=== PATIENT | male | born 1945 | race Caucasian/White ===

== ENCOUNTER 2016-10-19 13:55 | Inpatient (IN) | payer MEDICARE ==
[2016-10-19] MEDS ORDERED: NS 0.9% 1000 ML* 4,000 ML IV ONE (14:30)
[2016-10-19 14:40] LABS: Hematocrit 36 % (42-52); Hemoglobin 12.7 g/dl (14.0-18.0); Mean Corpuscular HGB Conc 36 g/dl (31-36); Mean Corpuscular Hemoglobin 32 pg (27-31); Mean Corpuscular Volume 89 fL (80-94); Mean Platelet Volume 7 um3 (7.4-10.4); Red Blood Count 4.02 10^6/ul (4.0-5.4); Red Cell Distribution Width 13 % (10.5-15); White Blood Count 16.2 10^3/ul (3.5-10.8)
[2016-10-19 14:52] LABS: Albumin 3.5 g/dL (3.2-5.2); BUN/Creatinine Ratio 23.8 (8-20); C Reactive Protein 41.31 mg/L (< 5.00); Calcium 8.5 mg/dL (8.6-10.3); Globulin 3.9 g/dL (2-4); Magnesium 2.8 mg/dL (1.9-2.7); Total Bilirubin 1.1 mg/dL (0.2-1.0); Total Protein 7.4 g/dL (6.4-8.9)
[2016-10-19 14:57] LABS: Potassium 2.5 mmol/L (3.5-5.0)
[2016-10-19 15:00] LABS: Troponin I 0.04 ng/mL (<0.04)
--- NOTE | 2016-10-19 15:17 | RAD ---
Indication: Shortness of breath, cough. 2 views of the chest demonstrate no mediastinal shift. Heart is of normal size and configuration. Bibasilar atelectasis is noted. No definite pneumonia is identified. IMPRESSION: Bibasilar atelectasis without evidence of pneumonia.
[2016-10-19] MEDS ORDERED: KCL 10 MEQ/50 ML IVPREMIX* 10 MEQ/50 ML BAG IV ONE ×2 (15:22)
[2016-10-19 15:35] LABS: TSH (Thyroid Stimulating Horm) 2.22 mcIU/mL (0.34-5.60)
--- NOTE | 2016-10-19 15:50 | ED ---
Bhanu Ko Michael, scribed for Jamil Longoria MD on 10/19/16 at 1437 . Complex/Multi-Sys Presentation - HPI Summary HPI Summary: 71 y/o male comes to the ED presenting with SOB that started one week ago. The SOB is aggravated with movement and exertion. The pt's daughter was bedside and reports that he also c/o generalized myalgia, decreased appetite, weight loss, and lethargic. The pt denies vomiting, diarrhea, fever, chills, sore throat, syncope, COATES, and CP. The pt was dx with PNA and given abx for 7 days. He notes that his cough has gotten better. The PMHx is significant for CVA with no residual weakness. - History Of Current Complaint Chief Complaint: EDWeakness Time Seen by Provider: 10/19/16 14:15 Hx Obtained From: Patient, Medical Records Onset/Duration: Gradual Onset, Lasting Weeks - 1 one, Still Present Timing: Constant Severity Currently: Moderate Severity Initially: Moderate Aggravating Factor(s): movement and exertion aggravate SOB Associated Signs And Symptoms: Positive: SOB, Other - Positive: generalized myalgia, decreased appetite, weight loss, and lethargic. Negative: vomiting, diarrhea, fever, chills, sore throat, syncope, COATES, and CP. - Allergies/Home Medications Allergies/Adverse Reactions: Allergies Allergy/AdvReac Type Severity Reaction Status Date / Time Tetanus Antitoxin Allergy Shortness Verified 10/19/16 14:01 of Breath PMH/Surg Hx/FS Hx/Imm Hx Endocrine/Hematology History: Reports: Hx Diabetes Denies: Hx Anemia, Hx Unexplained Bleeding Cardiovascular History: Reports: Hx Coronary Artery Disease, Hx Hypertension Denies: Hx Aneurysm, Hx Angina, Hx Angioplasty, Hx Auto Implanted Cardiovert Defib, Hx Cardiac Arrest, Hx Cardiomegaly, Hx Congenital Heart Disease, Hx Congestive Heart Failure, Hx Deep Vein Thrombosis, Hx Embolism, Hx Hypercholesterolemia, Hx Hypotension, Hx Pacemaker/ICD, Hx Peripheral Vascular Disease, Hx Rheumatic Fever, Hx Syncope, Hx Valvular Heart Disease, Other Cardiovascular Problems/Disorders Respiratory History: Reports: Hx Asthma, Hx Pneumonia History: Reports: Other Problems/Disorders - URINARY RETENTION, BPH Denies: Hx Renal Disease Musculoskeletal History: Reports: Hx Arthritis Sensory History: Reports: Hx Contacts or Glasses Denies: Hx Cataracts, Hx Eye Injury, Hx Eye Prosthesis, Hx Glaucoma, Hx Legally Blind, Hx Macular Degeneration, Hx Vision Problem, Hx Deafness, Hx Hearing Aid, Hx Hearing Problem, Other Sensory Impairments Opthamlomology History: Reports: Hx Contacts or Glasses Denies: Hx Cataracts, Hx Eye Injury, Hx Eye Prosthesis, Hx Glaucoma, Hx Legally Blind, Hx Macular Degeneration, Hx Vision Problem, Other Sensory Impairments Neurological History: Reports: Hx CVA - Cancer History Cancer Type, Location and Year: Skin cancer - Surgical History Surgery Procedure, Year, and Place: UMBILICAL REPAIR for hernia. Right lower arm skin cancer removed. Right lower leg fracture fixed surgically Hx Anesthesia Reactions: No Infectious Disease History: No Infectious Disease History: Denies: Hx Clostridium Difficile, Hx Hepatitis, Hx Human Immunodeficiency Virus (HIV), Hx of Known/Suspected MRSA, Hx Shingles, Hx Tuberculosis, Hx Known/ Suspected VRE, Hx Known/Suspected VRSA, History Other Infectious Disease, Traveled Outside the [place] in Last 30 Days - Family History Known Family History: Positive: None Family History: no family malignant hyperthermia and anesthesia reaction - Social History Occupation: Retired Lives: Alone Alcohol Use: None Substance Use Type: Reports: None, Other Substance Use Comment - Amount & Last Used: Chew tabacco Smoking Status (MU): Former Smoker Type: Smokeless Tobacco Amount Used/How Often: chews tobacco past 30 yrs Have You Smoked in the Last Year: No Review of Systems Positive: Other - lethargic. weight loss.. Negative: Fever, Chills Negative: Sore Throat Negative: Chest Pain Positive: Shortness Of Breath Positive: Other - decreased appetite. Negative: Vomiting, Diarrhea Positive: Myalgia Negative: Headache, Syncope Positive: Other All Other Systems Reviewed And Are Negative: Yes Physical Exam - Summary Physical Exam Summary: The patient is well-nourished in no acute distress and in no acute pain. The skin is turgor. HEENT: The head is normocephalic and atraumatic. The pupils are equal and reactive. The conjunctivae are clear and without drainage. Nares are patent and without drainage. Mouth reveals dry mucous membranes and the throat is without erythema and exudate. The external ears are intact. The ear canals are patent and without drainage. The tympanic membranes are intact. Neck is supple with full range of motion and non-tender. There are no carotid bruits. There is no neck vein distension. Respiratory: Chest is non-tender. Lungs are clear to auscultation and breath sounds are symmetrical and equal. Cardiovascular: Heart is regular rate and rhythm. There is no murmur or rub auscultated. There is no peripheral edema and pulses are symmetrical and equal. Abdomen: The abdomen is soft and non-tender. There are normal bowel sounds heard in all four quadrants and there is no organomegaly palpated. Musculoskeletal: There is no back pain noted. Extremities are non-tender with full range of motion. Capillary refill is 3 seconds. There is no peripheral edema or calf tenderness elicited. Neurological: Patient is alert and oriented to person, place and time. The patient has symmetrical motor strength in all four extremities. Psychiatric: The patient has an appropriate affect and does not exhibit any anxiety or depression. Triage Information Reviewed: Yes Vital Signs On Initial Exam: Initial Vitals Temp Pulse Resp BP Pulse Ox 97.1 F 83 20 118/59 92 10/19/16 13:57 10/19/16 13:57 10/19/16 13:57 10/19/16 13:57 10/19/16 13:57 Vital Signs Reviewed: Yes Diagnostics - Vital Signs Vital Signs Temp Pulse Resp BP Pulse Ox 10/19/16 13:57 97.1 F 83 20 118/59 92 - Laboratory Lab Results: Lab Results 10/19/16 10/19/16 10/19/16 Range/Units 14:28 14:28 14:28 WBC 16.2 H (3.5-10.8) 10^3/ul RBC 4.02 (4.0-5.4) 10^6/ul Hgb 12.7 L (14.0-18.0) g/dl Hct 36 L (42-52) % MCV 89 (80-94) fL MCH 32 H (27-31) pg MCHC 36 (31-36) g/dl RDW 13 (10.5-15) % Plt Count 240 (150-450) 10^3/ul MPV 7 L (7.4-10.4) um3 Neut % (Auto) 79.4 (38-83) % Lymph % (Auto) 10.6 L (25-47) % Kimble % (Auto) 8.2 (1-9) % Eos % (Auto) 0.9 (0-6) % Baso % (Auto) 0.9 (0-2) % Absolute Neuts (auto) 12.9 H (1.5-7.7) 10^3/ul Absolute Lymphs (auto) 1.7 (1.0-4.8) 10^3/ul Absolute Monos (auto) 1.3 H (0-0.8) 10^3/ul Absolute Eos (auto) 0.2 (0-0.6) 10^3/ul Absolute Basos (auto) 0.1 (0-0.2) 10^3/ul Absolute Nucleated RBC 0.01 10^3/ul Nucleated RBC % 0.1 INR (Anticoag Therapy) (0.89-1.11) Sodium 120 L (133-145) mmol/L Potassium 2.5 L* (3.5-5.0) mmol/L Chloride 87 L (101-111) mmol/L Carbon Dioxide 17 L (22-32) mmol/L Anion Gap 16 H (2-11) mmol/L BUN 100 H (6-24) mg/dL Creatinine 4.20 H (0.67-1.17) mg/dL Est GFR ( Amer) 18.0 (>60) Est GFR (Non-Af Amer) 14.0 (>60) BUN/Creatinine Ratio 23.8 H (8-20) Glucose 114 H (70-100) mg/dL Lactic Acid 1.1 (0.5-2.0) mmol/L Calcium 8.5 L (8.6-10.3) mg/dL Magnesium 2.8 H (1.9-2.7) mg/dL Total Bilirubin 1.10 H (0.2-1.0) mg/dL AST 18 (13-39) U/L ALT 15 (7-52) U/L Alkaline Phosphatase 43 (34-104) U/L Total Creatine Kinase 224 H (10-223) U/L Troponin I 0.04 H* (<0.04) ng/mL C-Reactive Protein 41.31 H (< 5.00) mg/L B-Natriuretic Peptide ( - 100) pg/mL Total Protein 7.4 (6.4-8.9) g/dL Albumin 3.5 (3.2-5.2) g/dL Globulin 3.9 (2-4) g/dL Albumin/Globulin Ratio 0.9 L (1-3) TSH 2.22 (0.34-5.60) mcIU/mL 10/19/16 10/19/16 Range/Units 14:28 14:28 WBC (3.5-10.8) 10^3/ul RBC (4.0-5.4) 10^6/ul Hgb (14.0-18.0) g/dl Hct (42-52) % MCV (80-94) fL MCH (27-31) pg MCHC (31-36) g/dl RDW (10.5-15) % Plt Count (150-450) 10^3/ul MPV (7.4-10.4) um3 Neut % (Auto) (38-83) % Lymph % (Auto) (25-47) % Kimble % (Auto) (1-9) % Eos % (Auto) (0-6) % Baso % (Auto) (0-2) % Absolute Neuts (auto) (1.5-7.7) 10^3/ul Absolute Lymphs (auto) (1.0-4.8) 10^3/ul Absolute Monos (auto) (0-0.8) 10^3/ul Absolute Eos (auto) (0-0.6) 10^3/ul Absolute Basos (auto) (0-0.2) 10^3/ul Absolute Nucleated RBC 10^3/ul Nucleated RBC % INR (Anticoag Therapy) 0.94 (0.89-1.11) Sodium (133-145) mmol/L Potassium (3.5-5.0) mmol/L Chloride (101-111) mmol/L Carbon Dioxide (22-32) mmol/L Anion Gap (2-11) mmol/L BUN (6-24) mg/dL Creatinine (0.67-1.17) mg/dL Est GFR ( Amer) (>60) Est GFR (Non-Af Amer) (>60) BUN/Creatinine Ratio (8-20) Glucose (70-100) mg/dL Lactic Acid (0.5-2.0) mmol/L Calcium (8.6-10.3) mg/dL Magnesium (1.9-2.7) mg/dL Total Bilirubin (0.2-1.0) mg/dL AST (13-39) U/L ALT (7-52) U/L Alkaline Phosphatase (34-104) U/L Total Creatine Kinase (10-223) U/L Troponin I (<0.04) ng/mL C-Reactive Protein (< 5.00) mg/L B-Natriuretic Peptide 22 ( - 100) pg/mL Total Protein (6.4-8.9) g/dL Albumin (3.2-5.2) g/dL Globulin (2-4) g/dL Albumin/Globulin Ratio (1-3) TSH (0.34-5.60) mcIU/mL Result Diagrams: 10/19/16 14:28 10/19/16 14:28 Lab Statement: Any lab studies that have been ordered have been reviewed, and results considered in the medical decision making process. - Radiology CXR Xray Interpretation: Positive (See Comments) - Bibasilar atelectasis without evidence of pneumonia. Radiology Interpretation Completed By: Radiologist - EKG EKG 1403 EKG Interpretation: LBBB. poor R wave progression. Left axis Complex Multi-Symp Course/Dx - Diagnoses Differential Diagnoses/HQI/PQRI: Metabolic Abnormality, Sepsis, Other - dehydration, acute renal failure, hyponatremia, pneumonia, urinary obatruction Provider Diagnoses: Dehydration, Renal failure, Hyponatremia - Physician Notifications Discussed Care Of Patient With: Dr. Childers (Hospitalist) Time Discussed With Above Provider: 15:37 - pt was accepted as admission Instructed by Provider To: Admit As Inpatient Discharge - Discharge Plan Condition: Stable Disposition: ADMITTED TO [facility] Discharge Disposition Comment: pt was accepted as admission by Dr. Childers Referrals: Bob Juarez MD [Primary Care Provider] - The documentation as recorded by the Bhanu turcios Michael accurately reflects the service I personally performed and the decisions made by , Jamil Longoria MD.
[2016-10-19] MEDS ORDERED: NS 0.9% 1000 ML* 1,000 ML IV SCH (17:00)
[2016-10-19] MEDS ORDERED: Dextrose 50% Syringe 50 ML* 25 GM/50 ML SYRINGE IV PUSH PRN (17:02)
[2016-10-19] MEDS: KCL 10 MEQ/50 ML IVPREMIX* 10 MEQ/50 ML BAG IV SCH ×3 (19:14→22:28)
[2016-10-19] MEDS: Atorvastatin* 20 MG TAB PO SCH (19:17)
[2016-10-19] MEDS: Potassium Chlor TAB* 20 MEQ TAB.ER PO SCH (19:17)
[2016-10-19] MEDS ORDERED: Tamsulosin CAP* 0.4 MG PO SCH (21:00)
[2016-10-19] MEDS: cefTRIAXone VIAL(*) 1,000 MG in NS 0.9% 50 ML* 50 ML IVPB SCH (21:12)
--- NOTE | 2016-10-19 21:28 | RAD ---
Indication: Urinary retention. Real-time sonography of the kidneys was performed. The right kidney measures 12.9 x 6.1 x 5.6 cm. Left kidney measures 13.0 x 5.6 x 5.5 cm. No hydronephrosis is noted in either kidney. There is a cystic structure in the midline. The Sexton catheter is not identified within it. No ureteral jets could BE obtained. It is unclear whether this is a suprapubic cystic structure or the urinary bladder. CT may be helpful for further evaluation. IMPRESSION: No hydronephrosis is noted. Cystic structure midline without definite ureteral jets or Sexton catheter identified. CT is suggested to further evaluate this cystic lesion.
--- NOTE | 2016-10-19 21:32 | HP ---
HISTORY AND PHYSICAL: DATE OF ADMISSION: 10/19/16 TIME OF EVALUATION: 4:30 p.m. PRIMARY CARE PROVIDER: Bob Juarez MD UROLOGIST: Stephen Machado MD CHIEF COMPLAINT: "I can't pee." HISTORY OF PRESENT ILLNESS: Mr. Law is a 71-year-old male who states that for the past week, he is having difficulty urinating. He states that he would go to the bathroom, strain, some urine would come out, but he would feel that there was still urine in there, but he was unable to void. He denies dysuria, hematuria, or abdominal pain. He states that his symptoms have gotten progressively worse over the week and today, he decided to come to the emergency room. He also complains of feeling weak and fatigued. He denies nausea and vomiting. He denies chills, body aches, but thinks he did have some fever last night. He was admitted in 2014 with urinary retention and acute renal failure and actually had a TURP performed by Dr. Machado in September 2015. On prior admissions, he was taking finasteride and tamsulosin, but he is not taking them anymore and he is not sure when he stopped them. PAST MEDICAL HISTORY: 1. Type 2 diabetes. 2. Hypertension. 3. BPH, status post TURP. 4. History of CVA. 5. Hyperlipidemia. 6. Presumed CAD based on evidence of old NE on his EKG. 7. Gangrenous cholecystitis, status post cholecystectomy. 8. Status post hernia repair. MEDICATION LIST: 1. Aspirin 81 mg p.o. daily. 2. Vitamin D 2000 units p.o. weekly. 3. Hydrochlorothiazide 25 mg p.o. daily. 4. Losartan 100 mg p.o. daily. 5. Metformin 1000 mg p.o. b.i.d. 6. Pravastatin 80 mg p.o. q.p.m. ALLERGIES: With TETANUS ANTITOXIN, the patient experienced shortness of breath. FAMILY HISTORY: Reviewed and is noncontributory. SOCIAL HISTORY: He denies tobacco, alcohol or drug use. Surrogate decision maker is his daughter, Olga Abdi. Phone number is [phone]. REVIEW OF SYSTEMS: A 14-point review of systems was performed and all the pertinent negative and positive findings are in the HPI. PHYSICAL EXAMINATION GENERAL: The patient is a pleasant, obese, elderly male, lying in ER stretcher , in no acute distress. VITAL SIGNS: Temperature 97.1, heart rate is 83, respiratory rate is 20, oxygen saturation is 92% on room air, blood pressure is 118/59. HEENT: Pupils are equal. Moist mucous membranes. CHEST: Breath sounds present bilaterally with no added sounds. CVS: Normal S1, S2. Regular rate and rhythm. ABDOMEN: Obese, soft, nontender, nondistended. Bowel sounds are present. EXTREMITIES: There are chronic skin changes and mild lower extremity edema. NEURO: He is alert, awake, and oriented x3. Able to move all 4 extremities. LABORATORY AND IMAGING DATA: The patient had a CBC that showed a WBC of 16.2, hemoglobin of 12.7, hematocrit of 36, platelets of 240 with 79% neutrophils. INR was 0.94. Chemistry showed a sodium of 120, potassium of 2.5, chloride of 87, bicarb of 17, anion gap of 16, BUN of 100, creatinine of 4.2, glucose of 114 , lactic acid of 1.1, calcium of 8.5, magnesium of 2.8, total bilirubin of 1.1. The rest of the LFTs were normal. CPK was 224, troponin 0.04, CRP is 41. BNP is 22. TSH is 2.22. Urinalysis is not available at the time of this dictation. Chest x-ray showed bibasilar atelectasis, but no evidence of pneumonia. EKG done on 10/19/16 at 1403 showed sinus arrhythmia at 76 beats per minute with a left bundle branch block. When compared to his prior EKG from October 2014, the patient already had a wide QRS at that time, but not a complete LBB like he has now. ASSESSMENT AND PLAN: Mr. Law is a 71-year-old male with a past medical history of type 2 diabetes, hypertension, benign prostatic hypertrophy, status post TURP, cerebrovascular accident, hyperlipidemia, presumed coronary artery disease, who presents to the emergency room with complaints of difficulty urinating and weakness, found to have acute kidney injury. 1. Acute kidney injury. Suspect a mixed mechanism of prerenal, renal and postrenal failure. The patient appears to be dehydrated. He is on hydrochlorothiazide as outpatient and also on losartan. Further more, he has had episodes of urinary retention in the past and his complaint at this time is of difficulty urinating. A bladder scan showed 300 mL of urine, but a Sexton catheter was placed and so far it has drained more than 500 mL, so I suspect a component of obstructive renal failure associated with his benign prostatic hypertrophy. The patient is going to receive IV hydration and we are going to monitor his renal function. 2. Urinary retention. Likely associated with benign prostatic hypertrophy. It is unclear when his tamsulosin and finasteride were discontinued. A Sexton catheter was placed in the emergency room and I am going to resume tamsulosin. We will discuss his case with his urologist to see if he recommends any other intervention. We are going to check a renal/bladder ultrasound to look for hydronephrosis or other abnormalities. 3. Possible urinary tract infection. The patient states that he had fever at home and although his vital signs are stable in the emergency room, he does have a white cell count of 16.2. Urinalysis is pending at the time of this dictation and I am going to start him empirically on ceftriaxone. 4. Anion gap metabolic acidosis likely associated with his renal failure. Lactic acid was only 1.1. We are going to continue IV hydration and monitor his CO2. 5. Hypokalemia. We will replete. Usually with renal failure, we see hyperkalemia but on this patient we are seeing hypokalemia. As his potassium is below 3, he will be monitored on telemetry and we are going to monitor his potassium values. 6. Hyponatremia suspect secondary to dehydration. We will continue IV fluids and monitor his sodium. 7. Mild troponin elevation. This is likely secondary to his renal failure, but the patient will be monitored on telemetry and we are going to check serial cardiac enzymes. 8. Code status was discussed with the patient. He wishes to be a do not resuscitate and there is already a MOLST form in his chart. 9. DVT prophylaxis. The patient has a score of 3 on DVT Prophylaxis Risk Assessment Guide and he will be started on subcutaneous heparin. TIME SPENT: Approximately 65 minutes were spent with the patient's interview, medical records review, physical examination to complete this admission, more than half this time was spent [id number] with the patient in coordination of care. CC: Bob Juarez MD; Stephen Machado MD* [id number]/[facility] #: [id number] MTDD
[2016-10-19] MEDS: Insulin LISPRO* 1 UNITS UNIT SUBCUT SCH (22:00)
[2016-10-19] MEDS: Heparin VIAL(*) 5000 UNITS/ML VIAL (FIVE THOUSAND) SUBCUT SCH (22:28)
[2016-10-19 23:40] LABS: BUN/Creatinine Ratio 25.7 (8-20); Calcium 8.4 mg/dL (8.6-10.3); EGFR African American 22.8 (>60); EGFR Non-African American 17.7 (>60); Potassium 2.9 mmol/L (3.5-5.0)
[2016-10-19 23:41] LABS: Troponin I 0.03 ng/mL (<0.04)
[2016-10-20] MEDS: KCL 20 MEQ/100 ML IVPREMIX* 20 MEQ/100 ML BAG IV SCH ×2 (00:29→03:56)
[2016-10-20] MEDS: Heparin VIAL(*) 5000 UNITS/ML VIAL (FIVE THOUSAND) SUBCUT SCH ×3 (06:04→22:10)
[2016-10-20 06:30] LABS: Hematocrit 36 % (42-52); Hemoglobin 12.8 g/dl (14.0-18.0); Mean Corpuscular HGB Conc 35 g/dl (31-36); Mean Corpuscular Hemoglobin 32 pg (27-31); Mean Corpuscular Volume 89 fL (80-94); Mean Platelet Volume 7 um3 (7.4-10.4); Red Blood Count 4.07 10^6/ul (4.0-5.4); Red Cell Distribution Width 13 % (10.5-15); White Blood Count 12.3 10^3/ul (3.5-10.8)
[2016-10-20 06:56] LABS: BUN/Creatinine Ratio 28.4 (8-20); Calcium 8.4 mg/dL (8.6-10.3); EGFR African American 27.4 (>60); EGFR Non-African American 21.3 (>60); Potassium 3.2 mmol/L (3.5-5.0)
[2016-10-20] MEDS: Insulin LISPRO* 1 UNITS UNIT SUBCUT SCH ×7 (09:34→21:52)
[2016-10-20] MEDS: Potassium Chlor TAB* 20 MEQ TAB.ER PO SCH (09:40)
[2016-10-20] MEDS: Aspirin EC Low Dose* 81 MG TAB.EC PO SCH (09:40)
[2016-10-20] MEDS ORDERED: Magnesium Sulfate 2 GM IV* 2 GM/50 ML BAG IVPB ONE (09:55)
[2016-10-20 10:14] LABS: Magnesium 2.7 mg/dL (1.9-2.7)
--- NOTE | 2016-10-20 12:35 | RAD ---
INDICATION: Assess cystic structure noted in suprapubic midline on ultrasound of one day prior. COMPARISON: Ultrasound of one day prior. October 24, 2014 CT. TECHNIQUE: Multidetector CT images were obtained from the lung bases to the ischial tuberosities. Evaluation of the viscera is limited without IV contrast. Multiplanar reformation. REPORT: Mild LEFT basilar atelectasis and pleural parenchymal scarring without suspicious change compared with the prior CT. Post cholecystectomy. 1.6 cm diameter subcapsular cyst at the RIGHT anterior hepatic segment adjacent to the gallbladder fossa. Negative for biliary dilatation. Moderately atrophic pancreas without suspicious finding. Unremarkable spleen. Negative for CT abnormality of the upper GI, small bowel, infra cecal appendix, or colon. Negative for ascites or free air. RIGHT larger than LEFT indirect fat-containing inguinal hernias without inflammatory change. Postsurgical change of supraumbilical ventral hernia repair with suggestion of chronic seroma extending deep to the mesh measuring up to 2 cm AP by 7 cm transverse without significant change. Normal adrenal glands. Vascular calcification at the LEFT renal hilum. Negative for nephrolithiasis or hydronephrosis. No conspicuous focal renal lesions. Unremarkable ureters and moderately distended urinary bladder. No catheter present. Few calcifications at the prostate gland. Symmetric seminal vesicles. Negative for lymphadenopathy. Fusiform aneurysm of the infrarenal abdominal aorta measuring up to 3.5 x 3.3 cm orthogonal diameter and extending over a cephalocaudal length of 5 cm. Partial physiologic distention of the IVC. Polyarticular degenerative arthropathy. Associated subchondral sclerosis and cystic change at the hip joints. No suspicious focal osseous lesions evident. IMPRESSION: 1. No grossly spherical cystic collection identified separate from the urinary bladder to correspond with the ultrasound finding. On this basis the ultrasound structure corresponds with the urinary bladder. 2. Fusiform aneurysm of the infrarenal abdominal aorta without significant interval change.
[2016-10-20] MEDS: KCL 10 MEQ/50 ML IVPREMIX* 10 MEQ/50 ML BAG IV SCH ×3 (12:41→16:14)
[2016-10-20 14:58] LABS: Urine Bacteria 1+ (Absent); Urine Bilirubin Negative (Negative); Urine Glucose Negative (Negative); Urine Nitrite Negative (Negative)
[2016-10-20] MEDS ORDERED: KCL 10 MEQ/50 ML IVPREMIX* 10 MEQ/50 ML BAG ONE (16:12)
--- NOTE | 2016-10-20 18:10 | PN ---
Subjective Date of Service: 10/20/16 Interval History: HOSPITALIST PROGRESS NOTE Patient seen and examined at bedside. He removed his Sexton last night and c/o not being able to void this AM. Family History: Unchanged from Admission Social History: Unchanged from Admission Past Medical History: Unchanged from Admission Objective Active Medications: Aspirin (Aspirin Ec Low Dose*) 81 mg PO DAILY [facility] Last Admin: 10/20/16 09:40 Dose: 81 mg Atorvastatin Calcium (Lipitor*) 20 mg PO 1700 [facility] Last Admin: 10/19/16 19:17 Dose: 20 mg Dextrose (D50w Syringe 50 Ml*) 12.5 gm IV PUSH .FOR FS < 60 - SS PRN PRN Reason: FS < 60 Heparin Sodium (Porcine) (Heparin Vial(*)) 5,000 units SUBCUT Q8HR [facility] Last Admin: 10/20/16 13:46 Dose: 5,000 units Sodium Chloride (Ns 0.9% 1000 Ml*) 1,000 mls @ 125 mls/hr IV PER RATE [facility] Last Admin: 10/20/16 05:36 Dose: 125 mls/hr Ceftriaxone Sodium 1,000 mg/ (Sodium Chloride) 50 mls @ 200 mls/hr IVPB Q24H [facility] Last Admin: 10/19/16 21:12 Dose: 200 mls/hr Insulin Human Lispro (Humalog*) 0 units SUBCUT AC [facility] PRN Reason: Protocol Last Admin: 10/20/16 13:47 Dose: 1 units Insulin Human Lispro (Humalog*) 0 units SUBCUT ACHS [facility] PRN Reason: Protocol Last Admin: 10/20/16 13:47 Dose: 3 units Potassium Chloride (Klor Con Er Tab*) 40 meq PO BID [facility] Vital Signs 10/19/16 10/19/16 10/19/16 18:30 19:05 21:51 Temperature Pulse Rate Respiratory 22 Rate Blood Pressure (mmHg) O2 Sat by Pulse 94 93 Oximetry 10/19/16 10/19/16 10/20/16 23:20 23:27 02:56 Temperature 97.8 F 97.4 F Pulse Rate 92 78 Respiratory 16 22 16 Rate Blood Pressure 119/43 121/52 (mmHg) O2 Sat by Pulse 97 97 Oximetry Oxygen Devices in Use Now: Nasal Cannula Appearance: Elderly male lying in bed in NAD. Eyes: No Scleral Icterus Ears/Nose/Mouth/Throat: Mucous Membranes Moist Neck: Trachea Midline Respiratory: Symmetrical Chest Expansion and Respiratory Effort, Clear to Auscultation Cardiovascular: RRR - Normal S1 and S2 Abdominal: NL Sounds; No Tenderness; No Distention - obese Extremities: - - Trace edema Neurological: Alert and Oriented x 3, NL Muscle Strength and Tone Lines/Tubes/Other Access: Clean, Dry and Intact Sexton - Coude catheter, Clean, Dry and Intact Peripheral IV Nutrition: Taking PO's Result Diagrams: 10/20/16 06:17 10/20/16 06:18 Assess/Plan/Problems-Billing Assessment: Mr. Law is a 71yo M with PMH of type 2 DM, HTN, BPH s/p TURP, CVA, HLD, presumed CAD, who presented to ED with c/o inability to void found to have urinary retention and RUSTY. - Patient Problems (1) Urinary retention Comment: - Coude placed by Dr. Machado with immediate drainage of 450ml of urine. - US and CT abdome reviewed. - As patient already had TURP, Flomax/Proscar are no longer indicated. Dr. Machado feels he may have neck of the bladder stenosis. (2) RUSTY (acute kidney injury) Comment: - Multifactorial. - Likely a combination of HCTZ, Losartan and obstruction. - Improving - continue to monitor. - Continue IVF. (3) UTI (urinary tract infection) Comment: - Suspect possible UTI in the setting of urinary retention. - Continue Ceftriaxone empirically and follow UA/culture. (4) Non-sustained ventricular tachycardia Comment: - Patient had multiple episodes of Vtach, asymptomatic. - Likely associated with his severe hypokalemia - continue to replete. - Check echocardiogram. (5) Elevated troponin Comment: - Likely associated with increased demand in the setting of infection and renal failure. (6) DVT prophylaxis Comment: - SQ heparin. (7) DNR (do not resuscitate) Status and Disposition: Inpatient.
[2016-10-20] MEDS: Atorvastatin* 20 MG TAB PO SCH (18:16)
[2016-10-20] MEDS: cefTRIAXone VIAL(*) 1,000 MG in NS 0.9% 50 ML* 50 ML IVPB SCH (18:16)
[2016-10-20] MEDS: NS 0.9% 1000 ML* 1,000 ML IV SCH (20:41)
[2016-10-20 21:15] LABS: BUN/Creatinine Ratio 28.6 (8-20); Calcium 8.5 mg/dL (8.6-10.3); EGFR African American 39.4 (>60); EGFR Non-African American 30.6 (>60); Potassium 3.1 mmol/L (3.5-5.0)
[2016-10-20] MEDS: Potassium Chloride LIQUID* 20 MEQ PACKET PO SCH (22:10)
[2016-10-21 06:14] LABS: Hematocrit 35 % (42-52); Hemoglobin 12.5 g/dl (14.0-18.0); Mean Corpuscular HGB Conc 36 g/dl (31-36); Mean Corpuscular Hemoglobin 32 pg (27-31); Mean Corpuscular Volume 90 fL (80-94); Mean Platelet Volume 7 um3 (7.4-10.4); Red Blood Count 3.93 10^6/ul (4.0-5.4); Red Cell Distribution Width 14 % (10.5-15); White Blood Count 7.3 10^3/ul (3.5-10.8)
[2016-10-21 06:27] LABS: Calcium 8.3 mg/dL (8.6-10.3); EGFR African American 49.7 (>60); EGFR Non-African American 38.7 (>60); Potassium 3.1 mmol/L (3.5-5.0)
[2016-10-21] MEDS: Heparin VIAL(*) 5000 UNITS/ML VIAL (FIVE THOUSAND) SUBCUT SCH ×3 (06:27→20:55)
[2016-10-21] MEDS: KCL 10 MEQ/50 ML IVPREMIX* 10 MEQ/50 ML BAG IV SCH ×4 (08:38→13:30)
[2016-10-21] MEDS: Aspirin EC Low Dose* 81 MG TAB.EC PO SCH (09:29)
[2016-10-21] MEDS: Potassium Chloride LIQUID* 20 MEQ PACKET PO SCH ×2 (09:29→20:53)
[2016-10-21] MEDS: Insulin LISPRO* 1 UNITS UNIT SUBCUT SCH ×7 (09:30→20:56)
[2016-10-21] MEDS: NS 0.9% 1000 ML* 1,000 ML IV SCH (10:27)
--- NOTE | 2016-10-21 10:43 | PN ---
Subjective Date of Service: 10/21/16 Interval History: HOSPITALIST PROGRESS NOTE Patient seen and examined at bedside. He feels better today, had some diarrhea yesterday, but none so far today. Tolerating diet well. Family History: Unchanged from Admission Social History: Unchanged from Admission Past Medical History: Unchanged from Admission Objective Active Medications: Aspirin (Aspirin Ec Low Dose*) 81 mg PO DAILY [facility] Last Admin: 10/21/16 09:29 Dose: 81 mg Atorvastatin Calcium (Lipitor*) 20 mg PO 1700 [facility] Last Admin: 10/20/16 18:16 Dose: 20 mg Dextrose (D50w Syringe 50 Ml*) 12.5 gm IV PUSH .FOR FS < 60 - SS PRN PRN Reason: FS < 60 Heparin Sodium (Porcine) (Heparin Vial(*)) 5,000 units SUBCUT Q8HR [facility] Last Admin: 10/21/16 06:27 Dose: 5,000 units Ceftriaxone Sodium 1,000 mg/ (Sodium Chloride) 50 mls @ 200 mls/hr IVPB Q24H [facility] Last Admin: 10/20/16 18:16 Dose: 200 mls/hr Sodium Chloride (Ns 0.9% 1000 Ml*) 1,000 mls @ 75 mls/hr IV PER RATE [facility] Last Admin: 10/21/16 10:27 Dose: 75 mls/hr Potassium Chloride (Potassium Chloride 10 Meq/50 Ml Ivpremix*) 10 meq in 50 mls @ 50 mls/hr IV Q1H [facility] Stop: 10/21/16 11:59 Last Admin: 10/21/16 10:26 Dose: 50 mls/hr Insulin Human Lispro (Humalog*) 0 units SUBCUT AC [facility] PRN Reason: Protocol Last Admin: 10/21/16 09:30 Dose: 3 units Insulin Human Lispro (Humalog*) 0 units SUBCUT ACHS [facility] PRN Reason: Protocol Last Admin: 10/21/16 09:30 Dose: 2 units Potassium Chloride (Klor-Con Liquid*) 40 meq PO BID [facility] Last Admin: 10/21/16 09:29 Dose: 40 meq Vital Signs 10/21/16 10/21/16 10/21/16 00:41 03:34 07:46 Temperature 97.6 F 98.1 F 98.3 F Pulse Rate 73 74 69 Respiratory 20 20 18 Rate Blood Pressure 128/70 115/56 131/58 (mmHg) O2 Sat by Pulse 97 96 97 Oximetry Oxygen Devices in Use Now: Nasal Cannula Appearance: Elderly male lying in bed in NAD. Eyes: No Scleral Icterus Ears/Nose/Mouth/Throat: Mucous Membranes Moist Neck: Trachea Midline Respiratory: Symmetrical Chest Expansion and Respiratory Effort, Clear to Auscultation Cardiovascular: RRR - Normal S1 and S2 Abdominal: NL Sounds; No Tenderness; No Distention - obese Extremities: - - Mild bilateral LE edema Neurological: - - AAOx2 (self and place), MARSHALL, HE Lines/Tubes/Other Access: Clean, Dry and Intact Peripheral IV Nutrition: Taking PO's Result Diagrams: 10/21/16 06:07 10/21/16 06:07 Assess/Plan/Problems-Billing Assessment: Mr. Law is a 71yo M with PMH of type 2 DM, HTN, BPH s/p TURP, CVA, HLD, presumed CAD, who presented to ED with c/o inability to void found to have urinary retention and RUSTY. - Patient Problems (1) Urinary retention Comment: - Coude placed by Dr. Machado with immediate drainage of 450ml of urine. - US and CT abdome reviewed. - As patient already had TURP, Flomax/Proscar are no longer indicated. Dr. Machado feels he may have neck of the bladder stenosis. (2) RUSTY (acute kidney injury) Comment: - Multifactorial. - Likely a combination of HCTZ, Losartan and obstruction. - Improving - continue to monitor. - Continue IVF. (3) UTI (urinary tract infection) Comment: - Suspect possible UTI in the setting of urinary retention. - Continue Ceftriaxone empirically and follow UA/culture. (4) Non-sustained ventricular tachycardia Comment: - Patient had multiple episodes of Vtach, asymptomatic. - Likely associated with his severe hypokalemia - continue to replete. - Echocardiogram was a limited study with EF 35-40%. - Had minimally elevated troponin this admission. May benefit of stress test as outpatient after acute issues resolved. (5) Elevated troponin Comment: - Likely associated with increased demand in the setting of infection and renal failure. (6) Hypokalemia Comment: - Continue to replete. (7) Diarrhea Comment: - Suspect viral gastroenteritis. This would explain his hypokalemia in the setting of RUSTY. - Continue supportive care (8) DVT prophylaxis Comment: - SQ heparin. (9) DNR (do not resuscitate) Status and Disposition: Inpatient.
--- NOTE | 2016-10-21 12:36 | ECHO ---
Patient: ALFONSO PARKER [facility] Rec#: [id number] : 1945 Date: 10/21/2016 Age: 71y Height: 167.6 cm / 66.0 in Weight: 116.1 kg / 255.9 lbs Sex: M BSA: 2.2 Room#: 439 Admit Date#: 10/19/2016 Type: Inpatient Referring: Nataliia Torre MD Reading: Ben Lara MD Director Of Market Intelligence: Keli Lacey RN RDCS CC: Bob Juarez MD Transthoracic Echocardiogram Indication: Ventricular tachycardia, borderline troponin levels BP: 115/56 HR: 68 Rhythm: NSR Findings History: CAD, old NE by EKG, HTN, HLD, DM, CVA, former smoker, obesity Technical Comments: The study is technically limited due to patient body habitus. The study is technically limited due to the patient's smoking history. Completed at 1125. Left Ventricle: The left ventricle is not well visualized.In general suboptimal images for interrogation. The left ventricular chamber size is normal. There is mild to moderately decreased left ventricular systolic function. The estimated ejection fraction is 35-40%. Most views suggest closer to 40 %. There is no consistent Doppler evidence of clinically significant diastolic dysfunction. Left Atrium: The left atrial chamber size is normal. Right Ventricle: The right ventricle is not well visualized.Off axis imaging makes accurate assessment impossible. Right Atrium: The right atrial cavity size is normal. Aortic Valve: The aortic valve is trileaflet. The aortic valve leaflets are mildly thickened. There is no evidence of aortic regurgitation. There is no evidence of aortic stenosis. Mitral Valve: The mitral valve leaflets are mildly thickened. There is a trace of mitral regurgitation. There is no evidence of mitral stenosis. Tricuspid Valve: The tricuspid valve leaflets are normal. There is trace tricuspid regurgitation. Unable to estimate the right ventricular systolic pressure. Pulmonic Valve: The pulmonic valve structure is not well visualized. Pericardium: There is no significant pericardial effusion. A pericardial fat pad is visualized. Aorta: The ascending aorta is not well visualized. The aortic arch is not well visualized. The aortic root is normal in size. Pulmonary Artery: The main pulmonary artery is not well visualized. Venous: The venous system is not well visualized. The inferior vena cava is not visualized. Conclusions The study is technically limited due to patient body habitus. The study is technically limited due to the patient's smoking history. Completed at 1125. The left ventricle is not well visualized.In general suboptimal images for interrogation. There is mild to moderately decreased left ventricular systolic function. The estimated ejection fraction is 35-40%. Most views suggest closer to 40 %. There is a trace of mitral regurgitation. There is trace tricuspid regurgitation. In general subopitmal images preclude reliable assessment. Sugeest alternative imaging study or contrast usage if LV systolic assessment is critical. Measurements Name Value Normal Range RVDdMajor (2D) 5.1 cm (2.2 - 4.4) RVAW (2D) 0.9 cm (0.2 - 0.5) RAd ISD 4CH 4 cm (3.4 - 4.9) RA (A4C)W 4.2 cm (2.9 - 4.6) IVSd (2D) 1 cm (0.6 - 1) LVPWd (2D) 1 cm (0.6 - 1) LVIDd (2D) 4.5 cm (3.6 - 5.4) LVIDs (2D) 4 cm - LV FS (2D) 11 % (25 - 45) Aortic Annulus 2.5 cm (1.4 - 2.6) Ao root diameter (2D) 3.3 cm (2.1 - 3.5) LA dimension (AP) 2D 3.4 cm (2.3 - 3.8) LAd ISD 4CH 4.5 cm (2.9 - 5.3) LA ISD 4CH W 4 cm (2.5 - 4.5) Name Value Normal Range LA ESV SP 4CH (A/L) 53 ml - LA ESV SP 2CH (A/L) 44 ml - LA ESV BP (A/L) 51 ml - LA ESV BP (A/L) index 23 ml/m2 - LA ESV SP 4CH (MOD) 49 ml - LA ESV SP 2CH (MOD) 40 ml - Name Value Normal Range MV E-wave Vmax 0.8 m/sec - MV deceleration time 286 msec - MV A-wave Vmax 0.96 m/sec - MV E:A ratio 0.8 ratio - LV septal e' Vmax 0.06 m/sec - LV lateral e' Vmax 0.11 m/sec - LV E:e' septal ratio 13.3 ratio - LV E:e' lateral ratio 7.3 ratio - Name Value Normal Range AV Vmax 1.5 m/sec - AV peak gradient 9 mmHg - LVOT Vmax 1 m/sec - Name Value Normal Range PV Vmax 0.96 m/sec -
--- NOTE | 2016-10-21 15:25 | CONS ---
CONSULTATION NOTE: DATE OF CONSULT: 10/20/16 PROCEDURE: Complex placement of Sexton catheter (16-[place] coude). REASON FOR CONSULT: I was asked by Dr. Rodarte from the hospitalist service to see this 71-year-old white male with urinary retention and difficulty placement of a Sexton catheter. HISTORY OF PRESENT ILLNESS: Mr. Law was admitted to [facility] 2 years ago with weakness, abdominal pain, and was found to be in urinary retention of 1, 500 cc. At that time, his upper tracts were normal and his serum creatinine was about 2. He had a Sexton catheter placement and the creatinine went down to 1.6. He was then followed in my office and was worked up and noted to have poor detrusor contractions. He was kept on Sexton catheter drainage for another year. Urodynamic studies finally showed recovery of the detrusor function. In September 2015, he underwent an uncomplicated transurethral resection of the prostate. He did very well postoperatively and following the catheter removal, he was able to void with an adequate stream. His postvoid residual has been running about 100 cc. I last saw him in my office 7 months ago and at that time, his residual was about 200 cc. He was not complaining of any obstructive voiding symptoms. The elevated postvoid residual was felt to be secondary to a residual flaccid neurogenic bladder. The patient was admitted to [facility] with increasing weakness and difficulty voiding. His serum creatinine was elevated at 4.2 and the bladder ultrasound showed increased postvoid residual. He had a Sexton catheter placed and 500 cc of urine was drained. His renal function improved. The patient however accidentally pulled his catheter out. Attempts by the nursing staff to replace the Sexton were not successful and a consultation is obtained. PHYSICAL EXAM: He is an elderly white male who looks older than his age. Exam of the abdomen showed moderate suprapubic distention. External genitalia are normal. After several attempts, I managed to place 16 coude catheter and a total of about 400 cc of urine was drained. There was resistance to the introduction of the Sexton in the bulbar urethra and at the level of the bladder neck suggesting elements of urethral strictures. IMPRESSION: Overall, he is improving and his renal function is getting better. PLAN: The plan is to discharge him home when ready on Sexton catheter drainage. I will see him in my office for reevaluation. He will need to have a cystoscopy to rule out any urethral stricture or bladder neck contracture. Urodynamic studies will also be needed to reevaluate his bladder function. [id number]/[facility] #: [id number] [place]
[2016-10-21] MEDS: Atorvastatin* 20 MG TAB PO SCH (17:59)
[2016-10-21] MEDS: cefTRIAXone VIAL(*) 1,000 MG in NS 0.9% 50 ML* 50 ML IVPB SCH (17:59)
[2016-10-21] MEDS ORDERED: Carvedilol TAB* 6.25 MG PO ONE (18:00)
[2016-10-21 18:54] LABS: BUN/Creatinine Ratio 23.8 (8-20); Calcium 8.2 mg/dL (8.6-10.3); EGFR African American 60.4 (>60)
[2016-10-21 18:56] LABS: Potassium 3.7 mmol/L (3.5-5.0)
[2016-10-22] MEDS: NS 0.9% 1000 ML* 1,000 ML IV SCH (00:44)
[2016-10-22] MEDS: Heparin VIAL(*) 5000 UNITS/ML VIAL (FIVE THOUSAND) SUBCUT SCH ×3 (05:08→21:12)
[2016-10-22 06:20] LABS: BUN/Creatinine Ratio 19.1 (8-20); Calcium 8.1 mg/dL (8.6-10.3); EGFR Non-African American 53.6 (>60); Potassium 3.4 mmol/L (3.5-5.0)
[2016-10-22] MEDS: Carvedilol TAB* 6.25 MG PO SCH ×2 (08:25→21:10)
[2016-10-22] MEDS: Potassium Chloride LIQUID* 20 MEQ PACKET PO SCH ×3 (08:25→21:09)
[2016-10-22] MEDS: Aspirin EC Low Dose* 81 MG TAB.EC PO SCH (08:25)
[2016-10-22] MEDS: KCL 10 MEQ/50 ML IVPREMIX* 10 MEQ/50 ML BAG IV SCH ×3 (08:26→11:11)
[2016-10-22] MEDS: Insulin LISPRO* 1 UNITS UNIT SUBCUT SCH ×7 (08:49→21:10)
[2016-10-22] MEDS ORDERED: Acetaminophen TAB* 325 MG PO PRN (10:06)
--- NOTE | 2016-10-22 16:53 | PN ---
Subjective Date of Service: 10/22/16 Interval History: HOSPITALIST PROGRESS NOTE Patient seen and examined at bedside. He feels better today, states diarrhea is resolved. Tolerating diet well, denies N/V. Denies CP and dyspnea. Family History: Unchanged from Admission Social History: Unchanged from Admission Past Medical History: Unchanged from Admission Objective Active Medications: Acetaminophen (Tylenol Tab*) 650 mg PO Q6H PRN PRN Reason: pain/fever Last Admin: 10/22/16 11:11 Dose: 650 mg Aspirin (Aspirin Ec Low Dose*) 81 mg PO DAILY [facility] Last Admin: 10/22/16 08:25 Dose: 81 mg Atorvastatin Calcium (Lipitor*) 20 mg PO 1700 [facility] Last Admin: 10/21/16 17:59 Dose: 20 mg Carvedilol (Coreg Tab*) 6.25 mg PO BID [facility] Last Admin: 10/22/16 08:25 Dose: 6.25 mg Dextrose (D50w Syringe 50 Ml*) 12.5 gm IV PUSH .FOR FS < 60 - SS PRN PRN Reason: FS < 60 Heparin Sodium (Porcine) (Heparin Vial(*)) 5,000 units SUBCUT Q8HR [facility] Last Admin: 10/22/16 13:25 Dose: 5,000 units Ceftriaxone Sodium 1,000 mg/ (Sodium Chloride) 50 mls @ 200 mls/hr IVPB Q24H [facility] Last Admin: 10/21/16 17:59 Dose: 200 mls/hr Sodium Chloride (Ns 0.9% 1000 Ml*) 1,000 mls @ 75 mls/hr IV PER RATE [facility] Last Admin: 10/22/16 00:44 Dose: 75 mls/hr Insulin Human Lispro (Humalog*) 0 units SUBCUT AC [facility] PRN Reason: Protocol Last Admin: 10/22/16 13:24 Dose: 4 units Insulin Human Lispro (Humalog*) 0 units SUBCUT ACHS [facility] PRN Reason: Protocol Last Admin: 10/22/16 13:11 Dose: Not Given Potassium Chloride (Klor-Con Liquid*) 40 meq PO TID [facility] Stop: 10/23/16 09:01 Last Admin: 10/22/16 13:25 Dose: 40 meq Vital Signs 10/22/16 10/22/16 11:22 15:26 Temperature 98.2 F 98.3 F Pulse Rate 76 80 Respiratory 16 18 Rate Blood Pressure 129/65 120/58 (mmHg) O2 Sat by Pulse 95 95 Oximetry Oxygen Devices in Use Now: Nasal Cannula Appearance: Elderly male lying in bed in NAD. Eyes: No Scleral Icterus Ears/Nose/Mouth/Throat: Mucous Membranes Moist Neck: Trachea Midline Respiratory: Symmetrical Chest Expansion and Respiratory Effort, - - BS+ bilaterally with bibasilar rales Cardiovascular: RRR - Normal S1 and S2 Abdominal: NL Sounds; No Tenderness; No Distention Extremities: - - Trace bilateral LE edema Neurological: Alert and Oriented x 3, NL Muscle Strength and Tone, - - [place] Lines/Tubes/Other Access: Clean, Dry and Intact Sexton, Clean, Dry and Intact Peripheral IV Nutrition: Taking PO's Result Diagrams: 10/21/16 06:07 10/22/16 05:30 Assess/Plan/Problems-Billing Assessment: Mr. Law is a 71yo M with PMH of type 2 DM, HTN, BPH s/p TURP, CVA, HLD, presumed CAD, who presented to ED with c/o inability to void found to have urinary retention and RUSTY. - Patient Problems (1) Urinary retention Comment: - Coude placed by Dr. Machado with immediate drainage of 450ml of urine. - US and CT abdome reviewed. - As patient already had TURP, Flomax/Proscar are no longer indicated. Dr. Machado feels he may have neck of the bladder stenosis. (2) RUSTY (acute kidney injury) Comment: - Multifactorial. - Likely a combination of HCTZ, Losartan and obstruction. - Improving - continue to monitor. - D/c IVF. (3) UTI (urinary tract infection) Comment: - Suspected possible UTI in the setting of urinary retention but cultures are negative. - D/c Ceftriaxone. (4) Non-sustained ventricular tachycardia Comment: - Patient had multiple episodes of Vtach, asymptomatic. - Likely associated with his severe hypokalemia - continue to replete. - Echocardiogram was a limited study with EF 35-40%. - Had minimally elevated troponin this admission. - Cardiology consult requested. (5) Elevated troponin Comment: - Likely associated with increased demand in the setting of infection and renal failure. (6) Hypokalemia Comment: - Continue to replete. (7) Diarrhea Comment: - Suspect viral gastroenteritis. This would explain his hypokalemia in the setting of RUSTY. - Resolved. (8) DVT prophylaxis Comment: - SQ heparin. (9) DNR (do not resuscitate) Status and Disposition: Inpatient.
[2016-10-22] MEDS: Atorvastatin* 20 MG TAB PO SCH (17:58)
[2016-10-22] MEDS: cefTRIAXone VIAL(*) 1,000 MG in NS 0.9% 50 ML* 50 ML IVPB SCH (18:00)
[2016-10-23] MEDS: Heparin VIAL(*) 5000 UNITS/ML VIAL (FIVE THOUSAND) SUBCUT SCH ×3 (05:51→22:45)
[2016-10-23 06:32] LABS: BUN/Creatinine Ratio 12.6 (8-20); Calcium 8.3 mg/dL (8.6-10.3); EGFR African American 77.1 (>60); EGFR Non-African American 59.9 (>60); Potassium 4.4 mmol/L (3.5-5.0)
[2016-10-23] MEDS: Insulin LISPRO* 1 UNITS UNIT SUBCUT SCH ×7 (07:54→22:41)
[2016-10-23] MEDS ORDERED: Regadenoson* 0.4 MG/5 ML SYRINGE ONE (10:19)
[2016-10-23] MEDS: Carvedilol TAB* 6.25 MG PO SCH ×2 (12:48→22:45)
[2016-10-23] MEDS: Aspirin EC Low Dose* 81 MG TAB.EC PO SCH (12:48)
[2016-10-23] MEDS: Potassium Chloride LIQUID* 20 MEQ PACKET PO SCH ×3 (13:22→14:02)
--- NOTE | 2016-10-23 15:20 | CONS ---
CC: Dr. Bob Juarez; Hospitalist CONSULTATION REPORT: DATE OF CONSULT: 10/22/16 PRIMARY CARE PHYSICIAN: Dr. Bob Juarez. REASON FOR CONSULT: Wide complex tachycardia. CHIEF COMPLAINT: Five days of diarrhea. HISTORY OF PRESENT ILLNESS: Mr. Law is a 71-year-old gentleman who presented to the emergency room secondary to inability to urinate for several days and 5 days of persistent diarrhea. On admis jeff, the patient was found to have significant urinary retention and a Sexton catheter was placed by Dr. Machado. During initial evaluation, the patient additionally had a long run of monomorphic ventricular tachyc ardia, he was asymptomatic with this. He was admitted to telemetry and subsequently had intermitten t tachyarrhythmias with different morphology from the initial tachyarrhythmias and appeared to be a supraventricular tachycardia. The patient denies ever having had chest pain, pressure, heaviness, dyspnea, palpitations, racing of the heart, syncope, or near syncope. He says his diarrhea has persisted and he is still not feeling at his baseline. PAST MEDICAL HISTORY: 1. Presumed CAD based on ECG and echo. 2. History of stroke. 3. Type 2 diabetes. 4. Hypertension. 5. Dyslipidemia. 6. Benign prostatic hypertrophy, status post TURP. 7. Urinary retention. 8. Morbid obesity. PAST SURGICAL HISTORY: Includes cholecystectomy for gangrenous cholecystitis with hernia repair. MEDICATIONS: Medication list on admission included: 1. Pravastatin 80 mg a day. 2. Metformin 1000 mg b.i.d. 3. Losartan 100 mg a day. 4. Hydrochlorothiazide 25 mg a day. 5. Aspirin 81 mg. 6. Vitamin D. Current inpatient medications include: 1. Tylenol. 2. Aspirin 81 mg a day. 3. Coreg 6.25 mg b.i.d. 4. Humalog. 5. Lispro insulin. 6. Subcutaneous heparin. 7. Ceftriaxone. 8. He has had multiple infusions for electrolyte replacement. ALLERGIES: Include TETANUS ANTITOXIN. FAMILY HISTORY: Significant in his father lived into his 90s, his mother "young" in her 70s; b oth of unknown etiology according to the patient. SOCIAL HISTORY: The patient lives independently in [place]. He denies smoking or alcohol intak e. REVIEW OF SYSTEMS: Negative for fevers, chills, sweats, orthopnea, PND. He denies any relatives javier ving symptoms of diarrhea or infectious illness. He denies any recent changes in activity such as t ravel or medication adjustments prior to his presentation. For all other review of systems, see his tory of present illness and other than that review of systems is negative. PHYSICAL EXAM: The patient is a morbidly obese gentleman, lying in bed at 20 degrees, appears uncom fortable, but not acutely medically ill. He is 5 feet 6 inches, weighs 256 pounds with a BMI of 41. 3. Vital Signs: Blood pressure 120/58, pulse ranges from 60 to 80, oxygen saturation is 95%, he is 98.3 degrees Fahrenheit, his T-max during the admission was 99.9. HEENT: Pupils are equal and rou nd. Mucous membranes moist. Neck: Thick from obesity without appreciable increased JVP. Palpable carotid pulses that are free of bruits. Breath sounds diminished throughout, but no wheezing, rale s, or rhonchi, and symmetrical effort. Coronary: Also distant, S1 and S2, regular without murmurs a ppreciated. Abdomen: Very obese. Active bowel sounds. Soft, no epigastric discomfort. No appreci able hepatosplenomegaly. Suprapubic area was soft. Extremities: The lower extremities appeared sy mmetrical and free of edema and more warm. Neurologically, awake and alert to person and place. Sp eech was articulate. Comprehension seems good. He was mentally able to follow commands, but physic ally was unable to sit up in bed or even roll over easily so I could listen to his lungs. He appear s extremely physically debilitated and weakened. Skin: Pale from sun exposure. Warm, dry. No appr eciable cyanosis or rashes. History of decubitus on the buttocks, not examined by me. DIAGNOSTIC STUDIES/LAB DATA: ECG on admission, 10/19/16, showed sinus rhythm, 76 beats a minute, QR S axis of -30 with poor R-wave progression in V1 through V4, suspicious for possible old anterosepta l AR and inferior Qs in leads II, III, and aVF, suspicious for old inferior wall AR, and he has 2 PV Cs on a 10-second strip. ECG, 10/22/16, shows normal sinus rhythm, 69 beats a minute, QRS axis -30 with normal AV and IV cond uction times. Inferior and anterior wall Qs as above. No ectopy. Echocardiogram from 10/20/16 was technically limited due to body habitus, which showed an ejection f raction between 35% to 40%, with trace mitral, trace tricuspid insufficiency, and was considered a s uboptimal study. A chest x-ray showed no evidence of acute pulmonary infiltrates or disease. Rhythm strips from the shows a 30-second run of monomorphic ventricular tachycardia. Laboratory, on admission, the patient's white count was 16.2, hemoglobin 12.7, platelet 240 with inc reased neutrophils and monos. INR 0.94. Sodium 120, potassium 2.5, chloride 87, bicarb 17, BUN 100 , creatinine 4.2, glucose 114, magnesium 2.8. Total bili 1.1. Troponin 0.04. CPK of 224. TSH 2.2 2. Electrolytes on October 22 show sodium 134, potassium 3.4, chloride 103, bicarb 24, BUN 25, cre atinine 1.31, glucose 104. Troponin #2 is 0.05, #3 is 0.03. Urinalysis: Specific gravity 1.008, 2+ blood, 1+ bacteria, negative esterase, and negative nitrite. Urine culture and blood cultures were negative. Stool cultures were negative for shigella toxin. IMPRESSION: In summary, Gerald Law is a 71-year-old gentleman admitted to the hospital with uri nary retention, several days of profuse diarrhea with marked electrolyte disturbances of hyponatremi a, hypokalemia, and mild hypermagnesemia, and acidemic with probable moderate cardiomyopathy based o n suboptimal echo with asymptomatic monomorphic ventricular tachycardia. Despite aggressive electro lyte replacement, he has continued with supraventricular tachyarrhythmias. Mr. Law has multipl e atherosclerotic risks as all stated above. I suspect that the marked electrolyte and metabolic disturbances were the largest contributors to th e patient's dysrhythmias, but it does appear to be in the setting of cardiomyopathy. I have recommended a 2-day chemical stress test to look for the possibility of fixed or reversible d efects and additionally to attempt to get a more accurate estimate of the patient's ejection fractio n. This data will help us to decide and have more comprehensive discussion with the patient regarding i nvasive versus noninvasive strategy and whether or not his ejection fraction is low enough to be con sidering an ICD. In the interim, I recommend continuation of optimizing his underlying metabolic abnormalities includ ing electrolyte disturbances, acidemia, and supportive measures for his diarrhea. For the patient's cardiomyopathy, possibly ischemic, I agree with Coreg and I would consider doublin g this dose, I agree with holding ASHELY inhibitors for now, but consideration for resuming these in th e future should be made with his history of diabetes and depressed ejection fraction. Further recommendations will be made pending the results of his stress test and continued response t o the above medical management. In the long-term, the patient would benefit from lifestyle modifications with weight loss, improved diet, and exercise. [id number]/[facility] #: [id number]
--- NOTE | 2016-10-23 17:33 | PN ---
Subjective Date of Service: 10/23/16 Interval History: Pt feels better today. Diarrhea that was present prior to admission still continues. Denies abd pain. Developed bead sores. Had been refusing PT Family History: Unchanged from Admission Social History: Unchanged from Admission Past Medical History: Unchanged from Admission Objective Active Medications: Acetaminophen (Tylenol Tab*) 650 mg PO Q6H PRN PRN Reason: pain/fever Last Admin: 10/22/16 11:11 Dose: 650 mg Aspirin (Aspirin Ec Low Dose*) 81 mg PO DAILY [facility] Last Admin: 10/23/16 12:48 Dose: 81 mg Atorvastatin Calcium (Lipitor*) 20 mg PO 1700 [facility] Last Admin: 10/22/16 17:58 Dose: 20 mg Carvedilol (Coreg Tab*) 12.5 mg PO BID [facility] Dextrose (D50w Syringe 50 Ml*) 12.5 gm IV PUSH .FOR FS < 60 - SS PRN PRN Reason: FS < 60 Heparin Sodium (Porcine) (Heparin Vial(*)) 5,000 units SUBCUT Q8HR [facility] Last Admin: 10/23/16 13:58 Dose: 5,000 units Insulin Human Lispro (Humalog*) 0 units SUBCUT AC [facility] PRN Reason: Protocol Last Admin: 10/23/16 14:00 Dose: 1 units Insulin Human Lispro (Humalog*) 0 units SUBCUT ACHS [facility] PRN Reason: Protocol Last Admin: 10/23/16 13:59 Dose: 2 units Vital Signs 10/22/16 10/22/16 10/23/16 19:47 20:00 00:02 Temperature 97.9 F 97.9 F Pulse Rate 86 75 Respiratory 18 18 20 Rate Blood Pressure 122/74 113/62 (mmHg) O2 Sat by Pulse 95 94 Oximetry 10/23/16 10/23/16 10/23/16 04:24 07:35 07:47 Temperature 98.0 F 98.3 F Pulse Rate 82 73 Respiratory 20 16 18 Rate Blood Pressure 137/79 130/66 (mmHg) O2 Sat by Pulse 97 94 Oximetry 10/23/16 10/23/16 13:05 14:45 Temperature 97.9 F 97.4 F Pulse Rate 101 92 Respiratory 20 Rate Blood Pressure 107/81 118/70 (mmHg) O2 Sat by Pulse 97 94 Oximetry Oxygen Devices in Use Now: Nasal Cannula Appearance: 71 yo M in nAd, aAOx3 Eyes: No Scleral Icterus, PERRLA Ears/Nose/Mouth/Throat: NL Teeth, Lips, Gums, Mucous Membranes Moist Neck: NL Appearance and Movements; NL JVP, Trachea Midline Respiratory: Symmetrical Chest Expansion and Respiratory Effort, Clear to Auscultation Cardiovascular: NL Sounds; No Murmurs; No JVD, RRR Abdominal: NL Sounds; No Tenderness; No Distention, No Hepatosplenomegaly Lymphatic: No Cervical Adenopathy Extremities: No Edema, No Clubbing, Cyanosis Skin: - - small 2 cm in diam x 3 sacral decubs-stage 2 Neurological: Alert and Oriented x 3, NL Muscle Strength and Tone Result Diagrams: 10/21/16 06:07 10/23/16 05:15 Additional Lab and Data: Lab Results 10/19/16 10/19/16 10/19/16 Range/Units 14:28 14:28 14:28 WBC 16.2 H (3.5-10.8) 10^3/ul RBC 4.02 (4.0-5.4) 10^6/ul Hgb 12.7 L (14.0-18.0) g/dl Hct 36 L (42-52) % MCV 89 (80-94) fL MCH 32 H (27-31) pg MCHC 36 (31-36) g/dl RDW 13 (10.5-15) % Plt Count 240 (150-450) 10^3/ul MPV 7 L (7.4-10.4) um3 Neut % (Auto) 79.4 (38-83) % Lymph % (Auto) 10.6 L (25-47) % Pitt % (Auto) 8.2 (1-9) % Eos % (Auto) 0.9 (0-6) % Baso % (Auto) 0.9 (0-2) % Absolute Neuts (auto) 12.9 H (1.5-7.7) 10^3/ul Absolute Lymphs (auto) 1.7 (1.0-4.8) 10^3/ul Absolute Monos (auto) 1.3 H (0-0.8) 10^3/ul Absolute Eos (auto) 0.2 (0-0.6) 10^3/ul Absolute Basos (auto) 0.1 (0-0.2) 10^3/ul Absolute Nucleated RBC 0.01 10^3/ul Nucleated RBC % 0.1 INR (Anticoag Therapy) (0.89-1.11) Sodium 120 L (133-145) mmol/L Potassium 2.5 L* (3.5-5.0) mmol/L Chloride 87 L (101-111) mmol/L Carbon Dioxide 17 L (22-32) mmol/L Anion Gap 16 H (2-11) mmol/L BUN 100 H (6-24) mg/dL Creatinine 4.20 H (0.67-1.17) mg/dL Est GFR ( Amer) 18.0 (>60) Est GFR (Non-Af Amer) 14.0 (>60) BUN/Creatinine Ratio 23.8 H (8-20) Glucose 114 H (70-100) mg/dL Lactic Acid 1.1 (0.5-2.0) mmol/L Calcium 8.5 L (8.6-10.3) mg/dL Magnesium 2.8 H (1.9-2.7) mg/dL Total Bilirubin 1.10 H (0.2-1.0) mg/dL AST 18 (13-39) U/L ALT 15 (7-52) U/L Alkaline Phosphatase 43 (34-104) U/L Total Creatine Kinase 224 H (10-223) U/L Troponin I 0.04 H* (<0.04) ng/mL C-Reactive Protein 41.31 H (< 5.00) mg/L B-Natriuretic Peptide ( - 100) pg/mL Total Protein 7.4 (6.4-8.9) g/dL Albumin 3.5 (3.2-5.2) g/dL Globulin 3.9 (2-4) g/dL Albumin/Globulin Ratio 0.9 L (1-3) TSH 2.22 (0.34-5.60) mcIU/mL 10/19/16 10/19/16 Range/Units 14:28 14:28 WBC (3.5-10.8) 10^3/ul RBC (4.0-5.4) 10^6/ul Hgb (14.0-18.0) g/dl Hct (42-52) % MCV (80-94) fL MCH (27-31) pg MCHC (31-36) g/dl RDW (10.5-15) % Plt Count (150-450) 10^3/ul MPV (7.4-10.4) um3 Neut % (Auto) (38-83) % Lymph % (Auto) (25-47) % Pitt % (Auto) (1-9) % Eos % (Auto) (0-6) % Baso % (Auto) (0-2) % Absolute Neuts (auto) (1.5-7.7) 10^3/ul Absolute Lymphs (auto) (1.0-4.8) 10^3/ul Absolute Monos (auto) (0-0.8) 10^3/ul Absolute Eos (auto) (0-0.6) 10^3/ul Absolute Basos (auto) (0-0.2) 10^3/ul Absolute Nucleated RBC 10^3/ul Nucleated RBC % INR (Anticoag Therapy) 0.94 (0.89-1.11) Sodium (133-145) mmol/L Potassium (3.5-5.0) mmol/L Chloride (101-111) mmol/L Carbon Dioxide (22-32) mmol/L Anion Gap (2-11) mmol/L BUN (6-24) mg/dL Creatinine (0.67-1.17) mg/dL Est GFR ( Amer) (>60) Est GFR (Non-Af Amer) (>60) BUN/Creatinine Ratio (8-20) Glucose (70-100) mg/dL Lactic Acid (0.5-2.0) mmol/L Calcium (8.6-10.3) mg/dL Magnesium (1.9-2.7) mg/dL Total Bilirubin (0.2-1.0) mg/dL AST (13-39) U/L ALT (7-52) U/L Alkaline Phosphatase (34-104) U/L Total Creatine Kinase (10-223) U/L Troponin I (<0.04) ng/mL C-Reactive Protein (< 5.00) mg/L B-Natriuretic Peptide 22 ( - 100) pg/mL Total Protein (6.4-8.9) g/dL Albumin (3.2-5.2) g/dL Globulin (2-4) g/dL Albumin/Globulin Ratio (1-3) TSH (0.34-5.60) mcIU/mL Microbiology and Other Data: Microbiology 10/20/16 06:17 Aerobic Blood Culture - Preliminary Blood Venous No Growth Day 1 Anaerobic Blood Culture - Preliminary No Growth Day 1 10/19/16 23:06 Aerobic Blood Culture - Preliminary Blood Venous No Growth Day 1 Anaerobic Blood Culture - Preliminary No Growth Day 1 10/19/16 20:00 Stool Gross Appearance - Final Stool Shiga Toxin I & II - Final 10/20/16 00:49 Influenza Types A,B Antigen (WILFREDO) - Final Nasopharyngeal Specimen received for Influenza A/B Molecular testing Assess/Plan/Problems-Billing Assessment: Mr. Law is a 71yo M with PMH of type 2 DM, HTN, BPH s/p TURP, CVA, HLD, presumed CAD, who presented to ED with c/o inability to void found to have urinary retention and RUSTY. - Patient Problems (1) Urinary retention Comment: Coude placed by Dr. Machado with immediate drainage of 450ml of urine on 10/20/[address] abdomen reviewed. As patient already had TURP, Flomax/Proscar are no longer indicated. Dr. Machado feels he may have neck of the bladder stenosis. plan to d/c with leonardo in place (2) UTI (urinary tract infection) Comment: - Suspected possible UTI in the setting of urinary retention but cultures are negative. - D/c Ceftriaxone. (3) RUSTY (acute kidney injury) Comment: Multifactorial. Likely a combination of HCTZ, Losartan and obstruction. Improving - continue to monitor. (4) Non-sustained ventricular tachycardia Comment: Patient had multiple episodes of Vtach, asymptomatic. Echocardiogram was a limited study with EF 35-40%. Had minimally elevated troponin this admission. Cardiology consult appreciated. stress test in process (5) Hypokalemia Comment: resolved (6) Diarrhea Comment: Suspect viral gastroenteritis. This would explain his hypokalemia in the setting of RUSTY. still ongoing. Check stool for c. diff (7) Elevated troponin Comment: Likely associated with increased demand in the setting of infection and renal failure. (8) DVT prophylaxis Comment: - SQ heparin. Status and Disposition: Inpatient.
[2016-10-23] MEDS: Atorvastatin* 20 MG TAB PO SCH (17:40)
[2016-10-23] MEDS ORDERED: Amoxicillin/Clavulanate TAB* 875 MG PO SCH (21:00)
[2016-10-24] MEDS: Heparin VIAL(*) 5000 UNITS/ML VIAL (FIVE THOUSAND) SUBCUT SCH ×4 (07:46→21:31)
[2016-10-24] MEDS: Insulin LISPRO* 1 UNITS UNIT SUBCUT SCH ×7 (07:56→21:30)
--- NOTE | 2016-10-24 09:05 | RAD ---
Edited for charges. INDICATION: Diabetes, hypertension, obesity. COMPARISON: None. TECHNIQUE: On October 24, 2016, 25.650 mCi of Tc-99m Myoview were administered IV. SPECT images of the heart were obtained. On October 23, 2016, under the direction of Dr. Temple, the patient was given an IV injection of a pharmacologic stress agent. Subsequently, the patient was given an IV injection of 26.230 mCi Tc-99m Myoview. SPECT images of the heart were obtained and a gated wall motion study was performed. No gated study could be performed for the stress exam due to arrhythmia. No CT for attenuation could be obtained due to body habitus and limited range of motion of the arms. FINDINGS: Gated wall motion images were obtained at rest and demonstrate global hypokinesia. Calculated left ventricular ejection fraction is 37 % at rest. Estimated LEFT ventricular end diastolic volume is 134 mL at rest. TID 0.92. Large fixed perfusion defect at the apex and apical to basilar inferior wall segments. Given absence of CT for attenuation correction diaphragmatic attenuation cannot be differentiated from presence of an infarct. No reversible stress-induced myocardial perfusion defects evident. IMPRESSION: 1. Limited exam due to arrhythmia precluding stress gated study and absence of CT for attenuation correction. 2. Elevated LEFT ventricular end-diastolic volume and global hypokinesia with moderately severe abnormal estimated LEFT ventricular ejection fraction of 37%. 3. Large fixed perfusion defect at the apex and apical to basilar inferior wall segments. Given absence of CT for attenuation correction diaphragmatic attenuation cannot be differentiated from presence of an infarct. 4. No stress-induced ischemia evident. ASSESSMENT: High risk. Based on imaging criteria from ACC/AHA 2002 Guideline Update for the Management of Patients With Chronic Stable Angina Table 23. Noninvasive Risk Stratification. MTDD
[2016-10-24] MEDS: Carvedilol TAB* 6.25 MG PO SCH ×2 (10:05→17:07)
[2016-10-24] MEDS: Aspirin EC Low Dose* 81 MG TAB.EC PO SCH (10:05)
--- NOTE | 2016-10-24 14:55 | PN ---
Subjective Date of Service: 10/24/16 Interval History: Pt did not have a BM since yesterday mid day and C. diff test was discontinued. No complaints. ambulated with PT and was cleared for discharge. Telem shows episodes of atrial tachycardia, but no V. tach x 48H. Family History: Unchanged from Admission Social History: Unchanged from Admission Past Medical History: Unchanged from Admission Objective Active Medications: Acetaminophen (Tylenol Tab*) 650 mg PO Q6H PRN PRN Reason: pain/fever Last Admin: 10/22/16 11:11 Dose: 650 mg Aspirin (Aspirin Ec Low Dose*) 81 mg PO DAILY [facility] Last Admin: 10/24/16 10:05 Dose: 81 mg Atorvastatin Calcium (Lipitor*) 20 mg PO 1700 [facility] Last Admin: 10/23/16 17:40 Dose: 20 mg Carvedilol (Coreg Tab*) 12.5 mg PO BID WITH MEALS [facility] Last Admin: 10/24/16 10:05 Dose: 12.5 mg Dextrose (D50w Syringe 50 Ml*) 12.5 gm IV PUSH .FOR FS < 60 - SS PRN PRN Reason: FS < 60 Heparin Sodium (Porcine) (Heparin Vial(*)) 5,000 units SUBCUT Q8HR [facility] Last Admin: 10/24/16 10:06 Dose: 5,000 units Insulin Human Lispro (Humalog*) 0 units SUBCUT AC [facility] PRN Reason: Protocol Last Admin: 10/24/16 12:57 Dose: 5 units Insulin Human Lispro (Humalog*) 0 units SUBCUT ACHS [facility] PRN Reason: Protocol Last Admin: 10/24/16 12:58 Dose: 3 units Lactobacillus Rhamnosus (Culturelle*) 1 cap PO BID [facility] Vital Signs 10/23/16 10/23/16 10/24/16 19:59 20:00 00:14 Temperature 98.3 F 97.9 F Pulse Rate 74 71 Respiratory 16 16 Rate Blood Pressure 131/70 134/77 (mmHg) O2 Sat by Pulse 96 96 Oximetry 10/24/16 10/24/16 10/24/16 03:45 08:00 10:05 Temperature 98.1 F 97.9 F Pulse Rate 71 74 Respiratory 20 20 Rate Blood Pressure 128/67 125/65 (mmHg) O2 Sat by Pulse 93 96 Oximetry Oxygen Devices in Use Now: None Appearance: 71 yo M in NAD, aAOx3 Eyes: No Scleral Icterus, PERRLA Ears/Nose/Mouth/Throat: NL Teeth, Lips, Gums, Mucous Membranes Moist Neck: NL Appearance and Movements; NL JVP, Trachea Midline Respiratory: Symmetrical Chest Expansion and Respiratory Effort, Clear to Auscultation Cardiovascular: NL Sounds; No Murmurs; No JVD, RRR Abdominal: NL Sounds; No Tenderness; No Distention, No Hepatosplenomegaly Lymphatic: No Cervical Adenopathy Extremities: No Edema, No Clubbing, Cyanosis Skin: No Nodules or Sclerosis, - - sacral decubs not examined today Neurological: Alert and Oriented x 3, NL Muscle Strength and Tone Result Diagrams: 10/21/16 06:07 10/23/16 05:15 Additional Lab and Data: Lab Results 10/19/16 10/19/16 10/19/16 Range/Units 14:28 14:28 14:28 WBC 16.2 H (3.5-10.8) 10^3/ul RBC 4.02 (4.0-5.4) 10^6/ul Hgb 12.7 L (14.0-18.0) g/dl Hct 36 L (42-52) % MCV 89 (80-94) fL MCH 32 H (27-31) pg MCHC 36 (31-36) g/dl RDW 13 (10.5-15) % Plt Count 240 (150-450) 10^3/ul MPV 7 L (7.4-10.4) um3 Neut % (Auto) 79.4 (38-83) % Lymph % (Auto) 10.6 L (25-47) % Blaine % (Auto) 8.2 (1-9) % Eos % (Auto) 0.9 (0-6) % Baso % (Auto) 0.9 (0-2) % Absolute Neuts (auto) 12.9 H (1.5-7.7) 10^3/ul Absolute Lymphs (auto) 1.7 (1.0-4.8) 10^3/ul Absolute Monos (auto) 1.3 H (0-0.8) 10^3/ul Absolute Eos (auto) 0.2 (0-0.6) 10^3/ul Absolute Basos (auto) 0.1 (0-0.2) 10^3/ul Absolute Nucleated RBC 0.01 10^3/ul Nucleated RBC % 0.1 INR (Anticoag Therapy) (0.89-1.11) Sodium 120 L (133-145) mmol/L Potassium 2.5 L* (3.5-5.0) mmol/L Chloride 87 L (101-111) mmol/L Carbon Dioxide 17 L (22-32) mmol/L Anion Gap 16 H (2-11) mmol/L BUN 100 H (6-24) mg/dL Creatinine 4.20 H (0.67-1.17) mg/dL Est GFR ( Amer) 18.0 (>60) Est GFR (Non-Af Amer) 14.0 (>60) BUN/Creatinine Ratio 23.8 H (8-20) Glucose 114 H (70-100) mg/dL Lactic Acid 1.1 (0.5-2.0) mmol/L Calcium 8.5 L (8.6-10.3) mg/dL Magnesium 2.8 H (1.9-2.7) mg/dL Total Bilirubin 1.10 H (0.2-1.0) mg/dL AST 18 (13-39) U/L ALT 15 (7-52) U/L Alkaline Phosphatase 43 (34-104) U/L Total Creatine Kinase 224 H (10-223) U/L Troponin I 0.04 H* (<0.04) ng/mL C-Reactive Protein 41.31 H (< 5.00) mg/L B-Natriuretic Peptide ( - 100) pg/mL Total Protein 7.4 (6.4-8.9) g/dL Albumin 3.5 (3.2-5.2) g/dL Globulin 3.9 (2-4) g/dL Albumin/Globulin Ratio 0.9 L (1-3) TSH 2.22 (0.34-5.60) mcIU/mL 10/19/16 10/19/16 Range/Units 14:28 14:28 WBC (3.5-10.8) 10^3/ul RBC (4.0-5.4) 10^6/ul Hgb (14.0-18.0) g/dl Hct (42-52) % MCV (80-94) fL MCH (27-31) pg MCHC (31-36) g/dl RDW (10.5-15) % Plt Count (150-450) 10^3/ul MPV (7.4-10.4) um3 Neut % (Auto) (38-83) % Lymph % (Auto) (25-47) % Blaine % (Auto) (1-9) % Eos % (Auto) (0-6) % Baso % (Auto) (0-2) % Absolute Neuts (auto) (1.5-7.7) 10^3/ul Absolute Lymphs (auto) (1.0-4.8) 10^3/ul Absolute Monos (auto) (0-0.8) 10^3/ul Absolute Eos (auto) (0-0.6) 10^3/ul Absolute Basos (auto) (0-0.2) 10^3/ul Absolute Nucleated RBC 10^3/ul Nucleated RBC % INR (Anticoag Therapy) 0.94 (0.89-1.11) Sodium (133-145) mmol/L Potassium (3.5-5.0) mmol/L Chloride (101-111) mmol/L Carbon Dioxide (22-32) mmol/L Anion Gap (2-11) mmol/L BUN (6-24) mg/dL Creatinine (0.67-1.17) mg/dL Est GFR ( Amer) (>60) Est GFR (Non-Af Amer) (>60) BUN/Creatinine Ratio (8-20) Glucose (70-100) mg/dL Lactic Acid (0.5-2.0) mmol/L Calcium (8.6-10.3) mg/dL Magnesium (1.9-2.7) mg/dL Total Bilirubin (0.2-1.0) mg/dL AST (13-39) U/L ALT (7-52) U/L Alkaline Phosphatase (34-104) U/L Total Creatine Kinase (10-223) U/L Troponin I (<0.04) ng/mL C-Reactive Protein (< 5.00) mg/L B-Natriuretic Peptide 22 ( - 100) pg/mL Total Protein (6.4-8.9) g/dL Albumin (3.2-5.2) g/dL Globulin (2-4) g/dL Albumin/Globulin Ratio (1-3) TSH (0.34-5.60) mcIU/mL Microbiology and Other Data: Microbiology 10/20/16 06:17 Aerobic Blood Culture - Preliminary Blood Venous No Growth Day 1 Anaerobic Blood Culture - Preliminary No Growth Day 1 10/19/16 23:06 Aerobic Blood Culture - Preliminary Blood Venous No Growth Day 1 Anaerobic Blood Culture - Preliminary No Growth Day 1 10/19/16 20:00 Stool Gross Appearance - Final Stool Shiga Toxin I & II - Final 10/20/16 00:49 Influenza Types A,B Antigen ([facility]ED[facility]) - Final Nasopharyngeal Specimen received for Influenza A/B Molecular testing Assess/Plan/Problems-Billing Assessment: Mr. Law is a 71yo M with PMH of type 2 DM, HTN, BPH s/p TURP, CVA, HLD, presumed CAD, who presented to ED with c/o inability to void found to have urinary retention and RUSTY. - Patient Problems (1) Urinary retention Comment: Coude placed by Dr. Machado with immediate drainage of 450ml of urine on 10/20/[address] abdomen reviewed. As patient already had TURP, Flomax/Proscar are no longer indicated. Dr. Machado feels he may have neck of the bladder stenosis. plan to d/c with leonardo in place (2) UTI (urinary tract infection) Comment: - Suspected possible UTI in the setting of urinary retention but cultures are negative. - D/c Ceftriaxone. (3) RUSTY (acute kidney injury) Comment: Multifactorial. Likely a combination of HCTZ, Losartan and obstruction. Improving - continue to monitor. (4) Non-sustained ventricular tachycardia Comment: Patient had multiple episodes of Vtach, asymptomatic. Echocardiogram was a limited study with EF 35-40%. Had minimally elevated troponin this admission. Cardiology consult appreciated. stress test shows large area of fixed defect, EF 37%, no inducible ischemia. D/w DR. Tomlinson who recommended Life Vest. Pt refused. He was explained the indication for a Life Vest and risks of sudden cardiac without it and wished to cont DNR and be discharged home tomorrow. (5) Hypokalemia Comment: resolved (6) Diarrhea Comment: Suspect viral gastroenteritis. This would explain his hypokalemia in the setting of RUSTY. resolving (7) Elevated troponin Comment: Likely associated with increased demand in the setting of infection and renal failure. cont ASA/statin/BB. (8) DVT prophylaxis Comment: - SQ heparin. Status and Disposition: Inpatient.Plan to d/c home with VNS in AM.
[2016-10-24] MEDS: Lactobacillus Acidophilu (GG)* 1 CAP CAP PO SCH ×2 (16:00→20:54)
[2016-10-24] MEDS: Atorvastatin* 20 MG TAB PO SCH (17:07)
[2016-10-25] MEDS: Heparin VIAL(*) 5000 UNITS/ML VIAL (FIVE THOUSAND) SUBCUT SCH (05:03)
[2016-10-25 05:10] LABS: Calcium 8.4 mg/dL (8.6-10.3); EGFR African American 78.6 (>60); EGFR Non-African American 61.1 (>60); Potassium 4.4 mmol/L (3.5-5.0)
[2016-10-25] MEDS: Insulin LISPRO* 1 UNITS UNIT SUBCUT SCH ×4 (09:37→14:08)
--- NOTE | 2016-10-25 09:43 | PN ---
Subjective Date of Service: 10/25/16 - cc: VT, diarrhea Interval History: The patient feels much better, diarrhea resolving, able to walk to bathroom, in his room. No CP, palpitations or SOB. Not dizzy. Medications Active Medications: Acetaminophen (Tylenol Tab*) 650 mg PO Q6H PRN PRN Reason: pain/fever Last Admin: 10/22/16 11:11 Dose: 650 mg Aspirin (Aspirin Ec Low Dose*) 81 mg PO DAILY [facility] Last Admin: 10/24/16 10:05 Dose: 81 mg Atorvastatin Calcium (Lipitor*) 20 mg PO 1700 [facility] Last Admin: 10/24/16 17:07 Dose: 20 mg Carvedilol (Coreg Tab*) 12.5 mg PO BID WITH MEALS [facility] Last Admin: 10/24/16 17:07 Dose: 12.5 mg Dextrose (D50w Syringe 50 Ml*) 12.5 gm IV PUSH .FOR FS < 60 - SS PRN PRN Reason: FS < 60 Heparin Sodium (Porcine) (Heparin Vial(*)) 5,000 units SUBCUT Q8HR [facility] Last Admin: 10/25/16 05:03 Dose: 5,000 units Insulin Human Lispro (Humalog*) 0 units SUBCUT AC [facility] PRN Reason: Protocol Last Admin: 10/24/16 17:20 Dose: 4 units Insulin Human Lispro (Humalog*) 0 units SUBCUT ACHS [facility] PRN Reason: Protocol Last Admin: 10/24/16 21:30 Dose: 3 units Lactobacillus Rhamnosus (Culturelle*) 1 cap PO BID [facility] Last Admin: 10/24/16 20:54 Dose: 1 cap Objective Vital Signs: Temp Pulse Resp BP Pulse Ox 98.3 F 66 17 133/74 97 10/25/16 03:42 10/25/16 03:42 10/25/16 03:42 10/25/16 03:42 10/25/16 03:42 Oxygen Devices in Use Now: None Appearance: obese elderly gentleman, sitting, appears comfortable, much improved. Eyes: No Scleral Icterus Ears/Nose/Mouth/Throat: Clear Oropharnyx Neck: Trachea Midline, No Thyroid Enlargement, Masses Respiratory: Symmetrical Chest Expansion and Respiratory Effort, Clear to Auscultation Cardiovascular: NL Sounds; No Murmurs; No JVD, RRR Abdominal: NL Sounds; No Tenderness; No Distention - obese, rotund. Extremities: No Edema Skin: No Rash or Ulcers Neurological: Alert and Oriented x 3 Lines/Tubes/Other Access: Clean, Dry and Intact Peripheral IV Laboratory Results: 10/21/16 06:07 10/25/16 04:31 INR (Anticoag Therapy) 0.94 (0.89-1.11) 10/19/16 14:28 Total Bilirubin 1.10 mg/dL (0.2-1.0) H 10/19/16 14:28 AST 18 U/L (13-39) 10/19/16 14:28 ALT 15 U/L (7-52) 10/19/16 14:28 Alkaline Phosphatase 43 U/L (34-104) 10/19/16 14:28 B-Natriuretic Peptide 22 pg/mL (-100) 10/19/16 14:28 Total Protein 7.4 g/dL (6.4-8.9) 10/19/16 14:28 Albumin 3.5 g/dL (3.2-5.2) 10/19/16 14:28 Globulin 3.9 g/dL (2-4) 10/19/16 14:28 Albumin/Globulin Ratio 0.9 (1-3) L 10/19/16 14:28 TSH 2.22 mcIU/mL (0.34-5.60) 10/19/16 14:28 10/19/16 10/19/16 19:48 23:06 Troponin I 0.05 H* 0.03 Diagnostic Imagin day lexiscan myoview: Fixed inferior apical defect, EF 37%. EKG Data: Monitor: NSR, short bursts of what I think is SVT with mild abberancy, no recurrance of VT (wider, different axis than current tachyarrhythmias). Assessment/Plan 71 yo male admitted with urinary retention, acute RI, diarrhea and marked electrolyte disturbances with VT in ER. Cardiac work up revealed a moderate CM, appears ischemic with no evidence of reversable ischemia. Improved s/p leonardo, electrolyte replacement, Coreg. Points of Discussion: CM: no evidence of CHF. Continue Coreg, consider resuming ACEI as creatinine normalized. CAD: No inducation for a cath. Continue medical management with risk factor modification as out patient, diet and more. VT: A comprehensive discussion with the patient regarding potential for syncope /sudden was had. The patient is not interested in a life vest or ICD, he is fine if he dies from VT. We also discussed the potential impact of other medical issues on his cardiac health, I advised him to contact his MD as soon as he has a problem instead of waiting days as he did recently. I recommend the patient follow up with cardiology in 1-2 months (Dr[address] Franklin).
[2016-10-25] MEDS: Carvedilol TAB* 6.25 MG PO SCH (09:51)
[2016-10-25] MEDS: Lactobacillus Acidophilu (GG)* 1 CAP CAP PO SCH (09:52)
[2016-10-25] MEDS: Aspirin EC Low Dose* 81 MG TAB.EC PO SCH (09:52)
[2016-10-25 13:31] VITALS: BP 125/73
--- NOTE | 2016-10-26 01:38 | DS ---
DISCHARGE SUMMARY: DATE OF ADMISSION: 10/19/16 DATE OF DISCHARGE: 10/25/16 PRIMARY CARE PROVIDER: Dr. Juarez. DISCHARGE DIAGNOSES: 1. Diarrhea with subsequent dehydration as well as hyponatremia and hypokalemia. 2. Acute kidney injury. 3. Urinary retention, status post Sexton placement. 4. Nonsustained ventricular tachycardia. 5. Elevated troponin. SECONDARY DIAGNOSES: 1. History of diabetes type 2. 2. Hypertension. 3. History of status post TURP. 4. History of CVA. 5. Hyperlipidemia. 6. History of gangrenous cholecystitis, status post cholecystectomy. 7. History of hernia repair. MEDICATIONS AT DISCHARGE: Include: 1. Aspirin 81 mg daily. 2. Metformin 1000 mg b.i.d. 3. Coreg 12.5 mg b.i.d. 4. Vitamin D 2000 units daily. 5. Zestril 5 mg daily. 6. Pravastatin 80 mg daily. The patient is recommended to follow up with his primary care provider, Dr. Juarez, on 10/28/16 at 11:30 a.m. The patient is to follow up with Dr. Machado in 1 to 2 weeks regarding indwelling Sexton. LABORATORY DATA: On 10/21/16, white blood cell count of 7.3, hemoglobin 12.5, hematocrit 35, and platelets of 203. On 10/25/16, sodium of 131, potassium 4.4 , chloride of 102, carbon dioxide 24, BUN 14, creatinine 1.17. Flu test was negative. Microbiology study showed blood cultures that were negative to date. Stool culture that was negative and urine cultures that showed no growth. Cardiac stress test performed on 10/24/16, impression: "Limited exam due to arrhythmia precluding stress gated study and absence of CT for attenuation correction. Elevated left ventricular end-diastolic volume and global hypokinesis with moderately severe abnormal estimated left ventricular ejection fraction of 37%. Large fixed perfusion defect at the apex and apical to basilar inferior wall segments. Given absence of CT attenuation correction, diaphragmatic attenuation cannot be differentiated for presence of an infarct. No stress-induced ischemia evident. Assessment is high risk." Transthoracic echocardiogram on 10/20/16 showed EF of 35% to 40% with trace mitral regurgitation and trace tricuspid regurgitation. CT of the abdomen and pelvis obtained on 10/20/16, impression: "No gross spherical cystic collection is identified separate from the urinary bladder to correspond with the ultrasound findings, correspond with urinary bladder. 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 Cystic structure without definite ureteral jets or Sexton catheter identified. CT suggested for further evaluation." CONSULTATION DURING THE HOSPITAL STAY: Included: 1. Dr. Franklin from Cardiology. 2. Dr. Machado from Urology. HOSPITALIZATION COURSE: Gerald Law is a 71-year-old male with history of above- mentioned chronic medical conditions, who presented to the hospital complaining of inability to urinate. The patient also complained of diarrhea that developed approximately 3 days prior to his presentation to the ED. The patient was noted to have urinary retention with over 450 mL of urine retained in the bladder. He was severely hyponatremic, hypokalemic with acute renal failure and creatinine above 4. His troponin was mildly elevated at 0.4. The patient was initially empirically treated with ceftriaxone for possibility of urinary tract infection but that was further deemed to have negative workup and ceftriaxone was discontinued. Dr. Machado saw the patient in consultation and placed a Coude for the patient to go home with. Due to mildly elevated troponin, an echocardiogram was performed, which showed markedly diminished ejection fraction. Due to that as well as due to episodes of nonsustained ventricular tachycardia during telemetry monitoring, Dr. Franklin saw the patient in consultation. The patient appeared to have episodes of atrial tachyarrhythmia as well as short burst of VT. At this point, Cardiology recommended further evaluation of cardiac stress test. It was deemed high risk with 2 large areas of infarct, but no inducible ischemia was noted. At this point, the patient was started on beta-ger and titrated. He was offered a LifeVest. The patient was informed that he may have a life- threatening arrhythmia and he is to wear LifeVest for another 3 months until re- evaluated by Cardiology. The patient declined the LifeVest. He was aware of that that if he declines the LifeVest, the risk is tachyarrhythmia and sudden cardiac . In regards to his electrolyte abnormalities, which included hyponatremia and hypokalemia, that resolved with intravenous hydration and potassium replacements. The patient's acute renal failure resolved after urinary retention, was treated with Sexton catheter after intravenous hydration. The patient's diarrhea continued throughout most of his hospital stay and ended a couple of days prior to discharge. His stools were negative for any pathogens. The diarrhea did improve once his cephalexin was discontinued. The patient did develop very small areas of decubitus on his sacrum. Those were 3 areas, superficial stage 2. Wound care nurse was asked to see the patient in consultation and recommended barrier cream, which was provided to the patient. Physical Therapy evaluated the patient and continued to follow his progression. He did very well. By the time of discharge, he was able to ambulate with a rolling walker. At discharge, the patient is recommended to follow up with Dr. Machado in approximately 1 to 2 weeks. The patient is also recommended to follow up with his primary care physician with a scheduled appointment on 10/28/16 at 11:30 a.m. PHYSICAL EXAMINATION AT THE TIME OF DISCHARGE: Blood pressure of 134/68, heart rate of 68 and regular, respiratory rate 16, oxygen saturation 95% on room air, temperature is 98.3. General: The patient is a very pleasant 71-year-old male, who is in no acute distress. Alert, awake, and oriented x3. HEENT: Head: Atraumatic, normocephalic. Eyes: Pupils equal, round, and reactive to light and accommodation. Oropharynx clear. Mucosa moist. Neck: Supple. No JVD, no bruits bilaterally. Cardiovascular: Regular rate and rhythm. No murmur. Respiratory: Clear to auscultation bilaterally. Abdomen: Soft, nontender. Bowel sounds present in all 4 quadrants. Extremities: There is trace bilateral pedal edema. Pulses are +2 bilaterally. No clubbing or cyanosis. On evaluation of the skin, the patient has 3 small areas of 2 cm each in diameter sacrum stage 2 decubitus that appeared not infected and improved from prior. Please note that this is a short summary of the patient's hospital stay. Please refer to further medical records for details. TIME SPENT: Approximately 45 minutes were spent on the patient's discharge. CC: Dr. Juarez; Dr. Machado; Dr. Franklin* [id number]/CPS #: [id number] MTDD
== END 2016-10-25 15:20 | disposition home health service (06) | DRG 683 ==
LOC: ED 13:55 → MEDTELE 15:37
PROVIDERS: ADMIT Internal Medicine; ATTEND Internal Medicine
PROC: 0T9B70Z Drainage of Bladder with Drainage Device, Via Natural or Artificial Opening (ICD-10-PCS; principal; 2016-10-20)
DX: N17.9 Acute kidney failure, unspecified (principal); E87.1 Hypo-osmolality and hyponatremia; I47.2 Ventricular tachycardia; L89.152 Pressure ulcer of sacral region, stage 2; E87.2 Acidosis; I42.9 Cardiomyopathy, unspecified; E11.9 Type 2 diabetes mellitus without complications; I44.7 Left bundle-branch block, unspecified; E83.41 Hypermagnesemia; I47.1 Supraventricular tachycardia; R19.7 Diarrhea, unspecified; E86.0 Dehydration; E87.6 Hypokalemia; I25.10 Atherosclerotic heart disease of native coronary artery without angina pectoris; I10 Essential (primary) hypertension; J45.909 Unspecified asthma, uncomplicated; M19.90 Unspecified osteoarthritis, unspecified site; E78.5 Hyperlipidemia, unspecified; E66.01 Morbid (severe) obesity due to excess calories; I08.1 Rheumatic disorders of both mitral and tricuspid valves; I71.4 Abdominal aortic aneurysm, without rupture; T36.1X5A Adverse effect of cephalosporins and other beta-lactam antibiotics, initial encounter; R33.9 Retention of urine, unspecified; R79.89 Other specified abnormal findings of blood chemistry; E86.1 Hypovolemia; Z66 Do not resuscitate; Z86.73 Personal history of transient ischemic attack (TIA), and cerebral infarction without residual deficits; Z87.01 Personal history of pneumonia (recurrent); Z88.8 Allergy status to other drugs, medicaments and biological substances; Z85.828 Personal history of other malignant neoplasm of skin; Z87.891 Personal history of nicotine dependence; I25.2 Old myocardial infarction; Z79.82 Long term (current) use of aspirin
CPT/HCPCS: 36415; 71020; 74176; 76770; 78452; 80048; 80053; 81003; 81015; 82550; 83605; 83735; 83880; 84443; 84484; 85025; 85610; 86140; 87040; 87045; 87046; 87086; 87502; 93005; 93017; 93306; A9270-GY; A9502; J0696; J1644; J2785; J3475; J3480

== ENCOUNTER 2016-11-26 08:25 | Inpatient (IN) | payer MEDICARE ==
[2016-11-26] MEDS ORDERED: Ondansetron INJ* 2 MG/ML VIAL IV ONE (09:01)
[2016-11-26] MEDS ORDERED: NS 0.9% 1000 ML* 1,000 ML IV ONE ×2 (09:01→09:42)
[2016-11-26] MEDS ORDERED: Ondansetron INJ* 2 MG/ML VIAL ONE (09:01)
[2016-11-26 09:24] LABS: Hematocrit 40 % (42-52); Hemoglobin 13.8 g/dl (14.0-18.0); Mean Corpuscular HGB Conc 35 g/dl (31-36); Mean Corpuscular Hemoglobin 32 pg (27-31); Mean Corpuscular Volume 92 fL (80-94); Mean Platelet Volume 8 um3 (7.4-10.4); Red Blood Count 4.37 10^6/ul (4.0-5.4); Red Cell Distribution Width 15 % (10.5-15); White Blood Count 18.4 10^3/ul (3.5-10.8)
[2016-11-26 09:34] LABS: Albumin 4.1 g/dL (3.2-5.2); BUN/Creatinine Ratio 22.7 (8-20); C Reactive Protein 14.97 mg/L (< 5.00); Calcium 10.2 mg/dL (8.6-10.3); EGFR Non-African American 17.1 (>60); Globulin 3.6 g/dL (2-4); Potassium 3.6 mmol/L (3.5-5.0); Total Bilirubin 1.3 mg/dL (0.2-1.0); Total Protein 7.7 g/dL (6.4-8.9)
--- NOTE | 2016-11-26 09:46 | RAD ---
HISTORY: Nausea and vomiting COMPARISONS: October 19, 2016 VIEWS:1: Single frontal portable view of the chest at 9:15 AM FINDINGS: LINES AND TUBES: None. CARDIOMEDIASTINAL SILHOUETTE: The cardiomediastinal silhouette is normal for portable technique. PLEURA: The costophrenic angles are sharp. No pleural abnormalities are noted. LUNG PARENCHYMA: The lungs are clear. ABDOMEN: The upper abdomen is clear. There is no subphrenic gas. BONES AND SOFT TISSUES: No bone or soft tissue abnormalities are noted. IMPRESSION: NO ACTIVE CARDIOPULMONARY DISEASE.
[2016-11-26] MEDS ORDERED: Diltiazem DRIP* 100 MG/100 ML ADDV.BAG IVPB ONE ×2 (10:19→10:22)
[2016-11-26] MEDS ORDERED: Carvedilol TAB* 6.25 MG PO ONE (11:00)
[2016-11-26] MEDS ORDERED: Heparin DRIP 25,000 UNITS(*) 25,000 UNITS/500 ML BAG IVPB SCH (11:15)
--- NOTE | 2016-11-26 11:31 | ADMNOTE ---
Subjective Date of Service: 11/26/16 Interval History: ADMISSION HISTORY AND PHYSICAL EXAM: Allergies Allergy/AdvReac Type Severity Reaction Status Date / Time Tetanus Antitoxin Allergy Shortness Verified 11/26/16 09:11 of Breath Home Medications Medication Instructions Recorded Confirmed Type Aspirin 81 81 mg PO DAILY 10/22/14 11/26/16 History Metformin HCl 1,000 mg PO BID 10/22/14 11/26/16 History Cholecalciferol [Vitamin D] 2,000 unit PO WEEKLY 09/27/15 11/26/16 History Pravastatin Sodium 80 mg PO QPM 09/27/15 11/26/16 History Carvedilol TAB* [Coreg TAB*] 12.5 mg PO BID WITH MEALS #120 tab 10/25/16 Rx Lisinopril [Zestril 5 MG-] 5 mg PO DAILY #30 tab 10/25/16 11/26/16 Rx HPI: Patient has had vomiting and diarrhea for 2-3 days, also increased cough. He took all his meds yesterday, but none today. He states the urologist removed his Sexton about 3 days ago. Family History: Findings - Unremarkable Social History: Unchanged from Admission - Son Evie is his SDM. Lives alone. No alcohol or tobacco use. Past Medical History: Findings - DM, ischemic cardiomyopathy, TURP, cholecystectomy, IHR, HTN, CVA. Review of Systems - Measurements Intake and Output: Intake and Output Last 24 Hours 11/24/16 11/25/16 11/26/16 11/27/16 06:59 06:59 06:59 06:59 Intake Total 1002 Balance 1002 Weight 200 lb Intake: IV Fluids 1002 - Review of Systems Constitutional Symptoms: Negative: Weight Gain, Weight Loss, Weakness, Fatigue, Fever, Night Sweats, Unexplained Falls, Other Dermatology: Positive: Normal HEENT: Positive: Normal Eyes: Positive: Normal Thyroid: Positive: Normal Pulmonary: Positive: Cough Cardiology: Positive: Other - hx cardiomyopathy Gastroenterology: Positive: Vomiting, Diarrhea Genital - Urinary: Positive: Normal Musculoskeletal: Negative: Joint Pain, Joint Stiffness, Arthritis, Osteoporosis, Low Back Pain , Sciatica, Joint Deformities, Kyphoscoliosis, Other Endocrinology: Positive: Diabetes Mellitus Hematologic/Lymphatic: Negative: Anemia, Easy Brusing, Hx Leukemia, Hx Lymphoma, Use of Anticoagulant, Use of Antiplatelet Drugs, Other Neurology: Positive: Normal Psychiatry: Positive: Normal Allergic/Immunologic: Negative: Hx Anaphylaxis, Hx Angioedema, Hx Environmental, Hx Seasonal, Athsma, Hx HIV, Immunocompromise, Swollen Glands LymphNodes, Other Objective Active Medications: Carvedilol (Coreg Tab*) 12.5 mg PO BID JERED Heparin Sodium (Porcine) (Heparin Vial(*)) 0 units IV .PER PROTOCOL JERED PRN Reason: Protocol Diltiazem HCl (Cardizem Iv Advan*) 100 mg in 100 mls @ 10 mls/hr IVPB ED ONCE ONE PRN Reason: 10 MG/HR Stop: 11/26/16 20:18 Last Admin: 11/26/16 10:30 Dose: 10 mls/hr Heparin Sodium/Dextrose (Heparin Drip 25,000 Units(*)) 25,000 units in 500 mls @ 0 mls/hr IVPB .PER RATE JERED; Per Protocol PRN Reason: Protocol Potassium Chloride/Sodium Chloride (Ns 0.45% Kcl 20 Meq 1000 Ml*) 1,000 mls @ 100 mls/hr IV PER RATE JERED Diltiazem HCl (Cardizem Iv Advan*) 100 mg in 100 mls @ 5 mls/hr IVPB .PER RATE JERED PRN Reason: 5 MG/HR Non-Formulary Medication (Aspirin 81) 81 mg PO DAILY [facility] Non-Formulary Medication (Pravastatin Sodium [Pravastatin Sodium]) 80 mg PO QPM [facility] Vital Signs 11/26/16 11/26/16 11/26/16 08:27 09:01 09:04 Temperature 97.6 F Pulse Rate 93 91 93 Respiratory 20 Rate Blood Pressure 98/75 109/88 (mmHg) O2 Sat by Pulse 94 96 97 Oximetry 11/26/16 11/26/16 11/26/16 09:09 09:30 10:00 Temperature 97.1 F Pulse Rate 134 95 113 Respiratory 18 Rate Blood Pressure 109/88 96/59 98/59 (mmHg) O2 Sat by Pulse 97 95 97 Oximetry Oxygen Devices in Use Now: Nasal Cannula Appearance: Alert, partly up on ED stretcher. In fair spirits. Looks comfortable. Eyes: No Scleral Icterus Ears/Nose/Mouth/Throat: Clear Oropharnyx, Mucous Membranes Moist Neck: NL Appearance and Movements; NL JVP, No Thyroid Enlargement, Masses Respiratory: Symmetrical Chest Expansion and Respiratory Effort, Clear to Auscultation, Clear to Percussion Cardiovascular: NL Sounds; No Murmurs; No JVD, No Edema, - - irreg Extremities: No Edema, No Clubbing, Cyanosis, - Skin: No Rash or Ulcers, No Nodules or Sclerosis, - Neurological: Alert and Oriented x 3, NL Sensation Result Diagrams: 11/26/16 08:55 11/26/16 08:55 Assess/Plan/Problems-Billing Assessment: - Patient Problems (1) RUSTY (acute kidney injury) Current Visit: No Status: Acute Code(s): N17.9 - ACUTE KIDNEY FAILURE, UNSPECIFIED SNOMED Code(s): 97842636 Comment: Likely due to dehdration. IV fluids. BMP 11/27. (2) Diarrhea Current Visit: No Status: Acute Code(s): R19.7 - DIARRHEA, UNSPECIFIED SNOMED Code(s): 49391412 Comment: Suspect viral gastroenteritis. Vomiting and diarrhea explain his dehydration. Monitor I&O's. Ondansetron PRN. (3) Urinary retention Current Visit: No Status: Acute Priority: High Onset Date: 10/24/14 Code (s): R33.9 - RETENTION OF URINE, UNSPECIFIED SNOMED Code(s): 842843108 Comment: Check PVR by bladder scan. (4) Atrial fibrillation Current Visit: Yes Status: Acute Code(s): I48.91 - UNSPECIFIED ATRIAL FIBRILLATION SNOMED Code(s): 48707125 Comment: Hopefully will resolve with re-dydration. He had and echo and a nuclear stress test in 10/2016, no need to repeat now. Diltiazem drip as needed to control rate. (5) Diabetes Current Visit: No Status: Chronic Code(s): E11.9 - TYPE 2 DIABETES MELLITUS WITHOUT COMPLICATIONS SNOMED Code(s): 31107266 Comment: Lispro by SS. Hold metformin. (6) HTN (hypertension) Current Visit: No Status: Chronic Code(s): I10 - ESSENTIAL (PRIMARY) HYPERTENSION SNOMED Code(s): 80722238 Comment: Hold lisinopril.
[2016-11-26] MEDS ORDERED: Dextrose 50% Syringe 50 ML* 25 GM/50 ML SYRINGE IV PUSH PRN (11:33)
[2016-11-26] MEDS: Ondansetron INJ* 2 MG/ML VIAL IV PRN ×2 (11:35→15:41)
[2016-11-26 11:49] LABS: Hematocrit 36 % (42-52); Mean Corpuscular HGB Conc 33 g/dl (31-36); Mean Corpuscular Hemoglobin 31 pg (27-31); Mean Corpuscular Volume 93 fL (80-94); Mean Platelet Volume 8 um3 (7.4-10.4); Red Blood Count 3.91 10^6/ul (4.0-5.4); Red Cell Distribution Width 15 % (10.5-15); White Blood Count 15.2 10^3/ul (3.5-10.8)
[2016-11-26] MEDS ORDERED: Heparin VIAL(*) 5000 UNITS/ML VIAL (FIVE THOUSAND) IV SCH (12:00)
[2016-11-26] MEDS ORDERED: Diltiazem DRIP* 100 MG/100 ML ADDV.BAG IVPB SCH (12:00)
[2016-11-26] MEDS: NS 0.45% KCl 20 Meq 1000 ML* 1,000 ML IV SCH ×2 (13:01→23:14)
[2016-11-26] MEDS: Heparin VIAL(*) 5000 UNITS/ML VIAL (FIVE THOUSAND) SUBCUT SCH ×2 (14:14→21:02)
[2016-11-26] MEDS: Insulin LISPRO* 1 UNITS UNIT SUBCUT SCH ×2 (17:20→20:32)
[2016-11-26] MEDS: Atorvastatin* 20 MG TAB PO SCH (17:23)
[2016-11-26] MEDS: Carvedilol TAB* 6.25 MG PO SCH (20:30)
[2016-11-26 23:47] LABS: Urine Bacteria 1+ (Absent); Urine Bilirubin Negative (Negative); Urine Glucose 1+(50 mg/dL) (Negative); Urine Nitrite Negative (Negative)
[2016-11-27] MEDS: Heparin VIAL(*) 5000 UNITS/ML VIAL (FIVE THOUSAND) SUBCUT SCH ×3 (05:20→21:03)
[2016-11-27 05:42] LABS: BUN/Creatinine Ratio 33.3 (8-20); Blood Urea Nitrogen 66 mg/dL (6-24); CO2 Carbon Dioxide 18 mmol/L (22-32); Calcium 8.5 mg/dL (8.6-10.3); Chloride 102 mmol/L (101-111); EGFR African American 42.8 (>60); EGFR Non-African American 33.3 (>60); Glucose 128 mg/dL (70-100); Sodium 130 mmol/L (133-145)
[2016-11-27] MEDS: Insulin LISPRO* 1 UNITS UNIT SUBCUT SCH ×4 (07:35→20:38)
[2016-11-27] MEDS: Carvedilol TAB* 6.25 MG PO SCH ×2 (08:48→20:12)
[2016-11-27] MEDS: Aspirin Low Dose CHEW TAB* 81 MG PO SCH (08:48)
[2016-11-27] MEDS: NS 0.45% KCl 20 Meq 1000 ML* 1,000 ML IV SCH (09:22)
[2016-11-27] MEDS ORDERED: NS 0.45% KCl 20 Meq 1000 ML* 1,000 ML IV SCH (16:18)
--- NOTE | 2016-11-27 16:18 | PN ---
Subjective Date of Service: 11/27/16 Interval History: Feels much better. No nausea, no BM today. Family History: Findings - Unremarkable Social History: Unchanged from Admission - Son Evie is his SDM. Lives alone. No alcohol or tobacco use. Past Medical History: Findings - DM, ischemic cardiomyopathy, TURP, cholecystectomy, IHR, HTN, CVA. Objective Active Medications: Aspirin (Aspirin Low Dose Tab*) 81 mg PO DAILY [facility] Last Admin: 11/27/16 08:48 Dose: 81 mg Atorvastatin Calcium (Lipitor*) 20 mg PO QPM [facility] Last Admin: 11/26/16 17:23 Dose: 20 mg Carvedilol (Coreg Tab*) 12.5 mg PO BID [facility] Last Admin: 11/27/16 08:48 Dose: 12.5 mg Dextrose (D50w Syringe 50 Ml*) 12.5 gm IV PUSH .FOR FS < 60 - SS PRN PRN Reason: FS < 60 Heparin Sodium (Porcine) (Heparin Vial(*)) 5,000 units SUBCUT Q8HR [facility] Last Admin: 11/27/16 14:34 Dose: 5,000 units Potassium Chloride/Sodium Chloride (Ns 0.45% Kcl 20 Meq 1000 Ml*) 1,000 mls @ 100 mls/hr IV PER RATE [facility] Last Admin: 11/27/16 09:22 Dose: 100 mls/hr Insulin Human Lispro (Humalog*) 0 units SUBCUT ACHS [facility] PRN Reason: Protocol Last Admin: 11/27/16 12:45 Dose: 1 unit Ondansetron HCl (Zofran Inj*) 4 mg IV Q3H PRN PRN Reason: NAUSEA Last Admin: 11/26/16 15:41 Dose: 4 mg Vital Signs 11/26/16 11/26/16 11/26/16 19:08 19:53 23:41 Temperature 97.7 F 98.1 F Pulse Rate 79 74 Respiratory 16 16 20 Rate Blood Pressure 121/59 98/60 (mmHg) O2 Sat by Pulse 98 97 Oximetry 11/27/16 11/27/16 11/27/16 04:13 07:15 07:30 Temperature 97.7 F 97.6 F Pulse Rate 97 70 Respiratory 20 16 16 Rate Blood Pressure 123/59 110/51 (mmHg) O2 Sat by Pulse 95 96 Oximetry 11/27/16 11/27/16 11:11 15:00 Temperature 97.3 F 97.6 F Pulse Rate 73 65 Respiratory 18 Rate Blood Pressure 100/55 111/59 (mmHg) O2 Sat by Pulse 97 95 Oximetry Oxygen Devices in Use Now: None Appearance: Alert, partly up in bed. In good spirits. Looks comfortable. Eyes: No Scleral Icterus Ears/Nose/Mouth/Throat: Clear Oropharnyx, Mucous Membranes Moist Neck: NL Appearance and Movements; NL JVP, No Thyroid Enlargement, Masses Respiratory: Symmetrical Chest Expansion and Respiratory Effort, Clear to Auscultation, Clear to Percussion Cardiovascular: NL Sounds; No Murmurs; No JVD, RRR, No Edema, - Extremities: No Edema, No Clubbing, Cyanosis, - Skin: No Rash or Ulcers, No Nodules or Sclerosis, - Neurological: Alert and Oriented x 3, NL Sensation Result Diagrams: 11/26/16 11:25 11/27/16 05:56 Assess/Plan/Problems-Billing Assessment: - Patient Problems (1) RUSTY (acute kidney injury) Current Visit: No Status: Acute Code(s): N17.9 - ACUTE KIDNEY FAILURE, UNSPECIFIED SNOMED Code(s): 08350600 Comment: At or near baseline renal function. IV at 50 ml/hr tonight. (2) Diarrhea Current Visit: No Status: Acute Code(s): R19.7 - DIARRHEA, UNSPECIFIED SNOMED Code(s): 61815175 Comment: Resolved. Suspect viral gastroenteritis. Vomiting and diarrhea explain his dehydration. (3) Urinary retention Current Visit: No Status: Acute Priority: High Onset Date: 10/24/14 Code (s): R33.9 - RETENTION OF URINE, UNSPECIFIED SNOMED Code(s): 412510394 Comment: PVR by bladder scan over [address] pelaez inserted Sexton. Some bloody urine now. (4) Atrial fibrillation Current Visit: Yes Status: Acute Code(s): I48.91 - UNSPECIFIED ATRIAL FIBRILLATION SNOMED Code(s): 45982856 Comment: Resolved with re-dydration. He had and echo and a nuclear stress test in 10/2016, no need to repeat now. (5) Diabetes Current Visit: No Status: Chronic Code(s): E11.9 - TYPE 2 DIABETES MELLITUS WITHOUT COMPLICATIONS SNOMED Code(s): 29425772 Comment: Lispro by SS. Hold metformin. (6) HTN (hypertension) Current Visit: No Status: Chronic Code(s): I10 - ESSENTIAL (PRIMARY) HYPERTENSION SNOMED Code(s): 12096435 Comment: Hold lisinopril.
[2016-11-27] MEDS: Atorvastatin* 20 MG TAB PO SCH (17:47)
--- NOTE | 2016-11-27 20:11 | CONS ---
CONSULTATION NOTE: DATE OF CONSULT: 11/27/16 DIAGNOSIS: Urinary retention. PROCEDURE: Complex placement of 16-[place] coude catheter. HISTORY OF PRESENT ILLNESS: I was asked by Dr. William Castle from the hospitalist service, to see this 71-year-old white male because of urinary retention, decreased renal function, and inability to place a Sexton catheter. I have been following Mr. Law for the last 2 years. He was admitted 2 years ago with weakness, increasing abdominal pain, and was found to be in urinary retention of about 1,500 cc. His serum creatinine was 2 and his renal ultrasound showed no hydronephrosis. Following the placement of a Sexton catheter, his creatinine went down to 1.6. I followed him in my office and had urodynamic studies, which showed flaccid neurogenic bladder. He was kept on catheter drainage for a full year. The urodynamic studies were then repeated and showed partial recovery of his detrusor function. In September 2015, he underwent an uncomplicated transurethral resection of the prostate. He did well and he was able to void with relatively slow stream, but was able to empty out and on his follow up visits, his postvoid residuals have been in the vicinity of 100 cc. The patient was admitted to [facility] about 5 weeks ago with weakness and difficulty voiding. At that time, his creatinine was elevated at 4.2 and bladder ultrasound showed a large residual urine. He had a Sexton catheter placed with improved renal function. The patient pulled out the catheter accidentally and I had to place a coude catheter. Cystoscopy in my office showed no bladder outlet obstruction, indicating that te retention was due to flaccid bladder, however he was emptying well, and he was kept off catheter drainage. I saw him for followup a week later and he was able to empty adequately. I again saw him in my office 2 days ago for his routine followup visit. He has been having nocturia 2 to 3 times and day frequency every 2 hours. The bladder ultrasound showed complete bladder emptying. At that office visit, he was noted to be pale, dehydrated, and he was having vomiting and diarrhea. The patient was admitted for management. He was found to have decreased renal function. In the hospital, he could not void. A Sexton catheter could not be placed and a consultation was obtained for catheter placement. PHYSICAL EXAM: On examination today, he looks comfortable. Exam of the abdomen is normal. He has slight suprapubic distention but it is not tender. External genitalia are normal. I successfully placed a 16-[place] coude catheter, draining 750 cc of concentrated urine. The most likely explanation for his retention is an element of neurogenic bladder which became more pronounced when he got sick. PLAN: The plan at this time is to keep him on catheter drainage and he should be discharged home with it after his recovery. I will see him in my office and will give him a trial of voiding and I expect him to go back to his preadmission voiding pattern. [id number]/CPS #: [id number] MTDD
[2016-11-28] MEDS: Heparin VIAL(*) 5000 UNITS/ML VIAL (FIVE THOUSAND) SUBCUT SCH (05:07)
[2016-11-28] MEDS: Insulin LISPRO* 1 UNITS UNIT SUBCUT SCH (07:29)
--- NOTE | 2016-11-28 07:56 | DCNOTE ---
Subjective Date of Service: 11/28/16 Interval History: No c/o. Good appetite. No bowel c/o. Anxious to go home. Family History: Findings - Unremarkable Social History: Unchanged from Admission - Son Evie is his SDM. Lives alone. No alcohol or tobacco use. Past Medical History: Findings - DM, ischemic cardiomyopathy, TURP, cholecystectomy, IHR, HTN, CVA. Objective Active Medications: Aspirin (Aspirin Low Dose Tab*) 81 mg PO DAILY [facility] Last Admin: 11/27/16 08:48 Dose: 81 mg Atorvastatin Calcium (Lipitor*) 20 mg PO QPM [facility] Last Admin: 11/27/16 17:47 Dose: 20 mg Carvedilol (Coreg Tab*) 12.5 mg PO BID [facility] Last Admin: 11/27/16 20:12 Dose: 12.5 mg Dextrose (D50w Syringe 50 Ml*) 12.5 gm IV PUSH .FOR FS < 60 - SS PRN PRN Reason: FS < 60 Heparin Sodium (Porcine) (Heparin Vial(*)) 5,000 units SUBCUT Q8HR [facility] Last Admin: 11/28/16 05:07 Dose: 5,000 units Insulin Human Lispro (Humalog*) 0 units SUBCUT ACHS [facility] PRN Reason: Protocol Last Admin: 11/28/16 07:29 Dose: Not Given Lisinopril (Prinivil Tab*) 5 mg PO DAILY [facility] Ondansetron HCl (Zofran Inj*) 4 mg IV Q3H PRN PRN Reason: NAUSEA Last Admin: 11/26/16 15:41 Dose: 4 mg Vital Signs 11/27/16 11/27/16 11/27/16 11:11 15:00 18:37 Temperature 97.3 F 97.6 F Pulse Rate 73 65 Respiratory 18 26 26 Rate Blood Pressure 100/55 111/59 (mmHg) O2 Sat by Pulse 97 95 Oximetry 11/27/16 11/28/16 11/28/16 19:53 01:02 04:20 Temperature 97.3 F 98.4 F 98.1 F Pulse Rate 73 70 69 Respiratory 20 20 Rate Blood Pressure 114/68 107/51 127/96 (mmHg) O2 Sat by Pulse 98 96 96 Oximetry 11/28/16 07:29 Temperature Pulse Rate Respiratory 18 Rate Blood Pressure (mmHg) O2 Sat by Pulse Oximetry Oxygen Devices in Use Now: None Appearance: Alert, in good spirits. Looks well. Partly up in bed. Eyes: No Scleral Icterus Ears/Nose/Mouth/Throat: Clear Oropharnyx, Mucous Membranes Moist Neck: NL Appearance and Movements; NL JVP, No Thyroid Enlargement, Masses Respiratory: Symmetrical Chest Expansion and Respiratory Effort, Clear to Auscultation, Clear to Percussion Cardiovascular: NL Sounds; No Murmurs; No JVD, RRR, No Edema, - Extremities: No Edema, No Clubbing, Cyanosis, - Skin: No Rash or Ulcers, No Nodules or Sclerosis, - Neurological: Alert and Oriented x 3, NL Sensation Result Diagrams: 11/26/16 11:25 11/27/16 05:56 Assess/Plan/Problems-Billing Assessment: - Patient Problems (1) RUSTY (acute kidney injury) Current Visit: No Status: Acute Code(s): N17.9 - ACUTE KIDNEY FAILURE, UNSPECIFIED SNOMED Code(s): 06149721 Comment: At or near baseline renal function. [facility] 12/01. (2) Diarrhea Current Visit: No Status: Acute Code(s): R19.7 - DIARRHEA, UNSPECIFIED SNOMED Code(s): 59630219 Comment: Resolved. Suspect viral gastroenteritis. Vomiting and diarrhea explain his dehydration. (3) Urinary retention Current Visit: No Status: Acute Priority: High Onset Date: 10/24/14 Code (s): R33.9 - RETENTION OF URINE, UNSPECIFIED SNOMED Code(s): 890117817 Comment: PVR by bladder scan over [address] pelaez inserted Sexton. Some bloody urine now. (4) Atrial fibrillation Current Visit: Yes Status: Acute Code(s): I48.91 - UNSPECIFIED ATRIAL FIBRILLATION SNOMED Code(s): 47264403 Comment: Resolved with re-dydration. He had and echo and a nuclear stress test in 10/2016, no need to repeat now. (5) Diabetes Current Visit: No Status: Chronic Code(s): E11.9 - TYPE 2 DIABETES MELLITUS WITHOUT COMPLICATIONS SNOMED Code(s): 20684514 Comment: C/C metformin. FS OK with almost no insulin. (6) HTN (hypertension) Current Visit: No Status: Chronic Code(s): I10 - ESSENTIAL (PRIMARY) HYPERTENSION SNOMED Code(s): 09703514 Comment: Hold lisinopril.
--- NOTE | 2016-11-28 07:57 | PN ---
Progress Note - Progress Note Note: Time spent on discharge 50 minutes.
[2016-11-28 08:22] VITALS: BP 107/77
[2016-11-28] MEDS: Carvedilol TAB* 6.25 MG PO SCH (08:51)
[2016-11-28] MEDS: Aspirin Low Dose CHEW TAB* 81 MG PO SCH (08:52)
[2016-11-28] MEDS ORDERED: Lisinopril TAB* 5 MG PO SCH (09:00)
--- NOTE | 2016-11-28 09:26 | DS ---
DISCHARGE SUMMARY: DATE OF ADMISSION: 11/26/16 DATE OF DISCHARGE: 11/28/16 HISTORY OF PRESENT ILLNESS: This 71-year-old man presented with vomiting and diarrhea and some increasing cough. Dr. Machado had removed his Sexton after his last hospitalization. It was quite a bit longer before admission than the patient had recalled; but, at the time he removed the Sexton, he checked his urine residual and it was zero. The patient clinically had viral gastroenteritis; this was pretty much on the way to resolution. He had significant acute kidney injury; however, after rehydration, his kidney function returned to near his baseline. On November 27, his creatinine was 1.98; it was not repeated after that. His sodium was 130, BUN 66. He did have significant urine retention over [address] Machado came in and placed a urine catheter after several attempts by the nursing staff that had failed. There was initially some bloody urine, but this cleared overnight. His Sexton catheter drainage was 1775 mL 24 hours before discharge. Oral intake was 1400 mL the day before. His appetite was good. Initially, his lisinopril was withheld; but, on the morning of discharge, his blood pressure was 127/96 and lisinopril was restarted before discharge. Glycemic control was good without any oral agents and only a total of 6 units of insulin total in two days here. I think he will do okay with diet alone at home. FINAL DIAGNOSES: 1. Gastroenteritis, resolved. 2. Urinary retention. 3. Acute kidney injury. 4. Paroxysmal atrial fibrillation, resolved with rehydration. 5. Diabetes. 6. Hypertension. DISCHARGE MEDICATIONS: 1. Pravastatin 80 mg h.s. 2. Vitamin D 2000 units weekly. 3. Carvedilol 12.5 mg b.i.d. 4. Lisinopril 5 mg daily. 5. Aspirin 81 mg daily. CC: Dr. Machado; Dr. Juarez.* [id number]/[facility] #: [id number] [facility]
--- NOTE | 2016-11-28 20:24 | ED ---
Valery Ko Salem, scribed for Ozzy Underwood MD on 11/26/16 at 0947 . GI/ HPI - HPI Summary HPI Summary: Patient is a 71 y/o male who presents to the ED with vomiting since yesterday. He reports vomiting 3 to 4 times this morning, productive cough (for sputum), and general malaise, but denies fever and dysuria. Caregiver present at bedside reports pt has been experiencing loss of appetite and nausea for 7 days. He also reports that pt had an UTI a couple of weeks ago and has been having diarrhea since. He has not seen his PCP yet. 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 Loss of appetite.. Negative: Fever, Dysuria Aggravating Factor(s): Nothing Alleviating Factor(s): Nothing - Additional Pertinent History Primary Care Physician: [id number] - Allergy/Home Medications Allergies/Adverse Reactions: Allergies Allergy/AdvReac Type Severity Reaction Status Date / Time Tetanus Antitoxin Allergy Shortness Verified 11/26/16 09:11 of Breath Home Medications: Home Medications Aspirin Low Dose CHEW TAB* [Aspirin Low Dose TAB*] 81 mg PO DAILY 11/26/16 [ History Confirmed 11/26/16] PMH/Surg Hx/FS Hx/Imm Hx Endocrine/Hematology History: Reports: Hx Diabetes Denies: Hx Anemia, Hx Unexplained Bleeding Cardiovascular History: Reports: Hx Hypertension Denies: Hx Aneurysm, Hx Angina, Hx Angioplasty, Hx Auto Implanted Cardiovert Defib, Hx Cardiac Arrest, Hx Cardiomegaly, Hx Congenital Heart Disease, Hx Congestive Heart Failure, Hx Coronary Artery Disease, Hx Deep Vein Thrombosis, Hx Embolism, Hx Hypercholesterolemia, Hx Hypotension, Hx Myocardial Infarction, Hx Pacemaker/ICD, Hx Peripheral Vascular Disease, Hx Rheumatic Fever, Hx Syncope , Hx Valvular Heart Disease, Other Cardiovascular Problems/Disorders Respiratory History: Reports: Hx Pneumonia Denies: Hx Asthma, Hx Chronic Obstructive Pulmonary Disease (COPD) GI History: Denies: Hx Hiatal Hernia History: Reports: Hx Benign Prostatic Hyperplasia, Other Problems/ Disorders - URINARY RETENTION, BPH, AKD Denies: Hx Renal Disease Musculoskeletal History: Reports: Hx Arthritis Sensory History: Reports: Hx Contacts or Glasses Denies: Hx Cataracts, Hx Eye Injury, Hx Eye Prosthesis, Hx Glaucoma, Hx Legally Blind, Hx Macular Degeneration, Hx Vision Problem, Hx Deafness, Hx Hearing Aid, Hx Hearing Problem, Other Sensory Impairments Opthamlomology History: Reports: Hx Contacts or Glasses Denies: Hx Cataracts, Hx Eye Injury, Hx Eye Prosthesis, Hx Glaucoma, Hx Legally Blind, Hx Macular Degeneration, Hx Vision Problem, Other Sensory Impairments Neurological History: Reports: Hx CVA - Cancer History Cancer Type, Location and Year: Skin cancer - Surgical History Surgery Procedure, Year, and Place: UMBILICAL REPAIR for hernia. Right lower arm skin cancer removed. Right lower leg fracture fixed surgically Hx Anesthesia Reactions: No Infectious Disease History: No Infectious Disease History: Denies: Hx Clostridium Difficile, Hx Hepatitis, Hx Human Immunodeficiency Virus (HIV), Hx of Known/Suspected MRSA, Hx Shingles, Hx Tuberculosis, Hx Known/ Suspected VRE, Hx Known/Suspected VRSA, History Other Infectious Disease, Traveled Outside the in Last 30 Days - Family History Known Family History: Positive: Diabetes - Brother Family History: no family malignant hyperthermia and anesthesia reaction - Social History Alcohol Use: None Substance Use Type: Reports: None, Other Substance Use Comment - Amount & Last Used: Chew tabacco Smoking Status (MU): Former Smoker Type: Smokeless Tobacco Amount Used/How Often: chews tobacco past 30 yrs Have You Smoked in the Last Year: No Review of Systems Positive: Other - General malaise.. Negative: Fever Positive: Cough Positive: Vomiting, Nausea, Other - Loss of appetite. Negative: dysuria All Other Systems Reviewed And Are Negative: Yes Physical Exam Triage Information Reviewed: Yes Vital Signs On Initial Exam: Initial Vitals Temp Pulse Resp BP Pulse Ox 97.6 F 93 20 98/75 94 11/26/16 08:27 11/26/16 08:27 11/26/16 08:27 11/26/16 08:27 11/26/16 08:27 Vital Signs Reviewed: Yes Appearance: Positive: Well-Appearing, No Pain Distress Skin: Positive: Warm, Skin Color Reflects Adequate Perfusion, Dry Head/Face: Positive: Normal Head/Face Inspection Eyes: Positive: Normal ENT: Positive: Other - DMM. Neck: Positive: Supple, Nontender Respiratory/Lung Sounds: Positive: Clear to Auscultation, Breath Sounds Present Cardiovascular: Positive: Tachycardia Abdomen Description: Positive: Nontender, Soft Bowel Sounds: Positive: Present Musculoskeletal: Positive: Normal Neurological: Positive: Normal Psychiatric: Positive: Normal, Affect/Mood Appropriate Diagnostics - Vital Signs Vital Signs Temp Pulse Resp BP Pulse Ox 11/26/16 08:27 97.6 F 93 20 98/75 94 - Laboratory Lab Results: Lab Results 11/26/16 11/26/16 11/26/16 Range/Units 08:55 08:55 08:55 WBC 18.4 H (3.5-10.8) 10^3/ul RBC 4.37 (4.0-5.4) 10^6/ul Hgb 13.8 L (14.0-18.0) g/dl Hct 40 L (42-52) % MCV 92 (80-94) fL MCH 32 H (27-31) pg MCHC 35 (31-36) g/dl RDW 15 (10.5-15) % Plt Count 236 (150-450) 10^3/ul MPV 8 (7.4-10.4) um3 Neut % (Auto) 83.7 H (38-83) % Lymph % (Auto) 10.3 L (25-47) % [place] % (Auto) 5.7 (1-9) % Eos % (Auto) 0.1 (0-6) % Baso % (Auto) 0.2 (0-2) % Absolute Neuts (auto) 15.4 H (1.5-7.7) 10^3/ul Absolute Lymphs (auto) 1.9 (1.0-4.8) 10^3/ul Absolute Monos (auto) 1.1 H (0-0.8) 10^3/ul Absolute Eos (auto) 0 (0-0.6) 10^3/ul Absolute Basos (auto) 0 (0-0.2) 10^3/ul Absolute Nucleated RBC 0.01 10^3/ul Nucleated RBC % 0.1 Sodium 135 (133-145) mmol/L Potassium 3.6 (3.5-5.0) mmol/L Chloride 98 L (101-111) mmol/L Carbon Dioxide 19 L (22-32) mmol/L Anion Gap 18 H (2-11) mmol/L BUN 80 H (6-24) mg/dL Creatinine 3.52 H (0.67-1.17) mg/dL Est GFR ( Amer) 22.0 (>60) Est GFR (Non-Af Amer) 17.1 (>60) BUN/Creatinine Ratio 22.7 H (8-20) Glucose 184 H (70-100) mg/dL Lactic Acid 2.3 H* (0.5-2.0) mmol/L Calcium 10.2 (8.6-10.3) mg/dL Total Bilirubin 1.30 H (0.2-1.0) mg/dL AST 14 (13-39) U/L ALT 14 (7-52) U/L Alkaline Phosphatase 46 (34-104) U/L C-Reactive Protein 14.97 H (< 5.00) mg/L Total Protein 7.7 (6.4-8.9) g/dL Albumin 4.1 (3.2-5.2) g/dL Globulin 3.6 (2-4) g/dL Albumin/Globulin Ratio 1.1 (1-3) Lipase 43 (11.0-82.0) U/L Result Diagrams: 11/26/16 11:25 11/27/16 05:56 Lab Statement: Any lab studies that have been ordered have been reviewed, and results considered in the medical decision making process. - Radiology CXR Radiology Interpretation Completed By: Radiologist - FINDINGS: LINES AND TUBES: None. CARDIOMEDIASTINAL SILHOUETTE: The cardiomediastinal silhouette is normal for portable technique. PLEURA: The costophrenic angles are sharp. No pleural abnormalities are noted. LUNG PARENCHYMA: The lungs are clear. ABDOMEN: The upper abdomen is clear. There is no subphrenic gas. BONES AND SOFT TISSUES: No bone or soft tissue abnormalities are noted. IMPRESSION: NO ACTIVE CARDIOPULMONARY DISEASE. - EKG 0904 Cardiac Rate: Tachycardia - 150 bpm. EKG Interpretation: Atrial Fib. Rapid response. PVCs. GIGU Course/Dx - Course Course Of Treatment: Mr. Law presented with N/V/D and was severely dehydrated putting his kidneys at risk. He was rehydrated here and admitted to the hospital. - Diagnoses Provider Diagnoses: atrial fib, dehydration - Physician Notifications Discussed Care Of Patient With: Dr. Castle (Hospitalist) @ [id number]. Discussed plan to admit pt. He will admit him. Discharge - Discharge Plan Condition: Improved Disposition: ADMITTED TO [facility] documentation as recorded by the Valery turcios Salem accurately reflects the service I personally performed and the decisions made by me, Ozzy Underwood MD.
== END 2016-11-28 10:15 | disposition home or self-care (01) | DRG 392 ==
LOC: ED 08:25 → MEDTELE 10:54
PROVIDERS: ADMIT Internal Medicine; ATTEND Internal Medicine
PROC: 0T9B70Z Drainage of Bladder with Drainage Device, Via Natural or Artificial Opening (ICD-10-PCS; principal; 2016-11-27)
DX: A08.4 Viral intestinal infection, unspecified (principal); N17.9 Acute kidney failure, unspecified; I48.0 Paroxysmal atrial fibrillation; N31.2 Flaccid neuropathic bladder, not elsewhere classified; E11.9 Type 2 diabetes mellitus without complications; E86.0 Dehydration; I10 Essential (primary) hypertension; I25.5 Ischemic cardiomyopathy; R33.8 Other retention of urine; Z88.7 Allergy status to serum and vaccine; Z79.84 Long term (current) use of oral hypoglycemic drugs; Z79.82 Long term (current) use of aspirin; Z79.899 Other long term (current) drug therapy; Z86.73 Personal history of transient ischemic attack (TIA), and cerebral infarction without residual deficits
CPT/HCPCS: 36415; 71010; 80048; 80053; 81003; 81015; 83605; 83690; 84520; 85025; 85730; 86140; 87086; 93005; A9270-GY; J1644; J2405

== ENCOUNTER 2017-02-16 06:10 | Inpatient (IN) | payer MEDICARE ==
[2017-02-16] MEDS ORDERED: Adenosine* 3 MG/ML VIAL ONE (06:17)
[2017-02-16] MEDS ORDERED: Diltiazem IV VIAL* 125 MG/25 ML VIAL ONE (06:18)
[2017-02-16 06:40] LABS: Hematocrit 41 % (42-52); Hemoglobin 13.5 g/dl (14.0-18.0); Mean Corpuscular HGB Conc 33 g/dl (31-36); Mean Corpuscular Hemoglobin 32 pg (27-31); Mean Corpuscular Volume 97 fL (80-94); Mean Platelet Volume 8 um3 (7.4-10.4); Red Blood Count 4.24 10^6/ul (4.0-5.4); Red Cell Distribution Width 16 % (10.5-15); White Blood Count 13.3 10^3/ul (3.5-10.8)
[2017-02-16] MEDS ORDERED: Diltiazem IV VIAL* 125 MG in D5W 100 ML BAG* 100 ML IV ONE (06:46)
[2017-02-16] MEDS ORDERED: Diltiazem IV* 5 MG/ML 5 ML VIAL (for loading dose/IV Push) (25 MG) IV SLOW PU ONE ×2 (06:47→06:52)
--- NOTE | 2017-02-16 06:47 | ED ---
Lorenza Ko Erika, scribed for Angel Maza MD on 02/16/17 at 0622 . Shortness of Breath - HPI Summary HPI Summary: Patient is a 71-year-old male presenting to the ED with a CC of SOB starting last night. Patient also reports cold-like symptoms with a cough for the past few days. Patient denies palpitations or knowledge of rapid heart rate. Hx HTN, NV, A Fib, DM, CVA. - History of Current Complaint Time Seen by Provider: 02/16/17 06:15 Hx Obtained From: Patient Onset/Duration: Gradual Onset, Lasting Hours, Still Present Timing: Constant Current Severity: Moderate Dyspnea At: Rest - Allergy/Home Medications Allergies/Adverse Reactions: Allergies Allergy/AdvReac Type Severity Reaction Status Date / Time Tetanus Antitoxin Allergy Shortness Verified 11/26/16 09:11 of Breath Home Medications: Home Medications Omeprazole [Prilosec] 20 mg PO DAILY 02/16/17 [History Confirmed 02/16/17] PMH/Surg Hx/FS Hx/Imm Hx Endocrine/Hematology History: Reports: Hx Diabetes Denies: Hx Anemia, Hx Unexplained Bleeding Cardiovascular History: Reports: Hx Hypertension Respiratory History: Reports: Hx Pneumonia Denies: Hx Asthma, Hx Chronic Obstructive Pulmonary Disease (COPD) GI History: Reports: Hx Gall Bladder Disease - status post cholecystectomy Denies: Hx Hiatal Hernia History: Reports: Hx Benign Prostatic Hyperplasia, Other Problems/ Disorders - URINARY RETENTION, BPH, AKD Denies: Hx Renal Disease Musculoskeletal History: Reports: Hx Arthritis Denies: Hx Osteoporosis Sensory History: Reports: Hx Contacts or Glasses Opthamlomology History: Reports: Hx Contacts or Glasses Neurological History: Reports: Hx CVA - Cancer History Cancer Type, Location and Year: Skin cancer - Surgical History Surgery Procedure, Year, and Place: UMBILICAL REPAIR for hernia. Right lower arm skin cancer removed. Right lower leg fracture fixed surgically Hx Anesthesia Reactions: No Infectious Disease History: Denies: Hx Clostridium Difficile, Hx Hepatitis, Hx Human Immunodeficiency Virus (HIV), Hx of Known/Suspected MRSA, Hx Shingles, Hx Tuberculosis, Hx Known/ Suspected VRE, Hx Known/Suspected VRSA, History Other Infectious Disease, Traveled Outside the [place] in Last 30 Days - Family History Known Family History: Positive: Diabetes - Brother - Social History Alcohol Use: None Hx Substance Use: No Substance Use Type: Reports: None Hx Tobacco Use: Yes Smoking Status (MU): Former Smoker Type: Smokeless Tobacco Amount Used/How Often: chews tobacco past 30 yrs Have You Smoked in the Last Year: No Review of Systems Negative: Fever ENT: Other - cold-like symptoms Positive: Shortness Of Breath, Cough All Other Systems Reviewed And Are Negative: Yes Physical Exam Triage Information Reviewed: Yes Vital Signs On Initial Exam: Initial Vital Signs Temp 97 F 02/16/17 06:14 Pulse 170 02/16/17 06:14 Resp 32 02/16/17 06:14 BP 156/114 02/16/17 06:14 Pulse Ox 88 02/16/17 06:14 Vital Signs Reviewed: Yes Appearance: Positive: No Pain Distress, Ill-Appearing Skin: Positive: Warm Head/Face: Positive: Normal Head/Face Inspection Eyes: Positive: VIRAJ ENT: Positive: Hearing grossly normal Neck: Positive: Supple Respiratory/Lung Sounds: Positive: Breath Sounds Present Cardiovascular: Positive: Tachycardia Abdomen Description: Positive: Nontender, Soft Bowel Sounds: Positive: Present Musculoskeletal: Positive: Strength/ROM Intact Neurological: Positive: Alert, Oriented to Person Place, Time Psychiatric: Positive: Affect/Mood Appropriate Diagnostics - Vital Signs Vital Signs Temp Pulse Resp BP Pulse Ox 02/16/17 06:25 97 F 131 32 151/132 95 02/16/17 06:14 97 F 170 32 156/114 88 - Laboratory Lab Results: Lab Results 02/16/17 Range/Units 06:21 WBC 13.3 H (3.5-10.8) 10^3/ul RBC 4.24 (4.0-5.4) 10^6/ul Hgb 13.5 L (14.0-18.0) g/dl Hct 41 L (42-52) % MCV 97 H (80-94) fL MCH 32 H (27-31) pg MCHC 33 (31-36) g/dl RDW 16 H (10.5-15) % Plt Count 287 (150-450) 10^3/ul MPV 8 (7.4-10.4) um3 Neut % (Auto) 59.9 (38-83) % Lymph % (Auto) 30.6 (25-47) % [place] % (Auto) 7.3 (1-9) % Eos % (Auto) 1.4 (0-6) % Baso % (Auto) 0.8 (0-2) % Absolute Neuts (auto) 8.0 H (1.5-7.7) 10^3/ul Absolute Lymphs (auto) 4.1 (1.0-4.8) 10^3/ul Absolute Monos (auto) 1.0 H (0-0.8) 10^3/ul Absolute Eos (auto) 0.2 (0-0.6) 10^3/ul Absolute Basos (auto) 0.1 (0-0.2) 10^3/ul Absolute Nucleated RBC 0.01 10^3/ul Nucleated RBC % 0.1 Result Diagrams: 02/16/17 06:21 02/16/17 06:21 Lab Statement: Any lab studies that have been ordered have been reviewed, and results considered in the medical decision making process. - Radiology CXR Radiology Interpretation Completed By: ED Physician - No acute pulmonary disease - EKG 06:20 Cardiac Rate: Tachycardia - at 178 bpm EKG Rhythm: Atrial Fibrillation - with RVR Course/Dx - Course Assessment/Plan: A 71 y/o M presents to the ED with a CC of SOB. In the ED, pt is in A Fib with RVR. Pt is given diltiazem in the ED and is being monitored. Lab work obtained. CXR shows no acute pulmonary disease. Case discussed with Dr. Childers who agrees to admit patient for further work up and management. - Diagnoses Provider Diagnoses: Rapid atrial fibrillation - Physician Notifications Discussed Care of Patient With: Dr. Childers (hospitalist) at 06:59 - agrees to admit Discharge - Discharge Plan Condition: Fair Disposition: ADMITTED TO [facility] Referrals: Bob Juarez MD [Primary Care Provider] - The documentation as recorded by the Lorenza turcios Erika accurately reflects the service I personally performed and the decisions made by , Angel Maza MD.
[2017-02-16 06:51] LABS: Albumin 3.7 g/dL (3.2-5.2); BUN/Creatinine Ratio 7.4 (8-20); Calcium 8.7 mg/dL (8.6-10.3); EGFR African American 74.9 (>60); EGFR Non-African American 58.2 (>60); Globulin 3.8 g/dL (2-4); Total Bilirubin 1.7 mg/dL (0.2-1.0); Total Protein 7.5 g/dL (6.4-8.9)
[2017-02-16 06:56] LABS: Potassium 3.3 mmol/L (3.5-5.0); Troponin I 0.04 ng/mL (<0.04)
[2017-02-16] MEDS ORDERED: Furosemide IV* 10 MG/ML VIAL (40 MG) IV ONE (06:56)
--- NOTE | 2017-02-16 07:00 | RAD ---
INDICATION: Short of breath COMPARISON: Chest x-ray November 26, 2016 TECHNIQUE: PA and lateral dual-energy views were obtained. FINDINGS: Bones/Soft Tissues: There are no acute bony findings. Cardiomediastinal: The heart is normal in size. Central pulmonary vessels and interstitium are prominent consistent interval development of vascular congestion.. Lungs: Hyperinflation. Pleura: Small bilateral pleural effusions. Small amount of fluid in the minor fissure.. Other: None IMPRESSION: VASCULAR CONGESTIVE FINDINGS. HYPERINFLATION.
[2017-02-16] MEDS ORDERED: NS 0.9% 500 ML BAG* 500 ML IV ONE (07:28)
[2017-02-16] MEDS ORDERED: Potassium Chlor TAB* 20 MEQ TAB.ER PO ONE (07:35)
[2017-02-16] MEDS ORDERED: Dextrose 50% Syringe 50 ML* 25 GM/50 ML SYRINGE IV PUSH PRN (08:32)
[2017-02-16] MEDS ORDERED: Metoprolol Tartrate IV* 1 MG/ML 5 ML VIAL IV PRN (08:32)
[2017-02-16] MEDS: cefTRIAXone VIAL(*) 1,000 MG in NS 0.9% 50 ML* 50 ML IVPB SCH (08:45)
[2017-02-16] MEDS: Omeprazole CAP* 20 MG PO SCH (08:45)
[2017-02-16] MEDS: Azithromycin IV(*) 500 MG in NS 0.9% 250 ML* 250 ML IVPB SCH (08:45)
[2017-02-16] MEDS: Aspirin Low Dose CHEW TAB* 81 MG PO SCH (08:45)
[2017-02-16] MEDS: Enoxaparin(*) 150 MG/ML 1 ML SYRINGE SUBCUT SCH ×2 (09:47→20:21)
[2017-02-16] MEDS: Insulin LISPRO* 1 UNITS UNIT SUBCUT SCH ×2 (11:57→17:33)
[2017-02-16] MEDS: Diltiazem DRIP* 100 MG/100 ML ADDV.BAG IVPB SCH ×2 (12:48→17:38)
[2017-02-16] MEDS: Diltiazem TAB* 60 MG PO SCH ×3 (17:25→23:43)
--- NOTE | 2017-02-16 21:53 | HP ---
HISTORY AND PHYSICAL: DATE OF ADMISSION: 02/16/17 PRIMARY CARE PROVIDER: Dr. Juarez. CHIEF COMPLAINT: Shortness of breath. HISTORY OF PRESENT ILLNESS: Mr. Law is an 71-year-old male who states over the last 2 days, he has had progressive shortness of breath. He does note that he has been coughing some though he does not describe this as being a tremendous amount of coughing. He is, however, bringing up very thick yellow mucus, which is not normal for him. He denies any recent fevers or chills. He denies any sick contacts. The patient is noted to be in rapid atrial fibrillation in the emergency room and states that he cannot feel palpitations or racing heart nor does he have any chest pain. The patient also notes that his lower extremities began to swell approximately 2 days ago. PAST MEDICAL HISTORY: 1. Type 2 diabetes. 2. Hypertension. 3. BPH, status post TURP. 4. History of CVA. 5. Hyperlipidemia. 6. Coronary artery disease. 7. History of gangrenous cholecystitis, status post cholecystectomy. 8. Umbilical hernia repair. 9. Asthma. 10. History of recurrent UTIs. MEDICATIONS: 1. Aspirin 81 mg p.o. daily. 2. Omeprazole 20 mg p.o. daily. ALLERGIES: TETANUS ANTITOXIN. FAMILY HISTORY: Mom at the age of 65 of heart failure. Dad at the age of 91 he states of old age. SOCIAL HISTORY: The patient was a life smoker, quitting approximately 50 years ago. He does not drink alcohol. 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 He is . He has 5 children. His daughter, Audra, is his healthcare proxy. Her phone number is [phone]. REVIEW OF SYSTEMS: The patient denies any fevers, chills, or anorexia. No chest pain. He does admit to the lower extremity edema that developed over the last couple days. He has mild cough, significant shortness of breath, and significant mucus production. No abdominal pain, nausea, vomiting, constipation , diarrhea, or hematochezia. No hematuria. No dysuria. No focal weakness or sensory loss. He states that the vision to the left has been slightly blurry over the last 1 week. He denies any difficulty swallowing. No joint pains or muscle pains out of the ordinary. No rashes. No anxiety or depression. PHYSICAL EXAMINATION GENERAL: The patient is a well-developed, elderly male sitting in stretcher appearing to be in no acute distress, but does appear slightly tachypneic. VITAL SIGNS: Blood pressure 142/77, pulse 122, respirations 29, O2 sat 95% on 4 L, temperature 97. HEENT: Pupils are equal. They are round. They react to light. Extraocular muscles intact. Oropharynx is clear. Oral mucosa is moist. There is no submandibular, cervical, or supraclavicular adenopathy. NECK: Thyroid is not enlarged. No thyroid nodules are noted. PULMONARY: There are few bibasilar crackles. Otherwise, the breath sounds are slightly diminished. CARDIAC: Heart rate is irregularly irregular and markedly tachycardic. It is difficult to hear heart sounds clearly. There is marked 3+ bilateral lower extremity edema. ABDOMEN: Bowel sounds are present. Abdomen is soft, nontender, nondistended. MUSCULOSKELETAL: There is no cyanosis or clubbing of the digits. There is full active range of motion of all 4 extremities. SKIN: Warm and dry. There are no rashes. NEUROLOGIC: Cranial nerves II through XII are grossly intact. Sensation is intact to light touch throughout. Strength is 5/5 and symmetric in both upper and lower extremities bilaterally. PSYCH: The patient is alert. He is oriented x3. He is hard of hearing. Affect appears appropriate. LABORATORY DATA/DIAGNOSTIC STUDIES: WBC 13.3, hemoglobin 13.5, hematocrit 41, platelets 287. D-dimer 437. Sodium 138, potassium 3.3, chloride 105, CO2 23, BUN 9, creatinine 1.22, glucose 155. Hemoglobin A1c 5.1. Lactic acid 3.6, followed up 1.7. Calcium 8.7. Bilirubin 1.7, AST 13, ALT 6, alk phos 62. Troponin 0.04, followed up 0.03. BNP 646. Albumin 3.7. EKG reveals rapid atrial fibrillation with a heart rate of 178. Chest x-ray reveals vascular congestive findings and hyperinflation. ASSESSMENT AND PLAN: Mr. Law is an 71-year-old male with a history of hypertension, type 2 diabetes, hyperlipidemia, coronary artery disease, and asthma who presents to the emergency room with complaints of shortness of breath progressively worsening over the course of 2 days with associated moderate cough, sputum production, and is found to be in rapid atrial fibrillation in the emergency room. 1. Probable pneumonia: The patient's symptoms of cough, shortness of breath, and sputum production make me concerned that he may have an underlying pneumonia. Chest x-ray does not clearly identify this; however, given his symptoms and elevated white blood cell count, we will go ahead and treat him as if he does have community-acquired pneumonia. The patient will be started on ceftriaxone and azithromycin. Sputum culture will be sent to the lab. 2. Rapid atrial fibrillation: The patient was started on diltiazem drip in the emergency room. He did have slight improvement in his heart rate; however, there does appear that the drip will need to be titrated upwards. I suspect the atrial fibrillation is perhaps partly being driven related to possible pneumonia; however, the patient cannot feel palpitations or racing heart. So, it is unclear how long this has been going on for. I am somewhat suspicious this may have been a more longstanding problem as he developed significant lower extremity edema which I would find difficult to happen over the course of 1 to 2 days. We will go ahead and get a transthoracic echocardiogram. The patient will remain on the diltiazem drip for now and I will start Lovenox as stroke prevention. Tomorrow, we will discuss long-term anticoagulation with the patient and his family. 3. Type 2 diabetes: The patient at this point is managed with diet alone. His hemoglobin A1c is quite good at 5.1%. Fingersticks a.c. will be obtained and lispro sliding scale will be used to cover for elevated blood sugars. 4. Hypertension: The patient has been taken off all of his antihypertensives at home. He is on diltiazem drip at this point. We will monitor his blood pressure and make adjustments if necessary. 5. Hyperlipidemia: The patient again is off any lipid-lowering medications at this point and can follow up with his primary care provider as an outpatient. 6. Coronary artery disease: This was a presumed diagnosis based on evidence of old myocardial infarction on his previous EKG. The patient will continue on baby aspirin. His troponin was slightly elevated at 0.04; however, I suspect this is demand ischemia related to rapid atrial fibrillation and pneumonia. 7. DVT prophylaxis: According to the Adult Thrombosis Prophylaxis Risk Factor Assessment Guide, the patient has a total risk factor score of 5 making him high risk. The patient is already being started on Lovenox therapeutic dosing and this will act as a DVT prophylaxis. 8. Code status is full. TIME SPENT: 65 minutes were spent admitting the patient. CC: Dr. Juarez* [id number]/[facility] #: [id number] MTDD
[2017-02-17] MEDS ORDERED: Diltiazem TAB* 30 MG PO ONE (05:45)
[2017-02-17] MEDS: Diltiazem TAB* 60 MG PO SCH (06:07)
[2017-02-17 07:01] LABS: Hematocrit 35 % (42-52); Hemoglobin 11.6 g/dl (14.0-18.0); Mean Corpuscular HGB Conc 33 g/dl (31-36); Mean Corpuscular Hemoglobin 32 pg (27-31); Mean Corpuscular Volume 95 fL (80-94); Mean Platelet Volume 8 um3 (7.4-10.4); Red Blood Count 3.66 10^6/ul (4.0-5.4); Red Cell Distribution Width 16 % (10.5-15); White Blood Count 8.2 10^3/ul (3.5-10.8)
[2017-02-17 07:17] LABS: BUN/Creatinine Ratio 8.1 (8-20); Calcium 8.2 mg/dL (8.6-10.3); EGFR African American 83.5 (>60); EGFR Non-African American 64.9 (>60); Potassium 3.2 mmol/L (3.5-5.0)
[2017-02-17] MEDS ORDERED: Potassium Chlor TAB* 20 MEQ TAB.ER PO ONE (07:29)
[2017-02-17] MEDS ORDERED: Furosemide IV* 10 MG/ML 2 ML VIAL (20 MG) IV ONE (07:36)
[2017-02-17] MEDS ORDERED: Diltiazem TAB* 60 MG PO SCH (07:37)
[2017-02-17] MEDS: Insulin LISPRO* 1 UNITS UNIT SUBCUT SCH (07:45)
--- NOTE | 2017-02-17 07:53 | PN ---
Subjective Date of Service: 02/17/17 Interval History: CC: SOB Pt is feeling better today. He states he is still coughing some but bringing up only small amounts of yellow sputum. He is still markedly SOB with minimal exertion. He denies any chest pain. He notes that his LE edema is much better today. He denies any diarrhea. Family History: Unchanged from Admission Social History: Unchanged from Admission Past Medical History: Unchanged from Admission Objective Active Medications: Albuterol (Ventolin 2.5 Mg/3 Ml Neb.Queenie*) 2.5 mg INH Q4H PRN PRN Reason: SOB/WHEEZING Apixaban (Eliquis*) 5 mg PO BID JERED Aspirin (Aspirin Low Dose Tab*) 81 mg PO DAILY [facility] Last Admin: 02/16/17 08:45 Dose: 81 mg Diltiazem HCl (Cardizem Tab*) 30 mg PO Q6HR JERED Furosemide (Lasix Iv*) 20 mg IV ONCE ONE Stop: 02/17/17 07:37 Ceftriaxone Sodium 1,000 mg/ (Sodium Chloride) 50 mls @ 200 mls/hr IVPB Q24H JERED Last Admin: 02/16/17 08:45 Dose: 200 mls/hr Azithromycin 500 mg/ Sodium (Chloride) 250 mls @ 250 mls/hr IVPB Q24H [facility] Last Admin: 02/16/17 08:45 Dose: 250 mls/hr Omeprazole (Prilosec Cap*) 20 mg PO DAILY [facility] Last Admin: 02/16/17 08:45 Dose: 20 mg Potassium Chloride (Klor Con Er Tab*) 40 meq PO ONCE ONE Stop: 02/17/17 07:30 Vital Signs 02/16/17 02/16/17 02/16/17 07:50 07:54 07:55 Temperature Pulse Rate 54 38 Respiratory Rate Blood Pressure 141/97 118/92 (mmHg) O2 Sat by Pulse 95 94 Oximetry 02/16/17 02/16/17 02/16/17 08:00 08:04 08:15 Temperature 98.3 F 97.3 F Pulse Rate 65 140 162 Respiratory 29 20 34 Rate Blood Pressure 109/76 124/91 109/76 (mmHg) O2 Sat by Pulse 95 97 Oximetry 02/16/17 02/16/17 02/16/17 08:26 08:30 08:45 Temperature Pulse Rate 59 51 50 Respiratory 28 27 22 Rate Blood Pressure 127/74 102/81 123/59 (mmHg) O2 Sat by Pulse 96 96 97 Oximetry 02/16/17 02/16/17 02/16/17 09:00 09:15 09:30 Temperature Pulse Rate 95 43 64 Respiratory 23 16 22 Rate Blood Pressure 99/71 113/56 (mmHg) O2 Sat by Pulse 96 97 97 Oximetry 02/16/17 02/16/17 02/16/17 09:45 10:00 10:15 Temperature Pulse Rate 67 103 82 Respiratory 21 23 22 Rate Blood Pressure 107/73 100/63 (mmHg) O2 Sat by Pulse 97 97 96 Oximetry 02/16/17 02/16/17 02/16/17 10:30 10:45 11:00 Temperature Pulse Rate 91 77 93 Respiratory 21 24 17 Rate Blood Pressure 116/64 119/62 115/60 (mmHg) O2 Sat by Pulse 96 96 96 Oximetry 02/16/17 02/16/17 02/16/17 11:15 11:30 11:45 Temperature Pulse Rate 85 79 81 Respiratory 19 21 19 Rate Blood Pressure 108/70 105/61 115/67 (mmHg) O2 Sat by Pulse 95 95 96 Oximetry 02/16/17 02/16/17 02/16/17 12:00 12:15 12:30 Temperature 97.4 F Pulse Rate 90 97 84 Respiratory 19 19 18 Rate Blood Pressure 115/74 122/61 120/63 (mmHg) O2 Sat by Pulse 97 90 92 Oximetry 02/16/17 02/16/17 02/16/17 12:45 12:58 13:00 Temperature Pulse Rate 107 62 Respiratory 22 19 18 Rate Blood Pressure 111/81 126/50 (mmHg) O2 Sat by Pulse 93 93 Oximetry 02/16/17 02/16/17 02/16/17 13:15 13:30 13:45 Temperature Pulse Rate 93 71 78 Respiratory 19 20 20 Rate Blood Pressure 112/65 102/68 107/59 (mmHg) O2 Sat by Pulse 93 92 93 Oximetry 02/16/17 02/16/17 02/16/17 14:00 14:15 14:30 Temperature Pulse Rate 135 65 Respiratory 23 18 Rate Blood Pressure 116/83 107/64 96/61 (mmHg) O2 Sat by Pulse 93 94 Oximetry 02/16/17 02/16/17 02/16/17 14:45 15:00 15:08 Temperature Pulse Rate 91 79 85 Respiratory 16 16 20 Rate Blood Pressure 91/53 89/51 95/62 (mmHg) O2 Sat by Pulse 94 94 94 Oximetry 02/16/17 02/16/17 02/16/17 15:15 15:30 15:45 Temperature Pulse Rate 87 81 Respiratory 19 22 Rate Blood Pressure 112/63 101/57 116/59 (mmHg) O2 Sat by Pulse 93 93 Oximetry 02/16/17 02/16/17 02/16/17 16:00 16:15 16:30 Temperature 97.3 F Pulse Rate 86 75 88 Respiratory 19 20 21 Rate Blood Pressure 105/61 110/63 114/64 (mmHg) O2 Sat by Pulse 93 93 93 Oximetry 02/16/17 02/16/17 02/16/17 16:45 17:00 17:15 Temperature Pulse Rate 50 88 74 Respiratory 21 20 22 Rate Blood Pressure 121/74 126/74 134/73 (mmHg) O2 Sat by Pulse 94 93 94 Oximetry 02/16/17 02/16/17 02/16/17 17:30 17:45 18:00 Temperature Pulse Rate 103 96 65 Respiratory 24 22 23 Rate Blood Pressure 118/77 129/66 123/67 (mmHg) O2 Sat by Pulse 93 94 93 Oximetry 02/16/17 02/16/17 02/16/17 18:15 18:30 18:45 Temperature Pulse Rate 103 79 Respiratory 24 25 Rate Blood Pressure 107/69 106/71 113/74 (mmHg) O2 Sat by Pulse 92 93 Oximetry 02/16/17 02/16/17 02/16/17 19:00 19:13 19:15 Temperature 97.5 F Pulse Rate 86 90 Respiratory 24 24 Rate Blood Pressure 118/66 107/60 (mmHg) O2 Sat by Pulse 93 93 Oximetry 02/16/17 02/16/17 02/16/17 19:30 19:45 20:00 Temperature Pulse Rate 53 88 82 Respiratory 23 21 24 Rate Blood Pressure 117/79 116/72 113/73 (mmHg) O2 Sat by Pulse 93 94 92 Oximetry 02/16/17 02/16/17 02/16/17 20:15 20:30 20:45 Temperature Pulse Rate 85 96 77 Respiratory 21 22 24 Rate Blood Pressure 121/65 116/64 104/63 (mmHg) O2 Sat by Pulse 94 94 95 Oximetry 02/16/17 02/16/17 02/16/17 20:53 21:00 21:15 Temperature Pulse Rate 84 68 Respiratory 22 16 21 Rate Blood Pressure 106/57 108/52 (mmHg) O2 Sat by Pulse 94 94 Oximetry 02/16/17 02/16/17 02/16/17 21:30 21:45 22:00 Temperature Pulse Rate 80 102 77 Respiratory 22 20 21 Rate Blood Pressure 115/62 136/82 116/57 (mmHg) O2 Sat by Pulse 94 93 94 Oximetry 02/16/17 02/16/17 02/16/17 22:15 22:30 22:45 Temperature Pulse Rate 75 80 79 Respiratory 23 21 21 Rate Blood Pressure 113/63 106/59 109/56 (mmHg) O2 Sat by Pulse 94 94 94 Oximetry 02/16/17 02/16/17 02/16/17 23:00 23:15 23:27 Temperature 97.8 F Pulse Rate 82 81 Respiratory 22 21 Rate Blood Pressure 110/61 110/51 (mmHg) O2 Sat by Pulse 94 95 Oximetry 02/16/17 02/16/17 02/17/17 23:30 23:45 00:00 Temperature Pulse Rate 88 Respiratory 20 16 Rate Blood Pressure 113/67 117/58 (mmHg) O2 Sat by Pulse 94 Oximetry 02/17/17 02/17/17 02/17/17 00:01 00:15 00:30 Temperature Pulse Rate 83 79 79 Respiratory 20 21 18 Rate Blood Pressure 106/56 104/60 96/75 (mmHg) O2 Sat by Pulse 94 94 94 Oximetry 02/17/17 02/17/17 02/17/17 00:45 01:00 01:15 Temperature Pulse Rate 66 76 85 Respiratory 19 17 16 Rate Blood Pressure 115/70 110/51 128/81 (mmHg) O2 Sat by Pulse 95 95 97 Oximetry 02/17/17 02/17/17 02/17/17 01:30 02:00 02:58 Temperature Pulse Rate 79 81 Respiratory 19 18 27 Rate Blood Pressure 111/55 103/55 (mmHg) O2 Sat by Pulse 93 92 Oximetry 02/17/17 02/17/17 02/17/17 03:00 03:01 03:28 Temperature Pulse Rate Respiratory 18 31 18 Rate Blood Pressure 133/46 (mmHg) O2 Sat by Pulse Oximetry 02/17/17 02/17/17 02/17/17 04:00 04:04 05:00 Temperature 98.0 F Pulse Rate 71 85 67 Respiratory 18 20 17 Rate Blood Pressure 74/39 94/59 99/52 (mmHg) O2 Sat by Pulse 92 93 96 Oximetry 02/17/17 02/17/17 02/17/17 05:41 06:00 07:00 Temperature Pulse Rate 74 78 Respiratory 16 18 19 Rate Blood Pressure 101/60 90/58 (mmHg) O2 Sat by Pulse 95 94 Oximetry Oxygen Devices in Use Now: Nasal Cannula - 2L-95% Appearance: Elderly male sitting up in bed, NAD Eyes: No Scleral Icterus Ears/Nose/Mouth/Throat: Mucous Membranes Moist Respiratory: Symmetrical Chest Expansion and Respiratory Effort, - - few fine bibasilar crackles, diminished breath sounds in all lung fieds Cardiovascular: - - irregularly irregular, controlled rate, heart sounds are difficult to hear, improved LE edema (R LE now with significant wrinkling of the skin, L LE with imrpoved edema but not down as much as the R) Abdominal: NL Sounds; No Tenderness; No Distention Extremities: No Clubbing, Cyanosis Skin: No Rash or Ulcers, No Nodules or Sclerosis Neurological: Alert and Oriented x 3 Result Diagrams: 02/17/17 06:14 02/17/17 06:14 Additional Lab and Data: Lab Results 02/16/17 Range/Units 06:21 WBC 13.3 H (3.5-10.8) 10^3/ul RBC 4.24 (4.0-5.4) 10^6/ul Hgb 13.5 L (14.0-18.0) g/dl Hct 41 L (42-52) % MCV 97 H (80-94) fL MCH 32 H (27-31) pg MCHC 33 (31-36) g/dl RDW 16 H (10.5-15) % Plt Count 287 (150-450) 10^3/ul MPV 8 (7.4-10.4) um3 Neut % (Auto) 59.9 (38-83) % Lymph % (Auto) 30.6 (25-47) % [place] % (Auto) 7.3 (1-9) % Eos % (Auto) 1.4 (0-6) % Baso % (Auto) 0.8 (0-2) % Absolute Neuts (auto) 8.0 H (1.5-7.7) 10^3/ul Absolute Lymphs (auto) 4.1 (1.0-4.8) 10^3/ul Absolute Monos (auto) 1.0 H (0-0.8) 10^3/ul Absolute Eos (auto) 0.2 (0-0.6) 10^3/ul Absolute Basos (auto) 0.1 (0-0.2) 10^3/ul Absolute Nucleated RBC 0.01 10^3/ul Nucleated RBC % 0.1 Microbiology and Other Data: Microbiology 02/16/17 09:00 Nasal Screen MRSA (PCR)([facility]FR[facility]O) - Final Nasal Mrsa Negative Assess/Plan/Problems-Billing Mr Law is a 71 yo M who has a h/o type II DM (diet controlled), HTN ( controlled off meds), CAD and asthma who presented to the ER with c/o SOB and was found to be in rapid atrial fibrillation and probable community acquired pneumonia. - Patient Problems (1) Atrial fibrillation Current Visit: Yes Status: Acute Code(s): I48.91 - UNSPECIFIED ATRIAL FIBRILLATION SNOMED Code(s): 88277104 Comment: The patient had an epidsode of paroxysmal Afib in 11/2016. At that time his afib resolved with hydration. The patient is now in persistent afib. His CHADS2-Vasc score is 7 inidicating he needs fci anticoagulation. The patient can not feel when he is in afib (HR 170's on presentation to the ER without any symptoms of racing heart or palpitations). Will get echo now as I am concerned he may have been in prolonged rapid afib leading to tachycardia induced CM with resultant LE edema and pulmonary edema (will give lasix 20mg IV x1 today given he is still markedly SOB with minimal exertion). He is off the diltiazem drip and on oral diltiazem. Will need to monitor BP/HR closely. If HR does not remain controlled and BP remains low can try digoxin. I discussed with the patient about needing stamping mill tender anticoagulation due to his stroke risk and he agrees to be started on eliquis 5mg BID. He in the past has had issues with urinary retention and the development of ARF. His most recent creatinine levels have been acceptable. He will need his Cr monitored while on eliquis. Transfer pt to tele floor. (2) Community acquired bacterial pneumonia Current Visit: Yes Status: Acute Code(s): J15.9 - UNSPECIFIED BACTERIAL PNEUMONIA SNOMED Code(s): 262472116 Comment: I suspect the patient has a CAP. His sputum gram stain shows gram positive cocci. ? S. Pneumoniae. Will send of S. Pneumoniae urinary antigen. Await sputum culture. Continue ceftriaxone and azithromycin for now. His O2 requirements have decreased some. Will continue to monitor his respiratory status. (3) Anemia Current Visit: Yes Status: Acute Code(s): D64.9 - ANEMIA, UNSPECIFIED SNOMED Code(s): 445726134 Comment: The patient has been anemic chronically. H/H dropped today from admission. Will check iron, B12 levels. Check stool guaiac. Will need to monitor closely given initiation of eliquis. (4) HTN (hypertension) Current Visit: Yes Status: Chronic Code(s): I10 - ESSENTIAL (PRIMARY) HYPERTENSION SNOMED Code(s): 87551851 Comment: BP low normal on oral diltiazem. Will continue to follow. (5) CAD (coronary artery disease) Current Visit: Yes Status: Chronic Code(s): I25.10 - ATHSCL HEART DISEASE OF [place] CORONARY ARTERY W/O ANG PCTRS SNOMED Code(s): 03923731 Comment: Presumed diagnosis based on previous EKG revealing changes c/w prior [place]. Continue ASA 81mg daily. The elevated trop in the ER likely secondary to demand ischemia. Will not work this up any further. (6) HLD (hyperlipidemia) Current Visit: Yes Status: Chronic Code(s): E78.5 - HYPERLIPIDEMIA, UNSPECIFIED SNOMED Code(s): 31832690 Comment: Pt is not on any lipid lower meds at home-follow up with PCP. (7) Type II diabetes mellitus Current Visit: Yes Status: Acute Comment: Diet controlled. A1c 5.1%. Stop lispro sliding scale. (8) DVT prophylaxis Current Visit: Yes Status: Acute Onset Date: 10/24/14 Code(s): RNZ1044 - SNOMED Code(s): 989260955 Comment: Robert (9) Full code status Current Visit: Yes Status: Acute Code(s): Z78.9 - OTHER SPECIFIED HEALTH STATUS SNOMED Code(s): 873568987
[2017-02-17] MEDS: Aspirin Low Dose CHEW TAB* 81 MG PO SCH (08:06)
[2017-02-17] MEDS: Omeprazole CAP* 20 MG PO SCH (08:06)
[2017-02-17] MEDS: Azithromycin IV(*) 500 MG in NS 0.9% 250 ML* 250 ML IVPB SCH (08:06)
[2017-02-17] MEDS: cefTRIAXone VIAL(*) 1,000 MG in NS 0.9% 50 ML* 50 ML IVPB SCH (08:06)
[2017-02-17 08:33] LABS: Magnesium 1.7 mg/dL (1.9-2.7)
[2017-02-17] MEDS ORDERED: Perflutren Lipid Microsphere* 3 ML VIAL ONE (08:38)
[2017-02-17 08:58] LABS: Ferritin 318.9 ng/mL (24-336)
[2017-02-17] MEDS: Apixaban* 5 MG TAB PO SCH ×2 (09:24→20:14)
--- NOTE | 2017-02-17 11:19 | ECHO ---
Patient: ALFONSO PARKER [facility] Rec#: [id number] : 1945 Date: 02/17/2017 Age: 71y Height: 177.8 cm / 70.0 in Weight: 108.86 kg / 239.9 lbs Sex: M BSA: 2.26 Room#: ICU 4 Admit Date#: 02/16/2017 Type: Inpatient Referring: Zo Childers DO Reading: Virgil Pierce MD Email Deployment Specialist: Olga Sears RDCS,RDMS CC: Bob Juarez MD Transthoracic Echocardiogram Indication: Afib BP: 101/60 HR: 88 Rhythm: A-Fib Findings History: CAD,HTN, HLD, DM, CVA, former smoker Technical Comments: The study is technically limited due to poor acoustic windows. Completed 0920 Left Ventricle: The left ventricular chamber size is normal. Mild concentric left ventricular hypertrophy is observed. Severe global hypokinesis of the left ventricle is observed. There is severely decreased left ventricular systolic function. The estimated ejection fraction is less than 20%. The assessment of diastolic function is non-diagnostic. Left Atrium: The left atrium is mildly dilated. Right Ventricle: The right ventricle wall thickness is mildly increased. The right ventricular cavity size is normal. The right ventricular global systolic function is mildly reduced. Right Atrium: The right atrium is slightly dilated. Aortic Valve: The aortic valve is trileaflet. The aortic valve leaflets are mildly thickened. There is no evidence of aortic regurgitation. There is no evidence of aortic stenosis. Mitral Valve: The mitral valve leaflets are mildly thickened. There is mild mitral regurgitation. There is no evidence of mitral stenosis. Tricuspid Valve: The tricuspid valve leaflets are normal. There is trace tricuspid regurgitation. Unable to estimate the right ventricular systolic pressure. Pulmonic Valve: The pulmonic valve structure is not well visualized. There is no evidence of pulmonic regurgitation. Pericardium: A trivial pericardial effusion is visualized. Aorta: The aortic root appears normal. There is no dilatation of the aortic arch. Pulmonary Artery: The main pulmonary artery is not well visualized. Venous: The inferior vena cava appears normal in size. There is less than 50% respiratory change in the inferior vena cava dimension. Contrast: Definity was used to optimize study. A total of 3 ml was used Conclusions Mild concentric left ventricular hypertrophy is observed. Severe global hypokinesis of the left ventricle is observed. There is severely decreased left ventricular systolic function. The estimated ejection fraction is less than 20%. The aortic valve leaflets are mildly thickened. There is no evidence of aortic regurgitation. There is mild mitral regurgitation. There is trace tricuspid regurgitation. Unable to estimate the right ventricular systolic pressure. Compared to study of 10/21/16, the LV function is much worse. Valve function is the same Measurements Name Value Normal Range RVIDd (AP) 2D 2.8 cm (0.9 - 2.6) RVDdMajor (2D) 3.7 cm (2.2 - 4.4) RAd ISD 4CH 4.4 cm (3.4 - 4.9) RA (A4C)W 4.7 cm (2.9 - 4.6) IVSd (2D) 1.1 cm (0.6 - 1) LVPWd (2D) 1.1 cm (0.6 - 1) LVIDd (2D) 5 cm (3.6 - 5.4) LVIDs (2D) 4.4 cm - LV FS (2D) 13 % (25 - 45) Aortic Annulus 2.4 cm (1.4 - 2.6) Ao root diameter (2D) 3.1 cm (2.1 - 3.5) Ascending Ao 3.2 cm (2.1 - 3.4) Aortic arch 3.1 cm (1.8 - 3.4) LA dimension (AP) 2D 4.5 cm (2.3 - 3.8) LAd ISD 4CH 5.8 cm (2.9 - 5.3) LA ISD 4CH W 4.2 cm (2.5 - 4.5) Name Value Normal Range LA ESV SP 4CH (A/L) 64.7 ml - LA ESV SP 2CH (A/L) 85.56 ml - LA ESV BP (A/L) 76.39 ml - LA ESV BP (A/L) index 34 ml/m2 - LA ESV SP 4CH (MOD) 61.05 ml - LA ESV SP 2CH (MOD) 78.82 ml - Name Value Normal Range MV E-wave Vmax 1.3 m/sec - MV deceleration time 182 msec - LV lateral e' Vmax 0.07 m/sec - LV E:e' lateral ratio 19 ratio - Name Value Normal Range AV Vmax 1.2 m/sec - AV peak gradient 6 mmHg - LVOT Vmax 0.9 m/sec - LVOT peak gradient 3.2 mmHg - WINDY Vmax 0.6 m/sec - Name Value Normal Range MV Vmax 1.4 m/sec - MV VTI 25 cm - MV peak gradient 8 mmHg - MV mean gradient 3.1 mmHg - MV PHT 68 msec - MVA (PHT) 3.2 cm2 - Name Value Normal Range RAP 8 mmHg - IVC diameter 2.1 cm - Name Value Normal Range PV Vmax 0.7 m/sec - PV peak gradient 2 mmHg -
[2017-02-17] MEDS: Diltiazem TAB* 30 MG PO SCH ×2 (12:17→17:29)
[2017-02-17] MEDS ORDERED: Magnesium Sulfate 2 GM IV* 2 GM/50 ML BAG IVPB ONE (15:00)
[2017-02-17] MEDS ORDERED: Diltiazem TAB* 30 MG PO PRN (17:57)
[2017-02-17] MEDS: Diltiazem CD CAP* 120 MG PO SCH ×2 (18:17→20:14)
[2017-02-17] MEDS ORDERED: Metoprolol Tartrate IV* 1 MG/ML 5 ML VIAL IV ONE (23:21)
[2017-02-18] MEDS: Albuterol 2.5 MG/3 ML NEB.SOL* (0.083%) INH PRN (04:25)
[2017-02-18] MEDS ORDERED: Metoprolol Tartrate IV* 1 MG/ML 5 ML VIAL IV ONE ×4 (04:45→22:41)
[2017-02-18 05:40] LABS: Hematocrit 35 % (42-52); Hemoglobin 11.7 g/dl (14.0-18.0); Mean Corpuscular HGB Conc 33 g/dl (31-36); Mean Corpuscular Hemoglobin 31 pg (27-31); Mean Corpuscular Volume 94 fL (80-94); Mean Platelet Volume 8 um3 (7.4-10.4); Red Blood Count 3.72 10^6/ul (4.0-5.4); Red Cell Distribution Width 15 % (10.5-15); White Blood Count 8.4 10^3/ul (3.5-10.8)
[2017-02-18 05:54] LABS: Calcium 8.5 mg/dL (8.6-10.3); EGFR African American 94.2 (>60); EGFR Non-African American 73.2 (>60); Potassium 3.3 mmol/L (3.5-5.0)
[2017-02-18] MEDS ORDERED: Morphine INJ* 2 MG/ML 1 ML SYRINGE IV ONE (07:11)
[2017-02-18] MEDS ORDERED: Metoprolol Tartrate IV* 1 MG/ML 5 ML VIAL ONE (07:14)
[2017-02-18] MEDS ORDERED: Morphine INJ* 2 MG/ML 1 ML SYRINGE ONE (07:14)
[2017-02-18] MEDS ORDERED: Potassium Chlor TAB* 20 MEQ TAB.ER PO ONE (07:25)
[2017-02-18] MEDS ORDERED: Furosemide IV* 10 MG/ML 2 ML VIAL (20 MG) IV ONE ×2 (07:26→22:41)
[2017-02-18] MEDS ORDERED: Furosemide IV* 10 MG/ML 2 ML VIAL (20 MG) ONE (07:33)
--- NOTE | 2017-02-18 07:46 | PN ---
Subjective Date of Service: 02/18/17 Interval History: CC: SOB The patient became very SOB this AM. He feels as if he can not catch his breath. He can not feel his heart racing. He became very sweaty when he could not breathe. He denies any chest pain. He has seen continued improvement in the LE edema. Family History: Unchanged from Admission Social History: Unchanged from Admission Past Medical History: Unchanged from Admission Objective Active Medications: Albuterol (Ventolin 2.5 Mg/3 Ml Neb.Queenie*) 2.5 mg INH Q4H PRN PRN Reason: SOB/WHEEZING Last Admin: 02/18/17 04:25 Dose: 2.5 mg Apixaban (Eliquis*) 5 mg PO BID [facility] Last Admin: 02/17/17 20:14 Dose: 5 mg Aspirin (Aspirin Low Dose Tab*) 81 mg PO DAILY [facility] Last Admin: 02/17/17 08:06 Dose: 81 mg Diltiazem HCl (Cardizem Cd Cap*) 120 mg PO BID [facility] Last Admin: 02/17/17 20:14 Dose: 120 mg Ceftriaxone Sodium 1,000 mg/ (Sodium Chloride) 50 mls @ 200 mls/hr IVPB Q24H [facility] Last Admin: 02/17/17 08:06 Dose: 200 mls/hr Azithromycin 500 mg/ Sodium (Chloride) 250 mls @ 250 mls/hr IVPB Q24H [facility] Last Admin: 02/17/17 08:06 Dose: 250 mls/hr Potassium Chloride (Potassium Chloride 20 Meq/100 Ml Ivpremix*) 20 meq in 100 mls @ 50 mls/hr IV Q2H [facility] Stop: 02/18/17 11:59 Omeprazole (Prilosec Cap*) 20 mg PO DAILY [facility] Last Admin: 02/17/17 08:06 Dose: 20 mg Vital Signs 02/17/17 02/17/17 02/17/17 08:00 09:00 10:35 Temperature 98.2 F Pulse Rate 140 91 115 Respiratory 18 17 21 Rate Blood Pressure 98/66 118/95 (mmHg) O2 Sat by Pulse 94 93 96 Oximetry 02/17/17 02/17/17 02/17/17 11:04 11:51 15:16 Temperature 97.9 F 98.9 F Pulse Rate 93 112 Respiratory 20 20 20 Rate Blood Pressure 113/67 109/77 (mmHg) O2 Sat by Pulse 96 92 Oximetry 02/17/17 02/17/17 02/17/17 17:28 19:18 20:00 Temperature 99.1 F Pulse Rate 115 Respiratory 20 20 Rate Blood Pressure 129/82 141/67 (mmHg) O2 Sat by Pulse 94 Oximetry 02/18/17 02/18/17 02/18/17 00:35 04:04 04:08 Temperature 98.4 F Pulse Rate 109 36 110 Respiratory 20 40 Rate Blood Pressure 126/65 136/82 (mmHg) O2 Sat by Pulse 93 91 Oximetry 02/18/17 02/18/17 02/18/17 04:20 04:25 07:16 Temperature 98.1 F Pulse Rate 104 Respiratory 40 Rate Blood Pressure (mmHg) O2 Sat by Pulse 93 Oximetry Oxygen Devices in Use Now: Nasal Cannula - 93%-2L Appearance: Elderly male sitting up in bed, appearing tachypnic and diaphoretic but not in respiratory distress Eyes: No Scleral Icterus Ears/Nose/Mouth/Throat: Mucous Membranes Moist Respiratory: Symmetrical Chest Expansion and Respiratory Effort, - - + LLL crackles, minimal RLL crackles, forced expiratory wheeze, diminished lung sounds in all crane Cardiovascular: - - Irregularly irregular, tachycardic, 1-2+ pitting edema of the B/L LE Abdominal: NL Sounds; No Tenderness; No Distention Extremities: No Clubbing, Cyanosis Skin: No Rash or Ulcers, No Nodules or Sclerosis Neurological: Alert and Oriented x 3 Result Diagrams: 02/18/17 05:14 02/18/17 05:13 Additional Lab and Data: Lab Results 02/16/17 Range/Units 06:21 WBC 13.3 H (3.5-10.8) 10^3/ul RBC 4.24 (4.0-5.4) 10^6/ul Hgb 13.5 L (14.0-18.0) g/dl Hct 41 L (42-52) % MCV 97 H (80-94) fL MCH 32 H (27-31) pg MCHC 33 (31-36) g/dl RDW 16 H (10.5-15) % Plt Count 287 (150-450) 10^3/ul MPV 8 (7.4-10.4) um3 Neut % (Auto) 59.9 (38-83) % Lymph % (Auto) 30.6 (25-47) % [place] % (Auto) 7.3 (1-9) % Eos % (Auto) 1.4 (0-6) % Baso % (Auto) 0.8 (0-2) % Absolute Neuts (auto) 8.0 H (1.5-7.7) 10^3/ul Absolute Lymphs (auto) 4.1 (1.0-4.8) 10^3/ul Absolute Monos (auto) 1.0 H (0-0.8) 10^3/ul Absolute Eos (auto) 0.2 (0-0.6) 10^3/ul Absolute Basos (auto) 0.1 (0-0.2) 10^3/ul Absolute Nucleated RBC 0.01 10^3/ul Nucleated RBC % 0.1 Microbiology and Other Data: Microbiology 02/16/17 09:00 Nasal Screen MRSA (PCR)(WILFREDO) - Final Nasal Mrsa Negative Assess/Plan/Problems-Billing Mr Law is a 71 yo M who has a h/o type II DM (diet controlled), HTN ( controlled off meds), CAD and asthma who presented to the ER with c/o SOB and was found to be in rapid atrial fibrillation and probable community acquired pneumonia. - Patient Problems (1) Atrial fibrillation Current Visit: Yes Status: Acute Code(s): I48.91 - UNSPECIFIED ATRIAL FIBRILLATION SNOMED Code(s): 70891377 Comment: The patient is back in rapid afib. His HR started climbing last evening so the oral diltiazem dose was increased. Continue cardizem CD 120mg BID and prn metoprolol. Continue eliquis 5mg BID. Will get cardiology consultation today. (2) Heart failure, systolic, with acute decompensation Current Visit: Yes Status: Acute Code(s): I50.23 - ACUTE ON CHRONIC SYSTOLIC (CONGESTIVE) HEART FAILURE SNOMED Code(s): 720109632 Comment: The patient's echo shows severe systolic dysfunction with severe global LV hypokinesis. This is markedly changed from echo done 09/2016 where his EF was 35-40%. I suspect this may be related to tachycardia induced cardiomyopathy. Will get cardiology evaluation today. He will need adjustments in his medication regimen to optimize his cardiac care. (3) Community acquired bacterial pneumonia Current Visit: Yes Status: Acute Code(s): J15.9 - UNSPECIFIED BACTERIAL PNEUMONIA SNOMED Code(s): 094205234 Comment: I suspect the patient has a CAP. His sputum culture is still pending. Continue ceftriaxone and azithromycin to treat for a total of 7 days. Continue supplemental O2. (4) Anemia Current Visit: Yes Status: Acute Code(s): D64.9 - ANEMIA, UNSPECIFIED SNOMED Code(s): 102073980 Comment: Guaiac pending. Start B12 supplementation as his B12 level is low normal. He does not appear to be iron deficient. (5) HTN (hypertension) Current Visit: Yes Status: Chronic Code(s): I10 - ESSENTIAL (PRIMARY) HYPERTENSION SNOMED Code(s): 47002587 Comment: BP ok on oral diltiazem. Monitor BP as rate lower medications get adjusted. (6) CAD (coronary artery disease) Current Visit: Yes Status: Chronic Code(s): I25.10 - ATHSCL HEART DISEASE OF [place] CORONARY ARTERY W/O ANG PCTRS SNOMED Code(s): 99152167 Comment: Presumed diagnosis based on previous EKG revealing changes c/w prior [place]. Continue ASA 81mg daily. The elevated trop in the ER likely secondary to demand ischemia. (7) HLD (hyperlipidemia) Current Visit: Yes Status: Chronic Code(s): E78.5 - HYPERLIPIDEMIA, UNSPECIFIED SNOMED Code(s): 81778755 Comment: Pt is not on any lipid lower meds at home-follow up with PCP. (8) Type II diabetes mellitus Current Visit: Yes Status: Acute Comment: Diet controlled. A1c 5.1%. (9) DVT prophylaxis Current Visit: Yes Status: Acute Onset Date: 10/24/14 Code(s): IUW0292 - SNOMED Code(s): 267948485 Comment: Robert (10) Full code status Current Visit: Yes Status: Acute Code(s): Z78.9 - OTHER SPECIFIED HEALTH STATUS SNOMED Code(s): 597022698
[2017-02-18] MEDS: Diltiazem CD CAP* 120 MG PO SCH (07:54)
[2017-02-18] MEDS: Apixaban* 5 MG TAB PO SCH ×2 (07:55→19:59)
[2017-02-18] MEDS: Aspirin Low Dose CHEW TAB* 81 MG PO SCH (07:55)
[2017-02-18] MEDS: Omeprazole CAP* 20 MG PO SCH (07:55)
[2017-02-18] MEDS: KCL 20 MEQ/100 ML IVPREMIX* 20 MEQ/100 ML BAG IV SCH ×2 (07:56→10:25)
--- NOTE | 2017-02-18 07:57 | RAD ---
Indication: Shortness of breath, dyspnea. 2 views of the chest including dual energy PA views demonstrate interstitial edema. Bilateral pleural effusions are noted. No pneumothorax is noted. When compared to previous exam of February 16, 2017 CHF and pleural effusions appear stable. IMPRESSION: Interstitial edema with bilateral pleural effusions unchanged since previous exam of February 16, 2017.
[2017-02-18] MEDS: Cyanocobalamin TAB* 500 MCG PO SCH (07:59)
[2017-02-18] MEDS: cefTRIAXone VIAL(*) 1,000 MG in NS 0.9% 50 ML* 50 ML IVPB SCH (08:04)
[2017-02-18] MEDS: Azithromycin IV(*) 500 MG in NS 0.9% 250 ML* 250 ML IVPB SCH (09:13)
[2017-02-18] MEDS ORDERED: Midazolam* 1 MG/ML 5 ML VIAL (5 MG) ONE (10:42)
[2017-02-18] MEDS ORDERED: fentaNYL* 50 MCG/ML 2 ML VIAL (100 MCG VIAL) ONE (10:42)
[2017-02-18] MEDS ORDERED: Flumazenil* 0.1 MG/ML 5 ML MDV ONE (10:42)
[2017-02-18] MEDS ORDERED: Naloxone* 0.4 MG/ML 1 ML VIAL ONE (10:42)
[2017-02-18] MEDS ORDERED: Lidocaine 2% VISCOUS* 15 ML UDC ONE (10:43)
[2017-02-18] MEDS ORDERED: Potassium Chlor TAB* 20 MEQ TAB.ER ONE (11:13)
[2017-02-18] MEDS ORDERED: Potassium Chlor TAB* 10 MEQ TAB.ER PO ONE ×2 (11:30)
--- NOTE | 2017-02-18 13:36 | CONS ---
CONSULTATION REPORT: DATE OF CONSULTATION: 02/18/17 REASON FOR CONSULTATION: Atrial fibrillation and cardiomyopathy. HISTORY OF PRESENT ILLNESS: Mr. Law is a 71-year-old gentleman who states that about 3 weeks ago, he was feeling generally fatigued with some intermittent palpitations and he had some coughing. He presented to the hospital earlier this week because of coughing productive of yellow sputum and shortness of breath. He had also had swelling in his legs. In the emergency room, he was noted to be in atrial fibrillation with a rapid ventricular rate and a subsequent echocardiogram in the hospital revealed his ejection fraction was markedly depressed at 20%. The patient has been taking over- the-counter nonsteroidals. Denies any recent changes in his prescription medications. He does not drink alcohol at all. He cannot think of any particular event in his life that would have led to this recently. He does states people have told him that he snores, but he has never been in for a sleep study. PAST MEDICAL HISTORY: Distant strokes, the patient does not know the etiology; type 2 diabetes; hypertension; dyslipidemia; asthma; former smoker; urinary tract infection. PAST SURGICAL HISTORY: Includes cholecystectomy for gangrenous cholecystitis and umbilical hernia repair. CURRENT INPATIENT MEDICATIONS: Include: 1. Albuterol nebulizer. 2. Eliquis 5 mg b.i.d. started yesterday. 3. Aspirin 81 mg a day. 4. Zithromax. 5. Ceftriaxone. 6. B12. 7. Diltiazem 120 mg b.i.d. 8. IV Lopressor p.r.n. 9. Prilosec 20 mg a day. 10. Potassium. 11. He has had some p.r.n. Lasix doses. ALLERGIES: He is allergic to TETANUS antitoxin. FAMILY HISTORY: Significant that his mother at age 65 of congestive heart failure and his father at age 91. SOCIAL HISTORY: The patient smoked until about 50 years ago. No history of alcohol intake at all. Works in construction, is . REVIEW OF SYSTEMS: See history of present illness. The patient denies rhinorrhea, fevers. I could not illicit history of clear-cut orthopnea or PND. He denies chest pain, pressure, heaviness. No change in bowel or bladder habits. He does admit that his abdominal girth has probably increased recently and he does mention the profound fatigue for the last 3 weeks that has accompanied the coughing and increased shortness of breath. PHYSICAL EXAMINATION: On exam, the patient is 5 feet 10 inches, weighs 243 pounds with a BMI of 35. Vital signs on admission, blood pressure 156/114 with a pulse of 170. Currently blood pressure is 134/92, pulse 120s, respiratory rate 29, oxygen saturation 86% to 91%, temperature 98.2. General Appearance: Essentially quite obese older gentleman, lying at 60 degrees, tachypneic, but able to talk comfortably. Psychologically pleasant and cooperative. Neurologically awake, alert, and oriented to person and place. I did not evaluate for time. He has trouble word finding sometimes, which he attributes to his prior stroke. The patient's speech is articulate, comprehension seems good and follows commands well. Moves well in the bed. Skin: Diaphoretic predominantly in the back against the bed. No cyanosis appreciated. HEENT: Pupils were equal and round. Mucous membranes moist. Neck without appreciable increasing JVP, although thick. Breath sounds diminished throughout, but no wheezing. He had rales in the very bases. Coronary: Distant S1 and S2, irregularly irregular without murmurs appreciated. Abdomen: Quite rotund and firm, nontender, and active bowel sounds. Lower extremities show mild edema to the midcalf. DIAGNOSTIC STUDIES/LAB DATA: The patient's ECG on arrival to the emergency department, 02/16/17, shows atrial fibrillation with a rapid ventricular rate of 178 beats a minute. An EKG this morning confirms atrial fibrillation with a ventricular rate of 127 beats a minute. QRS axis 0. Two PVCs in a 10-second strip. He has poor R-wave progression V1 through V5 and inferior Q as well concerning for old inferior and anterior myocardial infarctions. He has some ST and T-wave flattening in the inferior leads. No evidence of acute ischemic changes. Echocardiogram from 02/16/17 shows mild left ventricular hypertrophy with global hypokinesis and ejection fraction of 20%. He had mild mitral insufficiency, trace tricuspid insufficiency. Compared with an echo of September 2016, the depressed ejection fraction is new. White count on arrival 13.1, white count now 8.4. Hemoglobin 11.7, hematocrit 35, and platelets 221. D-dimer was elevated at 435. Today's labs, sodium 136, potassium 3.3, chloride 104, bicarb 25, glucose 120. BUN 11, creatinine 1.1, magnesium 1.7. BNP of 446, troponin 1 is 0.04, troponin 3 is 0.03. No TSH obtained. From 02/03/17, total cholesterol 500, triglycerides 149, LDL cholesterol 126 and HDL cholesterol 44. Chest x-ray from the emergency department on arrival showed hyperinflation and congestive heart failure. Chest x-ray from this morning at 4:42 am showed interstitial edema, bilateral pleural effusions unchanged. IMPRESSION: In summary, Mr. Law is a 71-year-old gentleman presenting with a productive cough with elevated white count and additionally atrial fibrillation with a rapid ventricular rate of uncertain duration and newly depressed ejection fraction with a nominal bump in troponins. I suspect the patient may truly have had a lower respiratory tract infection because of the elevated white count, but I am most concerned that the patient has been in atrial fibrillation for several weeks and has a tachycardic-induced cardiomyopathy. As the patient has multiple atherosclerotic risks and an abnormal ECG, we cannot rule out coronary artery disease and I am going ahead to investigate this as well. For today, I recommend POPEYE-guided cardioversion and he will likely need antiarrhythmics to maintain sinus rhythm. I think amiodarone will be the safest medication for him on the short-term. Long-term, we will have to make a decision on whether to proceed with a cardiac catheterization for the severe cardiomyopathy or do a nuclear stress test now and use this to help guide us for catheterization. The other issue is going to be his depressed ejection fraction and risk of ventricular dysrhythmias, this is new and may be a reversible cardiomyopathy. A LifeVest needs to be discussed unless his ejection fraction improves more rapidly than would be expected. In terms of medical management of his cardiomyopathy, I would recommend stopping the oral diltiazem and converting this to Toprol or Coreg. I would recommend adding an ASHELY inhibitor and I think he is going to need regular diuretics, likely a combination of Lasix either with or alternating with Aldactone. Entresto may be a good option for him, but I do not believe is on formulary yet here. Additional recommendations will be made pending his response to cardioversion and adjustment in medications for his depressed ejection fraction. Additionally with his significant atherosclerotic risks, I would initiate a statin, and as an outpatient, we will need to work aggressively on lifestyle modifications. He may benefit from cardiac rehab. Thank you for allowing me to assist in this nice gentleman's care. CC: Bbo Juarez MD; Hospitalist Service* [id number]/[facility] #: [id number] [place]
[2017-02-18 14:32] LABS: TSH (Thyroid Stimulating Horm) 2.5 mcIU/mL (0.34-5.60)
--- NOTE | 2017-02-18 15:08 | TEE ---
Patient: ALFONSO PARKER [facility] Rec#: [id number] : 1945 Date: 02/18/2017 Age: 71y Height: 178 cm / 70.1 in Weight: 111 kg / 244.6 lbs Sex: M BSA: 2.28 Room#: [facility] Admit Date#: 02/16/2017 Type: Inpatient Referring: Mari Franklin MD Performing: Mari Franklin MD Reading: Mari Franklin MD Transportation Clerk: Olga SearsRDCS,RDMS CC: Bob Juarez MD Transesophageal Echocardiogram Indication: AFIB BP: 101/80 Rhythm: A-Fib Findings History: CAD, HTN, HLD, DM, CVA, former smoker. Technical Comments: The study quality is good. Completed 1345. Patient converted to normal sinus rhythm during exam. Left Ventricle: The left ventricular chamber size is normal. Mild concentric left ventricular hypertrophy is observed. There is severely decreased left ventricular systolic function. The estimated ejection fraction is 20-25%. The assessment of diastolic function is non-diagnostic. Left Atrium: The left atrium is mildly dilated. Spontaneous echo contrast is present in the left atrium cavity and appendage. The left atrial appendage velocity is mildly reduced. There is no thrombus visualized in the left atrial appendage. Right Ventricle: The right ventricular cavity size is normal. The right ventricular global systolic function is mildly reduced. Right Atrium: The right atrial cavity size is normal. There were late bubbles seen in the left atrium. Aortic Valve: The aortic valve is trileaflet. Mild aortic cusp sclerosis is present. There is a trace of aortic regurgitation. There is no evidence of aortic stenosis. Mitral Valve: The mitral valve leaflets appear normal. There is mild to moderate mitral regurgitation. There is no evidence of mitral stenosis. Tricuspid Valve: The tricuspid valve leaflets are normal. There is trace tricuspid regurgitation. Pulmonic Valve: The pulmonic valve appears normal. There is a trace pulmonic regurgitation. Pericardium: There is a small pericardial effusion. Aorta: The aortic root appears normal. There is plaque visualized in the ascending aorta. There is plaque visualized in the transverse aorta. There is plaque visualized in the descending aorta. Pulmonary Artery: The main pulmonary artery appears normal. Venous: The inferior vena cava appears normal. The flow pattern of the pulmonary veins appear normal. 3 out of 4 well visualized The superior vena cava appears normal. POPEYE Procedures: All standard views were attempted within the limitations of patient tolerance and safety. History and physical as well as labs were reviewed. The patient was in a fasting state. Risks and benefits of the procedure, including alternatives, were discussed and written informed consent was obtained. The patient and/or their health care food service representative expressed understanding of the procedure, risks and benefits. Baseline and continuous monitoring of blood pressure, heart rate, pulse oximetry and heart rhythm was performed throughout the procedure. The appropriate time-out procedure was performed as per [facility] protocol. The patient was placed in the left lateral decubitus position. The patient's posterior pharynx was anesthetized with 20ml of 2% viscous lidocaine. The patient received IV Midazolam with a total dose of 4 mg. The patient received IV Fentanyl with a total dose of 50 mcg. The multiplane transesophageal echocardiogram probe was inserted through the posterior oropharynx and advanced into the esophagus without difficulty. Multiple 2D images were obtained of the heart and its related structures. Color flow Doppler was used for evaluation. Spectral Doppler was also used. The atrial septum was interrogated with color flow Doppler. At the conclusion of the procedure the probe was removed with continuous suction without complications. The patient tolerated the procedure with no apparent complications. Contrast: Intravenous agitated saline contrast was used to assess intracardiac shunting. Image 59 Conclusions Mild concentric left ventricular hypertrophy is observed. There is severely decreased left ventricular global systolic function. The estimated ejection fraction is 20-25%. The right ventricular global systolic function is mildly reduced. Spontaneous echo contrast is present in the left atrium cavity and appendage. There is no definitive thrombus visualized in the left atrial appendage, prominant calcified pectinate muscles notes. Late bubbles noted in the left atrium suggestive of a small cardiopulmonary shunt. Aortic valve sclerosis with normal function. There is mild to moderate mitral regurgitation. There is trace tricuspid regurgitation. There is a small pericardial effusion, no evidence of filling compromise noted.. There is plaque visualized in the ascending aorta, transverse and descending aorta. The patient was in atrial fibrillation baed on appendage wave forms at the start of the study, but had spontaneously converted to sinus rhythm by the end of the study. Measurements Name Value Normal Range Aortic Annulus 2.1 cm (1.4 - 2.6) Ao root diameter (2D) 3.2 cm (2.1 - 3.5) Ascending Ao 2.5 cm (2.1 - 3.4) Name Value Normal Range MV E-wave Vmax 0.9 m/sec - MV deceleration time 166 msec -
[2017-02-18] MEDS: Amiodarone TAB* 200 MG PO SCH (15:34)
[2017-02-18] MEDS: Carvedilol TAB* 3.125 MG PO SCH (19:59)
[2017-02-18] MEDS: Morphine INJ* 2 MG/ML 1 ML SYRINGE IV PRN (22:36)
[2017-02-19] MEDS ORDERED: Furosemide IV* 10 MG/ML 2 ML VIAL (20 MG) IV ONE ×2 (03:35→09:46)
[2017-02-19] MEDS: Morphine INJ* 2 MG/ML 1 ML SYRINGE IV PRN ×2 (05:54→20:58)
[2017-02-19] MEDS: Carvedilol TAB* 3.125 MG PO SCH (08:20)
[2017-02-19] MEDS: cefTRIAXone VIAL(*) 1,000 MG in NS 0.9% 50 ML* 50 ML IVPB SCH (08:20)
[2017-02-19] MEDS: Omeprazole CAP* 20 MG PO SCH (08:20)
[2017-02-19] MEDS: Apixaban* 5 MG TAB PO SCH ×2 (08:20→19:43)
[2017-02-19] MEDS: Amiodarone TAB* 200 MG PO SCH (08:20)
[2017-02-19] MEDS: Aspirin Low Dose CHEW TAB* 81 MG PO SCH (08:20)
[2017-02-19] MEDS: Cyanocobalamin TAB* 500 MCG PO SCH (08:20)
[2017-02-19] MEDS: Azithromycin IV(*) 500 MG in NS 0.9% 250 ML* 250 ML IVPB SCH (09:18)
--- NOTE | 2017-02-19 16:07 | PN ---
Subjective Date of Service: 02/19/17 Interval History: Pt is feeling well currently. He can not feel that his HR is rapid again today. Overnight he had an episode of SOB, this has now resolved. He denies any chest pain. Family History: Unchanged from Admission Social History: Unchanged from Admission Past Medical History: Unchanged from Admission Objective Active Medications: Albuterol (Ventolin 2.5 Mg/3 Ml Neb.Queenie*) 2.5 mg INH Q4H PRN PRN Reason: SOB/WHEEZING Last Admin: 02/18/17 04:25 Dose: 2.5 mg Amiodarone HCl (Cordarone Tab*) 400 mg PO DAILY [facility] Last Admin: 02/19/17 08:20 Dose: 400 mg Apixaban (Eliquis*) 5 mg PO BID [facility] Last Admin: 02/19/17 08:20 Dose: 5 mg Aspirin (Aspirin Low Dose Tab*) 81 mg PO DAILY [facility] Last Admin: 02/19/17 08:20 Dose: 81 mg Carvedilol (Coreg Tab*) 6.25 mg PO 799,1999 [facility] Cyanocobalamin (Vitamin B12 Tab*) 1,000 mcg PO DAILY [facility] Last Admin: 02/19/17 08:20 Dose: 1,000 mcg Ceftriaxone Sodium 1,000 mg/ (Sodium Chloride) 50 mls @ 200 mls/hr IVPB Q24H [facility] Last Admin: 02/19/17 08:20 Dose: 200 mls/hr Azithromycin 500 mg/ Sodium (Chloride) 250 mls @ 250 mls/hr IVPB Q24H [facility] Last Admin: 02/19/17 09:18 Dose: 250 mls/hr Metoprolol Tartrate (Lopressor Iv*) 5 mg IV Q6H PRN PRN Reason: HR>110 Morphine Sulfate (Morphine Inj (Syringe)*) 1 mg IV Q2H PRN PRN Reason: air hunger Last Admin: 02/19/17 05:54 Dose: 1 mg Omeprazole (Prilosec Cap*) 20 mg PO DAILY [facility] Last Admin: 02/19/17 08:20 Dose: 20 mg Vital Signs 02/18/17 02/18/17 02/18/17 19:31 20:00 22:20 Temperature 98.7 F 98.5 F Pulse Rate 93 107 Respiratory 20 20 35 Rate Blood Pressure 119/64 148/97 (mmHg) O2 Sat by Pulse 91 90 Oximetry 05/31/17 05/31/17 05/31/17 22:36 22:38 23:13 Temperature Pulse Rate 150 138 Respiratory 35 32 Rate Blood Pressure 132/92 105/87 (mmHg) O2 Sat by Pulse 97 Oximetry 02/18/17 02/18/17 02/19/17 23:36 23:59 02:41 Temperature 98.4 F Pulse Rate 37 98 Respiratory 28 32 24 Rate Blood Pressure 99/64 (mmHg) O2 Sat by Pulse 96 92 Oximetry 02/19/17 02/19/17 02/19/17 04:03 05:54 06:17 Temperature 97.9 F Pulse Rate 146 Respiratory 24 32 20 Rate Blood Pressure 125/81 (mmHg) O2 Sat by Pulse 96 Oximetry 02/19/17 02/19/17 02/19/17 06:54 07:23 08:00 Temperature 98.3 F Pulse Rate 146 Respiratory 20 28 28 Rate Blood Pressure 120/80 (mmHg) O2 Sat by Pulse 96 Oximetry 02/19/17 02/19/17 11:08 15:22 Temperature 96.1 F 98.3 F Pulse Rate 147 111 Respiratory 20 17 Rate Blood Pressure 111/74 120/77 (mmHg) O2 Sat by Pulse 97 96 Oximetry Oxygen Devices in Use Now: Nasal Cannula - 96%-6L Appearance: Elderly male sitting up in bed, NAD Eyes: No Scleral Icterus Ears/Nose/Mouth/Throat: Mucous Membranes Moist Respiratory: Symmetrical Chest Expansion and Respiratory Effort, Clear to Auscultation Cardiovascular: NL Sounds; No Murmurs; No JVD, - - irregularly irregular, rapid rate Abdominal: NL Sounds; No Tenderness; No Distention Extremities: No Clubbing, Cyanosis Skin: No Rash or Ulcers, No Nodules or Sclerosis Neurological: Alert and Oriented x 3 Result Diagrams: 02/18/17 05:14 02/18/17 05:13 Additional Lab and Data: Lab Results 02/16/17 Range/Units 06:21 WBC 13.3 H (3.5-10.8) 10^3/ul RBC 4.24 (4.0-5.4) 10^6/ul Hgb 13.5 L (14.0-18.0) g/dl Hct 41 L (42-52) % MCV 97 H (80-94) fL MCH 32 H (27-31) pg MCHC 33 (31-36) g/dl RDW 16 H (10.5-15) % Plt Count 287 (150-450) 10^3/ul MPV 8 (7.4-10.4) um3 Neut % (Auto) 59.9 (38-83) % Lymph % (Auto) 30.6 (25-47) % [place] % (Auto) 7.3 (1-9) % Eos % (Auto) 1.4 (0-6) % Baso % (Auto) 0.8 (0-2) % Absolute Neuts (auto) 8.0 H (1.5-7.7) 10^3/ul Absolute Lymphs (auto) 4.1 (1.0-4.8) 10^3/ul Absolute Monos (auto) 1.0 H (0-0.8) 10^3/ul Absolute Eos (auto) 0.2 (0-0.6) 10^3/ul Absolute Basos (auto) 0.1 (0-0.2) 10^3/ul Absolute Nucleated RBC 0.01 10^3/ul Nucleated RBC % 0.1 Microbiology and Other Data: Microbiology 02/16/17 09:00 Nasal Screen MRSA (PCR)(WILFREDO) - Final Nasal Mrsa Negative Assess/Plan/Problems-Billing Mr Law is a 71 yo M who has a h/o type II DM (diet controlled), HTN ( controlled off meds), CAD and asthma who presented to the ER with c/o SOB and was found to be in rapid atrial fibrillation and probable community acquired pneumonia. - Patient Problems (1) Atrial fibrillation Current Visit: Yes Status: Acute Code(s): I48.91 - UNSPECIFIED ATRIAL FIBRILLATION SNOMED Code(s): 15585296 Comment: The underwent POPEYE yesterday and converted spontaneously with that procedure alone (did not receive electrical cardioversion). Overnight he went back into rapid afib. Will try to avoid CCB given his severly reduced EF and increase the coreg to 6.25mg BID. He has prn IV metoprolol. Continue eliquis. Continue amiodarone 400mg daily. Await further recommendations from cardiology. (2) Heart failure, systolic, with acute decompensation Current Visit: Yes Status: Acute Code(s): I50.23 - ACUTE ON CHRONIC SYSTOLIC (CONGESTIVE) HEART FAILURE SNOMED Code(s): 160795162 Comment: The patient was in acute decompensated systolic CHF on admission. His fluid status is improving (less LE edema, less SOB). Will continue coreg. Will try to add low dose lisinopril tomorrow AM though will need to watch his BP closely. Dose IV lasix again today. Start spironolactone 25mg daily (again watch BP). (3) Community acquired bacterial pneumonia Current Visit: Yes Status: Acute Code(s): J15.9 - UNSPECIFIED BACTERIAL PNEUMONIA SNOMED Code(s): 881282170 Comment: Today is D#4/5 days of Abx therapy for possible CAP. Culture ultimately grew "normal latricia." Continue to monitor his respiratory status. (4) Anemia Current Visit: Yes Status: Acute Code(s): D64.9 - ANEMIA, UNSPECIFIED SNOMED Code(s): 782867509 Comment: Continue B12 supplementation. (5) HTN (hypertension) Current Visit: Yes Status: Chronic Code(s): I10 - ESSENTIAL (PRIMARY) HYPERTENSION SNOMED Code(s): 21821679 Comment: BP is under fair control. Continue coreg and watch BP closely as lisinopril and spironolactone are being added. (6) CAD (coronary artery disease) Current Visit: Yes Status: Chronic Code(s): I25.10 - ATHSCL HEART DISEASE OF [place] CORONARY ARTERY W/O ANG PCTRS SNOMED Code(s): 63688814 Comment: Presumed diagnosis based on previous EKG revealing changes c/w prior [place]. Continue ASA 81mg daily. The elevated trop in the ER likely secondary to demand ischemia. (7) HLD (hyperlipidemia) Current Visit: Yes Status: Chronic Code(s): E78.5 - HYPERLIPIDEMIA, UNSPECIFIED SNOMED Code(s): 58195671 Comment: Pt is not on any lipid lower meds at home-follow up with PCP. (8) Type II diabetes mellitus Current Visit: Yes Status: Acute Comment: Diet controlled. A1c 5.1%. (9) DVT prophylaxis Current Visit: Yes Status: Acute Onset Date: 10/24/14 Code(s): OOK6608 - SNOMED Code(s): 968036757 Comment: Robert (10) Full code status Current Visit: Yes Status: Acute Code(s): Z78.9 - OTHER SPECIFIED HEALTH STATUS SNOMED Code(s): 375255479
[2017-02-19] MEDS: Metoprolol Tartrate IV* 1 MG/ML 5 ML VIAL IV PRN ×2 (16:13→20:45)
[2017-02-19] MEDS ORDERED: Potassium Chlor TAB* 20 MEQ TAB.ER PO ONE (16:15)
[2017-02-19] MEDS: Carvedilol TAB* 6.25 MG PO SCH (19:43)
[2017-02-19] MEDS ORDERED: Furosemide IV* 10 MG/ML VIAL (40 MG) IV ONE (22:23)
[2017-02-19] MEDS ORDERED: Furosemide IV* 10 MG/ML VIAL (40 MG) ONE (22:25)
--- NOTE | 2017-02-19 22:33 | RAD ---
INDICATION: Short of breath COMPARISON: February 18, 2017 TECHNIQUE: An AP portable view obtained at 2206 hours is submitted. FINDINGS: Bones/Soft Tissues: There are no acute bony findings. Cardiomediastinal: The heart is normal in size. Central pulmonary vessels and interstitium are prominent compatible with interstitial congestion with interstitial and alveolar edema. Lungs: Lateral interstitial and alveolar infiltrates may be related to pulmonary venous hypertension although infectious infiltrates cannot be excluded in the presence of these diffuse changes.. Pleura: Small bilateral pleural effusions. Other: None IMPRESSION: MODERATE VASCULAR CONGESTIVE FINDINGS.
[2017-02-20] MEDS: Metoprolol Tartrate IV* 1 MG/ML 5 ML VIAL IV PRN ×2 (05:33→21:56)
[2017-02-20 05:50] LABS: Hematocrit 38 % (42-52); Hemoglobin 12.5 g/dl (14.0-18.0); Mean Corpuscular HGB Conc 33 g/dl (31-36); Mean Corpuscular Hemoglobin 31 pg (27-31); Mean Corpuscular Volume 95 fL (80-94); Mean Platelet Volume 8 um3 (7.4-10.4); Red Blood Count 4.01 10^6/ul (4.0-5.4); Red Cell Distribution Width 15 % (10.5-15); White Blood Count 11.9 10^3/ul (3.5-10.8)
[2017-02-20 06:03] LABS: BUN/Creatinine Ratio 17.2 (8-20); Calcium 9.1 mg/dL (8.6-10.3); EGFR African American 74.9 (>60); EGFR Non-African American 58.2 (>60)
[2017-02-20] MEDS: cefTRIAXone VIAL(*) 1,000 MG in NS 0.9% 50 ML* 50 ML IVPB SCH (08:27)
[2017-02-20] MEDS: Carvedilol TAB* 6.25 MG PO SCH ×2 (08:28→20:06)
[2017-02-20] MEDS: Aspirin Low Dose CHEW TAB* 81 MG PO SCH (08:28)
[2017-02-20] MEDS: Apixaban* 5 MG TAB PO SCH ×2 (08:28→20:06)
[2017-02-20] MEDS: Omeprazole CAP* 20 MG PO SCH (08:28)
[2017-02-20] MEDS: Amiodarone TAB* 200 MG PO SCH (08:28)
[2017-02-20] MEDS: Cyanocobalamin TAB* 500 MCG PO SCH (08:28)
[2017-02-20] MEDS: Lisinopril TAB* 5 MG PO SCH (08:28)
[2017-02-20] MEDS: Albuterol 2.5 MG/3 ML NEB.SOL* (0.083%) INH PRN (08:37)
[2017-02-20] MEDS: Azithromycin IV(*) 500 MG in NS 0.9% 250 ML* 250 ML IVPB SCH (09:51)
[2017-02-20] MEDS ORDERED: Digoxin IV* 0.5 MG/2 ML AMP (0.25 MG/ML) IV SLOW PU ONE (10:20)
--- NOTE | 2017-02-20 10:27 | PN ---
Subjective Date of Service: 02/20/17 Interval History: Pt is feeling better currently but was very SOB this AM. His nurse states that his breathing improved after she had a nebulizer treatment. He denies any chest pain. He is not coughing up much mucous any more. He states he feels very weak. Family History: Unchanged from Admission Social History: Unchanged from Admission Past Medical History: Unchanged from Admission Objective Active Medications: Albuterol (Ventolin 2.5 Mg/3 Ml Neb.Queenie*) 2.5 mg INH Q4H PRN PRN Reason: SOB/WHEEZING Last Admin: 02/20/17 08:37 Dose: 2.5 mg Amiodarone HCl (Cordarone Tab*) 400 mg PO DAILY [facility] Last Admin: 02/20/17 08:28 Dose: 400 mg Apixaban (Eliquis*) 5 mg PO BID [facility] Last Admin: 02/20/17 08:28 Dose: 5 mg Aspirin (Aspirin Low Dose Tab*) 81 mg PO DAILY [facility] Last Admin: 02/20/17 08:28 Dose: 81 mg Carvedilol (Coreg Tab*) 6.25 mg PO 799,1999 [facility] Last Admin: 02/20/17 08:28 Dose: 6.25 mg Cyanocobalamin (Vitamin B12 Tab*) 1,000 mcg PO DAILY [facility] Last Admin: 02/20/17 08:28 Dose: 1,000 mcg Ceftriaxone Sodium 1,000 mg/ (Sodium Chloride) 50 mls @ 200 mls/hr IVPB Q24H [facility] Last Admin: 02/20/17 08:27 Dose: 200 mls/hr Azithromycin 500 mg/ Sodium (Chloride) 250 mls @ 250 mls/hr IVPB Q24H [facility] Last Admin: 02/20/17 09:51 Dose: 250 mls/hr Lisinopril (Prinivil Tab*) 2.5 mg PO DAILY [facility] Last Admin: 02/20/17 08:28 Dose: 2.5 mg Metoprolol Tartrate (Lopressor Iv*) 5 mg IV Q6H PRN PRN Reason: HR>110 Last Admin: 02/20/17 05:33 Dose: 5 mg Morphine Sulfate (Morphine Inj (Syringe)*) 1 mg IV Q2H PRN PRN Reason: air hunger Last Admin: 02/19/17 20:58 Dose: 1 mg Omeprazole (Prilosec Cap*) 20 mg PO DAILY [facility] Last Admin: 02/20/17 08:28 Dose: 20 mg Vital Signs 02/19/17 02/19/17 02/19/17 11:08 15:22 19:43 Temperature 96.1 F 98.3 F 98.2 F Pulse Rate 147 111 63 Respiratory 20 17 16 Rate Blood Pressure 111/74 120/77 139/93 (mmHg) O2 Sat by Pulse 97 96 99 Oximetry 02/19/17 02/19/17 02/19/17 20:00 20:30 20:58 Temperature Pulse Rate 132 Respiratory 25 26 27 Rate Blood Pressure (mmHg) O2 Sat by Pulse 93 Oximetry 02/19/17 02/20/17 02/20/17 21:58 00:15 04:22 Temperature 97.0 F 96.9 F Pulse Rate 102 73 Respiratory 25 20 17 Rate Blood Pressure 121/86 95/74 (mmHg) O2 Sat by Pulse 97 93 Oximetry 02/20/17 02/20/17 02/20/17 07:39 08:41 08:43 Temperature 98.7 F Pulse Rate 52 71 Respiratory 22 25 Rate Blood Pressure 106/72 (mmHg) O2 Sat by Pulse 97 95 95 Oximetry Oxygen Devices in Use Now: Nasal Cannula - 95%-6L Appearance: Elderly male sitting up in bed, NAD Eyes: No Scleral Icterus Ears/Nose/Mouth/Throat: Mucous Membranes Moist Respiratory: Symmetrical Chest Expansion and Respiratory Effort, - - few very fine crackles at the bases otherwise CTA Cardiovascular: No Edema, - - irregularly irregular, tachycardic Abdominal: NL Sounds; No Tenderness; No Distention Extremities: No Clubbing, Cyanosis Skin: No Rash or Ulcers, No Nodules or Sclerosis Neurological: Alert and Oriented x 3 Result Diagrams: 02/20/17 05:29 02/20/17 05:29 Additional Lab and Data: Lab Results 02/16/17 Range/Units 06:21 WBC 13.3 H (3.5-10.8) 10^3/ul RBC 4.24 (4.0-5.4) 10^6/ul Hgb 13.5 L (14.0-18.0) g/dl Hct 41 L (42-52) % MCV 97 H (80-94) fL MCH 32 H (27-31) pg MCHC 33 (31-36) g/dl RDW 16 H (10.5-15) % Plt Count 287 (150-450) 10^3/ul MPV 8 (7.4-10.4) um3 Neut % (Auto) 59.9 (38-83) % Lymph % (Auto) 30.6 (25-47) % [place] % (Auto) 7.3 (1-9) % Eos % (Auto) 1.4 (0-6) % Baso % (Auto) 0.8 (0-2) % Absolute Neuts (auto) 8.0 H (1.5-7.7) 10^3/ul Absolute Lymphs (auto) 4.1 (1.0-4.8) 10^3/ul Absolute Monos (auto) 1.0 H (0-0.8) 10^3/ul Absolute Eos (auto) 0.2 (0-0.6) 10^3/ul Absolute Basos (auto) 0.1 (0-0.2) 10^3/ul Absolute Nucleated RBC 0.01 10^3/ul Nucleated RBC % 0.1 Microbiology and Other Data: Microbiology 02/16/17 09:00 Nasal Screen MRSA (PCR)([facility]) - Final Nasal Mrsa Negative Assess/Plan/Problems-Billing Mr Law is a 71 yo M who has a h/o type II DM (diet controlled), HTN ( controlled off meds), CAD and asthma who presented to the ER with c/o SOB and was found to be in rapid atrial fibrillation and probable community acquired pneumonia. - Patient Problems (1) Atrial fibrillation Current Visit: Yes Status: Acute Code(s): I48.91 - UNSPECIFIED ATRIAL FIBRILLATION SNOMED Code(s): 53158997 Comment: Pt remains in poorly controlled afib which I think is contributing to his SOB. Will continue current dose of coreg and amiodarone. Will give digoxin 0.25mg IV x1 now. Continue Eliquis. I suspect the patient's uncontrolled afib is partly why his EF is so low. Will try to aggressively get his HR under control. (2) Heart failure, systolic, with acute decompensation Current Visit: Yes Status: Acute Code(s): I50.23 - ACUTE ON CHRONIC SYSTOLIC (CONGESTIVE) HEART FAILURE SNOMED Code(s): 199053621 Comment: The patient was in acute decompensated systolic CHF on admission. The patient continues to have episodes of severe SOB. CXRs have been obtained and show pulmonary vascular congestion however clinically when I have evaluated the patient his lungs sound relatively clear and his LE edema is markedly better. Will start spironolactone 25mg daily. (3) Community acquired bacterial pneumonia Current Visit: Yes Status: Acute Code(s): J15.9 - UNSPECIFIED BACTERIAL PNEUMONIA SNOMED Code(s): 781852764 Comment: The patient has completed a full course of therapy. He is not brining up much mucous. His WBC count has increased today but possibly stress related (had episode of severe SOB overnight). (4) Anemia Current Visit: Yes Status: Acute Code(s): D64.9 - ANEMIA, UNSPECIFIED SNOMED Code(s): 665814968 Comment: Continue B12 supplementation. (5) HTN (hypertension) Current Visit: Yes Status: Chronic Code(s): I10 - ESSENTIAL (PRIMARY) HYPERTENSION SNOMED Code(s): 91714840 Comment: BP is low normal. Will need to be cautious with addition of spironolactone. BP is limiting my ability to control the patient's HR. (6) CAD (coronary artery disease) Current Visit: Yes Status: Chronic Code(s): I25.10 - ATHSCL HEART DISEASE OF [place] CORONARY ARTERY W/O ANG PCTRS SNOMED Code(s): 72250557 Comment: Presumed diagnosis based on previous EKG revealing changes c/w prior [place]. Continue ASA 81mg daily. The elevated trop in the ER likely secondary to demand ischemia. (7) HLD (hyperlipidemia) Current Visit: Yes Status: Chronic Code(s): E78.5 - HYPERLIPIDEMIA, UNSPECIFIED SNOMED Code(s): 70004296 Comment: Pt is not on any lipid lower meds at home-follow up with PCP. (8) Type II diabetes mellitus Current Visit: Yes Status: Acute Comment: Diet controlled. A1c 5.1%. (9) DVT prophylaxis Current Visit: Yes Status: Acute Onset Date: 10/24/14 Code(s): RTQ4085 - SNOMED Code(s): 212028398 Comment: Robert (10) Full code status Current Visit: Yes Status: Acute Code(s): Z78.9 - OTHER SPECIFIED HEALTH STATUS SNOMED Code(s): 866982942
[2017-02-20] MEDS: Spironolactone TAB* 25 MG PO SCH (11:01)
[2017-02-21] MEDS: Metoprolol Tartrate IV* 1 MG/ML 5 ML VIAL IV PRN ×2 (05:13→15:16)
[2017-02-21] MEDS: Morphine INJ* 2 MG/ML 1 ML SYRINGE IV PRN (06:57)
[2017-02-21] MEDS: Albuterol 2.5 MG/3 ML NEB.SOL* (0.083%) INH PRN (06:58)
[2017-02-21] MEDS: Lisinopril TAB* 5 MG PO SCH (07:46)
[2017-02-21] MEDS: Omeprazole CAP* 20 MG PO SCH (07:47)
[2017-02-21] MEDS: Spironolactone TAB* 25 MG PO SCH (07:48)
[2017-02-21] MEDS: Apixaban* 5 MG TAB PO SCH ×2 (07:48→20:20)
[2017-02-21] MEDS: Amiodarone TAB* 200 MG PO SCH (07:48)
[2017-02-21] MEDS: Carvedilol TAB* 6.25 MG PO SCH ×2 (07:48→20:20)
[2017-02-21] MEDS: Aspirin Low Dose CHEW TAB* 81 MG PO SCH (07:48)
[2017-02-21] MEDS: cefTRIAXone VIAL(*) 1,000 MG in NS 0.9% 50 ML* 50 ML IVPB SCH (07:49)
[2017-02-21] MEDS: Cyanocobalamin TAB* 500 MCG PO SCH (07:50)
[2017-02-21] MEDS: Azithromycin IV(*) 500 MG in NS 0.9% 250 ML* 250 ML IVPB SCH (08:28)
[2017-02-21] MEDS ORDERED: Digoxin IV* 0.5 MG/2 ML AMP (0.25 MG/ML) IV SLOW PU ONE (11:37)
--- NOTE | 2017-02-21 11:56 | PN ---
Subjective Date of Service: 02/21/17 Interval History: Pt is feeling SOB again this AM. He is coughing some but not brining up any sputum. He feels very weak. He denies any pain including CP. Family History: Unchanged from Admission Social History: Unchanged from Admission Past Medical History: Unchanged from Admission Objective Active Medications: Albuterol (Ventolin 2.5 Mg/3 Ml Neb.Queenie*) 2.5 mg INH Q4H PRN PRN Reason: SOB/WHEEZING Last Admin: 02/21/17 06:58 Dose: 2.5 mg Amiodarone HCl (Cordarone Tab*) 400 mg PO DAILY [facility] Last Admin: 02/21/17 07:48 Dose: 400 mg Apixaban (Eliquis*) 5 mg PO BID [facility] Last Admin: 02/21/17 07:48 Dose: 5 mg Aspirin (Aspirin Low Dose Tab*) 81 mg PO DAILY [facility] Last Admin: 02/21/17 07:48 Dose: 81 mg Carvedilol (Coreg Tab*) 9.375 mg PO 799,1999 [facility] Cyanocobalamin (Vitamin B12 Tab*) 1,000 mcg PO DAILY [facility] Last Admin: 02/21/17 07:50 Dose: 1,000 mcg Digoxin (Digoxin Iv*) 0.25 mg IV SLOW PU ONCE ONE Stop: 02/21/17 11:38 Ceftriaxone Sodium 1,000 mg/ (Sodium Chloride) 50 mls @ 200 mls/hr IVPB Q24H [facility] Last Admin: 02/21/17 07:49 Dose: 200 mls/hr Azithromycin 500 mg/ Sodium (Chloride) 250 mls @ 250 mls/hr IVPB Q24H [facility] Last Admin: 02/21/17 08:28 Dose: 250 mls/hr Lisinopril (Prinivil Tab*) 2.5 mg PO DAILY [facility] Last Admin: 02/21/17 07:46 Dose: 2.5 mg Metoprolol Tartrate (Lopressor Iv*) 5 mg IV Q6H PRN PRN Reason: HR>110 Morphine Sulfate (Morphine Inj (Syringe)*) 1 mg IV Q2H PRN PRN Reason: air hunger Last Admin: 02/21/17 06:57 Dose: 1 mg Omeprazole (Prilosec Cap*) 20 mg PO DAILY [facility] Last Admin: 02/21/17 07:47 Dose: 20 mg Vital Signs 02/20/17 02/20/17 02/20/17 14:56 15:21 19:26 Temperature 98.3 F 98.3 F Pulse Rate 146 83 Respiratory 24 20 20 Rate Blood Pressure 98/63 85/72 (mmHg) O2 Sat by Pulse 92 93 Oximetry 02/20/17 02/20/17 02/20/17 19:34 20:00 21:23 Temperature Pulse Rate 72 146 Respiratory 20 Rate Blood Pressure 117/65 114/72 (mmHg) O2 Sat by Pulse 95 Oximetry 02/20/17 02/20/17 02/21/17 21:24 23:20 03:48 Temperature 97.1 F 97.7 F Pulse Rate 33 114 Respiratory 16 16 Rate Blood Pressure 90/68 115/71 110/74 (mmHg) O2 Sat by Pulse 95 95 Oximetry 02/21/17 02/21/17 02/21/17 05:22 06:55 06:57 Temperature 98.2 F Pulse Rate 156 Respiratory 24 24 Rate Blood Pressure 121/98 (mmHg) O2 Sat by Pulse 95 95 Oximetry 02/21/17 02/21/17 02/21/17 07:00 07:41 07:57 Temperature 98.3 F Pulse Rate 119 Respiratory 26 22 22 Rate Blood Pressure 109/62 (mmHg) O2 Sat by Pulse 94 Oximetry 02/21/17 11:33 Temperature 98.5 F Pulse Rate 68 Respiratory 20 Rate Blood Pressure 102/82 (mmHg) O2 Sat by Pulse 95 Oximetry Oxygen Devices in Use Now: Nasal Cannula - 94%-2L Appearance: Elderly male sitting up in bed, NAD Eyes: No Scleral Icterus Ears/Nose/Mouth/Throat: Mucous Membranes Moist Respiratory: Symmetrical Chest Expansion and Respiratory Effort, Clear to Auscultation Cardiovascular: NL Sounds; No Murmurs; No JVD, No Edema, - - irregularly irregular, tachycardic, distant heart sounds Abdominal: NL Sounds; No Tenderness; No Distention Extremities: No Clubbing, Cyanosis Skin: No Rash or Ulcers, No Nodules or Sclerosis Neurological: Alert and Oriented x 3 Result Diagrams: 02/20/17 05:29 02/20/17 05:29 Additional Lab and Data: Lab Results 02/16/17 Range/Units 06:21 WBC 13.3 H (3.5-10.8) 10^3/ul RBC 4.24 (4.0-5.4) 10^6/ul Hgb 13.5 L (14.0-18.0) g/dl Hct 41 L (42-52) % MCV 97 H (80-94) fL MCH 32 H (27-31) pg MCHC 33 (31-36) g/dl RDW 16 H (10.5-15) % Plt Count 287 (150-450) 10^3/ul MPV 8 (7.4-10.4) um3 Neut % (Auto) 59.9 (38-83) % Lymph % (Auto) 30.6 (25-47) % [place] % (Auto) 7.3 (1-9) % Eos % (Auto) 1.4 (0-6) % Baso % (Auto) 0.8 (0-2) % Absolute Neuts (auto) 8.0 H (1.5-7.7) 10^3/ul Absolute Lymphs (auto) 4.1 (1.0-4.8) 10^3/ul Absolute Monos (auto) 1.0 H (0-0.8) 10^3/ul Absolute Eos (auto) 0.2 (0-0.6) 10^3/ul Absolute Basos (auto) 0.1 (0-0.2) 10^3/ul Absolute Nucleated RBC 0.01 10^3/ul Nucleated RBC % 0.1 Microbiology and Other Data: Microbiology 02/16/17 09:00 Nasal Screen MRSA (PCR)([facility]) - Final Nasal Mrsa Negative Assess/Plan/Problems-Billing Mr Law is a 71 yo M who has a h/o type II DM (diet controlled), HTN ( controlled off meds), CAD and asthma who presented to the ER with c/o SOB and was found to be in rapid atrial fibrillation and probable community acquired pneumonia. - Patient Problems (1) Atrial fibrillation Current Visit: Yes Status: Acute Code(s): I48.91 - UNSPECIFIED ATRIAL FIBRILLATION SNOMED Code(s): 59393724 Comment: HR has been very difficult to control. Will increase coreg to 9.375mg BID and continue amiodarone 400mg daily. Will trial another dose of digoxin 0.25mg IV today. Can not use CCB as it is relatively contraindicated in the setting of a severely reduced EF. Will dose coreg higher at the expense of his BP and low the BP to get lower (into the 90's). Continue eliquis. (2) Heart failure, systolic, with acute decompensation Current Visit: Yes Status: Acute Code(s): I50.23 - ACUTE ON CHRONIC SYSTOLIC (CONGESTIVE) HEART FAILURE SNOMED Code(s): 787646130 Comment: The patient's volume status is slightly difficult to determine though I think he is euvolemic. Will stop spironolactone as I need more room in the BP to increase the coreg. (3) Community acquired bacterial pneumonia Current Visit: Yes Status: Acute Code(s): J15.9 - UNSPECIFIED BACTERIAL PNEUMONIA SNOMED Code(s): 525068730 Comment: No significant sputum. Repeat WBC count tomorrow. (4) Anemia Current Visit: Yes Status: Acute Code(s): D64.9 - ANEMIA, UNSPECIFIED SNOMED Code(s): 657515451 Comment: Continue B12 supplementation. (5) HTN (hypertension) Current Visit: Yes Status: Chronic Code(s): I10 - ESSENTIAL (PRIMARY) HYPERTENSION SNOMED Code(s): 69169325 Comment: BP remains low normal. Stop spironolactone to allow more room for higher dose of coreg. Allow pressure to be in the 90's as long as the patient is asymptomatic. (6) CAD (coronary artery disease) Current Visit: Yes Status: Chronic Code(s): I25.10 - ATHSCL HEART DISEASE OF [place] CORONARY ARTERY W/O ANG PCTRS SNOMED Code(s): 04693254 Comment: Continue ASA 81mg daily. (7) HLD (hyperlipidemia) Current Visit: Yes Status: Chronic Code(s): E78.5 - HYPERLIPIDEMIA, UNSPECIFIED SNOMED Code(s): 42945653 Comment: Pt is not on any lipid lower meds at home-follow up with PCP. (8) Type II diabetes mellitus Current Visit: Yes Status: Acute Comment: Diet controlled. A1c 5.1%. (9) DVT prophylaxis Current Visit: Yes Status: Acute Onset Date: 10/24/14 Code(s): AVP1815 - SNOMED Code(s): 292178449 Comment: Robert (10) Full code status Current Visit: Yes Status: Acute Code(s): Z78.9 - OTHER SPECIFIED HEALTH STATUS SNOMED Code(s): 049824230
[2017-02-21] MEDS: Carvedilol TAB* 3.125 MG PO SCH (20:20)
[2017-02-22 06:47] LABS: Hematocrit 34 % (42-52); Hemoglobin 11.4 g/dl (14.0-18.0); Mean Corpuscular HGB Conc 34 g/dl (31-36); Mean Corpuscular Hemoglobin 32 pg (27-31); Mean Corpuscular Volume 94 fL (80-94); Mean Platelet Volume 8 um3 (7.4-10.4); Red Blood Count 3.61 10^6/ul (4.0-5.4); Red Cell Distribution Width 15 % (10.5-15); White Blood Count 7.3 10^3/ul (3.5-10.8)
[2017-02-22 06:58] LABS: BUN/Creatinine Ratio 17.9 (8-20); Calcium 9.1 mg/dL (8.6-10.3); EGFR African American 82.7 (>60); EGFR Non-African American 64.3 (>60)
[2017-02-22] MEDS: Lisinopril TAB* 5 MG PO SCH (08:02)
[2017-02-22] MEDS: Omeprazole CAP* 20 MG PO SCH (08:03)
[2017-02-22] MEDS: Amiodarone TAB* 200 MG PO SCH (08:03)
[2017-02-22] MEDS: Apixaban* 5 MG TAB PO SCH ×2 (08:03→19:59)
[2017-02-22] MEDS: Carvedilol TAB* 3.125 MG PO SCH ×2 (08:03→19:59)
[2017-02-22] MEDS: Aspirin Low Dose CHEW TAB* 81 MG PO SCH (08:03)
[2017-02-22] MEDS: Carvedilol TAB* 6.25 MG PO SCH ×2 (08:03→19:59)
[2017-02-22] MEDS: Cyanocobalamin TAB* 500 MCG PO SCH (08:03)
--- NOTE | 2017-02-22 14:28 | PN ---
Subjective Date of Service: 02/22/17 Interval History: Pt is feeling better today. He states he has not had any SOB episodes today. He has not been up and moving much yet but states he worked with PT yesterday. He is interested in going home tomorrow. Family History: Unchanged from Admission Social History: Unchanged from Admission Past Medical History: Unchanged from Admission Objective Active Medications: Albuterol (Ventolin 2.5 Mg/3 Ml Neb.Queenie*) 2.5 mg INH Q4H PRN PRN Reason: SOB/WHEEZING Last Admin: 02/21/17 06:58 Dose: 2.5 mg Amiodarone HCl (Cordarone Tab*) 400 mg PO DAILY [facility] Last Admin: 02/22/17 08:03 Dose: 400 mg Apixaban (Eliquis*) 5 mg PO BID [facility] Last Admin: 02/22/17 08:03 Dose: 5 mg Aspirin (Aspirin Low Dose Tab*) 81 mg PO DAILY [facility] Last Admin: 02/22/17 08:03 Dose: 81 mg Carvedilol (Coreg Tab*) 6.25 mg PO [facility] Last Admin: 02/22/17 08:03 Dose: 6.25 mg Carvedilol (Coreg Tab*) 3.125 mg PO [facility] Last Admin: 02/22/17 08:03 Dose: 3.125 mg Cyanocobalamin (Vitamin B12 Tab*) 1,000 mcg PO DAILY [facility] Last Admin: 02/22/17 08:03 Dose: 1,000 mcg Lisinopril (Prinivil Tab*) 2.5 mg PO DAILY [facility] Last Admin: 02/22/17 08:02 Dose: 2.5 mg Metoprolol Tartrate (Lopressor Iv*) 5 mg IV Q6H PRN PRN Reason: HR>110 Last Admin: 02/21/17 15:16 Dose: 5 mg Morphine Sulfate (Morphine Inj (Syringe)*) 1 mg IV Q2H PRN PRN Reason: air hunger Last Admin: 02/21/17 06:57 Dose: 1 mg Omeprazole (Prilosec Cap*) 20 mg PO DAILY [facility] Last Admin: 02/22/17 08:03 Dose: 20 mg Vital Signs 02/21/17 02/21/17 02/21/17 15:10 19:54 20:00 Temperature 97.3 F 98.1 F Pulse Rate 111 119 Respiratory 20 16 18 Rate Blood Pressure 124/62 120/72 (mmHg) O2 Sat by Pulse 95 95 Oximetry 02/21/17 02/22/17 02/22/17 23:39 00:00 04:26 Temperature 97.9 F 98.2 F Pulse Rate 82 131 Respiratory 18 16 Rate Blood Pressure 114/74 145/80 (mmHg) O2 Sat by Pulse 91 95 98 Oximetry 02/22/17 02/22/17 02/22/17 07:42 07:53 12:20 Temperature 98.1 F 98.4 F Pulse Rate 85 79 Respiratory 18 20 22 Rate Blood Pressure 116/81 105/64 (mmHg) O2 Sat by Pulse 96 95 Oximetry Oxygen Devices in Use Now: Nasal Cannula - 95%-3L Appearance: Elderly male sitting up in bed, NAD Eyes: No Scleral Icterus Ears/Nose/Mouth/Throat: Mucous Membranes Moist Respiratory: Symmetrical Chest Expansion and Respiratory Effort, Clear to Auscultation Cardiovascular: NL Sounds; No Murmurs; No JVD, No Edema, - - irregularly irregular with controlled rate Abdominal: NL Sounds; No Tenderness; No Distention Extremities: No Clubbing, Cyanosis Skin: No Rash or Ulcers, No Nodules or Sclerosis Neurological: Alert and Oriented x 3 Result Diagrams: 02/22/17 06:30 02/22/17 06:30 Additional Lab and Data: Lab Results 02/16/17 Range/Units 06:21 WBC 13.3 H (3.5-10.8) 10^3/ul RBC 4.24 (4.0-5.4) 10^6/ul Hgb 13.5 L (14.0-18.0) g/dl Hct 41 L (42-52) % MCV 97 H (80-94) fL MCH 32 H (27-31) pg MCHC 33 (31-36) g/dl RDW 16 H (10.5-15) % Plt Count 287 (150-450) 10^3/ul MPV 8 (7.4-10.4) um3 Neut % (Auto) 59.9 (38-83) % Lymph % (Auto) 30.6 (25-47) % [place] % (Auto) 7.3 (1-9) % Eos % (Auto) 1.4 (0-6) % Baso % (Auto) 0.8 (0-2) % Absolute Neuts (auto) 8.0 H (1.5-7.7) 10^3/ul Absolute Lymphs (auto) 4.1 (1.0-4.8) 10^3/ul Absolute Monos (auto) 1.0 H (0-0.8) 10^3/ul Absolute Eos (auto) 0.2 (0-0.6) 10^3/ul Absolute Basos (auto) 0.1 (0-0.2) 10^3/ul Absolute Nucleated RBC 0.01 10^3/ul Nucleated RBC % 0.1 Microbiology and Other Data: Microbiology 02/16/17 09:00 Nasal Screen MRSA (PCR)([facility]) - Final Nasal Mrsa Negative Assess/Plan/Problems-Billing Mr Law is a 71 yo M who has a h/o type II DM (diet controlled), HTN ( controlled off meds), CAD and asthma who presented to the ER with c/o SOB and was found to be in rapid atrial fibrillation and probable community acquired pneumonia. - Patient Problems (1) Atrial fibrillation Current Visit: Yes Status: Acute Code(s): I48.91 - UNSPECIFIED ATRIAL FIBRILLATION SNOMED Code(s): 46687243 Comment: HR is finally controlled on coreg 9.375mg BID and amiodarone 400mg daily. Will hold off on any further dosing of digoxin though if his HR increases will add back. Continue eliquis. (2) Heart failure, systolic, with acute decompensation Current Visit: Yes Status: Acute Code(s): I50.23 - ACUTE ON CHRONIC SYSTOLIC (CONGESTIVE) HEART FAILURE SNOMED Code(s): 743554618 Comment: Continue without diuretic therapy at this time as the patient appears euvolemic at this time. If his BP will allow low dose spironolactone may be helpful on d/c. (3) Community acquired bacterial pneumonia Current Visit: Yes Status: Acute Code(s): J15.9 - UNSPECIFIED BACTERIAL PNEUMONIA SNOMED Code(s): 049144129 Comment: WBC has normalized. He completed 5 days of Abx therapy. (4) Anemia Current Visit: Yes Status: Acute Code(s): D64.9 - ANEMIA, UNSPECIFIED SNOMED Code(s): 721028744 Comment: Continue B12 supplementation. (5) HTN (hypertension) Current Visit: Yes Status: Chronic Code(s): I10 - ESSENTIAL (PRIMARY) HYPERTENSION SNOMED Code(s): 76806860 Comment: BP stable on current regimen. Monitor with the possible addition of spironolactone. (6) CAD (coronary artery disease) Current Visit: Yes Status: Chronic Code(s): I25.10 - ATHSCL HEART DISEASE OF [place] CORONARY ARTERY W/O ANG PCTRS SNOMED Code(s): 59367784 Comment: Continue ASA 81mg daily. (7) HLD (hyperlipidemia) Current Visit: Yes Status: Chronic Code(s): E78.5 - HYPERLIPIDEMIA, UNSPECIFIED SNOMED Code(s): 03008395 Comment: Pt is not on any lipid lower meds at home-follow up with PCP. (8) Type II diabetes mellitus Current Visit: Yes Status: Acute Comment: Diet controlled. A1c 5.1%. (9) DVT prophylaxis Current Visit: Yes Status: Acute Onset Date: 10/24/14 Code(s): NNM7940 - SNOMED Code(s): 430133502 Comment: Robert (10) Full code status Current Visit: Yes Status: Acute Code(s): Z78.9 - OTHER SPECIFIED HEALTH STATUS SNOMED Code(s): 817126873
[2017-02-22] MEDS: Metoprolol Tartrate IV* 1 MG/ML 5 ML VIAL IV PRN (17:28)
[2017-02-23] MEDS: Metoprolol Tartrate IV* 1 MG/ML 5 ML VIAL IV PRN ×3 (02:43→21:12)
[2017-02-23] MEDS: Carvedilol TAB* 3.125 MG PO SCH ×2 (07:24→20:40)
[2017-02-23] MEDS: Carvedilol TAB* 6.25 MG PO SCH ×2 (07:24→20:40)
[2017-02-23] MEDS: Apixaban* 5 MG TAB PO SCH ×2 (07:54→20:40)
[2017-02-23] MEDS: Aspirin Low Dose CHEW TAB* 81 MG PO SCH (07:54)
[2017-02-23] MEDS: Amiodarone TAB* 200 MG PO SCH (07:54)
[2017-02-23] MEDS: Lisinopril TAB* 5 MG PO SCH (07:54)
[2017-02-23] MEDS: Omeprazole CAP* 20 MG PO SCH (07:55)
[2017-02-23] MEDS: Cyanocobalamin TAB* 500 MCG PO SCH (07:55)
--- NOTE | 2017-02-23 15:28 | PN ---
Subjective Date of Service: 02/23/17 Interval History: Patient seen and examined at bedside. Pt states that he is feeling well. Pt states that he is not on O2 at home but has been requiring supplemental O2 here. Denies fever, chills, shortness of breath, chest discomfort, N/V/D. Tele: Afib, rate 90-140's. HR is mostly in the 90-110's. Family History: Unchanged from Admission Social History: Unchanged from Admission Past Medical History: Unchanged from Admission Objective Active Medications: Albuterol (Ventolin 2.5 Mg/3 Ml Neb.Queenie*) 2.5 mg INH Q4H PRN Reason: SOB/ WHEEZING Amiodarone HCl (Cordarone Tab*) 400 mg PO DAILY [facility] Apixaban (Eliquis*) 5 mg PO BID [facility] Aspirin (Aspirin Low Dose Tab*) 81 mg PO DAILY [facility] Carvedilol (Coreg Tab*) 6.25 mg PO 799,1999 [facility] Carvedilol (Coreg Tab*) 3.125 mg PO 0800,1999 [facility] Cyanocobalamin (Vitamin B12 Tab*) 1,000 mcg PO DAILY [facility] Lisinopril (Prinivil Tab*) 2.5 mg PO DAILY [facility] Metoprolol Tartrate (Lopressor Iv*) 5 mg IV Q6H PRN Reason: HR>110 Morphine Sulfate (Morphine Inj (Syringe)*) 1 mg IV Q2H PRN Reason: air hunger Omeprazole (Prilosec Cap*) 20 mg PO DAILY [facility] Vital Signs 02/22/17 02/22/17 02/22/17 15:49 15:58 19:36 Temperature 98.4 F Pulse Rate 44 83 Respiratory 22 20 Rate Blood Pressure 99/60 (mmHg) O2 Sat by Pulse 94 Oximetry 02/22/17 02/22/17 02/22/17 20:09 20:36 23:33 Temperature 98.8 F 98.1 F Pulse Rate 71 47 39 Respiratory 24 18 24 Rate Blood Pressure 109/61 119/100 (mmHg) O2 Sat by Pulse 92 91 90 Oximetry 02/22/17 02/23/17 02/23/17 23:59 03:12 07:39 Temperature 98.1 F 98.4 F 98.2 F Pulse Rate 92 96 81 Respiratory 24 26 24 Rate Blood Pressure 149/69 117/76 104/72 (mmHg) O2 Sat by Pulse 92 93 94 Oximetry 02/23/17 02/23/17 08:00 11:32 Temperature 98.1 F Pulse Rate 79 Respiratory 20 24 Rate Blood Pressure 95/74 (mmHg) O2 Sat by Pulse 96 Oximetry Oxygen Devices in Use Now: Nasal Cannula - 3L Appearance: NAD, laying in bed Ears/Nose/Mouth/Throat: Mucous Membranes Moist Respiratory: Symmetrical Chest Expansion and Respiratory Effort, Clear to Auscultation Cardiovascular: NL Sounds; No Murmurs; No JVD, - - Heart Rate irregular, Trace bilateral LE edema. Abdominal: NL Sounds; No Tenderness; No Distention Skin: No Rash or Ulcers Neurological: Alert and Oriented x 3, NL Muscle Strength and Tone Lines/Tubes/Other Access: Clean, Dry and Intact Peripheral IV - site benign Nutrition: Taking PO's Result Diagrams: 02/22/17 06:30 02/22/17 06:30 Additional Lab and Data: Microbiology and Other Data: Microbiology 02/16/17 09:00 Nasal Screen MRSA (PCR)(WILFREDO) - Final Nasal Mrsa Negative Assess/Plan/Problems-Billing Mr Law is a 71 yo M who has a h/o type II DM (diet controlled), HTN ( controlled off meds), CAD and asthma who presented to the ER with c/o SOB and was found to be in rapid atrial fibrillation and probable community acquired pneumonia. - Patient Problems (1) Atrial fibrillation Code(s): I48.91 - UNSPECIFIED ATRIAL FIBRILLATION SNOMED Code(s): 01510533 Comment: - HR 90-140's - HR better controlled on coreg 9.375mg BID and amiodarone 400mg daily. - Will hold off on any further dosing of digoxin though if his HR increases will add back. - Continue eliquis. - Cardiology consult, appreciate input. (2) Heart failure, systolic, with acute decompensation Code(s): I50.23 - ACUTE ON CHRONIC SYSTOLIC (CONGESTIVE) HEART FAILURE SNOMED Code(s): 503490918 Comment: - Continue without diuretic therapy at this time as the patient appears euvolemic at this time. - If his BP will allow low dose spironolactone may be helpful on d/c. (3) Community acquired bacterial pneumonia Code(s): J15.9 - UNSPECIFIED BACTERIAL PNEUMONIA SNOMED Code(s): 081717918 Comment: - WBC has normalized. - He completed 5 days of Abx therapy. (4) Anemia Code(s): D64.9 - ANEMIA, UNSPECIFIED SNOMED Code(s): 223999501 Comment: - Continue B12 supplementation. (5) Type II diabetes mellitus Comment: - Diet controlled. - HgA1c 5.1%. (6) CAD (coronary artery disease) Code(s): I25.10 - ATHSCL HEART DISEASE OF [place] CORONARY ARTERY W/O ANG PCTRS SNOMED Code(s): 55841780 Comment: - Continue ASA 81mg daily. (7) HLD (hyperlipidemia) Code(s): E78.5 - HYPERLIPIDEMIA, UNSPECIFIED SNOMED Code(s): 68672935 Comment: - Pt is not on any lipid lower meds at home-follow up with PCP. (8) HTN (hypertension) Code(s): I10 - ESSENTIAL (PRIMARY) HYPERTENSION SNOMED Code(s): 29611050 Comment: - BP stable on current regimen. - Monitor with the possible addition of spironolactone. (9) DVT prophylaxis Code(s): WHH4210 - SNOMED Code(s): 432136358 Comment: - Robert (10) Full code status Code(s): Z78.9 - OTHER SPECIFIED HEALTH STATUS SNOMED Code(s): 848882700 Status and Disposition: Inpatient. Plan for possible discharge to home in the AM.
[2017-02-24] MEDS: Lisinopril TAB* 5 MG PO SCH (08:02)
[2017-02-24] MEDS: Apixaban* 5 MG TAB PO SCH (08:02)
[2017-02-24] MEDS: Omeprazole CAP* 20 MG PO SCH (08:02)
[2017-02-24] MEDS: Aspirin Low Dose CHEW TAB* 81 MG PO SCH (08:02)
[2017-02-24] MEDS: Amiodarone TAB* 200 MG PO SCH (08:02)
[2017-02-24] MEDS: Carvedilol TAB* 3.125 MG PO SCH (08:02)
[2017-02-24] MEDS: Cyanocobalamin TAB* 500 MCG PO SCH (08:02)
[2017-02-24] MEDS: Carvedilol TAB* 6.25 MG PO SCH (08:03)
[2017-02-24 09:02] VITALS: BP 110/76
--- NOTE | 2017-02-24 10:21 | PN ---
Subjective Date of Service: 02/24/17 Interval History: Mr. Law denies complaint and is very eager for discharge. Family History: Unchanged from Admission Social History: Unchanged from Admission Past Medical History: Unchanged from Admission Objective Active Medications: Albuterol (Ventolin 2.5 Mg/3 Ml Neb.Queenie*) 2.5 mg INH Q4H PRN Amiodarone HCl (Cordarone Tab*) 400 mg PO DAILY [facility] Apixaban (Eliquis*) 5 mg PO BID [facility] Aspirin (Aspirin Low Dose Tab*) 81 mg PO DAILY [facility] Carvedilol (Coreg Tab*) 6.25 mg PO 799,1999 [facility] Carvedilol (Coreg Tab*) 3.125 mg PO 799,1999 [facility] Cyanocobalamin (Vitamin B12 Tab*) 1,000 mcg PO DAILY [facility] Lisinopril (Prinivil Tab*) 2.5 mg PO DAILY [facility] Metoprolol Tartrate (Lopressor Iv*) 5 mg IV Q6H PRN Morphine Sulfate (Morphine Inj (Syringe)*) 1 mg IV Q2H PRN Omeprazole (Prilosec Cap*) 20 mg PO DAILY [facility] Vital Signs 02/23/17 02/23/17 02/23/17 11:32 15:42 20:00 Temperature 98.1 F 98.2 F Pulse Rate 79 98 Respiratory 24 16 18 Rate Blood Pressure 95/74 114/47 (mmHg) O2 Sat by Pulse 96 91 Oximetry 02/23/17 02/23/17 02/23/17 20:07 20:57 23:27 Temperature 98.4 F 98.4 F Pulse Rate 54 91 Respiratory 16 22 20 Rate Blood Pressure 105/63 103/63 (mmHg) O2 Sat by Pulse 93 96 94 Oximetry 02/24/17 02/24/17 02/24/17 03:16 07:44 08:00 Temperature 98.4 F 98.3 F Pulse Rate 90 54 Respiratory 20 20 18 Rate Blood Pressure 106/68 110/76 (mmHg) O2 Sat by Pulse 91 95 Oximetry 02/24/17 02/24/17 09:23 09:24 Temperature Pulse Rate 54 Respiratory 20 Rate Blood Pressure (mmHg) O2 Sat by Pulse 95 96 Oximetry Oxygen Devices in Use Now: Nasal Cannula - 3L Appearance: Male lying in bed in NAD Eyes: No Scleral Icterus Ears/Nose/Mouth/Throat: Mucous Membranes Moist Neck: NL Appearance and Movements; NL JVP Respiratory: Symmetrical Chest Expansion and Respiratory Effort, Clear to Auscultation Cardiovascular: NL Sounds; No Murmurs; No JVD, No Edema Abdominal: NL Sounds; No Tenderness; No Distention Lymphatic: No Cervical Adenopathy Extremities: No Edema Skin: No Rash or Ulcers Neurological: Alert and Oriented x 3, NL Muscle Strength and Tone Nutrition: Taking PO's Result Diagrams: 02/22/17 06:30 02/22/17 06:30 Additional Lab and Data: Microbiology and Other Data: Microbiology 02/16/17 09:00 Nasal Screen MRSA (PCR)(WILFREDO) - Final Nasal Mrsa Negative Assess/Plan/Problems-Billing Mr Law is a 71 yo M who has a h/o type II DM (diet controlled), HTN ( controlled off meds), CAD and asthma who presented to the ER with c/o SOB and was found to be in rapid atrial fibrillation and probable community acquired pneumonia. - Patient Problems (1) Atrial fibrillation Comment: HR 90-140's. HR better controlled on coreg 9.375mg BID and amiodarone 400mg daily. Continue eliquis. Cardiology consult, appreciate input. (2) Heart failure, systolic, with acute decompensation Comment: Resolved. Now off diuretics. Will need monitoring through VNS and close follow up with PCP. (3) Community acquired bacterial pneumonia Comment: WBC has normalized. He completed 5 days of Abx therapy. (4) Type II diabetes mellitus Comment: Diet controlled. HgA1c 5.1%. (5) CAD (coronary artery disease) Comment: Continue ASA 81mg daily. (6) HLD (hyperlipidemia) Comment: Pt is not on any lipid lower meds at home-follow up with PCP. (7) HTN (hypertension) Comment: BP stable on current regimen. (8) Anemia Comment: Continue B12 supplementation. (9) DVT prophylaxis Comment: Eliquis (10) DNR (do not resuscitate) Status and Disposition: Inpatient. Discharge to home.
--- NOTE | 2017-02-24 17:11 | DS ---
CC: Dr. Juarez.* DISCHARGE SUMMARY: DATE OF ADMISSION: 02/16/17 DATE OF DISCHARGE: 02/24/17 PRIMARY CARE PHYSICIAN: Dr. Juarez. ATTENDING PHYSICIAN: Dr. Lemuel Castle * (dictation provided by Tabatha Porter NP). PRIMARY DIAGNOSES: 1. Atrial fibrillation with a rapid ventricular response. 2. Acute on chronic systolic congestive heart failure. 3. Community acquired pneumonia. SECONDARY DIAGNOSES: 1. Anemia. 2. Type 2 diabetes, noninsulin dependent, and diet controlled. 3. Coronary artery disease. 4. Hyperlipidemia. 5. Hypertension. 6. Benign prostatic hyperplasia, status post transurethral resection of the prostate. 7. History of a cerebrovascular accident. 8. History of gangrenous cholecystitis with cholecystectomy. 9. Umbilical hernia repair. 10. Asthma. 11. History of recurrent urinary tract infections. MEDICATIONS AT THE TIME OF DISCHARGE: 1. Amiodarone 400 mg p.o. daily. 2. Apixaban 5 mg p.o. b.i.d. 3. Aspirin 81 mg p.o. daily. 4. Carvedilol 9.375 mg p.o. b.i.d. 5. Cyanocobalamin 1000 mcg p.o. daily. 6. Lisinopril 2.5 mg p.o. daily. 7. Omeprazole 20 mg p.o. daily. HOSPITAL COURSE: Ms. Law is a 72-year-old male with a past medical history of hypertension, type 2 diabetes, hyperlipidemia, and coronary artery disease, who presented to the hospital on 02/16/17 with complaints of shortness of breath. Please see the dictated H and P from Dr. Zo Childers for complete details. In brief, at the time of admission the patient had 2 days of cough with sputum. In the emergency room he was found to have rapid atrial fibrillation. At the time of admission there was concern that he had likely pneumonia based on his symptoms, although chest x-ray did not show an infiltrate. For rapid atrial fibrillation he was started on a diltiazem drip and Lovenox for stroke prevention. The patient's transthoracic echocardiogram on 02/18/17 is summarized as follows : "Mild concentric left ventricular hypertrophy is observed. There is severely decreased left ventricular global systolic function. The estimated ejection fraction is 20% to 25%. There was no definitive thrombus visualized in the left atrial appendage, late bubble was noted in the left atrium suggestive of a small cardiopulmonary shunt." The patient was seen in consultation by Dr. Franklin from Cardiology on 02/18/17. At that point, it was suspected the patient had likely had been in AFib for some time and had tachycardia induced cardiomyopathy. She noted that in the terminal operator there would need to be a decision made about cardiac catheterization versus stress testing to further evaluate his cardiomyopathy, once he was recovered from his pneumonia and atrial fibrillation. Mr. Law continued to have issues throughout the hospitalization with rate control and concomitant episodes of pulmonary edema when his heart rate was fast. His medications had been changed and he is currently on amiodarone with carvedilol for rate control and he is also on lisinopril for hypertension as well as his cardiomyopathy. Despite the difficulty of controlling his heart rate during the hospitalization, he is now rate controlled with the heart rate running approximately at 100 for at least the past 24 hours. He is up and ambulating in the unit without assistance with some mild shortness of breath, but is deemed to be independent by Physical Therapy. In addition to the amiodarone and carvedilol for AFib, Mr. Law was also started on Eliquis for stroke prevention. Mr. Law is doing reasonably well today. He is very eager for discharge to home. Plans are for him to be discharged today. He will have VNS services to check on him on a daily basis and I have encouraged very close followup with Dr. Juarez's office for management of his chronic medical conditions. He will also need to consider followup with Cardiology. I have noted Dr. Franklin's number on the patient's discharge paper works so that he can follow up with them himself for an appointment, for continued management of his cardiomyopathy. The patient was noted to be anemic during the hospitalization, but only mildly so. His hemoglobin at the time of discharge is 11.4. He has been started on vitamin B12 supplementation. His B12 level was 229 on 02/16/17. The patient is not on any medications for his diabetes. His hemoglobin A1c was 5.1. DISPOSITION: To home. DIET: Heart healthy, consistent carb. ACTIVITY: As tolerated. FOLLOWUP PLANS: 1. Please followup with Dr. Franklin regarding new onset cardiomyopathy. 2. Please followup with Dr. Juarez in the next 4 to 7 days. TIME SPENT: Approximately 60 minutes was spent on the discharge of this patient , more than half the time spent with the patient at the bedside reviewing the events leading up to this hospitalization, during this hospitalization, performing the physical examination, and reviewing the plan of care. TABATHA PORTER NP [id number]/[facility] #: [id number] [place]
== END 2017-02-24 16:46 | disposition home or self-care (01) | DRG 291 ==
LOC: ED 06:10 → ICU 07:24 → MEDTELE 02-17 11:02
PROVIDERS: ADMIT Hospitalist; ATTEND Internal Medicine
PROC: 5A2204Z Restoration of Cardiac Rhythm, Single (ICD-10-PCS; 2017-02-18)
PROC: B246ZZ4 Ultrasonography of Right and Left Heart, Transesophageal (ICD-10-PCS; principal; 2017-02-18 08:30)
DX: I50.23 Acute on chronic systolic (congestive) heart failure (principal); J18.8 Other pneumonia, unspecified organism; I48.91 Unspecified atrial fibrillation; I42.9 Cardiomyopathy, unspecified; D64.9 Anemia, unspecified; E11.9 Type 2 diabetes mellitus without complications; I11.0 Hypertensive heart disease with heart failure; E78.5 Hyperlipidemia, unspecified; I25.10 Atherosclerotic heart disease of native coronary artery without angina pectoris; N40.0 Benign prostatic hyperplasia without lower urinary tract symptoms; K42.9 Umbilical hernia without obstruction or gangrene; J45.909 Unspecified asthma, uncomplicated; Z66 Do not resuscitate; Z86.73 Personal history of transient ischemic attack (TIA), and cerebral infarction without residual deficits; Z87.440 Personal history of urinary (tract) infections; Z79.82 Long term (current) use of aspirin; Z79.899 Other long term (current) drug therapy; Z88.7 Allergy status to serum and vaccine; Z79.01 Long term (current) use of anticoagulants; Z82.49 Family history of ischemic heart disease and other diseases of the circulatory system; Z87.891 Personal history of nicotine dependence
CPT/HCPCS: 36415; 71010; 71020; 80048; 80053; 82607; 82728; 83036; 83540; 83550; 83605; 83735; 83880; 84443; 84484; 85025; 85027; 85379; 87070; 87205; 87641; 87899; 93005; 93306; 93312; 93325; 94640; 94760; A9270-GY; C8929; J0153; J0456; J0696; J1160; J1650; J1940; J2250; J2270; J2310; J3010; J3480

== ENCOUNTER 2017-03-06 21:45 | Observation (INO) | payer MEDICARE ==
[2017-03-06] MEDS ORDERED: Albuterol/Ipratropium NEB.SOL* Albuterol 2.5 MG/Ipratropium 0.5 MG 3 ML ONE (21:58)
[2017-03-06] MEDS ORDERED: Albuterol/Ipratropium NEB.SOL* Albuterol 2.5 MG/Ipratropium 0.5 MG 3 ML INH ONE (22:03)
[2017-03-06 22:09] LABS: Hematocrit 33 % (42-52); Hemoglobin 10.9 g/dl (14.0-18.0); Mean Corpuscular HGB Conc 33 g/dl (31-36); Mean Corpuscular Hemoglobin 31 pg (27-31); Mean Corpuscular Volume 94 fL (80-94); Mean Platelet Volume 8 um3 (7.4-10.4); Red Blood Count 3.54 10^6/ul (4.0-5.4); Red Cell Distribution Width 15 % (10.5-15); White Blood Count 10.5 10^3/ul (3.5-10.8)
[2017-03-06 22:25] LABS: Albumin 3.8 g/dL (3.2-5.2); BUN/Creatinine Ratio 10.6 (8-20); Calcium 8.8 mg/dL (8.6-10.3); EGFR African American 62.7 (>60); EGFR Non-African American 48.7 (>60); Globulin 3.3 g/dL (2-4); Potassium 3.6 mmol/L (3.5-5.0); Total Bilirubin 0.6 mg/dL (0.2-1.0); Total Protein 7.1 g/dL (6.4-8.9)
[2017-03-06 22:27] LABS: Troponin I 0.03 ng/mL (<0.04)
--- NOTE | 2017-03-06 22:38 | RAD ---
HISTORY: Shortness of breath COMPARISONS: February 19, 2017 VIEWS: 2: Frontal dual-energy and lateral views of the chest. FINDINGS: CARDIOMEDIASTINAL SILHOUETTE: The cardiomediastinal silhouette is normal. ANDREA: The andrea are normal. PLEURA: There are small bilateral pleural effusions. LUNG PARENCHYMA: There is patchy alveolar opacification of the right lung base. There has been improved aeration compared to the previous examination ABDOMEN: The upper abdomen is clear. There is no subphrenic gas. BONES AND SOFT TISSUES: No bone or soft tissue abnormalities are noted. OTHER: None. IMPRESSION: SMALL BILATERAL PLEURAL EFFUSIONS WITH BIBASILAR ATELECTASIS VERSUS CONSOLIDATION. THERE HAS BEEN IMPROVED AERATION COMPARED TO THE FEBRUARY 19, 2017 EXAMINATION
[2017-03-06] MEDS ORDERED: Furosemide IV* 10 MG/ML VIAL (40 MG) IV ONE (22:42)
--- NOTE | 2017-03-06 22:53 | ED ---
Jorgito Ko SooYoung, scribed for Angel Maza MD on 03/06/17 at 2200 . Shortness of Breath - HPI Summary HPI Summary: A 72 y/o M presents to ED with c/o SOB onset a few days ago, worsening today. Pert PMHx: pt was admitted on 02/16 with PNA. Pt saw Dr. Alexander four days ago and was having SOB then. He is on home O2. Seconday complaint: bleeding from penis onset today. - History of Current Complaint Chief Complaint: EDShortnessOfBreath Hx Obtained From: Patient Onset/Duration: Lasting Days, Still Present Timing: Constant - Allergy/Home Medications Allergies/Adverse Reactions: Allergies Allergy/AdvReac Type Severity Reaction Status Date / Time Tetanus Antitoxin Allergy Shortness Verified 11/26/16 09:11 of Breath PMH/Surg Hx/FS Hx/Imm Hx Previously Healthy: No Endocrine/Hematology History: Reports: Hx Diabetes Denies: Hx Anemia, Hx Unexplained Bleeding Cardiovascular History: Reports: Hx Congestive Heart Failure, Hx Hypertension, Other Cardiovascular Problems/Disorders - CAD/IDDM/AKD/SFIB WITH RVR/CVA WITH RT.SIDED WEAKNESS Denies: Hx Aneurysm, Hx Angina, Hx Angioplasty, Hx Auto Implanted Cardiovert Defib, Hx Cardiac Arrest, Hx Cardiomegaly, Hx Congenital Heart Disease, Hx Coronary Artery Disease, Hx Deep Vein Thrombosis, Hx Embolism, Hx Hypercholesterolemia, Hx Hypotension, Hx Myocardial Infarction, Hx Pacemaker/ICD , Hx Peripheral Vascular Disease, Hx Rheumatic Fever, Hx Syncope, Hx Valvular Heart Disease Respiratory History: Reports: Hx Pneumonia, Other Respiratory Problems/ Disorders - PNA Denies: Hx Asthma, Hx Chronic Obstructive Pulmonary Disease (COPD) GI History: Reports: Hx Gall Bladder Disease Denies: Hx Hiatal Hernia History: Reports: Hx Benign Prostatic Hyperplasia, Other Problems/ Disorders - URINARY RETENTION, BPH, AKD Denies: Hx Dialysis, Hx Renal Disease Musculoskeletal History: Reports: Hx Arthritis Denies: Hx Back Problems, Hx Osteoporosis Sensory History: Reports: Hx Hearing Problem Denies: Hx Cataracts, Hx Contacts or Glasses, Hx Eye Injury, Hx Eye Prosthesis, Hx Glaucoma, Hx Legally Blind, Hx Macular Degeneration, Hx Vision Problem, Hx Deafness, Hx Hearing Aid, Other Sensory Impairments Opthamlomology History: Denies: Hx Cataracts, Hx Contacts or Glasses, Hx Eye Injury, Hx Eye Prosthesis, Hx Glaucoma, Hx Legally Blind, Hx Macular Degeneration, Hx Vision Problem, Other Sensory Impairments Neurological History: Reports: Hx CVA Denies: Hx Dementia, Hx Seizures - Cancer History Cancer Type, Location and Year: Skin cancer - Surgical History Surgery Procedure, Year, and Place: UMBILICAL REPAIR for hernia. Right lower arm skin cancer removed. Right lower leg fracture fixed surgically Hx Anesthesia Reactions: No Infectious Disease History: No Infectious Disease History: Denies: Hx Clostridium Difficile, Hx Hepatitis, Hx Human Immunodeficiency Virus (HIV), Hx of Known/Suspected MRSA, Hx Shingles, Hx Tuberculosis, Hx Known/ Suspected VRE, Hx Known/Suspected VRSA, History Other Infectious Disease, Traveled Outside the [place] in Last 30 Days - Family History Known Family History: Positive: Diabetes - Brother Family History: no family malignant hyperthermia and anesthesia reaction - Social History Occupation: Retired Lives: Alone Alcohol Use: None Hx Substance Use: No Substance Use Type: Reports: None Substance Use Comment - Amount & Last Used: Chew tabacco Hx Tobacco Use: Yes Smoking Status (MU): Former Smoker Type: Smokeless Tobacco Amount Used/How Often: chews tobacco past 30 yrs Have You Smoked in the Last Year: No Review of Systems Positive: Shortness Of Breath Positive: other - pos: bleeding from penis All Other Systems Reviewed And Are Negative: Yes Physical Exam Triage Information Reviewed: Yes Vital Signs On Initial Exam: Initial Vitals Temp Pulse Resp BP Pulse Ox 96.9 F 82 30 131/85 96 03/06/17 21:54 03/06/17 21:54 03/06/17 21:54 03/06/17 21:54 03/06/17 21:54 Vital Signs Reviewed: Yes Appearance: Positive: Obese - mod sob Skin: Positive: Warm Head/Face: Positive: Normal Head/Face Inspection Eyes: Positive: VIRAJ ENT: Positive: Hearing grossly normal Neck: Positive: Supple Respiratory/Lung Sounds: Positive: Breath Sounds Present - coarse bibasilr bs Cardiovascular: Positive: RRR Abdomen Description: Positive: Nontender, Soft Bowel Sounds: Positive: Present Musculoskeletal: Positive: Strength/ROM Intact, Edema Left, Edema Right Neurological: Positive: Alert, Oriented to Person Place, Time Psychiatric: Positive: Affect/Mood Appropriate Diagnostics - Vital Signs Vital Signs Temp Pulse Resp BP Pulse Ox 03/06/17 21:54 96.9 F 82 30 131/85 96 - Laboratory Lab Results: Lab Results 03/06/17 03/06/17 03/06/17 Range/Units 22:00 22:00 22:00 WBC 10.5 (3.5-10.8) 10^3/ul RBC 3.54 L (4.0-5.4) 10^6/ul Hgb 10.9 L (14.0-18.0) g/dl Hct 33 L (42-52) % MCV 94 (80-94) fL MCH 31 (27-31) pg MCHC 33 (31-36) g/dl RDW 15 (10.5-15) % Plt Count 290 (150-450) 10^3/ul MPV 8 (7.4-10.4) um3 Neut % (Auto) 63.2 (38-83) % Lymph % (Auto) 25.5 (25-47) % [place] % (Auto) 6.4 (1-9) % Eos % (Auto) 3.9 (0-6) % Baso % (Auto) 1.0 (0-2) % Absolute Neuts (auto) 6.7 (1.5-7.7) 10^3/ul Absolute Lymphs (auto) 2.7 (1.0-4.8) 10^3/ul Absolute Monos (auto) 0.7 (0-0.8) 10^3/ul Absolute Eos (auto) 0.4 (0-0.6) 10^3/ul Absolute Basos (auto) 0.1 (0-0.2) 10^3/ul Absolute Nucleated RBC 0 10^3/ul Nucleated RBC % 0 INR (Anticoag Therapy) 1.83 H (0.89-1.11) Sodium 134 (133-145) mmol/L Potassium 3.6 (3.5-5.0) mmol/L Chloride 106 (101-111) mmol/L Carbon Dioxide 21 L (22-32) mmol/L Anion Gap 7 (2-11) mmol/L BUN 15 (6-24) mg/dL Creatinine 1.42 H (0.67-1.17) mg/dL Est GFR ( Amer) 62.7 (>60) Est GFR (Non-Af Amer) 48.7 (>60) BUN/Creatinine Ratio 10.6 (8-20) Glucose 117 H (70-100) mg/dL Lactic Acid (0.5-2.0) mmol/L Calcium 8.8 (8.6-10.3) mg/dL Total Bilirubin 0.60 (0.2-1.0) mg/dL AST 25 (13-39) U/L ALT 20 (7-52) U/L Alkaline Phosphatase 68 (34-104) U/L Troponin I 0.03 (<0.04) ng/mL B-Natriuretic Peptide ( - 100) pg/mL Total Protein 7.1 (6.4-8.9) g/dL Albumin 3.8 (3.2-5.2) g/dL Globulin 3.3 (2-4) g/dL Albumin/Globulin Ratio 1.2 (1-3) 03/06/17 03/06/17 Range/Units 22:00 22:00 WBC (3.5-10.8) 10^3/ul RBC (4.0-5.4) 10^6/ul Hgb (14.0-18.0) g/dl Hct (42-52) % MCV (80-94) fL MCH (27-31) pg MCHC (31-36) g/dl RDW (10.5-15) % Plt Count (150-450) 10^3/ul MPV (7.4-10.4) um3 Neut % (Auto) (38-83) % Lymph % (Auto) (25-47) % [place] % (Auto) (1-9) % Eos % (Auto) (0-6) % Baso % (Auto) (0-2) % Absolute Neuts (auto) (1.5-7.7) 10^3/ul Absolute Lymphs (auto) (1.0-4.8) 10^3/ul Absolute Monos (auto) (0-0.8) 10^3/ul Absolute Eos (auto) (0-0.6) 10^3/ul Absolute Basos (auto) (0-0.2) 10^3/ul Absolute Nucleated RBC 10^3/ul Nucleated RBC % INR (Anticoag Therapy) (0.89-1.11) Sodium (133-145) mmol/L Potassium (3.5-5.0) mmol/L Chloride (101-111) mmol/L Carbon Dioxide (22-32) mmol/L Anion Gap (2-11) mmol/L BUN (6-24) mg/dL Creatinine (0.67-1.17) mg/dL Est GFR ( Amer) (>60) Est GFR (Non-Af Amer) (>60) BUN/Creatinine Ratio (8-20) Glucose (70-100) mg/dL Lactic Acid 1.4 (0.5-2.0) mmol/L Calcium (8.6-10.3) mg/dL Total Bilirubin (0.2-1.0) mg/dL AST (13-39) U/L ALT (7-52) U/L Alkaline Phosphatase (34-104) U/L Troponin I (<0.04) ng/mL B-Natriuretic Peptide 426 H ( - 100) pg/mL Total Protein (6.4-8.9) g/dL Albumin (3.2-5.2) g/dL Globulin (2-4) g/dL Albumin/Globulin Ratio (1-3) Result Diagrams: 03/06/17 22:00 03/06/17 22:00 Lab Statement: Any lab studies that have been ordered have been reviewed, and results considered in the medical decision making process. - Radiology CXR Xray Interpretation: Positive (See Comments) - IMPRESSION: SMALL BILATERAL PLEURAL EFFUSIONS WITH BIBASILAR ATELECTASIS VERSUS CONSOLIDATION. THERE HAS BEEN IMPROVED AERATION COMPARED TO THE FEBRUARY 19, 2017 EXAMINATION Radiology Interpretation Completed By: Radiologist - CT CTA CHEST CT Interpretation: Positive (See Comments) - IMPRESSION: No PE identified. Moderate bilateral pleural effusions. Borderline cardiomegaly. Small pericardial effusion. Consider evaluation for CHF. CT Interpretation Completed By: Radiologist - EKG 1 EKG Rhythm: Sinus Rhythm EKG Interpretation: with non-specific IVCD Re-Evaluation - Re-Evaluation First Eval Comment: mildly improved, still sob elevated trop, d/w hospitalist will admit Course/Dx - Course Course Of Treatment: Pt is a 72 y/o M presenting with SOB onset a few days ago, worsening today. Pert PMHx: pt was admitted on 02/16 with PNA. Pt saw Dr. Alexander four days ago and was having SOB then. He is on home O2. Seconday complaint: bleeding from penis onset today. Pt given duoneb, Lasix in ED. Lab results show elevated INR at 1.83, creatinine at 1.42, glucose at 117, BNP is 426. First trop is 0.03. Ddimer is 358. Second trop is 0.04. CXR shows "SMALL BILATERAL PLEURAL EFFUSIONS WITH BIBASILAR ATELECTASIS VERSUS CONSOLIDATION. THERE HAS BEEN IMPROVED AERATION COMPARED TO THE FEBRUARY 19, 2017 EXAMINATION.". CHEST CTA shows "No PE identified. Moderate bilateral pleural effusions. Borderline cardiomegaly. Small pericardial effusion. Consider evaluation for CHF." - Diagnoses Provider Diagnoses: Dyspnea, Hematuria - Physician Notifications Discussed Care of Patient With: Sara Wasserman - hospitalist Time Discussed With Above Provider: 03:48 Instructed by Provider To: Admit As Inpatient Discharge - Discharge Plan Condition: Fair Disposition: ADMITTED TO [facility] The documentation as recorded by the Jorgito turcios SooYoung accurately reflects the service I personally performed and the decisions made by me, Angel Maza MD.
[2017-03-06 23:33] LABS: Urine Bacteria Absent (Absent)
[2017-03-07] MEDS ORDERED: Iodixanol* (CONTRAST) 320 MG/ML 100 ML SDV IV ONE (02:13)
[2017-03-07] MEDS ORDERED: Ondansetron INJ* 2 MG/ML VIAL IV PRN (03:59)
[2017-03-07] MEDS ORDERED: Acetaminophen TAB* 325 MG PO PRN (03:59)
[2017-03-07] MEDS ORDERED: Docusate CAP* 100 MG PO PRN (03:59)
[2017-03-07] MEDS ORDERED: Senna TAB PO PRN (03:59)
[2017-03-07] MEDS ORDERED: Al Hydrox/Mg Hydrox/Simet LIQ* 30 ML UDC PO PRN (03:59)
[2017-03-07] MEDS ORDERED: Potassium Chlor TAB* 20 MEQ TAB.ER PO ONE ×2 (04:10→11:00)
[2017-03-07 06:26] LABS: BUN/Creatinine Ratio 9.6 (8-20); Calcium 8.7 mg/dL (8.6-10.3); EGFR African American 60.7 (>60); EGFR Non-African American 47.2 (>60); Magnesium 1.8 mg/dL (1.9-2.7); Potassium 3.5 mmol/L (3.5-5.0)
[2017-03-07 06:29] LABS: Troponin I 0.05 ng/mL (<0.04)
[2017-03-07 07:01] LABS: TSH (Thyroid Stimulating Horm) 5.78 mcIU/mL (0.34-5.60)
[2017-03-07] MEDS: Carvedilol TAB* 3.125 MG PO SCH ×2 (08:51→20:45)
[2017-03-07] MEDS: Apixaban* 5 MG TAB PO SCH ×2 (08:51→20:44)
[2017-03-07] MEDS: Furosemide IV* 10 MG/ML VIAL (40 MG) IV SCH (08:52)
--- NOTE | 2017-03-07 08:55 | RAD ---
INDICATION: Shortness of breath, chest pain and elevated d-dimer COMPARISON: None TECHNIQUE: Axial source images were acquired following the administration of intravenously and utilizing CT angiographic technique. Coronal and sagittal reconstructed images were constructed and reviewed. FINDINGS: There there are no filling defects in the pulmonary arteries to indicate acute pulmonary embolic disease. There is mild diffuse groundglass opacification overlying the lungs. There are small to moderate bibasilar pleural effusions with compressive atelectasis of the adjacent lung. There is a small pericardial effusion. The heart is otherwise morphologically normal. Scattered atherosclerotic calcification of the coronary arteries and arch of the aorta are noted. There is no mediastinal, hilar, or axillary lymphadenopathy. Multilevel degenerative changes of the thoracic spine includes loss of intervertebral disc height and marginal osteophyte formation anteriorly. Limited views of the upper abdomen show no abnormalities. IMPRESSION: 1. No CT of evidence of pulmonary embolism. 2. Mild diffuse groundglass opacification, mild to moderate pleural effusions and small pericardial effusion. Please correlate to signs and symptoms of congestive heart failure/pulmonary edema.
--- NOTE | 2017-03-07 10:03 | HP ---
CC: Bob Juarez MD. HISTORY AND PHYSICAL: DATE OF ADMISSION: 03/07/17. TIME OF EVALUATION: 0400. PRIMARY CARE PHYSICIAN: Bob Juarez MD CHIEF COMPLAINT: Shortness of breath and inability to pee. HISTORY OF PRESENT ILLNESS: This is a 72-year-old male with a past medical history of a recent admission for decompensated congestive heart failure with an ejection fraction of less than 20% discharged on the who returns to the emergency room saying he has been having difficulty peeing for the past week. He states he has dyspnea on exertion and intermittent orthopnea. He has a chronic productive cough that has not worsened over the past week. No chest pain. He denies any abdominal pain. No fevers or chills. No nausea, vomiting , or diarrhea. He ambulates with a cane. Has not had any difficulty with that. He does wheeze intermittently. He has noted about a 5 pound weight gain since his discharge and worsening lower extremity swelling. Otherwise, remainder of the review of systems is negative. In the emergency room, the patient had labs and imaging he was given 40 mg of Lasix and has had a significant amount of urine output and states he is now able to urinate without any difficulty, but has a Sexton catheter in place. He states when he was urinating there was a lot of blood coming out and he was not able to empty his bladder completely. His remainder of review of systems is negative. PAST MEDICAL HISTORY: 1. History of atrial fibrillation, status post cardioversion. 2. 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 However, he is getting further worked up for coronary artery disease and needs followup as outpatient with Dr. Franklin. 3. Diabetes, diet controlled. 4. Atrial fibrillation, on anticoagulation. 5. History of CVA. 6. Hyperlipidemia. 7. History of gangrenous cholecystitis, status post cholecystectomy. 8. History of umbilical hernia repair. 9. COPD. 10. Recurrent UTIs. 11. History of BPH, status post TURP. MEDICATIONS: Patient had a list of medications when he was discharged on the . He states there was changes, but has no idea what medications he is on. At the time of discharge, the medications are as follows, but this needs to be clarified with the pharmacy in the morning. 1. Amiodarone 400 mg p.o. daily. 2. Apixaban 5 mg p.o. b.i.d. 3. Aspirin 81 mg p.o. daily. 4. Carvedilol p.o. b.i.d. 5. Cyanocobalamin 1000 mcg p.o. daily. 6. Lisinopril 2.5 mg p.o. daily. 7. Omeprazole 20 mg daily. ALLERGIES: TETANUS ANTITOXIN. FAMILY HISTORY: Mother at age 65 from heart failure. Father at age 91 from old age. SOCIAL HISTORY: The patient lives at home alone. He ambulates with a cane. He is independent of his ADLs. He is a remote smoker quit 50 years ago, , five children. His daughter, Kia is his healthcare proxy; [phone]. No alcohol use. CODE STATUS: He states regarding his code status he has not discussed it, not sure, he needs to discuss it with his daughter. At this time, he is full code. REVIEW OF SYSTEMS: A 12-point review of systems is negative other than what is mentioned in the HPI. PHYSICAL EXAMINATION GENERAL: No acute distress. VITAL SIGNS: Temp 96.9, pulse rate 64, respiratory rate 20, oxygen saturation 96% on room air, blood pressure 101/49. HEENT: Head normocephalic. Pupils equal and reactive. Anicteric. Oropharynx : Mucous membranes are moist. NECK: Supple. No lymphadenopathy. RESPIRATORY: Coarse bibasilar crackles. No wheezing. CARDIAC: Regular rate and rhythm with a soft systolic murmur heard throughout. ABDOMEN: Soft, nontender. EXTREMITIES: +2 pretibial edema. +1 DPs. NEUROLOGIC: Alert and oriented x3. No focal neurologic deficits. LABORATORY DATA: White count 10.5, hemoglobin 10.9, hematocrit 33, platelets 290. D-dimer 358, INR 1.83, sodium 134, potassium 3.6, chloride 106, bicarb 21, BUN 15, creatinine 1.42. Troponin 0.03 to 0.04. BNP 426. Urinalysis +3 reds, +2 whites. RADIOGRAPHIC DATA: Chest x-ray small bilateral pleural effusions, bibasilar atelectasis with consolidation, there has been improved aeration compared to February 19. EKG shows normal sinus rhythm. CTA shows no pulmonary emboli, moderate bilateral pleural effusions, borderline cardiomegaly, small pericardial effusion. ASSESSMENT: This is a 72-year-old male with a past medical history of cardiomyopathy with ejection fraction of less than 20, who presents to the emergency room with urinary retention and orthopnea and dyspnea on exertion. 1. Urinary retention, assessed with unclear etiology. He has a history of benign prostatic hyperplasia, recurrent urinary tract infections. His urinalysis is relatively unremarkable other than hematuria. He also has some evidence of acute kidney injury as well with the bump in his creatinine could be postobstructive from this benign prostatic hyperplasia. Plan: We will keep the Sexton in for now. I will get ultrasound of his kidneys and bladder. Recommending, once Sexton is discontinued, to do a bladder scan to assess for proper urine output and postvoid residuals. 2. Dyspnea. Assessment: Patient states he has been with dyspnea on exertion and intermittent orthopnea. He has got bilateral pleural effusions with edema and weight gain. It does not appear that he has been placed on a diuretic, but he is not clear of what his medication regimen is. He got Lasix with a significant urine output. Plan: We will start him on daily Lasix. We will replete his potassium. Place him for daily weights, I's and O's and recommend a diuretic at discharge if he is not already on one. To confirm with the pharmacy what his medication regimen is and to make sure he has followup with cardiology at discharge. 3. Chronic medical problem. History of atrial fibrillation. Assessment: He appears to be on apixaban. He is in sinus. We will resume him on a low dose of carvedilol, but again need med reconciliation. Need to review his medications from the pharmacy and place order accordingly. 5. FEN. Place him on a heart-healthy low salt diet. 6. DVT prophylaxis. The patient's score is moderate risk. He is on apixaban. 7. Code status. At this time, he is a full code. Would like to discuss this more at length. I encouraged him to speak with his daughter and to follow up with his primary care physician. PATIENT TIME: Greater than 60 minutes spent doing the history and physical, more than half the time was spent in patient contact. [id number]/[facility] #: [id number] [place]
--- NOTE | 2017-03-07 15:32 | RAD ---
INDICATION: Urinary retention COMPARISON: Similar examination dated October 19, 2016 TECHNIQUE: Real-time ultrasound examination of the bilateral kidneys and urinary bladder including grayscale and Doppler color flow analysis. FINDINGS: Bilaterally the kidneys are normal in size and echogenicity. There are no hypervascular renal masses. There are no renal calculi or hydronephrosis identified. The Sexton catheter balloon is not visualized in the urinary bladder. A catheter is identified at the urethra. The galvez of the urinary bladder are smooth. The bladder measures 12.6 x 6.6 x 11.8 cm yielding a volume of 513 mL. The wall the bladder is fairly uniform measuring approximately 4 mm. Normal ureteral jets are identified bilaterally. IMPRESSION: 1. Normal ultrasound of the bilateral kidneys without hydronephrosis. 2. Although the catheter is visualized in the visible portions of the urethra, no balloon is identified in the bladder lumen.
--- NOTE | 2017-03-07 17:40 | PN ---
Subjective Date of Service: 03/07/17 Interval History: Seen and examined. Has no complaints. Denies pain. Not SOB, no CP Confused. Reports he has been urinating without problems but fails to recognize leonardo in place. Objective Active Medications: Acetaminophen (Tylenol Tab*) 650 mg PO Q4H PRN PRN Reason: FEVER/PAIN Al Hydrox/Mg Hydrox/Simethicone (Maalox Plus*) 30 ml PO Q6H PRN PRN Reason: INDIGESTION Apixaban (Eliquis*) 5 mg PO BID [facility] TO [facility] Last Admin: 03/07/17 08:51 Dose: 5 mg Carvedilol (Coreg Tab*) 3.125 mg PO BID [facility] Last Admin: 03/07/17 08:51 Dose: 3.125 mg Docusate Sodium (Colace Cap*) 100 mg PO BID PRN PRN Reason: CONSTIPATION Furosemide (Lasix Iv*) 40 mg IV DAILY [facility] Last Admin: 03/07/17 08:52 Dose: 40 mg Ondansetron HCl (Zofran Inj*) 4 mg IV Q4H PRN PRN Reason: NAUSEA/VOMITING Potassium Chloride (Klor Con Er Tab*) 20 meq PO BID [facility] TO [facility] Senna (Senokot Tab*) 1 tab PO BID PRN PRN Reason: CONSTIPATION Vital Signs 03/07/17 03/07/17 03/07/17 04:00 04:30 05:05 Temperature 97.6 F 97.7 F Pulse Rate 64 64 75 Respiratory 19 Rate Blood Pressure 115/64 104/64 113/72 (mmHg) O2 Sat by Pulse 99 96 95 Oximetry 03/07/17 03/07/17 03/07/17 07:20 07:38 08:45 Temperature 97.9 F Pulse Rate 68 Respiratory 20 16 Rate Blood Pressure 102/66 128/76 (mmHg) O2 Sat by Pulse 93 Oximetry 03/07/17 03/07/17 03/07/17 11:53 11:59 15:36 Temperature 98.5 F 97.9 F Pulse Rate 65 69 Respiratory 16 18 Rate Blood Pressure 95/64 122/68 100/60 (mmHg) O2 Sat by Pulse 93 93 Oximetry Oxygen Devices in Use Now: None Appearance: lying 30 deg in bed, NAD Eyes: No Scleral Icterus Ears/Nose/Mouth/Throat: NL Teeth, Lips, Gums, Clear Oropharnyx Neck: NL Appearance and Movements; NL JVP Respiratory: Symmetrical Chest Expansion and Respiratory Effort, Clear to Auscultation Cardiovascular: RRR Abdominal: NL Sounds; No Tenderness; No Distention, No Hepatosplenomegaly Lymphatic: No Cervical Adenopathy Extremities: - - 2+ LE edema, wearing compression stockings Skin: No Rash or Ulcers Neurological: - - AOx2 to self and location, repeatedly says its 1945, laughs somewhat inappropriately, cannot say why he came to the hospital Result Diagrams: 03/06/17 22:00 03/07/17 05:55 Additional Lab and Data: Lab Results 03/06/17 03/06/17 03/06/17 Range/Units 22:00 22:00 22:00 WBC 10.5 (3.5-10.8) 10^3/ul RBC 3.54 L (4.0-5.4) 10^6/ul Hgb 10.9 L (14.0-18.0) g/dl Hct 33 L (42-52) % MCV 94 (80-94) fL MCH 31 (27-31) pg MCHC 33 (31-36) g/dl RDW 15 (10.5-15) % Plt Count 290 (150-450) 10^3/ul MPV 8 (7.4-10.4) um3 Neut % (Auto) 63.2 (38-83) % Lymph % (Auto) 25.5 (25-47) % [place] % (Auto) 6.4 (1-9) % Eos % (Auto) 3.9 (0-6) % Baso % (Auto) 1.0 (0-2) % Absolute Neuts (auto) 6.7 (1.5-7.7) 10^3/ul Absolute Lymphs (auto) 2.7 (1.0-4.8) 10^3/ul Absolute Monos (auto) 0.7 (0-0.8) 10^3/ul Absolute Eos (auto) 0.4 (0-0.6) 10^3/ul Absolute Basos (auto) 0.1 (0-0.2) 10^3/ul Absolute Nucleated RBC 0 10^3/ul Nucleated RBC % 0 INR (Anticoag Therapy) 1.83 H (0.89-1.11) Sodium 134 (133-145) mmol/L Potassium 3.6 (3.5-5.0) mmol/L Chloride 106 (101-111) mmol/L Carbon Dioxide 21 L (22-32) mmol/L Anion Gap 7 (2-11) mmol/L BUN 15 (6-24) mg/dL Creatinine 1.42 H (0.67-1.17) mg/dL Est GFR ( Amer) 62.7 (>60) Est GFR (Non-Af Amer) 48.7 (>60) BUN/Creatinine Ratio 10.6 (8-20) Glucose 117 H (70-100) mg/dL Lactic Acid (0.5-2.0) mmol/L Calcium 8.8 (8.6-10.3) mg/dL Total Bilirubin 0.60 (0.2-1.0) mg/dL AST 25 (13-39) U/L ALT 20 (7-52) U/L Alkaline Phosphatase 68 (34-104) U/L Troponin I 0.03 (<0.04) ng/mL B-Natriuretic Peptide ( - 100) pg/mL Total Protein 7.1 (6.4-8.9) g/dL Albumin 3.8 (3.2-5.2) g/dL Globulin 3.3 (2-4) g/dL Albumin/Globulin Ratio 1.2 (1-3) 03/06/17 03/06/17 Range/Units 22:00 22:00 WBC (3.5-10.8) 10^3/ul RBC (4.0-5.4) 10^6/ul Hgb (14.0-18.0) g/dl Hct (42-52) % MCV (80-94) fL MCH (27-31) pg MCHC (31-36) g/dl RDW (10.5-15) % Plt Count (150-450) 10^3/ul MPV (7.4-10.4) um3 Neut % (Auto) (38-83) % Lymph % (Auto) (25-47) % [place] % (Auto) (1-9) % Eos % (Auto) (0-6) % Baso % (Auto) (0-2) % Absolute Neuts (auto) (1.5-7.7) 10^3/ul Absolute Lymphs (auto) (1.0-4.8) 10^3/ul Absolute Monos (auto) (0-0.8) 10^3/ul Absolute Eos (auto) (0-0.6) 10^3/ul Absolute Basos (auto) (0-0.2) 10^3/ul Absolute Nucleated RBC 10^3/ul Nucleated RBC % INR (Anticoag Therapy) (0.89-1.11) Sodium (133-145) mmol/L Potassium (3.5-5.0) mmol/L Chloride (101-111) mmol/L Carbon Dioxide (22-32) mmol/L Anion Gap (2-11) mmol/L BUN (6-24) mg/dL Creatinine (0.67-1.17) mg/dL Est GFR ( Amer) (>60) Est GFR (Non-Af Amer) (>60) BUN/Creatinine Ratio (8-20) Glucose (70-100) mg/dL Lactic Acid 1.4 (0.5-2.0) mmol/L Calcium (8.6-10.3) mg/dL Total Bilirubin (0.2-1.0) mg/dL AST (13-39) U/L ALT (7-52) U/L Alkaline Phosphatase (34-104) U/L Troponin I (<0.04) ng/mL B-Natriuretic Peptide 426 H ( - 100) pg/mL Total Protein (6.4-8.9) g/dL Albumin (3.2-5.2) g/dL Globulin (2-4) g/dL Albumin/Globulin Ratio (1-3) Assess/Plan/Problems-Billing Assessment: 72 yo M with h/o severe systolic CHF (EF 20%), afib, DM2, COPD p/w reported SOB and urinary retention - Patient Problems (1) Urinary retention Comment: leonardo placed. UA collected but results never resulted. Need to check repeat to r/o infection remove leonardo now and check bladder scan to eval for recurrent retention. My need chronic leonardo (2) Atrial fibrillation Comment: pt unclear about medication dosing carvedilol BID (may need lower dose) eliquis (3) Heart failure, systolic, with acute decompensation Comment: Was not discharged on diuretics now on room air IV lasix while here. Likey ready to convert to PO tomorrow (4) DVT prophylaxis Comment: Eliquis Status and Disposition: Suspect can be discharged tomorrow if SOB stable. Will need eval for retention and placement of leonardo if trial void fails this evening
[2017-03-07] MEDS: Potassium Chlor TAB* 20 MEQ TAB.ER PO SCH (20:44)
[2017-03-07] MEDS ORDERED: Carvedilol TAB* 6.25 MG PO SCH (21:00)
--- NOTE | 2017-03-07 22:24 | PN ---
Progress Note - Progress Note Note: PVR 340 - Sexton placed back in.
[2017-03-08] MEDS: Apixaban* 5 MG TAB PO SCH (08:26)
[2017-03-08] MEDS: Carvedilol TAB* 3.125 MG PO SCH (08:27)
[2017-03-08] MEDS: Furosemide IV* 10 MG/ML VIAL (40 MG) IV SCH (08:27)
[2017-03-08] MEDS: Potassium Chlor TAB* 20 MEQ TAB.ER PO SCH (08:27)
[2017-03-08 08:57] LABS: BUN/Creatinine Ratio 9.8 (8-20); Calcium 8.8 mg/dL (8.6-10.3); EGFR African American 67.6 (>60); EGFR Non-African American 52.6 (>60); Potassium 3.5 mmol/L (3.5-5.0)
[2017-03-08] MEDS ORDERED: Potassium Chlor TAB* 20 MEQ TAB.ER PO SCH (09:00)
[2017-03-08] MEDS ORDERED: Amiodarone TAB* 200 MG PO SCH ×2 (09:00→11:57)
[2017-03-08] MEDS ORDERED: Lisinopril TAB* 5 MG PO SCH (09:00)
[2017-03-08] MEDS ORDERED: Omeprazole CAP* 20 MG PO SCH (09:00)
[2017-03-08 09:05] LABS: Urine Bacteria 1+ (Absent); Urine Bilirubin Negative (Negative); Urine Glucose Negative (Negative); Urine Nitrite Negative (Negative)
[2017-03-08 12:06] VITALS: BP 112/70
--- NOTE | 2017-03-08 12:08 | PN ---
Progress Note - Progress Note Note: Time spent on discharge 50 minutes.
--- NOTE | 2017-03-08 12:31 | DCNOTE ---
Subjective Date of Service: 03/08/17 Interval History: No SOB, chest pain, cough. Anxious to go home. Objective Active Medications: Acetaminophen (Tylenol Tab*) 650 mg PO Q4H PRN PRN Reason: FEVER/PAIN Al Hydrox/Mg Hydrox/Simethicone (Maalox Plus*) 30 ml PO Q6H PRN PRN Reason: INDIGESTION Amiodarone HCl (Cordarone Tab*) 200 mg PO DAILY [facility] Apixaban (Eliquis*) 5 mg PO BID [facility] Last Admin: 03/08/17 08:26 Dose: 5 mg Carvedilol (Coreg Tab*) 3.125 mg PO BID [facility] Last Admin: 03/08/17 08:27 Dose: 3.125 mg Cephalexin HCl (Keflex Cap*) 500 mg PO TID [facility] Docusate Sodium (Colace Cap*) 100 mg PO BID PRN PRN Reason: CONSTIPATION Furosemide (Lasix Iv*) 40 mg IV DAILY [facility] Last Admin: 03/08/17 08:27 Dose: 40 mg Lisinopril (Prinivil Tab*) 2.5 mg PO DAILY [facility] Last Admin: 03/08/17 08:26 Dose: 2.5 mg Omeprazole (Prilosec Cap*) 20 mg PO DAILY [facility] Last Admin: 03/08/17 08:26 Dose: 20 mg Ondansetron HCl (Zofran Inj*) 4 mg IV Q4H PRN PRN Reason: NAUSEA/VOMITING Potassium Chloride (Klor Con Er Tab*) 20 meq PO BID [facility] Last Admin: 03/08/17 08:27 Dose: 20 meq Senna (Senokot Tab*) 1 tab PO BID PRN PRN Reason: CONSTIPATION Vital Signs 03/07/17 03/07/17 03/07/17 15:36 20:00 20:07 Temperature 97.9 F 97.7 F Pulse Rate 69 69 Respiratory 18 18 18 Rate Blood Pressure 100/60 103/53 (mmHg) O2 Sat by Pulse 93 94 Oximetry 03/07/17 03/08/17 03/08/17 23:44 03:48 07:27 Temperature 98.8 F 97.6 F Pulse Rate 66 61 Respiratory 20 20 16 Rate Blood Pressure 102/48 100/59 (mmHg) O2 Sat by Pulse 91 97 Oximetry 03/08/17 03/08/17 03/08/17 07:43 11:45 12:06 Temperature 98.6 F 98.7 F Pulse Rate 64 62 Respiratory 16 16 Rate Blood Pressure 101/58 89/54 112/70 (mmHg) O2 Sat by Pulse 94 96 Oximetry Oxygen Devices in Use Now: None Appearance: Alert, in a chair. In good spirits. Looks comfortable. Neck: NL Appearance and Movements; NL JVP, No Thyroid Enlargement, Masses Respiratory: Symmetrical Chest Expansion and Respiratory Effort, Clear to Auscultation, Clear to Percussion Cardiovascular: NL Sounds; No Murmurs; No JVD, No Edema Extremities: No Edema, No Clubbing, Cyanosis, - Skin: No Rash or Ulcers, No Nodules or Sclerosis, - Neurological: NL Sensation - diminished hearing. No tremor. Result Diagrams: 03/06/17 22:00 03/08/17 08:04 Additional Lab and Data: Lab Results 03/06/17 03/06/17 03/06/17 Range/Units 22:00 22:00 22:00 WBC 10.5 (3.5-10.8) 10^3/ul RBC 3.54 L (4.0-5.4) 10^6/ul Hgb 10.9 L (14.0-18.0) g/dl Hct 33 L (42-52) % MCV 94 (80-94) fL MCH 31 (27-31) pg MCHC 33 (31-36) g/dl RDW 15 (10.5-15) % Plt Count 290 (150-450) 10^3/ul MPV 8 (7.4-10.4) um3 Neut % (Auto) 63.2 (38-83) % Lymph % (Auto) 25.5 (25-47) % [place] % (Auto) 6.4 (1-9) % Eos % (Auto) 3.9 (0-6) % Baso % (Auto) 1.0 (0-2) % Absolute Neuts (auto) 6.7 (1.5-7.7) 10^3/ul Absolute Lymphs (auto) 2.7 (1.0-4.8) 10^3/ul Absolute Monos (auto) 0.7 (0-0.8) 10^3/ul Absolute Eos (auto) 0.4 (0-0.6) 10^3/ul Absolute Basos (auto) 0.1 (0-0.2) 10^3/ul Absolute Nucleated RBC 0 10^3/ul Nucleated RBC % 0 INR (Anticoag Therapy) 1.83 H (0.89-1.11) Sodium 134 (133-145) mmol/L Potassium 3.6 (3.5-5.0) mmol/L Chloride 106 (101-111) mmol/L Carbon Dioxide 21 L (22-32) mmol/L Anion Gap 7 (2-11) mmol/L BUN 15 (6-24) mg/dL Creatinine 1.42 H (0.67-1.17) mg/dL Est GFR ( Amer) 62.7 (>60) Est GFR (Non-Af Amer) 48.7 (>60) BUN/Creatinine Ratio 10.6 (8-20) Glucose 117 H (70-100) mg/dL Lactic Acid (0.5-2.0) mmol/L Calcium 8.8 (8.6-10.3) mg/dL Total Bilirubin 0.60 (0.2-1.0) mg/dL AST 25 (13-39) U/L ALT 20 (7-52) U/L Alkaline Phosphatase 68 (34-104) U/L Troponin I 0.03 (<0.04) ng/mL B-Natriuretic Peptide ( - 100) pg/mL Total Protein 7.1 (6.4-8.9) g/dL Albumin 3.8 (3.2-5.2) g/dL Globulin 3.3 (2-4) g/dL Albumin/Globulin Ratio 1.2 (1-3) 03/06/17 03/06/17 Range/Units 22:00 22:00 WBC (3.5-10.8) 10^3/ul RBC (4.0-5.4) 10^6/ul Hgb (14.0-18.0) g/dl Hct (42-52) % MCV (80-94) fL MCH (27-31) pg MCHC (31-36) g/dl RDW (10.5-15) % Plt Count (150-450) 10^3/ul MPV (7.4-10.4) um3 Neut % (Auto) (38-83) % Lymph % (Auto) (25-47) % [place] % (Auto) (1-9) % Eos % (Auto) (0-6) % Baso % (Auto) (0-2) % Absolute Neuts (auto) (1.5-7.7) 10^3/ul Absolute Lymphs (auto) (1.0-4.8) 10^3/ul Absolute Monos (auto) (0-0.8) 10^3/ul Absolute Eos (auto) (0-0.6) 10^3/ul Absolute Basos (auto) (0-0.2) 10^3/ul Absolute Nucleated RBC 10^3/ul Nucleated RBC % INR (Anticoag Therapy) (0.89-1.11) Sodium (133-145) mmol/L Potassium (3.5-5.0) mmol/L Chloride (101-111) mmol/L Carbon Dioxide (22-32) mmol/L Anion Gap (2-11) mmol/L BUN (6-24) mg/dL Creatinine (0.67-1.17) mg/dL Est GFR ( Amer) (>60) Est GFR (Non-Af Amer) (>60) BUN/Creatinine Ratio (8-20) Glucose (70-100) mg/dL Lactic Acid 1.4 (0.5-2.0) mmol/L Calcium (8.6-10.3) mg/dL Total Bilirubin (0.2-1.0) mg/dL AST (13-39) U/L ALT (7-52) U/L Alkaline Phosphatase (34-104) U/L Troponin I (<0.04) ng/mL B-Natriuretic Peptide 426 H ( - 100) pg/mL Total Protein (6.4-8.9) g/dL Albumin (3.2-5.2) g/dL Globulin (2-4) g/dL Albumin/Globulin Ratio (1-3) Assess/Plan/Problems-Billing Assessment: 72 yo M with h/o severe systolic CHF (EF 20%), afib, DM2, COPD p/w reported SOB and urinary retention - Patient Problems (1) Heart failure, systolic, with acute decompensation Current Visit: Yes Status: Acute Code(s): I50.23 - ACUTE ON CHRONIC SYSTOLIC (CONGESTIVE) HEART FAILURE SNOMED Code(s): 530721143 Comment: Was not discharged on diuretics now on room air IV lasix while here. Discharge on furosemide po and KCL. BMP in [address] Juarez. (2) Urinary retention Current Visit: Yes Status: Acute Code(s): R33.9 - RETENTION OF URINE, UNSPECIFIED SNOMED Code(s): 563126220 Comment: D/C with Sexton. Voiding trial can be considered later as outpt when weights are stable. (3) UTI (urinary tract infection) Current Visit: Yes Status: Acute Comment: Abnl U/A and urine growing S. epidermidis. In facae of indwelling Sexton, will give 7 days of outpt cephalexin. (4) Atrial fibrillation Current Visit: Yes Status: Acute Code(s): I48.91 - UNSPECIFIED ATRIAL FIBRILLATION SNOMED Code(s): 14186826 Comment: Reduce amiodarone to 200 mg daily, continue new lower dose of carvedilol. Status and Disposition: Discharge now, with Sexton. BMP 03/10, fup Dr. Juarez.
[2017-03-08] MEDS: Cephalexin CAP* 500 MG PO SCH ×2 (12:46→13:16)
--- NOTE | 2017-03-09 04:59 | DS ---
CC: Dr. Juarez DISCHARGE SUMMARY: DATE OF ADMISSION: DATE OF DISCHARGE: 03/08/17 HOSPITAL COURSE: This 72-year-old man presented with shortness of breath and inability to empty his bladder. He had been discharged 11 days before this admission saying he had trouble voiding for th e past week. He also had intermittent orthopnea and dyspnea on exertion and chronic cough. In the emergency room, a Sexton catheter was inserted. He was given intravenous furosemide. He had a good diuresis in the hospital. He may have lost 8 pounds or more, although he was not weig hed every day. He was started on furosemide and potassium chloride. He will go home with a Sexton catheter. I thin k it might be best to wait until he is stabilized on his weights and his diuretic dosing before atte mpting to remove the Sexton catheter. He had abnormal urinalysis and grew out Staph epidermidis. He has been given a 7- day course of cep halexin as an outpatient with first dose given in the hospital. I reduced his amiodarone to 200 mg daily. He is also on the lower dose of carvedilol than he was on admission. FINAL DIAGNOSES: 1. Acute on chronic systolic heart failure. 2. Urinary retention. 3. Urinary tract infection. 4. Atrial fibrillation. DISCHARGE MEDICATIONS: 1. Carvedilol 3.125 mg b.i.d. 2. Cephalexin 500 mg t.i.d. for 7 days. 3. Potassium chloride 20 mEq daily. 4. Furosemide 20 mg daily. 5. Amiodarone 200 mg daily. 6. Aspirin 81 daily. 7. Omeprazole 20 mg daily. 8. Apixaban 5 mg b.i.d. 9. Lisinopril 2.5 mg daily. 10. Ventolin inhaler 2 puffs every 4 hours p.r.n. 11. Ferrous gluconate 324 mg daily. The patient will have a basic metabolic profile in 3 days. [id number]/[facility] #: [id number]
== END 2017-03-08 15:00 | disposition home or self-care (01) ==
LOC: ED 21:45 → INTOOBSV 03-07 03:59 → MEDTELE 03-07 03:59
PROVIDERS: ADMIT Pediatrics; ATTEND Internal Medicine
DX: I50.23 Acute on chronic systolic (congestive) heart failure (principal); R33.9 Retention of urine, unspecified; N39.0 Urinary tract infection, site not specified; I48.91 Unspecified atrial fibrillation; J44.9 Chronic obstructive pulmonary disease, unspecified; I42.8 Other cardiomyopathies; E78.5 Hyperlipidemia, unspecified; E11.9 Type 2 diabetes mellitus without complications; Z87.891 Personal history of nicotine dependence; Z79.01 Long term (current) use of anticoagulants; Z79.82 Long term (current) use of aspirin; Z79.899 Other long term (current) drug therapy; Z86.73 Personal history of transient ischemic attack (TIA), and cerebral infarction without residual deficits; R94.31 Abnormal electrocardiogram [ECG] [EKG]
CPT/HCPCS: 36415; 71020; 71275; 76770; 80048; 80053; 81003; 81015; 83605; 83735; 83880; 84443; 84484; 85025; 85379; 85610; 87086; 93005; 94640; 96374; 96376; 99284; A9270-GY; G0378; J1940; Q9967

== ENCOUNTER 2017-03-14 16:26 | Emergency (ER) | payer MEDICARE ==
[2017-03-14 16:32] VITALS: BP 102/84
--- NOTE | 2017-03-14 16:44 | ED ---
GI/ HPI - HPI Summary HPI Summary: 72M presents for catheter bag change due to leaking catheter bag. He does not know why it is leaking. He does not know why he has the catheter but he has an appointment to get it out on Thursday. He denies any fever, n/v, or flank pain. - History of Current Complaint Chief Complaint: EDGeneral Time Seen by Provider: 03/14/17 16:34 Stated Complaint: CATHEDER LEAKAGE Pain Intensity: 0 - Additional Pertinent History Primary Care Physician: [id number] - Allergy/Home Medications Allergies/Adverse Reactions: Allergies Allergy/AdvReac Type Severity Reaction Status Date / Time Tetanus Antitoxin Allergy Shortness Verified 11/26/16 09:11 of Breath PMH/Surg Hx/FS Hx/Imm Hx Endocrine/Hematology History: Reports: Hx Diabetes Denies: Hx Anemia, Hx Unexplained Bleeding Cardiovascular History: Reports: Hx Congestive Heart Failure, Hx Hypertension, Other Cardiovascular Problems/Disorders - CAD/IDDM/AKD/AFIB WITH RVR/CVA WITH RT.SIDED WEAKNESS Denies: Hx Aneurysm, Hx Angina, Hx Angioplasty, Hx Auto Implanted Cardiovert Defib, Hx Cardiac Arrest, Hx Cardiomegaly, Hx Congenital Heart Disease, Hx Coronary Artery Disease, Hx Deep Vein Thrombosis, Hx Embolism, Hx Hypercholesterolemia, Hx Hypotension, Hx Myocardial Infarction, Hx Pacemaker/ICD , Hx Peripheral Vascular Disease, Hx Rheumatic Fever, Hx Syncope, Hx Valvular Heart Disease Respiratory History: Reports: Hx Pneumonia, Other Respiratory Problems/ Disorders - PNA Denies: Hx Asthma, Hx Chronic Obstructive Pulmonary Disease (COPD) GI History: Reports: Hx Gall Bladder Disease Denies: Hx Hiatal Hernia History: Reports: Hx Benign Prostatic Hyperplasia, Other Problems/ Disorders - URINARY RETENTION, BPH, AKD Denies: Hx Dialysis, Hx Renal Disease Musculoskeletal History: Reports: Hx Arthritis Denies: Hx Back Problems, Hx Osteoporosis Sensory History: Reports: Hx Hearing Problem Denies: Hx Cataracts, Hx Contacts or Glasses, Hx Eye Injury, Hx Eye Prosthesis, Hx Glaucoma, Hx Legally Blind, Hx Macular Degeneration, Hx Vision Problem, Hx Deafness, Hx Hearing Aid, Other Sensory Impairments Opthamlomology History: Denies: Hx Cataracts, Hx Contacts or Glasses, Hx Eye Injury, Hx Eye Prosthesis, Hx Glaucoma, Hx Legally Blind, Hx Macular Degeneration, Hx Vision Problem, Other Sensory Impairments Neurological History: Reports: Hx CVA Denies: Hx Dementia, Hx Seizures - Cancer History Cancer Type, Location and Year: Skin cancer removed from right forearm - Surgical History Surgery Procedure, Year, and Place: UMBILICAL REPAIR for hernia. Right lower arm skin cancer removed. Right lower leg fracture fixed surgically Hx Anesthesia Reactions: No Infectious Disease History: Denies: Hx Clostridium Difficile, Hx Hepatitis, Hx Human Immunodeficiency Virus (HIV), Hx of Known/Suspected MRSA, Hx Shingles, Hx Tuberculosis, Hx Known/ Suspected VRE, Hx Known/Suspected VRSA, History Other Infectious Disease, Traveled Outside the [place] in Last 30 Days - Family History Known Family History: Positive: None, Diabetes - Brother Family History: no family malignant hyperthermia and anesthesia reaction - Social History Alcohol Use: None Hx Substance Use: No Substance Use Type: Reports: None Substance Use Comment - Amount & Last Used: Chew tabacco Hx Tobacco Use: Yes Smoking Status (MU): Former Smoker Type: Smokeless Tobacco Amount Used/How Often: chews tobacco past 30 yrs Have You Smoked in the Last Year: No Review of Systems Negative: Fever Negative: Chest Pain Negative: Shortness Of Breath Negative: Abdominal Pain Positive: other - catheter bag leaking All Other Systems Reviewed And Are Negative: Yes Physical Exam Triage Information Reviewed: Yes Vital Signs On Initial Exam: Initial Vitals Temp Pulse Resp BP 97.7 F 92 18 102/84 03/14/17 16:27 03/14/17 16:27 03/14/17 16:27 03/14/17 16:27 Vital Signs Reviewed: Yes Appearance: Positive: Well-Appearing Skin: Positive: Warm, Dry Head/Face: Positive: Normal Head/Face Inspection Eyes: Positive: Normal, Conjunctiva Clear Respiratory/Lung Sounds: Positive: Clear to Auscultation, Breath Sounds Present Cardiovascular: Positive: Normal, RRR Abdomen Description: Positive: Nontender, Soft Bowel Sounds: Positive: Present Diagnostics - Vital Signs Vital Signs Temp Pulse Resp BP 03/14/17 16:27 97.7 F 92 18 102/84 - Laboratory Lab Statement: Any lab studies that have been ordered have been reviewed, and results considered in the medical decision making process. GIGU Course/Dx - Course Course Of Treatment: 72M presents for catheter bag change due to leaking catheter bag. He does not know why it is leaking. He denies any other symptoms. PE is normal. nurse change bag. patient understands and agrees with plan - Diagnoses Differential Diagnoses - Male: Urinary Tract Infection, Other - catheter bag change Provider Diagnoses: catheter bag change Discharge - Discharge Plan Condition: Good Disposition: HOME Referrals: Bob Juarez MD [Primary Care Provider] - Additional Instructions: Follow up with urology as scheduled Return to ED if develop any new or worsening symptoms
== END 2017-03-14 16:57 | disposition home or self-care (01) ==
LOC: ED 16:26
DX: T85.9XXA Unspecified complication of internal prosthetic device, implant and graft, initial encounter (principal)
CPT/HCPCS: 99281

== ENCOUNTER 2017-03-16 03:31 | Inpatient (IN) | payer MEDICARE ==
[2017-03-16] MEDS ORDERED: Diltiazem IV* 5 MG/ML 5 ML VIAL (for loading dose/IV Push) (25 MG) IV PUSH ONE (03:44)
[2017-03-16] MEDS ORDERED: Albuterol/Ipratropium NEB.SOL* Albuterol 2.5 MG/Ipratropium 0.5 MG 3 ML ONE (03:44)
[2017-03-16] MEDS ORDERED: Albuterol/Ipratropium NEB.SOL* Albuterol 2.5 MG/Ipratropium 0.5 MG 3 ML INH ONE (03:50)
[2017-03-16 04:00] LABS: Hematocrit 39 % (42-52); Hemoglobin 12.2 g/dl (14.0-18.0); Mean Corpuscular HGB Conc 32 g/dl (31-36); Mean Corpuscular Hemoglobin 31 pg (27-31); Mean Corpuscular Volume 100 fL (80-94); Mean Platelet Volume 8 um3 (7.4-10.4); Red Blood Count 3.88 10^6/ul (4.0-5.4); Red Cell Distribution Width 16 % (10.5-15); White Blood Count 14.7 10^3/ul (3.5-10.8)
[2017-03-16] MEDS ORDERED: methylPREDNISolone 125 MG* 2 ML VIAL IV ONE (04:00)
[2017-03-16 04:04] LABS: Comments Flag Yes
[2017-03-16 04:05] LABS: Add Diff/Slide Review? Slide Review Added
[2017-03-16] MEDS ORDERED: Diltiazem IV VIAL* 125 MG in D5W 100 ML BAG* 100 ML IV ONE (04:09)
[2017-03-16 04:15] LABS: Albumin 3.9 g/dL (3.2-5.2); BUN/Creatinine Ratio 11.7 (8-20); Calcium 8.8 mg/dL (8.6-10.3); EGFR African American 43.2 (>60); EGFR Non-African American 33.6 (>60); Globulin 3.6 g/dL (2-4); Potassium 4.4 mmol/L (3.5-5.0); Total Bilirubin 0.8 mg/dL (0.2-1.0); Total Protein 7.5 g/dL (6.4-8.9)
[2017-03-16] MEDS ORDERED: Diltiazem IV VIAL* 125 MG/25 ML VIAL ONE (04:16)
[2017-03-16] MEDS ORDERED: Diltiazem DRIP* 100 MG/100 ML ADDV.BAG IVPB ONE ×2 (04:17→04:25)
[2017-03-16 04:18] LABS: Troponin I 0.01 ng/mL (<0.04)
[2017-03-16] MEDS ORDERED: Furosemide IV* 10 MG/ML VIAL (40 MG) IV ONE (04:29)
--- NOTE | 2017-03-16 04:29 | ED ---
Patricia Ko Edward, scribed for Angel Maza MD on 03/16/17 at 0345 . Shortness of Breath - HPI Summary HPI Summary: 72 y/o male presents to ED c/o SOB. SOB started last night and has not resolved. Patient experiences dyspnea at rest. Associated sx: tachycardia, per triage assessment. PMHx CVA a couple of years ago, HTN, and DM. Per nurse, patient was admitted [place] [facility] [place] ago for P[place]. - History of Current Complaint Chief Complaint: EDShortnessOfBreath Hx Obtained From: Patient Onset/Duration: Sudden Onset, Lasting Days - Started yesterday, Still Present Timing: Constant Dyspnea At: Rest - Allergy/Home Medications Allergies/Adverse Reactions: Allergies Allergy/AdvReac Type Severity Reaction Status Date / Time Tetanus Antitoxin Allergy Shortness Verified 11/26/16 09:11 of Breath PMH/Surg Hx/FS Hx/Imm Hx Previously Healthy: No Endocrine/Hematology History: Reports: Hx Diabetes Denies: Hx Anemia, Hx Unexplained Bleeding Cardiovascular History: Reports: Hx Congestive Heart Failure, Hx Hypertension, Other Cardiovascular Problems/Disorders - CAD/IDDM/AKD/AFIB WITH RVR/CVA WITH RT.SIDED WEAKNESS Denies: Hx Aneurysm, Hx Angina, Hx Angioplasty, Hx Auto Implanted Cardiovert Defib, Hx Cardiac Arrest, Hx Cardiomegaly, Hx Congenital Heart Disease, Hx Coronary Artery Disease, Hx Deep Vein Thrombosis, Hx Embolism, Hx Hypercholesterolemia, Hx Hypotension, Hx Myocardial Infarction, Hx Pacemaker/ICD , Hx Peripheral Vascular Disease, Hx Rheumatic Fever, Hx Syncope, Hx Valvular Heart Disease Respiratory History: Reports: Hx Pneumonia, Other Respiratory Problems/ Disorders - PNA Denies: Hx Asthma, Hx Chronic Obstructive Pulmonary Disease (COPD) GI History: Reports: Hx Gall Bladder Disease Denies: Hx Hiatal Hernia History: Reports: Hx Benign Prostatic Hyperplasia, Other Problems/ Disorders - URINARY RETENTION, BPH, AKD Denies: Hx Dialysis, Hx Renal Disease Musculoskeletal History: Reports: Hx Arthritis Denies: Hx Back Problems, Hx Osteoporosis Sensory History: Reports: Hx Hearing Problem Denies: Hx Cataracts, Hx Contacts or Glasses, Hx Eye Injury, Hx Eye Prosthesis, Hx Glaucoma, Hx Legally Blind, Hx Macular Degeneration, Hx Vision Problem, Hx Deafness, Hx Hearing Aid, Other Sensory Impairments Opthamlomology History: Denies: Hx Cataracts, Hx Contacts or Glasses, Hx Eye Injury, Hx Eye Prosthesis, Hx Glaucoma, Hx Legally Blind, Hx Macular Degeneration, Hx Vision Problem, Other Sensory Impairments Neurological History: Reports: Hx CVA Denies: Hx Dementia, Hx Seizures - Cancer History Cancer Type, Location and Year: Skin cancer removed from right forearm - Surgical History Surgery Procedure, Year, and Place: UMBILICAL REPAIR for hernia. Right lower arm skin cancer removed. Right lower leg fracture fixed surgically Hx Anesthesia Reactions: No Infectious Disease History: Denies: Hx Clostridium Difficile, Hx Hepatitis, Hx Human Immunodeficiency Virus (HIV), Hx of Known/Suspected MRSA, Hx Shingles, Hx Tuberculosis, Hx Known/ Suspected VRE, Hx Known/Suspected VRSA, History Other Infectious Disease - Family History Known Family History: Positive: Diabetes - Brother Family History: no family malignant hyperthermia and anesthesia reaction - Social History Alcohol Use: None Hx Substance Use: No Substance Use Type: Reports: None Substance Use Comment - Amount & Last Used: Chew tabacco Hx Tobacco Use: Yes Smoking Status (MU): Former Smoker Type: Smokeless Tobacco Amount Used/How Often: chews tobacco past 30 yrs Have You Smoked in the Last Year: No Review of Systems Constitutional: Negative Negative: Fever Eyes: Negative ENT: Negative Cardiovascular: Negative Positive: Shortness Of Breath Gastrointestinal: Negative Genitourinary: Negative Musculoskeletal: Negative Skin: Negative Neurological: Negative Psychological: Normal All Other Systems Reviewed And Are Negative: Yes Physical Exam Triage Information Reviewed: Yes Vital Signs On Initial Exam: Initial Vitals Temp Pulse Resp BP Pulse Ox 95.6 F 160 31 142/96 75 03/16/17 03:35 03/16/17 03:35 03/16/17 03:35 03/16/17 03:35 03/16/17 03:35 Vital Signs Reviewed: Yes Appearance: Positive: Ill-Appearing Skin: Positive: Warm Eyes: Positive: VIRAJ ENT: Positive: Hearing grossly normal Neck: Positive: Supple Respiratory/Lung Sounds: Positive: Decreased Breath Sounds, Rhonchi - scattered coarse bilat, Unable to speak in full sentences Cardiovascular: Positive: IRR, Tachycardia Abdomen Description: Positive: Nontender, Soft Bowel Sounds: Positive: Present Musculoskeletal: Positive: Strength/ROM Intact Neurological: Positive: Sensory/Motor Intact Psychiatric: Positive: Anxious Diagnostics - Vital Signs Vital Signs Temp Pulse Resp BP Pulse Ox 03/16/17 03:57 37 03/16/17 03:35 95.6 F 160 31 142/96 75 - Laboratory Lab Results: Lab Results 03/16/17 03/16/17 03/16/17 Range/Units 03:53 03:53 03:53 WBC 14.7 H (3.5-10.8) 10^3/ul RBC 3.88 L (4.0-5.4) 10^6/ul Hgb 12.2 L (14.0-18.0) g/dl Hct 39 L (42-52) % MCV 100 H (80-94) fL MCH 31 (27-31) pg MCHC 32 (31-36) g/dl RDW 16 H (10.5-15) % Plt Count 253 (150-450) 10^3/ul MPV 8 (7.4-10.4) um3 Neut % (Auto) 70.3 (38-83) % Lymph % (Auto) 20.0 L (25-47) % Stonewall % (Auto) 5.5 (1-9) % Eos % (Auto) 3.4 (0-6) % Baso % (Auto) 0.8 (0-2) % Absolute Neuts (auto) 10.3 H (1.5-7.7) 10^3/ul Absolute Lymphs (auto) 2.9 (1.0-4.8) 10^3/ul Absolute Monos (auto) 0.8 (0-0.8) 10^3/ul Absolute Eos (auto) 0.5 (0-0.6) 10^3/ul Absolute Basos (auto) 0.1 (0-0.2) 10^3/ul Absolute Nucleated RBC 0.02 10^3/ul Nucleated RBC % 0.1 Sodium 133 (133-145) mmol/L Potassium 4.4 (3.5-5.0) mmol/L Chloride 107 (101-111) mmol/L Carbon Dioxide 18 L (22-32) mmol/L Anion Gap 8 (2-11) mmol/L BUN 23 (6-24) mg/dL Creatinine 1.96 H (0.67-1.17) mg/dL Est GFR ( Amer) 43.2 (>60) Est GFR (Non-Af Amer) 33.6 (>60) BUN/Creatinine Ratio 11.7 (8-20) Glucose 265 H (70-100) mg/dL Lactic Acid 3.2 H* (0.5-2.0) mmol/L Calcium 8.8 (8.6-10.3) mg/dL Total Bilirubin 0.80 (0.2-1.0) mg/dL AST 17 (13-39) U/L ALT 14 (7-52) U/L Alkaline Phosphatase 67 (34-104) U/L Troponin I 0.01 (<0.04) ng/mL B-Natriuretic Peptide ( - 100) pg/mL Total Protein 7.5 (6.4-8.9) g/dL Albumin 3.9 (3.2-5.2) g/dL Globulin 3.6 (2-4) g/dL Albumin/Globulin Ratio 1.1 (1-3) / Range/Units 03:53 WBC (3.5-10.8) 10^3/ul RBC (4.0-5.4) 10^6/ul Hgb (14.0-18.0) g/dl Hct (42-52) % MCV (80-94) fL MCH (27-31) pg MCHC (31-36) g/dl RDW (10.5-15) % Plt Count (150-450) 10^3/ul MPV (7.4-10.4) um3 Neut % (Auto) (38-83) % Lymph % (Auto) (25-47) % Stonewall % (Auto) (1-9) % Eos % (Auto) (0-6) % Baso % (Auto) (0-2) % Absolute Neuts (auto) (1.5-7.7) 10^3/ul Absolute Lymphs (auto) (1.0-4.8) 10^3/ul Absolute Monos (auto) (0-0.8) 10^3/ul Absolute Eos (auto) (0-0.6) 10^3/ul Absolute Basos (auto) (0-0.2) 10^3/ul Absolute Nucleated RBC 10^3/ul Nucleated RBC % Sodium (133-145) mmol/L Potassium (3.5-5.0) mmol/L Chloride (101-111) mmol/L Carbon Dioxide (22-32) mmol/L Anion Gap (2-11) mmol/L BUN (6-24) mg/dL Creatinine (0.67-1.17) mg/dL Est GFR ( Amer) (>60) Est GFR (Non-Af Amer) (>60) BUN/Creatinine Ratio (8-20) Glucose (70-100) mg/dL Lactic Acid (0.5-2.0) mmol/L Calcium (8.6-10.3) mg/dL Total Bilirubin (0.2-1.0) mg/dL AST (13-39) U/L ALT (7-52) U/L Alkaline Phosphatase (34-104) U/L Troponin I (<0.04) ng/mL B-Natriuretic Peptide 967 H ( - 100) pg/mL Total Protein (6.4-8.9) g/dL Albumin (3.2-5.2) g/dL Globulin (2-4) g/dL Albumin/Globulin Ratio (1-3) Result Diagrams: 03/16/17 03:53 03/16/17 03:53 Lab Statement: Any lab studies that have been ordered have been reviewed, and results considered in the medical decision making process. Re-Evaluation - Re-Evaluation First Eval Change: Improved - results d/w pt,family case d/w hospitalist pt improving Course/Dx - Diagnoses Provider Diagnoses: Pneumonia, CHF (congestive heart failure) - Physician Notifications Instructed by Provider To: Admit As Inpatient - Critical Care Time Critical Care Time: 30-74 min Discharge - Discharge Plan Condition: Guarded Disposition: ADMITTED TO [facility] documentation as recorded by the Patricia turcios Edward accurately reflects the service I personally performed and the decisions made by , Angel Maza MD.
[2017-03-16] MEDS ORDERED: Vancomycin(*) 1,000 MG in NS 0.9% 250 ML* 250 ML IVPB ONE (04:31)
[2017-03-16] MEDS ORDERED: Piperacillin/Tazobac (*) 3.375 GM ADDV.VIAL ONE ×2 (05:16→05:20)
[2017-03-16] MEDS ORDERED: Albuterol HFA INHALER* 8 gm MDI INH PRN (07:19)
[2017-03-16] MEDS ORDERED: Dextrose 50% Syringe 50 ML* 25 GM/50 ML SYRINGE IV PUSH PRN (07:22)
[2017-03-16] MEDS ORDERED: NS 0.9% 1000 ML* 1,000 ML IV SCH (07:30)
--- NOTE | 2017-03-16 07:36 | RAD ---
HISTORY: Shortness of breath COMPARISONS: March 06, 2017 VIEWS: 2: Frontal and lateral views of the chest. FINDINGS: CARDIOMEDIASTINAL SILHOUETTE: The cardiomediastinal silhouette is normal. ANDREA: The andrea are normal. PLEURA: The costophrenic angles are sharp. No pleural abnormalities are noted. LUNG PARENCHYMA: There has been progressive alveolar opacification of the right lung base ABDOMEN: The upper abdomen is clear. There is no subphrenic gas. BONES AND SOFT TISSUES: No bone or soft tissue abnormalities are noted. OTHER: None. IMPRESSION: PROGRESSION OF RIGHT LOWER LOBE CONSOLIDATION. RECOMMEND FOLLOW-UP UNTIL RESOLUTION TO EXCLUDE UNDERLYING PULMONARY PARENCHYMAL PATHOLOGY.
[2017-03-16] MEDS ORDERED: Diltiazem DRIP* 100 MG/100 ML ADDV.BAG IVPB SCH (08:00)
[2017-03-16] MEDS ORDERED: NS 0.9% 250 ML* 250 ML ONE (08:22)
[2017-03-16] MEDS: DOXYcycline IV* 100 MG in NS 0.9% 250 ML* 250 ML IVPB SCH ×2 (08:56→22:17)
[2017-03-16] MEDS: Carvedilol TAB* 3.125 MG PO SCH ×2 (08:57→19:59)
[2017-03-16] MEDS: Omeprazole CAP* 20 MG PO SCH (08:57)
[2017-03-16] MEDS: Aspirin Low Dose CHEW TAB* 81 MG PO SCH (08:57)
[2017-03-16] MEDS: Ferrous Gluconate TAB* 324 MG TAB PO SCH (08:57)
[2017-03-16] MEDS: Lisinopril TAB* 5 MG PO SCH (08:57)
[2017-03-16] MEDS: Apixaban* 5 MG TAB PO SCH ×2 (08:57→19:57)
[2017-03-16] MEDS: Potassium Chlor TAB* 20 MEQ TAB.ER PO SCH (08:57)
[2017-03-16] MEDS: Amiodarone TAB* 200 MG PO SCH (08:57)
[2017-03-16] MEDS: Insulin LISPRO* 1 UNITS UNIT SUBCUT SCH ×4 (08:58→20:26)
--- NOTE | 2017-03-16 11:00 | HP ---
CC: Dr. Juarez; Dr. Franklin HISTORY AND PHYSICAL: DATE OF ADMISSION: 03/16/17 TIME EVALUATION: 7:05 a.m. PRIMARY CARE PHYSICIAN: Dr. Juarez. SALES ATTENDANT: Dr. Franklin. CHIEF COMPLAINT: Shortness of breath. HISTORY OF PRESENT ILLNESS: Mr. 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 This is his third admission this month. He was initially admitted on February 16 with complaints of sh ortness of breath. During the admission, he was found to be in atrial fibrillation and had an echoc ardiogram that showed ejection fraction 20% to 25%, and he was probably in atrial fibrillation for s ometime and had tachycardia- induced cardiomyopathy. He was also found to have community-acquired p neumonia and he was treated with antibiotics. He was discharged on February 24 and he returned to the emergency room on March 07 with complaints of shortness of breath, and urinary retention. The impr ession at that time was that his dyspnea was likely associated with congestive heart failure, and he was diuresed. His urinary retention was thought to be secondary to BPH and he was discharged home with a Sexton catheter to follow up with Urology as outpatient. The patient states that he was feeli ng well until last night when he started to experience shortness of breath again with productive cou gh of yellowish sputum. He denies fevers or chills. He states that he has oxygen at home, but does not need to wear it, but when he [facility] room, his oxygen saturation was 75% on room air and he was put on OxyMask at 15 L. At the time of my interview the patient was feeling improved and oxygen saturation was 98% on 10 L. We have ti trated down to 8 L and his oxygen saturation is still good at 96%. PAST MEDICAL HISTORY: 1. Atrial fibrillation. 2. 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 3. Type 2 diabetes, diet controlled. 4. History of CVA. 5. Hyperlipidemia. 6. COPD. 7. History of gangrenous cholecystitis, status post cholecystectomy. 8. Status post umbilical hernia repair. 9. Recurrent UTIs. 10. History of BPH, status post TURP. MEDICATIONS LIST: 1. Albuterol HFA 2 puffs inhaled q. 4 hours p.r.n. shortness of breath. 2. Amiodarone 200 mg p.o. daily. 3. Apixaban 5 mg p.o. b.i.d. 4. Aspirin 81 mg p.o. daily. 5. Carvedilol 3.125 mg p.o. b.i.d. 6. Ferrous gluconate 325 mg p.o. daily. 7. Furosemide 20 mg p.o. daily. 8. Lisinopril 2.5 mg p.o. daily. 9. Omeprazole 10 mg p.o. daily. 10. Potassium chloride 20 mEq p.o. daily. ALLERGIES: With TETANUS ANTITOXIN the patient experienced shortness of breath. FAMILY HISTORY: His mother passed at age 65 from heart failure, father passed at age 91 from old ag e. SOCIAL HISTORY: The patient quit smoking 50 years ago. No history of alcohol or drug use. Surroga te decision maker is his daughter, Ranjana Estrella, phone number is [phone]. REVIEW OF SYSTEMS: A 14-point review of systems was performed and the all the pertinent negative an d positive findings are in the HPI. PHYSICAL EXAMINATION GENERAL: The patient is a pleasant elderly male, lying in ER stretcher in no acute distress. VITAL SIGNS: Temperature 97.6, heart rate is 84, respiratory rate is 21, oxygen saturation is 96% o n 8 L nasal cannula, blood pressure is 112/84. CHEST: Breath sounds present bilaterally with bilateral rhonchi and crackles in the right base. CVS: Normal S1 and S2, irregularly irregular. ABDOMEN: Obese, soft, nontender. Bowel sounds are present. EXTREMITIES: The patient has bilateral lower extremity pitting edema. NEUROLOGIC: He is alert and oriented x3. Able to move all 4 extremities. LABORATORY AND IMAGING DATA: The patient had a CBC that showed WBC of 14.7, hemoglobin of 12.2, he matocrit of 39, platelets of 253 with 70% neutrophils. Chemistry showed a sodium of 133, potassium 4 .4, chloride 107, bicarbonate of 18, BUN of 23, creatinine of 1.96. Glucose of 265, lactic acid of 3.2. LFTs are normal. BNP is 967. Chest x-ray showed progression of right lower lobe consolidation. EKG done on March 16 at 3:39 a.m . showed supraventricular tachycardia at 165 beats per minute with wide complex QRS. When compared to his prior EKG from March 06, the wide complex QRS was still present, but at that time he was in sinus rhythm. ASSESSMENT AND PLAN: Mr. 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 1. Sepsis. The patient met sepsis criteria with leukocytosis and tachycardia, source is pneumonia. 2. Pneumonia. The patient was admitted end of January with pneumonia and infiltrate appears to be wors e now. Unclear if this is progression of community-acquired pneumonia or if this is an episode of h ospital-acquired pneumonia. The patient will be started on Zosyn and doxycycline for broad coverage . I am not adding vancomycin at this point as the patient has no history of MRSA infections in the past. Blood cultures are already sent from the emergency room, sputum cultures will be ordered as w ell as legionella and pneumococcal antigen will be sent. 3. Acute kidney injury. The patient's creatinine is elevated compared to his baseline. Unclear if this is secondary to sepsis or just because the patient is on ASHELY inhibitors and diuretics as outpa tient. For now, he is going to receive gentle IV hydration and we are going to monitor his renal fu nction. 4. Lactic acidosis. The patient will receive gentle hydration and we are going to repeat lactic ac id. 5. Systolic congestive heart failure. I believe the cause of his shortness of breath at this point is pneumonia, but he does have lower extremity edema and his BNP is 967, even higher than in the ne st. The plan is to keep him on IV fluids for a short period of time and resume his diuretics as villa n as possible. 6. Type 2 diabetes. The patient is diet controlled as outpatient. He will be on a consistent carb diet and we are going to cover with lispro sliding scale for coverage as needed. 7. Atrial fibrillation with rapid ventricular rate. The patient will be continued on a Cardizem dr ip and anticoagulation with apixaban. 8. DVT prophylaxis. The patient has a score of 3 on the DVT Prophylaxis Risk Assessment Guide and he is already anticoagulated with apixaban. 9. Code status was discussed with the patient, he wishes to be a full code. TIME SPENT: Approximately 60 minutes was spent with patient interview, medical record review, physi tom examination to complete the admission, more than half of this time was spent [id number] with t adore patient and coordination of care. [id number]/[facility] #: [id number]
[2017-03-16 11:55] LABS: BUN/Creatinine Ratio 14.7 (8-20); Calcium 8.5 mg/dL (8.6-10.3); EGFR African American 53.5 (>60); EGFR Non-African American 41.6 (>60)
[2017-03-16] MEDS: Diltiazem DRIP* 100 MG/100 ML ADDV.BAG IVPB SCH (23:13)
[2017-03-17 05:39] LABS: Hematocrit 30 % (42-52); Hemoglobin 10.1 g/dl (14.0-18.0); Mean Corpuscular HGB Conc 34 g/dl (31-36); Mean Corpuscular Hemoglobin 32 pg (27-31); Mean Corpuscular Volume 96 fL (80-94); Mean Platelet Volume 8 um3 (7.4-10.4); Red Blood Count 3.12 10^6/ul (4.0-5.4); Red Cell Distribution Width 15 % (10.5-15); White Blood Count 10.9 10^3/ul (3.5-10.8)
[2017-03-17 06:23] LABS: BUN/Creatinine Ratio 17.9 (8-20); Calcium 8.5 mg/dL (8.6-10.3); EGFR African American 63.7 (>60); EGFR Non-African American 49.5 (>60); Potassium 3.9 mmol/L (3.5-5.0)
[2017-03-17] MEDS: Diltiazem DRIP* 100 MG/100 ML ADDV.BAG IVPB SCH (09:04)
[2017-03-17] MEDS: DOXYcycline IV* 100 MG in NS 0.9% 250 ML* 250 ML IVPB SCH ×2 (09:07→20:24)
[2017-03-17] MEDS: Insulin LISPRO* 1 UNITS UNIT SUBCUT SCH ×4 (09:10→21:01)
[2017-03-17] MEDS: Carvedilol TAB* 3.125 MG PO SCH ×2 (09:11→21:01)
[2017-03-17] MEDS: Apixaban* 5 MG TAB PO SCH ×2 (09:11→21:00)
[2017-03-17] MEDS: Aspirin Low Dose CHEW TAB* 81 MG PO SCH (09:11)
[2017-03-17] MEDS: Omeprazole CAP* 20 MG PO SCH (09:11)
[2017-03-17] MEDS: Amiodarone TAB* 200 MG PO SCH (09:11)
[2017-03-17] MEDS: Potassium Chlor TAB* 20 MEQ TAB.ER PO SCH (09:11)
[2017-03-17] MEDS: Lisinopril TAB* 5 MG PO SCH (09:11)
[2017-03-17] MEDS: Ferrous Gluconate TAB* 324 MG TAB PO SCH (09:11)
[2017-03-17] MEDS ORDERED: Diltiazem TAB* 60 MG PO SCH (12:00)
[2017-03-17] MEDS ORDERED: Furosemide IV* 10 MG/ML VIAL (40 MG) IV ONE (13:51)
--- NOTE | 2017-03-17 14:02 | PN ---
Subjective Date of Service: 03/17/17 Interval History: Mr. Law states that he feels much better than on arrival. He reports that his breathing is much less labored. He denies chest pain, nausea, or abdominal pain. Objective Active Medications: Albuterol (Ventolin Hfa Inhaler*) 2 puff INH Q4H PRN Amiodarone HCl (Cordarone Tab*) 200 mg PO DAILY [facility] Apixaban (Eliquis*) 5 mg PO BID [facility] Aspirin (Aspirin Low Dose Tab*) 81 mg PO DAILY [facility] Carvedilol (Coreg Tab*) 3.125 mg PO BID [facility] Dextrose (D50w Syringe 50 Ml*) 12.5 gm IV PUSH .FOR FS < 60 - SS PRN Diltiazem HCl (Cardizem Tab*) 60 mg PO Q6HR [facility] Ferrous Gluconate (Fergon Tab*) 324 mg PO DAILY [facility] Furosemide (Lasix Iv*) 40 mg IV ONCE ONE Doxycycline Hyclate 100 mg/ (Sodium Chloride) 250 mls @ 250 mls/hr IVPB Q12H [facility] Ceftriaxone Sodium 1,000 mg/ (Sodium Chloride) 50 mls @ 200 mls/hr IVPB Q24H [facility] Insulin Human Lispro (Humalog*) 0 units SUBCUT ACHS [facility] Lisinopril (Prinivil Tab*) 2.5 mg PO DAILY [facility] Omeprazole (Prilosec Cap*) 20 mg PO DAILY@0730 [facility] Potassium Chloride (Klor Con Er Tab*) 20 meq PO DAILY [facility] Vital Signs 03/16/17 03/16/17 03/16/17 15:19 18:21 19:08 Temperature 97.7 F 97.8 F Pulse Rate 99 82 Respiratory 24 24 Rate Blood Pressure 129/73 (mmHg) O2 Sat by Pulse 98 98 Oximetry 03/16/17 03/16/17 03/16/17 19:30 19:36 20:00 Temperature Pulse Rate 81 82 Respiratory 18 20 Rate Blood Pressure 71/58 91/72 73/42 (mmHg) O2 Sat by Pulse 94 95 Oximetry 03/16/17 03/16/17 03/16/17 20:08 21:00 21:10 Temperature Pulse Rate 77 73 Respiratory 22 17 Rate Blood Pressure 117/73 115/62 (mmHg) O2 Sat by Pulse 96 94 Oximetry 03/16/17 03/16/17 03/16/17 22:00 23:00 23:01 Temperature Pulse Rate 75 Respiratory 17 Rate Blood Pressure 115/66 104/60 (mmHg) O2 Sat by Pulse 95 Oximetry 03/16/17 03/16/17 03/17/17 23:50 23:53 00:00 Temperature 98.0 F Pulse Rate 68 71 Respiratory 16 18 20 Rate Blood Pressure (mmHg) O2 Sat by Pulse 95 94 Oximetry 03/17/17 03/17/17 03/17/17 00:20 00:25 00:30 Temperature Pulse Rate 64 66 68 Respiratory 16 16 19 Rate Blood Pressure 95/60 98/58 101/54 (mmHg) O2 Sat by Pulse 90 90 90 Oximetry 03/17/17 03/17/17 03/17/17 00:45 01:00 01:15 Temperature Pulse Rate 67 64 64 Respiratory 16 17 16 Rate Blood Pressure 109/54 103/52 100/63 (mmHg) O2 Sat by Pulse 94 95 94 Oximetry 03/17/17 03/17/17 03/17/17 01:30 02:00 02:30 Temperature Pulse Rate 77 64 Respiratory 16 15 Rate Blood Pressure 109/56 104/53 110/62 (mmHg) O2 Sat by Pulse 95 96 Oximetry 03/17/17 03/17/17 03/17/17 03:00 03:26 03:30 Temperature 98.0 F Pulse Rate 63 81 Respiratory 14 16 17 Rate Blood Pressure 118/71 123/63 (mmHg) O2 Sat by Pulse 93 96 Oximetry 03/17/17 03/17/17 03/17/17 04:00 05:00 06:00 Temperature Pulse Rate 65 70 Respiratory 15 16 Rate Blood Pressure 107/54 106/88 101/57 (mmHg) O2 Sat by Pulse 96 89 Oximetry 03/17/17 03/17/17 03/17/17 07:00 07:01 07:26 Temperature 98.4 F Pulse Rate 71 70 Respiratory 18 18 Rate Blood Pressure 99/53 (mmHg) O2 Sat by Pulse 95 95 Oximetry 03/17/17 03/17/17 03/17/17 08:00 09:58 11:02 Temperature 98.9 F 98.1 F Pulse Rate 100 63 61 Respiratory 17 20 20 Rate Blood Pressure 112/52 98/59 (mmHg) O2 Sat by Pulse 91 98 100 Oximetry Oxygen Devices in Use Now: - - 6L NC Appearance: Male sitting up in bed in NAD Eyes: No Scleral Icterus Ears/Nose/Mouth/Throat: Mucous Membranes Moist Neck: Trachea Midline Respiratory: Symmetrical Chest Expansion and Respiratory Effort, Clear to Auscultation, - - Diminished in bases Cardiovascular: NL Sounds; No Murmurs; No JVD, No Edema Abdominal: NL Sounds; No Tenderness; No Distention Lymphatic: No Cervical Adenopathy Extremities: - - +1 pitting edema to LE, R > L Skin: No Rash or Ulcers Neurological: Alert and Oriented x 3, NL Muscle Strength and Tone Nutrition: Taking PO's Result Diagrams: 03/17/17 04:51 03/17/17 04:51 Additional Lab and Data: Lab Results 03/16/17 03/16/17 03/16/17 Range/Units 03:53 03:53 03:53 WBC 14.7 H (3.5-10.8) 10^3/ul RBC 3.88 L (4.0-5.4) 10^6/ul Hgb 12.2 L (14.0-18.0) g/dl Hct 39 L (42-52) % MCV 100 H (80-94) fL MCH 31 (27-31) pg MCHC 32 (31-36) g/dl RDW 16 H (10.5-15) % Plt Count 253 (150-450) 10^3/ul MPV 8 (7.4-10.4) um3 Neut % (Auto) 70.3 (38-83) % Lymph % (Auto) 20.0 L (25-47) % [place] % (Auto) 5.5 (1-9) % Eos % (Auto) 3.4 (0-6) % Baso % (Auto) 0.8 (0-2) % Absolute Neuts (auto) 10.3 H (1.5-7.7) 10^3/ul Absolute Lymphs (auto) 2.9 (1.0-4.8) 10^3/ul Absolute Monos (auto) 0.8 (0-0.8) 10^3/ul Absolute Eos (auto) 0.5 (0-0.6) 10^3/ul Absolute Basos (auto) 0.1 (0-0.2) 10^3/ul Absolute Nucleated RBC 0.02 10^3/ul Nucleated RBC % 0.1 Sodium 133 (133-145) mmol/L Potassium 4.4 (3.5-5.0) mmol/L Chloride 107 (101-111) mmol/L Carbon Dioxide 18 L (22-32) mmol/L Anion Gap 8 (2-11) mmol/L BUN 23 (6-24) mg/dL Creatinine 1.96 H (0.67-1.17) mg/dL Est GFR ( Amer) 43.2 (>60) Est GFR (Non-Af Amer) 33.6 (>60) BUN/Creatinine Ratio 11.7 (8-20) Glucose 265 H (70-100) mg/dL Lactic Acid 3.2 H* (0.5-2.0) mmol/L Calcium 8.8 (8.6-10.3) mg/dL Total Bilirubin 0.80 (0.2-1.0) mg/dL AST 17 (13-39) U/L ALT 14 (7-52) U/L Alkaline Phosphatase 67 (34-104) U/L Troponin I 0.01 (<0.04) ng/mL B-Natriuretic Peptide ( - 100) pg/mL Total Protein 7.5 (6.4-8.9) g/dL Albumin 3.9 (3.2-5.2) g/dL Globulin 3.6 (2-4) g/dL Albumin/Globulin Ratio 1.1 (1-3) 03/16/17 Range/Units 03:53 WBC (3.5-10.8) 10^3/ul RBC (4.0-5.4) 10^6/ul Hgb (14.0-18.0) g/dl Hct (42-52) % MCV (80-94) fL MCH (27-31) pg MCHC (31-36) g/dl RDW (10.5-15) % Plt Count (150-450) 10^3/ul MPV (7.4-10.4) um3 Neut % (Auto) (38-83) % Lymph % (Auto) (25-47) % [place] % (Auto) (1-9) % Eos % (Auto) (0-6) % Baso % (Auto) (0-2) % Absolute Neuts (auto) (1.5-7.7) 10^3/ul Absolute Lymphs (auto) (1.0-4.8) 10^3/ul Absolute Monos (auto) (0-0.8) 10^3/ul Absolute Eos (auto) (0-0.6) 10^3/ul Absolute Basos (auto) (0-0.2) 10^3/ul Absolute Nucleated RBC 10^3/ul Nucleated RBC % Sodium (133-145) mmol/L Potassium (3.5-5.0) mmol/L Chloride (101-111) mmol/L Carbon Dioxide (22-32) mmol/L Anion Gap (2-11) mmol/L BUN (6-24) mg/dL Creatinine (0.67-1.17) mg/dL Est GFR ( Amer) (>60) Est GFR (Non-Af Amer) (>60) BUN/Creatinine Ratio (8-20) Glucose (70-100) mg/dL Lactic Acid (0.5-2.0) mmol/L Calcium (8.6-10.3) mg/dL Total Bilirubin (0.2-1.0) mg/dL AST (13-39) U/L ALT (7-52) U/L Alkaline Phosphatase (34-104) U/L Troponin I (<0.04) ng/mL B-Natriuretic Peptide 967 H ( - 100) pg/mL Total Protein (6.4-8.9) g/dL Albumin (3.2-5.2) g/dL Globulin (2-4) g/dL Albumin/Globulin Ratio (1-3) Microbiology and Other Data: Microbiology 03/16/17 13:55 Gram Stain - Final Sputum Expectorated 03/16/17 10:12 Legionella Urinary Antigen - Final Urine Negative Legionella Streptococcus pneumoniae Ag Screen - Final Negative S. pneumo Antigen Assess/Plan/Problems-Billing Assessment: Mr. Law is a 72 yo male with PMH of Type 2 DM, BPH with TURP and chronic urinary retention, presumed CAD, CHF with EF 35-50%, and recent treatment for pneumonia who was admitted on 03/16/17 with concern for persistent worsening pneumonia with likely component of CHF. - Patient Problems (1) Heart failure, systolic, with acute decompensation Comment: - Suspect that SOB is related to CHF more than pneumonia. BNP highest we have seen. Most recent CT from 03/07 with significant pleural effusions. - Continue IV lasix but will need to watch BP closely as it has been relatively low. (2) Community acquired bacterial pneumonia Comment: - WBC has normalized. - Continue ceftriaxone and doxycycline for now though I am suspicious that his SOB is more related to CHF. - Appreciate ID consult. (3) Lactic acid acidosis Comment: - Resolved. - Appears his lactic acid has been elevated in past (4) Acute kidney injury Comment: - Creatine essentially back to baseline. - Monitor Cr closely with need for more aggressive diuresis. (5) Atrial fibrillation Comment: - HR well controlled now. - Continue carvedilol po. Continue home amiodarone and carvedilol. Continue eliquis. (6) Anemia Comment: - Chronic, stable. - Continue B12 and iron supplementation. (7) Type II diabetes mellitus Comment: - BG well controlled. - Diet controlled. HgA1c 5.1%. (8) Urinary retention Comment: - Continue leonardo. (9) Asthma Comment: - Asymptomatic. (10) CAD (coronary artery disease) Comment: - Continue ASA 81mg daily. (11) HLD (hyperlipidemia) Comment: - Pt is not on any lipid lower meds at home-follow up with PCP. (12) DVT prophylaxis Comment: Robert (13) DNR (do not resuscitate) Status and Disposition: Inpatient with expected LOS > 2 days. Anticipate discharge to home when medically stable.
[2017-03-17] MEDS: Diltiazem TAB* 60 MG PO SCH ×2 (16:52→21:01)
[2017-03-17] MEDS: cefTRIAXone VIAL(*) 1,000 MG in NS 0.9% 50 ML* 50 ML IVPB SCH (18:03)
--- NOTE | 2017-03-17 22:23 | CONS ---
CONSULTATION REPORT: DATE OF CONSULTATION: 03/17/17 REQUESTING PROVIDER: Tabatha Porter NP. CONSULTING SERVICE: Infectious Disease. REASON FOR CONSULTATION: Acute hypoxemic respiratory failure present on admission. IMPRESSION: 1. Acute hypoxemic respiratory failure present on admission. The differential diagnosis includes recurrent infections, which he has been treated for; however , his chest x-ray is unimpressive and on exam he has bilateral decreased breath sounds at the lung bases. He has lower extremity edema and jugular venous distention. I wonder if congestive heart failure could be at least a component of his symptoms. Pneumonia is still possible as well and he could have both. 2. Ejection fraction 20%. 3. Atrial fibrillation. RECOMMENDATIONS: Consider further diuresis and see if his oxygen requirement improves rapidly after doing so. Change his Zosyn to ceftriaxone. He does not have any aspiration symptoms that he endorses that we could go along with that as a cause of his symptoms. So we will continue to cover him for pneumonia while his workup continues. HISTORY OF PRESENT ILLNESS: This is a 72-year-old man with history of congestive heart failure, admitted with dyspnea. He cannot provide many of the details of his illness, which are obtained from review of the medical records. He had been admitted end of January with dyspnea, discharged early February, diagnosed with pneumonia and heart failure and atrial fibrillation. He was discharged on cardiac medications, came back mid February with apparently similar symptoms of dyspnea and cough occasionally productive of sputum. He was felt to have dyspnea due to difficulty voiding and had a Sexton catheter placed and had good response of his heart failure symptoms with diuresis and Sexton. Now he comes back with shortness of breath that developed Thursday. He has had cough off and on, denies any chest pain. He had a white blood cell count of 14,000 early on the morning of the . He has been afebrile. His O2 sat was 70% on room air when he arrived. He is on 7 L now, saturating in the high 90s. He feels better with oxygen. He has been on Zosyn and azithromycin. Blood cultures are negative for Legionella and pneumococcal urine antigens are negative. Sputum specimen was taken and was pending. He has got lower extremity edema, does not endorse chest pain or paroxysmal nocturnal dyspnea or orthopnea. PAST MEDICAL HISTORY: 1. 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 2. Type 2 diabetes. 3. History of stroke. 4. Hyperlipidemia. 5. COPD. 6. Gangrenous cholecystitis, status post cholecystectomy. 7. Status post umbilical hernia repair. 8. History of UTI. 9. Benign prostatic hypertrophy, status post transurethral resection of the prostate. MEDICATIONS: 1. Albuterol. 2. Amiodarone. 3. Apixaban. 4. Aspirin. 5. Coreg. 6. Doxycycline 100 mg IV twice daily. 7. Diltiazem tablet. 8. Lisinopril. 9. Omeprazole. 10. Zosyn 3.375 mg every 8 hours by extended infusion. ALLERGIES: TETANUS TOXIN. FAMILY HISTORY: No recurrent infections or tuberculosis. SOCIAL HISTORY: He lives in [place] by himself. He is retired. REVIEW OF SYSTEMS: All negative to full review of systems except as noted above. PHYSICAL EXAMINATION: Vital Signs: Temperature 37, heart rate 60, respiratory rate 20, blood pressure 112/58, O2 sat 98% on 7 L. In general, he is awake, not in distress. Neurologic: He is oriented x3. Follows all commands. Moves all extremities. HEENT: There is no conjunctival hemorrhage. Oropharynx without lesions. Neck: Supple without nuchal rigidity. Lymph Nodes: There is no cervical, supraclavicular, inguinal, axillary or epitrochlear lymphadenopathy. Heart: Regular rate and rhythm without murmurs, rubs, or gallops. Lungs: Showed decreased breath sounds at the bases bilaterally without wheezes, rales or rhonchi. Abdomen: Soft, nontender, nondistended without hepatosplenomegaly. Skin: There is no rash or splinter hemorrhages. Vascular: There are 2+ dorsalis pedis pulses bilaterally. There is jugular venous distention. Musculoskeletal: There is no spine tenderness to palpation. LABORATORY DATA: White blood cell count of 10, hemoglobin 10, platelets 160. Creatinine 1.4. Please see impressions and recommendations outlined above, which I have discussed with Tabatha Porter NP. Thanks for asking me to see Mr. Law in consultation. [id number]/[facility] #: [id number] MTDIsai
[2017-03-18] MEDS: Diltiazem TAB* 60 MG PO SCH ×4 (05:05→22:29)
[2017-03-18 06:57] LABS: Calcium 8.5 mg/dL (8.6-10.3); EGFR African American 62.7 (>60); EGFR Non-African American 48.7 (>60); Potassium 3.6 mmol/L (3.5-5.0)
[2017-03-18] MEDS: Omeprazole CAP* 20 MG PO SCH (07:21)
[2017-03-18] MEDS ORDERED: Furosemide IV* 10 MG/ML VIAL (40 MG) IV ONE (09:00)
[2017-03-18] MEDS: Insulin LISPRO* 1 UNITS UNIT SUBCUT SCH ×4 (09:21→20:48)
[2017-03-18] MEDS ORDERED: NS 0.9% 250 ML* 250 ML ONE (09:41)
[2017-03-18] MEDS: DOXYcycline IV* 100 MG in NS 0.9% 250 ML* 250 ML IVPB SCH ×2 (09:49→20:43)
[2017-03-18] MEDS: Carvedilol TAB* 3.125 MG PO SCH ×2 (09:54→20:48)
[2017-03-18] MEDS: Potassium Chlor TAB* 20 MEQ TAB.ER PO SCH (09:54)
[2017-03-18] MEDS: Apixaban* 5 MG TAB PO SCH ×2 (09:54→20:48)
[2017-03-18] MEDS: Ferrous Gluconate TAB* 324 MG TAB PO SCH (09:55)
[2017-03-18] MEDS: Aspirin Low Dose CHEW TAB* 81 MG PO SCH (09:55)
[2017-03-18] MEDS: Lisinopril TAB* 5 MG PO SCH (09:55)
[2017-03-18] MEDS: Amiodarone TAB* 200 MG PO SCH (09:56)
--- NOTE | 2017-03-18 13:44 | PN ---
Subjective Date of Service: 03/18/17 Interval History: Mr. Law states that he is feeling much better today. His breathing is much improved. He denies chest pain, nausea, or abdominal pain. Objective Active Medications: Albuterol (Ventolin Hfa Inhaler*) 2 puff INH Q4H PRN Amiodarone HCl (Cordarone Tab*) 200 mg PO DAILY [facility] Apixaban (Eliquis*) 5 mg PO BID [facility] Aspirin (Aspirin Low Dose Tab*) 81 mg PO DAILY [facility] Carvedilol (Coreg Tab*) 3.125 mg PO BID [facility] Dextrose (D50w Syringe 50 Ml*) 12.5 gm IV PUSH .FOR FS < 60 - SS PRN Diltiazem HCl (Cardizem Tab*) 30 mg PO Q6H [facility] Ferrous Gluconate (Fergon Tab*) 324 mg PO DAILY [facility] Doxycycline Hyclate 100 mg/ (Sodium Chloride) 250 mls @ 250 mls/hr IVPB Q12H [facility] Ceftriaxone Sodium 1,000 mg/ (Sodium Chloride) 50 mls @ 200 mls/hr IVPB Q24H [facility] Insulin Human Lispro (Humalog*) 0 units SUBCUT ACHS [facility] Lisinopril (Prinivil Tab*) 2.5 mg PO DAILY [facility] Omeprazole (Prilosec Cap*) 20 mg PO DAILY@0730 [facility] Potassium Chloride (Klor Con Er Tab*) 20 meq PO DAILY [facility] Vital Signs 03/17/17 03/17/17 03/17/17 14:55 16:09 16:49 Temperature 97.7 F Pulse Rate 50 Respiratory 18 Rate Blood Pressure 98/60 117/49 90/55 (mmHg) O2 Sat by Pulse 100 Oximetry 03/17/17 03/17/17 03/17/17 19:26 20:00 23:49 Temperature 97.6 F 97.5 F Pulse Rate 63 54 Respiratory 20 20 16 Rate Blood Pressure 93/57 111/63 (mmHg) O2 Sat by Pulse 100 96 Oximetry 03/18/17 03/18/17 03/18/17 03:27 07:14 07:39 Temperature 97.4 F 97.8 F Pulse Rate 65 75 Respiratory 16 20 20 Rate Blood Pressure 102/58 96/58 (mmHg) O2 Sat by Pulse 99 97 Oximetry 03/18/17 11:03 Temperature 97.8 F Pulse Rate 94 Respiratory 18 Rate Blood Pressure 109/65 (mmHg) O2 Sat by Pulse 99 Oximetry Oxygen Devices in Use Now: - - 4L NC Appearance: Male lying in bed in NAD Eyes: No Scleral Icterus Ears/Nose/Mouth/Throat: Mucous Membranes Moist Neck: Trachea Midline Respiratory: Symmetrical Chest Expansion and Respiratory Effort, Clear to Auscultation Cardiovascular: NL Sounds; No Murmurs; No JVD, No Edema Abdominal: NL Sounds; No Tenderness; No Distention Lymphatic: No Cervical Adenopathy Extremities: No Edema - +1 edema, - Skin: No Rash or Ulcers Neurological: Alert and Oriented x 3, NL Muscle Strength and Tone Nutrition: Taking PO's Result Diagrams: 03/17/17 04:51 03/18/17 05:43 Additional Lab and Data: Lab Results 03/16/17 03/16/17 03/16/17 Range/Units 03:53 03:53 03:53 WBC 14.7 H (3.5-10.8) 10^3/ul RBC 3.88 L (4.0-5.4) 10^6/ul Hgb 12.2 L (14.0-18.0) g/dl Hct 39 L (42-52) % MCV 100 H (80-94) fL MCH 31 (27-31) pg MCHC 32 (31-36) g/dl RDW 16 H (10.5-15) % Plt Count 253 (150-450) 10^3/ul MPV 8 (7.4-10.4) um3 Neut % (Auto) 70.3 (38-83) % Lymph % (Auto) 20.0 L (25-47) % [place] % (Auto) 5.5 (1-9) % Eos % (Auto) 3.4 (0-6) % Baso % (Auto) 0.8 (0-2) % Absolute Neuts (auto) 10.3 H (1.5-7.7) 10^3/ul Absolute Lymphs (auto) 2.9 (1.0-4.8) 10^3/ul Absolute Monos (auto) 0.8 (0-0.8) 10^3/ul Absolute Eos (auto) 0.5 (0-0.6) 10^3/ul Absolute Basos (auto) 0.1 (0-0.2) 10^3/ul Absolute Nucleated RBC 0.02 10^3/ul Nucleated RBC % 0.1 Sodium 133 (133-145) mmol/L Potassium 4.4 (3.5-5.0) mmol/L Chloride 107 (101-111) mmol/L Carbon Dioxide 18 L (22-32) mmol/L Anion Gap 8 (2-11) mmol/L BUN 23 (6-24) mg/dL Creatinine 1.96 H (0.67-1.17) mg/dL Est GFR ( Amer) 43.2 (>60) Est GFR (Non-Af Amer) 33.6 (>60) BUN/Creatinine Ratio 11.7 (8-20) Glucose 265 H (70-100) mg/dL Lactic Acid 3.2 H* (0.5-2.0) mmol/L Calcium 8.8 (8.6-10.3) mg/dL Total Bilirubin 0.80 (0.2-1.0) mg/dL AST 17 (13-39) U/L ALT 14 (7-52) U/L Alkaline Phosphatase 67 (34-104) U/L Troponin I 0.01 (<0.04) ng/mL B-Natriuretic Peptide ( - 100) pg/mL Total Protein 7.5 (6.4-8.9) g/dL Albumin 3.9 (3.2-5.2) g/dL Globulin 3.6 (2-4) g/dL Albumin/Globulin Ratio 1.1 (1-3) // Range/Units 03:53 WBC (3.5-10.8) 10^3/ul RBC (4.0-5.4) 10^6/ul Hgb (14.0-18.0) g/dl Hct (42-52) % MCV (80-94) fL MCH (27-31) pg MCHC (31-36) g/dl RDW (10.5-15) % Plt Count (150-450) 10^3/ul MPV (7.4-10.4) um3 Neut % (Auto) (38-83) % Lymph % (Auto) (25-47) % [place] % (Auto) (1-9) % Eos % (Auto) (0-6) % Baso % (Auto) (0-2) % Absolute Neuts (auto) (1.5-7.7) 10^3/ul Absolute Lymphs (auto) (1.0-4.8) 10^3/ul Absolute Monos (auto) (0-0.8) 10^3/ul Absolute Eos (auto) (0-0.6) 10^3/ul Absolute Basos (auto) (0-0.2) 10^3/ul Absolute Nucleated RBC 10^3/ul Nucleated RBC % Sodium (133-145) mmol/L Potassium (3.5-5.0) mmol/L Chloride (101-111) mmol/L Carbon Dioxide (22-32) mmol/L Anion Gap (2-11) mmol/L BUN (6-24) mg/dL Creatinine (0.67-1.17) mg/dL Est GFR ( Amer) (>60) Est GFR (Non-Af Amer) (>60) BUN/Creatinine Ratio (8-20) Glucose (70-100) mg/dL Lactic Acid (0.5-2.0) mmol/L Calcium (8.6-10.3) mg/dL Total Bilirubin (0.2-1.0) mg/dL AST (13-39) U/L ALT (7-52) U/L Alkaline Phosphatase (34-104) U/L Troponin I (<0.04) ng/mL B-Natriuretic Peptide 967 H ( - 100) pg/mL Total Protein (6.4-8.9) g/dL Albumin (3.2-5.2) g/dL Globulin (2-4) g/dL Albumin/Globulin Ratio (1-3) Microbiology and Other Data: Microbiology 03/16/17 13:55 Gram Stain - Final Sputum Expectorated 03/16/17 10:12 Legionella Urinary Antigen - Final Urine Negative Legionella Streptococcus pneumoniae Ag Screen - Final Negative S. pneumo Antigen Diagnostic Imaging: Cxray 03/16/17: Progression of right lower lobe consolidation, question of pneumonia vs CHF (personally reviewed by me). Assess/Plan/Problems-Billing Assessment: Mr. Law is a 72 yo male with PMH of Type 2 DM, BPH with TURP and chronic urinary retention, presumed CAD, CHF with EF 35-50%, and recent treatment for pneumonia who was admitted on 03/16/17 with concern for persistent worsening pneumonia with likely component of CHF. - Patient Problems (1) Heart failure, systolic, with acute decompensation Comment: - Improved today. Great urine output. - Suspect that SOB is related to CHF more than pneumonia. BNP highest we have seen. Most recent CT from 03/07 with significant pleural effusions. - Continue IV lasix, tolerating well. - Also initiate loose fluid restriction at 2L as patient has been taking in upwards of 4L daily, discussed with patient. (2) Community acquired bacterial pneumonia Comment: - WBC has normalized. - Continue ceftriaxone and doxycycline for now though I am suspicious that his SOB is more related to CHF. - Appreciate ID consult. (3) Lactic acid acidosis Comment: - Resolved. - Appears his lactic acid has been elevated in past in the setting of CHF. (4) Acute kidney injury Comment: - Creatine essentially back to baseline. - Monitor Cr closely with need for more aggressive diuresis. (5) Atrial fibrillation Comment: - HR well controlled now. - Continue home amiodarone and carvedilol. Continue eliquis. (6) Anemia Comment: - Chronic, stable. - Continue B12 and iron supplementation. (7) Type II diabetes mellitus Comment: - BG well controlled. - Diet controlled. HgA1c 5.1%. (8) Urinary retention Comment: - Continue leonardo. (9) Asthma Comment: - Asymptomatic. (10) CAD (coronary artery disease) Comment: - Asymptomatic. - Continue ASA 81mg daily. (11) HLD (hyperlipidemia) Comment: - Pt is not on any lipid lower meds at home-follow up with PCP. (12) DVT prophylaxis Comment: - Eliquis. (13) DNR (do not resuscitate) Status and Disposition: Inpatient with expected LOS > 2 days. Anticipate discharge to home when medically stable.
[2017-03-18] MEDS: cefTRIAXone VIAL(*) 1,000 MG in NS 0.9% 50 ML* 50 ML IVPB SCH (18:20)
[2017-03-19] MEDS: Diltiazem TAB* 60 MG PO SCH ×3 (05:08→18:02)
[2017-03-19] MEDS ORDERED: Furosemide IV* 10 MG/ML VIAL (40 MG) IV ONE (06:00)
[2017-03-19 07:14] LABS: BUN/Creatinine Ratio 19.4 (8-20); EGFR African American 64.2 (>60); Potassium 3.7 mmol/L (3.5-5.0)
--- NOTE | 2017-03-19 07:38 | RAD ---
HISTORY: CHF versus pneumonia COMPARISONS: March 16, 2017 VIEWS:1: Single frontal portable view of the chest at 6:06 AM FINDINGS: LINES AND TUBES: None. CARDIOMEDIASTINAL SILHOUETTE: The cardiomediastinal silhouette is normal for portable technique. PLEURA: The costophrenic angles are sharp. No pleural abnormalities are noted. LUNG PARENCHYMA: The lungs are clear. There has been interval resolution of the airspace disease noted in the right lower lung ABDOMEN: The upper abdomen is clear. There is no subphrenic gas. BONES AND SOFT TISSUES: No bone or soft tissue abnormalities are noted. IMPRESSION: NO ACTIVE CARDIOPULMONARY DISEASE. THERE HAS BEEN INTERVAL RESOLUTION OF THE AIRSPACE DISEASE NOTED IN THE RIGHT LOWER LUNG..
[2017-03-19] MEDS: Omeprazole CAP* 20 MG PO SCH (07:42)
[2017-03-19] MEDS ORDERED: Potassium Chlor TAB* 20 MEQ TAB.ER PO ONE (08:16)
--- NOTE | 2017-03-19 08:40 | PN ---
Subjective Date of Service: 03/19/17 Interval History: Mr. Law states that he is feeling much better today. He states that his shortness of breath has resolved. He denies chest pain, nausea, or abdominal pain. Objective Active Medications: Albuterol (Ventolin Hfa Inhaler*) 2 puff INH Q4H PRN Amiodarone HCl (Cordarone Tab*) 200 mg PO DAILY JERED Apixaban (Eliquis*) 5 mg PO BID JERED Aspirin (Aspirin Low Dose Tab*) 81 mg PO DAILY JERED Carvedilol (Coreg Tab*) 3.125 mg PO BID [facility] Dextrose (D50w Syringe 50 Ml*) 12.5 gm IV PUSH .FOR FS < 60 - SS PRN Diltiazem HCl (Cardizem Tab*) 30 mg PO Q6H JREED Ferrous Gluconate (Fergon Tab*) 324 mg PO DAILY [facility] Doxycycline Hyclate 100 mg/ (Sodium Chloride) 250 mls @ 250 mls/hr IVPB Q12H JERED Ceftriaxone Sodium 1,000 mg/ (Sodium Chloride) 50 mls @ 200 mls/hr IVPB Q24H [facility] Insulin Human Lispro (Humalog*) 0 units SUBCUT ACHS [facility] Lisinopril (Prinivil Tab*) 2.5 mg PO DAILY JERED Omeprazole (Prilosec Cap*) 20 mg PO DAILY@0730 JERED Potassium Chloride (Klor Con Er Tab*) 20 meq PO DAILY [facility] Vital Signs 03/18/17 03/18/17 03/18/17 11:03 15:15 19:24 Temperature 97.8 F 97.9 F 98.0 F Pulse Rate 94 65 75 Respiratory 18 20 20 Rate Blood Pressure 109/65 101/58 99/62 (mmHg) O2 Sat by Pulse 99 96 98 Oximetry 03/18/17 03/18/17 03/19/17 20:00 23:23 03:28 Temperature 97.9 F 98.3 F Pulse Rate 82 68 Respiratory 20 16 16 Rate Blood Pressure 111/59 100/66 (mmHg) O2 Sat by Pulse 97 98 Oximetry 03/19/17 07:12 Temperature 98.2 F Pulse Rate 92 Respiratory 20 Rate Blood Pressure 112/64 (mmHg) O2 Sat by Pulse 97 Oximetry Oxygen Devices in Use Now: None - 4L NC Appearance: Male lying in bed in NAD Eyes: No Scleral Icterus Ears/Nose/Mouth/Throat: Mucous Membranes Moist Neck: NL Appearance and Movements; NL JVP Respiratory: Symmetrical Chest Expansion and Respiratory Effort, Clear to Auscultation Cardiovascular: NL Sounds; No Murmurs; No JVD, No Edema Abdominal: NL Sounds; No Tenderness; No Distention Lymphatic: No Cervical Adenopathy Extremities: No Edema Skin: No Rash or Ulcers Neurological: Alert and Oriented x 3, NL Muscle Strength and Tone Nutrition: Taking PO's Result Diagrams: 03/17/17 04:51 03/19/17 06:26 Additional Lab and Data: Lab Results 03/16/17 03/16/17 03/16/17 Range/Units 03:53 03:53 03:53 WBC 14.7 H (3.5-10.8) 10^3/ul RBC 3.88 L (4.0-5.4) 10^6/ul Hgb 12.2 L (14.0-18.0) g/dl Hct 39 L (42-52) % MCV 100 H (80-94) fL MCH 31 (27-31) pg MCHC 32 (31-36) g/dl RDW 16 H (10.5-15) % Plt Count 253 (150-450) 10^3/ul MPV 8 (7.4-10.4) um3 Neut % (Auto) 70.3 (38-83) % Lymph % (Auto) 20.0 L (25-47) % Chaves % (Auto) 5.5 (1-9) % Eos % (Auto) 3.4 (0-6) % Baso % (Auto) 0.8 (0-2) % Absolute Neuts (auto) 10.3 H (1.5-7.7) 10^3/ul Absolute Lymphs (auto) 2.9 (1.0-4.8) 10^3/ul Absolute Monos (auto) 0.8 (0-0.8) 10^3/ul Absolute Eos (auto) 0.5 (0-0.6) 10^3/ul Absolute Basos (auto) 0.1 (0-0.2) 10^3/ul Absolute Nucleated RBC 0.02 10^3/ul Nucleated RBC % 0.1 Sodium 133 (133-145) mmol/L Potassium 4.4 (3.5-5.0) mmol/L Chloride 107 (101-111) mmol/L Carbon Dioxide 18 L (22-32) mmol/L Anion Gap 8 (2-11) mmol/L BUN 23 (6-24) mg/dL Creatinine 1.96 H (0.67-1.17) mg/dL Est GFR ( Amer) 43.2 (>60) Est GFR (Non-Af Amer) 33.6 (>60) BUN/Creatinine Ratio 11.7 (8-20) Glucose 265 H (70-100) mg/dL Lactic Acid 3.2 H* (0.5-2.0) mmol/L Calcium 8.8 (8.6-10.3) mg/dL Total Bilirubin 0.80 (0.2-1.0) mg/dL AST 17 (13-39) U/L ALT 14 (7-52) U/L Alkaline Phosphatase 67 (34-104) U/L Troponin I 0.01 (<0.04) ng/mL B-Natriuretic Peptide ( - 100) pg/mL Total Protein 7.5 (6.4-8.9) g/dL Albumin 3.9 (3.2-5.2) g/dL Globulin 3.6 (2-4) g/dL Albumin/Globulin Ratio 1.1 (1-3) // Range/Units 03:53 WBC (3.5-10.8) 10^3/ul RBC (4.0-5.4) 10^6/ul Hgb (14.0-18.0) g/dl Hct (42-52) % MCV (80-94) fL MCH (27-31) pg MCHC (31-36) g/dl RDW (10.5-15) % Plt Count (150-450) 10^3/ul MPV (7.4-10.4) um3 Neut % (Auto) (38-83) % Lymph % (Auto) (25-47) % Chaves % (Auto) (1-9) % Eos % (Auto) (0-6) % Baso % (Auto) (0-2) % Absolute Neuts (auto) (1.5-7.7) 10^3/ul Absolute Lymphs (auto) (1.0-4.8) 10^3/ul Absolute Monos (auto) (0-0.8) 10^3/ul Absolute Eos (auto) (0-0.6) 10^3/ul Absolute Basos (auto) (0-0.2) 10^3/ul Absolute Nucleated RBC 10^3/ul Nucleated RBC % Sodium (133-145) mmol/L Potassium (3.5-5.0) mmol/L Chloride (101-111) mmol/L Carbon Dioxide (22-32) mmol/L Anion Gap (2-11) mmol/L BUN (6-24) mg/dL Creatinine (0.67-1.17) mg/dL Est GFR ( Amer) (>60) Est GFR (Non-Af Amer) (>60) BUN/Creatinine Ratio (8-20) Glucose (70-100) mg/dL Lactic Acid (0.5-2.0) mmol/L Calcium (8.6-10.3) mg/dL Total Bilirubin (0.2-1.0) mg/dL AST (13-39) U/L ALT (7-52) U/L Alkaline Phosphatase (34-104) U/L Troponin I (<0.04) ng/mL B-Natriuretic Peptide 967 H ( - 100) pg/mL Total Protein (6.4-8.9) g/dL Albumin (3.2-5.2) g/dL Globulin (2-4) g/dL Albumin/Globulin Ratio (1-3) Microbiology and Other Data: Microbiology 03/16/17 13:55 Gram Stain - Final Sputum Expectorated 03/16/17 10:12 Legionella Urinary Antigen - Final Urine Negative Legionella Streptococcus pneumoniae Ag Screen - Final Negative S. pneumo Antigen Diagnostic Imaging: Cxray 03/16/17: Progression of right lower lobe consolidation, question of pneumonia vs CHF (personally reviewed by me). Assess/Plan/Problems-Billing Assessment: Mr. Law is a 72 yo male with PMH of Type 2 DM, BPH with TURP and chronic urinary retention, presumed CAD, CHF with EF 35-50%, and recent treatment for pneumonia who was admitted on 03/16/17 with concern for persistent worsening pneumonia with likely component of CHF. - Patient Problems (1) Heart failure, systolic, with acute decompensation Comment: - Resolved. - Suspect that SOB is related to CHF more than pneumonia. BNP highest we have seen. Most recent CT from 03/07 with significant pleural effusions. - Patient will go home on lasix 20mg po daily and follow up with PCP. - Also initiate loose fluid restriction at 2L as patient has been taking in upwards of 4L daily, discussed with patient. (2) Community acquired bacterial pneumonia Comment: - Suspect infiltrate seen on xray was actually vascular congestion. ID concurs. No further abx at discharge. (3) Lactic acid acidosis Comment: - Resolved. - Appears his lactic acid has been elevated in past in the setting of CHF. (4) Acute kidney injury Comment: - Creatine essentially back to baseline. (5) Atrial fibrillation Comment: - HR well controlled now. - Continue home amiodarone and carvedilol. Continue eliquis. (6) Anemia Comment: - Chronic, stable. - Continue B12 and iron supplementation. (7) Type II diabetes mellitus Comment: - BG well controlled. - Diet controlled. HgA1c 5.1%. (8) Urinary retention Comment: - Continue leonardo. Patient to follow up with urology. (9) Asthma Comment: - Asymptomatic. (10) CAD (coronary artery disease) Comment: - Asymptomatic. - Continue ASA 81mg daily. (11) HLD (hyperlipidemia) Comment: - Pt is not on any lipid lower meds at home-follow up with PCP. (12) DVT prophylaxis Comment: - Eliquis. (13) DNR (do not resuscitate) Status and Disposition: Inpatient with expected LOS > 2 days. Discharge to home.
[2017-03-19] MEDS: Insulin LISPRO* 1 UNITS UNIT SUBCUT SCH ×3 (08:41→18:01)
[2017-03-19] MEDS: Ferrous Gluconate TAB* 324 MG TAB PO SCH (08:41)
[2017-03-19] MEDS: Apixaban* 5 MG TAB PO SCH (08:42)
[2017-03-19] MEDS: Lisinopril TAB* 5 MG PO SCH (08:42)
[2017-03-19] MEDS: Aspirin Low Dose CHEW TAB* 81 MG PO SCH (08:42)
[2017-03-19] MEDS: Amiodarone TAB* 200 MG PO SCH (08:42)
[2017-03-19] MEDS: Carvedilol TAB* 3.125 MG PO SCH (08:42)
[2017-03-19] MEDS: Potassium Chlor TAB* 20 MEQ TAB.ER PO SCH (08:42)
[2017-03-19] MEDS: DOXYcycline IV* 100 MG in NS 0.9% 250 ML* 250 ML IVPB SCH (08:46)
[2017-03-19 17:19] VITALS: BP 108/58
--- NOTE | 2017-03-20 12:58 | DS ---
CC: Dr. Juarez* [facility] MEDICINE DISCHARGE SUMMARY: DATE OF ADMISSION: 03/16/17 DATE OF DISCHARGE: 03/19/17 PRIMARY CARE PHYSICIAN: Dr. Juarez. ATTENDING PHYSICIAN: Dr. Deena Gillis,* (dictation provided by Tabatha Porter NP ). PRIMARY DIAGNOSIS: Systolic congestive heart failure exacerbation. SECONDARY DIAGNOSES: 1. Atrial fibrillation. 2. 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 3. Type 2 diabetes, diet controlled. 4. History of cerebrovascular accident. 5. Hyperlipidemia. 6. Chronic obstructive pulmonary disease. 7. History of gangrenous cholecystitis status post cholecystectomy. 8. Status post umbilical hernia repair. 9. Recurrent urinary tract infections. 10. History of benign prostatic hyperplasia status post transurethral resection of the prostate. MEDICATIONS AT THE TIME OF DISCHARGE: 1. Diltiazem CD 120 mg p.o. daily (new medication). 2. Albuterol 2 puffs inhaled q.4 hours p.r.n. shortness of breath. 3. Amiodarone 200 mg p.o. daily. 4. Apixaban 5 mg p.o. b.i.d.. 5. Aspirin 81 mg p.o. daily. 6. Carvedilol 3.125 mg p.o. b.i.d. 7. Ferrous gluconate 325 mg p.o. daily. 8. Furosemide 20 mg p.o. daily. 9. Lisinopril 2.5 mg daily. 10. Omeprazole 10 mg p.o. daily. 11. Potassium chloride 20 mEq p.o. daily. HOSPITAL COURSE: Mr. Law is a 72-year-old male with a past medical history of AFib, cardiomyopathy with an EF of 20%-25%, diabetes and COPD, who presented to the hospital on 03/16/17 with concern for shortness of breath. Please see dictated H and P from Dr. Nataliia Rodarte for complete details. In brief, the patient stated he had been feeling well since his discharge from our hospital on March 08 until the night prior to admission when he began to feel short of breath. In the emergency room, he had a chest x-ray, which was initially concerning for right lower lobe infiltrate versus possible pulmonary vascular congestion. He had a leukocytosis with a white blood cell count of 14.7. He was afebrile. Dr. Rodarte's suspicion at that time based on evaluation was that the patient likely had pneumonia with sepsis and treatment was began with Zosyn and doxycycline. Also noted at the time of admission, the patient's creatinine was elevated at 1.96 with a BUN of 23 and he had a lactic acidosis of 3.2. Mr. Law was treated with antibiotics. He also received a small amount of Lasix intravenously. The following day, Mr. Law was feeling a little bit better, but continued on approximately 8 L of oxygen. Because there was concern that the patient had a recurrent or persistent pneumonia, Dr. Fiore from Infectious Disease did see him in consultation. He suspected based on the overall presentation that the patient was more likely to actually be having a CHF exacerbation, which we concurred with. The patient's BNP was much higher than his baseline at 967. He had bilateral lower extremity swelling and again x-ray was thought to likely represent CHF rather than pneumonia. Antibiotics were continued while treatment was began for congestive heart failure exacerbation with continued intravenous Lasix. By the following day, Thanh Roy was feeling better. He was down to 4 L nasal cannula. We continued with IV Lasix. It was noted that the patient was drinking a large amount each day up to 4 L of fluid intake and I recommended to him and initiated a fluid restriction of 2 L per day. With this, he has had great urine output and now is feeling much better. Mr. Law has been ambulating on the unit and he is not requiring oxygen at this time. Plans for him to be discharged to home on his home Lasix. He will also be going home on Cardizem CD 120 mg p.o. daily as at the beginning of the hospitalization he had issues with AFib with RVR. Mr. Law is medically stable for discharge home. DISPOSITION: To home. DIET: Consistent carbohydrate, low fat, low salt with a 2 L fluid restriction. FOLLOWUP PLANS: Please follow up with Dr. Bob Juarez and appointment has been scheduled. ACTIVITY: As tolerated. TIME SPENT: Approximately 60 minutes was spent on the discharge of this patient , more than half that time spent with the patient at the bedside reviewing the events leading up to this hospitalization, performing the physical examination, and reviewing the plan of care. TABATHA PORTER [employer] ST[employer] ASSISTANT [id number]/[facility] #: [id number] [place]
== END 2017-03-19 19:00 | disposition home or self-care (01) | DRG 291 ==
LOC: ED 03:31 → MEDTELE 07:15
PROVIDERS: ADMIT Internal Medicine; ATTEND Internal Medicine
DX: I11.0 Hypertensive heart disease with heart failure (principal); J96.01 Acute respiratory failure with hypoxia; N17.9 Acute kidney failure, unspecified; J15.9 Unspecified bacterial pneumonia; E87.2 Acidosis; I42.8 Other cardiomyopathies; I48.91 Unspecified atrial fibrillation; J44.0 Chronic obstructive pulmonary disease with (acute) lower respiratory infection; Z99.81 Dependence on supplemental oxygen; E11.9 Type 2 diabetes mellitus without complications; D53.9 Nutritional anemia, unspecified; Z86.73 Personal history of transient ischemic attack (TIA), and cerebral infarction without residual deficits; Z87.01 Personal history of pneumonia (recurrent); Z88.7 Allergy status to serum and vaccine; I25.10 Atherosclerotic heart disease of native coronary artery without angina pectoris; N40.0 Benign prostatic hyperplasia without lower urinary tract symptoms; M19.90 Unspecified osteoarthritis, unspecified site; R33.8 Other retention of urine; I50.23 Acute on chronic systolic (congestive) heart failure; E78.5 Hyperlipidemia, unspecified; Z85.828 Personal history of other malignant neoplasm of skin; Z83.3 Family history of diabetes mellitus; Z87.891 Personal history of nicotine dependence; Z90.49 Acquired absence of other specified parts of digestive tract; Z82.49 Family history of ischemic heart disease and other diseases of the circulatory system; Z87.440 Personal history of urinary (tract) infections; Z79.82 Long term (current) use of aspirin; Z79.01 Long term (current) use of anticoagulants
CPT/HCPCS: 36415; 71010; 71020; 80048; 80053; 83605; 83880; 84484; 85025; 87040; 87070; 87205; 87899; 93005; 94640; 96374; 99285; A9270-GY; J0696; J1940; J2543; J2930; J3370

== ENCOUNTER 2017-03-30 05:28 | Emergency (ER) | payer MEDICARE ==
[2017-03-30] MEDS ORDERED: Albuterol/Ipratropium NEB.SOL* Albuterol 2.5 MG/Ipratropium 0.5 MG 3 ML INH ONE (05:36)
--- NOTE | 2017-03-30 06:10 | ED ---
Ryanne Ko Thomas, scribed for Angel Maza MD on 03/30/17 at 0537 . Shortness of Breath - HPI Summary HPI Summary: The pt is a 72 y/o F presenting to the ED c/o SOB that began at 04:30 today. He does not use oxygen at home. The pt denies using any treatments prior to arrival. He states that he is feeling better since onset of pain. PMHx: asthma. - History of Current Complaint Chief Complaint: EDShortnessOfBreath Hx Obtained From: Patient Onset/Duration: Sudden Onset, Lasting Minutes - onset 04:30, Still Present - has improved since onset - Allergy/Home Medications Allergies/Adverse Reactions: Allergies Allergy/AdvReac Type Severity Reaction Status Date / Time Tetanus Antitoxin Allergy Shortness Verified 11/26/16 09:11 of Breath PMH/Surg Hx/FS Hx/Imm Hx Previously Healthy: No Endocrine/Hematology History: Reports: Hx Diabetes Denies: Hx Anemia, Hx Unexplained Bleeding Cardiovascular History: Reports: Hx Congestive Heart Failure, Hx Hypertension, Other Cardiovascular Problems/Disorders - CAD/IDDM/AKD/AFIB WITH RVR/CVA WITH RT.SIDED WEAKNESS Denies: Hx Aneurysm, Hx Angina, Hx Angioplasty, Hx Auto Implanted Cardiovert Defib, Hx Cardiac Arrest, Hx Cardiomegaly, Hx Congenital Heart Disease, Hx Coronary Artery Disease, Hx Deep Vein Thrombosis, Hx Embolism, Hx Hypercholesterolemia, Hx Hypotension, Hx Myocardial Infarction, Hx Pacemaker/ICD , Hx Peripheral Vascular Disease, Hx Rheumatic Fever, Hx Syncope, Hx Valvular Heart Disease Respiratory History: Reports: Hx Asthma, Hx Pneumonia, Other Respiratory Problems/Disorders - PNA Denies: Hx Chronic Obstructive Pulmonary Disease (COPD) GI History: Reports: Hx Gall Bladder Disease Denies: Hx Hiatal Hernia History: Reports: Hx Benign Prostatic Hyperplasia, Other Problems/ Disorders - URINARY RETENTION, BPH, AKD Denies: Hx Dialysis, Hx Renal Disease Musculoskeletal History: Reports: Hx Arthritis Denies: Hx Back Problems, Hx Osteoporosis Sensory History: Reports: Hx Hearing Problem Denies: Hx Cataracts, Hx Contacts or Glasses, Hx Eye Injury, Hx Eye Prosthesis, Hx Glaucoma, Hx Legally Blind, Hx Macular Degeneration, Hx Vision Problem, Hx Deafness, Hx Hearing Aid, Other Sensory Impairments Opthamlomology History: Denies: Hx Cataracts, Hx Contacts or Glasses, Hx Eye Injury, Hx Eye Prosthesis, Hx Glaucoma, Hx Legally Blind, Hx Macular Degeneration, Hx Vision Problem, Other Sensory Impairments Neurological History: Reports: Hx CVA Denies: Hx Dementia, Hx Seizures - Cancer History Cancer Type, Location and Year: Skin cancer removed from right forearm - Surgical History Surgery Procedure, Year, and Place: UMBILICAL REPAIR for hernia. Right lower arm skin cancer removed. Right lower leg fracture fixed surgically Hx Anesthesia Reactions: No Infectious Disease History: Denies: Hx Clostridium Difficile, Hx Hepatitis, Hx Human Immunodeficiency Virus (HIV), Hx of Known/Suspected MRSA, Hx Shingles, Hx Tuberculosis, Hx Known/ Suspected VRE, Hx Known/Suspected VRSA, History Other Infectious Disease, Traveled Outside the [place] in Last 30 Days - Family History Known Family History: Positive: Diabetes - Brother Family History: no family malignant hyperthermia and anesthesia reaction - Social History Alcohol Use: None Hx Substance Use: No Substance Use Type: Reports: None Substance Use Comment - Amount & Last Used: Chew tabacco Hx Tobacco Use: Yes Smoking Status (MU): Former Smoker Type: Smokeless Tobacco Amount Used/How Often: chews tobacco past 30 yrs Have You Smoked in the Last Year: No Review of Systems Constitutional: Negative Negative: Fever Eyes: Negative ENT: Negative Cardiovascular: Negative Positive: Shortness Of Breath - began at 04:30 today, has since improved Gastrointestinal: Negative Genitourinary: Negative Musculoskeletal: Negative Skin: Negative Neurological: Negative Psychological: Normal All Other Systems Reviewed And Are Negative: Yes Physical Exam Triage Information Reviewed: Yes Vital Signs On Initial Exam: Initial Vitals Temp Pulse Resp BP Pulse Ox 98.2 F 85 30 116/68 92 03/30/17 05:35 03/30/17 05:35 03/30/17 05:35 03/30/17 05:35 03/30/17 05:35 Vital Signs Reviewed: Yes Appearance: Positive: Well-Appearing, No Pain Distress Skin: Positive: Warm Head/Face: Positive: Normal Head/Face Inspection Eyes: Positive: VIRAJ ENT: Positive: Hearing grossly normal Neck: Positive: Supple Respiratory/Lung Sounds: Positive: Breath Sounds Present, Decreased Breath Sounds, Wheezes - few scattered bilat Cardiovascular: Positive: RRR Abdomen Description: Positive: Nontender, Soft Bowel Sounds: Positive: Present Neurological: Positive: Alert, Oriented to Person Place, Time Psychiatric: Positive: Affect/Mood Appropriate Diagnostics - Vital Signs Vital Signs Temp Pulse Resp BP Pulse Ox 03/30/17 05:50 75 31 100 03/30/17 05:35 98.2 F 85 30 116/68 92 - Laboratory Result Diagrams: 03/30/17 06:15 03/30/17 06:15 Lab Statement: Any lab studies that have been ordered have been reviewed, and results considered in the medical decision making process. - Radiology CXR Xray Interpretation: No Acute Changes - Findings consistent with COPD. Radiology Interpretation Completed By: ED Physician - EKG 06:04 Cardiac Rate: NL - 74 BPM EKG Interpretation: Sinus rhythm. LBBB. Course/Dx - Diagnoses Provider Diagnoses: COPD exacerbation Discharge - Discharge Plan Condition: Fair Disposition: HOME Discharge Disposition Comment: Pt is signed off from Dr. Maza to Dr. Kurtz , pend labs await dispo Prescriptions: Albuterol HFA INHALER* [Ventolin HFA Inhaler*] 2 puff INH Q4H PRN #1 mdi PRN Reason: Wheezing DOXYcycline CAP(*) [DOXYcycline 100MG CAP(*)] 100 mg PO BID #20 cap predniSONE TAB* [Deltasone TAB*] 10 mg PO DAILY #30 tab Patient Education Materials: COPD (Chronic Obstructive Pulmonary Disease) (ED) Referrals: Bob Juarez MD [Primary Care Provider] - 2 Days Additional Instructions: RETURN TO THE EMERGENCY DEPARTMENT FOR ANY NEW OR WORSENING SYMPTOMS. The documentation as recorded by the Ryanne turcios Thomas accurately reflects the service I personally performed and the decisions made by Shaunna box David, MD.
[2017-03-30 06:23] LABS: Hematocrit 34 % (42-52); Hemoglobin 10.8 g/dl (14.0-18.0); Mean Corpuscular HGB Conc 32 g/dl (31-36); Mean Corpuscular Hemoglobin 32 pg (27-31); Mean Corpuscular Volume 99 fL (80-94); Mean Platelet Volume 8 um3 (7.4-10.4); Red Blood Count 3.42 10^6/ul (4.0-5.4); Red Cell Distribution Width 16 % (10.5-15); White Blood Count 11.1 10^3/ul (3.5-10.8)
[2017-03-30 06:39] LABS: Albumin 3.5 g/dL (3.2-5.2); BUN/Creatinine Ratio 11.1 (8-20); Calcium 8.6 mg/dL (8.6-10.3); EGFR African American 47.7 (>60); EGFR Non-African American 37.1 (>60); Globulin 3.1 g/dL (2-4); Total Bilirubin 1.1 mg/dL (0.2-1.0); Total Protein 6.6 g/dL (6.4-8.9)
[2017-03-30 06:41] LABS: Troponin I 0.02 ng/mL (<0.04)
[2017-03-30] MEDS ORDERED: methylPREDNISolone 125 MG* 2 ML VIAL IV ONE (06:48)
--- NOTE | 2017-03-30 07:52 | RAD ---
HISTORY: Shortness of breath COMPARISONS: March 19, 2017 VIEWS: 4: Frontal dual-energy and lateral views of the chest. FINDINGS: CARDIOMEDIASTINAL SILHOUETTE: The cardiomediastinal silhouette is normal. ANDREA: The andrea are normal. PLEURA: The costophrenic angles are sharp. No pleural abnormalities are noted. LUNG PARENCHYMA: There is hyperinflation with flattening of the diaphragm and expansion of the AP diameter of the chest. There is confluent alveolar opacification of the right lung base. ABDOMEN: The upper abdomen is clear. There is no subphrenic gas. BONES AND SOFT TISSUES: No bone or soft tissue abnormalities are noted. OTHER: None. IMPRESSION: 1. COPD. 2. RIGHT BASILAR CONSOLIDATION. RECOMMEND FOLLOW-UP UNTIL RESOLUTION TO EXCLUDE UNDERLYING PULMONARY PARENCHYMAL PATHOLOGY
[2017-03-30] MEDS ORDERED: Doxycycline (NF) 100 MG TAB PO ONE (08:57)
[2017-03-30] MEDS ORDERED: predniSONE TAB* 20 MG PO ONE (08:58)
[2017-03-30 08:59] VITALS: BP 101/63
[2017-03-30] MEDS ORDERED: DOXYcycline CAP(*) 100 MG PO ONE (10:00)
--- NOTE | 2017-03-30 23:09 | ED ---
Enrique Ko Alfonso, scribed for Lali Mayers MD on 03/30/17 at 0900 . Progress - Progress Note Progress Note: Assumed care for pt at change of shift from Dr. Maza, with labs and respiratory status pending. 0857: Pt states I am feeling a whole lot better, I am ready to go home, and I have O2 at home but I dont use it often. Pt has a productive cough. Nurses' notes reviewed. Pt ambulated in hallway without assistance, without dropping O2 sats. PT was admitted to [facility] 03/16/2017 and discharged home on 03/19/2017 with Lasix and CD 120 mg p.o. daily. Pt was treated with abx in this course. His PRIMARY DIAGNOSIS was Systolic congestive heart failure exacerbation. His SECONDARY DIAGNOSES were 1. Atrial fibrillation. 2. 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 3. Type 2 diabetes, diet controlled. 4. History of cerebrovascular accident. 5. Hyperlipidemia. 6. Chronic obstructive pulmonary disease. 7. History of gangrenous cholecystitis status post cholecystectomy. 8. Status post umbilical hernia repair. 9. Recurrent urinary tract infections. 10. History of benign prostatic hyperplasia status post transurethral resection of the prostate. Pt will be discharged home with prescriptions, COPD education material, and a provider diagnosis of COPD exacerbation. Allergies noted. Pt medications reviewed this visit. Re-Evaluation - Re-Evaluation First Eval Re-Evaluation Time: 08:55 Course/Dx - Diagnoses Provider Diagnoses: COPD exacerbation The documentation as recorded by the Enrique turcios Alfonso accurately reflects the service I personally performed and the decisions made by , Lali Mayers MD.
== END 2017-03-30 10:02 | disposition home or self-care (01) ==
LOC: ED 05:28
DX: J44.1 Chronic obstructive pulmonary disease with (acute) exacerbation (principal)
CPT/HCPCS: 36415; 71020; 80053; 83605; 83880; 84484; 85025; 93005; 94640; 94760; 96374; 99283; A9270-GY; J2930; J7512

== ENCOUNTER → 2017-04-11 20:10 | Emergency (ER) | payer MEDICARE ==
--- NOTE | 2017-04-11 21:02 | ED ---
Addy Ko Benjamin, scribed for Angel Maza MD on 04/11/17 at 203 . GI/ HPI - HPI Summary HPI Summary: 72yo male with a urinary catheter comes to ED for blood in his catheter and mild SOB throughout the entire day. Pt was seen at Dr. Machado's office yesterday and had his catheter replaced. Pt denies any pain. - History of Current Complaint Chief Complaint: EDUrogenitalProblems Time Seen by Provider: 04/11/17 20:23 Stated Complaint: DIFFICULTY BREATHING/POSSIBLE UTI Hx Obtained From: Patient Onset/Duration: Started Hours Ago, Still Present Timing: Constant Current Severity: None Vaginal Bleeding Description: Bright Red Pain Intensity: 0 Location of Pain: None Associated Signs and Symptoms: Positive: Other: - blood in urinary catheter - Additional Pertinent History Primary Care Physician: [id number] - Allergy/Home Medications Allergies/Adverse Reactions: Allergies Allergy/AdvReac Type Severity Reaction Status Date / Time Tetanus Antitoxin Allergy Shortness Verified 11/26/16 09:11 of Breath PMH/Surg Hx/FS Hx/Imm Hx Endocrine/Hematology History: Reports: Hx Diabetes Denies: Hx Anemia, Hx Unexplained Bleeding Cardiovascular History: Reports: Hx Congestive Heart Failure, Hx Hypertension, Other Cardiovascular Problems/Disorders - CAD/IDDM/AKD/AFIB WITH RVR/CVA WITH RT.SIDED WEAKNESS Denies: Hx Aneurysm, Hx Angina, Hx Angioplasty, Hx Auto Implanted Cardiovert Defib, Hx Cardiac Arrest, Hx Cardiomegaly, Hx Congenital Heart Disease, Hx Coronary Artery Disease, Hx Deep Vein Thrombosis, Hx Embolism, Hx Hypercholesterolemia, Hx Hypotension, Hx Myocardial Infarction, Hx Pacemaker/ICD , Hx Peripheral Vascular Disease, Hx Rheumatic Fever, Hx Syncope, Hx Valvular Heart Disease Respiratory History: Reports: Hx Asthma, Hx Pneumonia, Other Respiratory Problems/Disorders - PNA Denies: Hx Chronic Obstructive Pulmonary Disease (COPD) GI History: Reports: Hx Gall Bladder Disease Denies: Hx Hiatal Hernia History: Reports: Hx Benign Prostatic Hyperplasia, Other Problems/ Disorders - URINARY RETENTION, BPH, AKD Denies: Hx Dialysis, Hx Renal Disease Musculoskeletal History: Reports: Hx Arthritis Denies: Hx Back Problems, Hx Osteoporosis Sensory History: Reports: Hx Hearing Problem Denies: Hx Cataracts, Hx Contacts or Glasses, Hx Eye Injury, Hx Eye Prosthesis, Hx Glaucoma, Hx Legally Blind, Hx Macular Degeneration, Hx Vision Problem, Hx Deafness, Hx Hearing Aid, Other Sensory Impairments Opthamlomology History: Denies: Hx Cataracts, Hx Contacts or Glasses, Hx Eye Injury, Hx Eye Prosthesis, Hx Glaucoma, Hx Legally Blind, Hx Macular Degeneration, Hx Vision Problem, Other Sensory Impairments Neurological History: Reports: Hx CVA Denies: Hx Dementia, Hx Seizures - Cancer History Cancer Type, Location and Year: Skin cancer removed from right forearm - Surgical History Surgery Procedure, Year, and Place: UMBILICAL REPAIR for hernia. Right lower arm skin cancer removed. Right lower leg fracture fixed surgically Hx Anesthesia Reactions: No Infectious Disease History: Denies: Hx Clostridium Difficile, Hx Hepatitis, Hx Human Immunodeficiency Virus (HIV), Hx of Known/Suspected MRSA, Hx Shingles, Hx Tuberculosis, Hx Known/ Suspected VRE, Hx Known/Suspected VRSA, History Other Infectious Disease, Traveled Outside the in Last 30 Days - Family History Known Family History: Positive: None, Diabetes - Brother Family History: no family malignant hyperthermia and anesthesia reaction - Social History Occupation: Retired Lives: Alone Alcohol Use: None Hx Substance Use: No Substance Use Type: Reports: None Substance Use Comment - Amount & Last Used: Chew tabacco Hx Tobacco Use: Yes Smoking Status (MU): Former Smoker Type: Smokeless Tobacco Amount Used/How Often: chews tobacco past 30 yrs Have You Smoked in the Last Year: No Review of Systems Constitutional: Negative Eyes: Negative ENT: Negative Cardiovascular: Negative Positive: Shortness Of Breath Gastrointestinal: Negative Positive: other - blood in urinary catheter Musculoskeletal: Negative Skin: Negative Neurological: Negative Psychological: Normal All Other Systems Reviewed And Are Negative: Yes Physical Exam Triage Information Reviewed: Yes Vital Signs On Initial Exam: Initial Vitals Temp Pulse Resp BP Pulse Ox 97 F 42 20 119/83 100 04/11/17 20:15 04/11/17 20:15 04/11/17 20:15 04/11/17 20:15 04/11/17 20:15 Vital Signs Reviewed: Yes Appearance: Positive: Well-Appearing, No Pain Distress Skin: Positive: Warm Head/Face: Positive: Normal Head/Face Inspection Eyes: Positive: VIRAJ ENT: Positive: Hearing grossly normal Neck: Positive: Supple Respiratory/Lung Sounds: Positive: Breath Sounds Present Cardiovascular: Positive: RRR Abdomen Description: Positive: Nontender, Soft Male Genital Exam: Positive: other - leonardo draining bloody urine Musculoskeletal: Positive: Strength/ROM Intact Neurological: Positive: Alert, Oriented to Person Place, Time Diagnostics - Vital Signs Vital Signs Temp Pulse Resp BP Pulse Ox 04/11/17 20:15 97 F 42 20 119/83 100 - Laboratory Result Diagrams: 04/11/17 21:35 04/11/17 21:35 Lab Statement: Any lab studies that have been ordered have been reviewed, and results considered in the medical decision making process. GIGU Course/Dx - Diagnoses Provider Diagnoses: Hematuria Discharge - Discharge Plan Condition: Improved Disposition: HOME Patient Education Materials: Hematuria (ED) Referrals: Bob Juarez MD [Primary Care Provider] - Stephen Machado MD [Medical Doctor] - The documentation as recorded by the Addy turcios Benjamin accurately reflects the service I personally performed and the decisions made by , Angel Maza MD.
[2017-04-11 21:44] LABS: Hematocrit 37 % (42-52); Hemoglobin 11.9 g/dl (14.0-18.0); Mean Corpuscular HGB Conc 32 g/dl (31-36); Mean Corpuscular Hemoglobin 32 pg (27-31); Mean Corpuscular Volume 99 fL (80-94); Mean Platelet Volume 7 um3 (7.4-10.4); Red Blood Count 3.75 10^6/ul (4.0-5.4); Red Cell Distribution Width 17 % (10.5-15); White Blood Count 11.1 10^3/ul (3.5-10.8)
[2017-04-11 21:57] LABS: Urine Bacteria Absent (Absent); Urine Bilirubin Negative (Negative); Urine Glucose Negative (Negative); Urine Nitrite Negative (Negative)
[2017-04-11 21:58] LABS: Calcium 8.2 mg/dL (8.6-10.3); EGFR African American 44.5 (>60); EGFR Non-African American 34.6 (>60)
[2017-04-11 22:17] LABS: Potassium 3.8 mmol/L (3.5-5.0)
[2017-04-11 22:48] VITALS: BP 125/98
== END | disposition home or self-care (01) ==
LOC: ED 20:10
DX: R31.9 Hematuria, unspecified (principal); Z96.0 Presence of urogenital implants; R06.02 Shortness of breath; I25.10 Atherosclerotic heart disease of native coronary artery without angina pectoris; I10 Essential (primary) hypertension; E11.9 Type 2 diabetes mellitus without complications; J45.909 Unspecified asthma, uncomplicated; Z88.7 Allergy status to serum and vaccine; F17.220 Nicotine dependence, chewing tobacco, uncomplicated
CPT/HCPCS: 36415; 80048; 81003; 81015; 85025; 85610; 87086; 99282

== ENCOUNTER 2018-06-21 23:45 | Emergency (ER) | payer MEDICARE ==
[2018-06-22 00:55] LABS: ABS Basophils 0.1 10^3/ul (0-0.2); ABS Eosinophils 0.2 10^3/ul (0-0.6); ABS Lymphocytes 1.6 10^3/ul (1.0-4.8); ABS Monocytes 0.5 10^3/ul (0-0.8); ABS Neutrophils 5.1 10^3/ul (1.5-7.7); ABS Nucleated RBC 0 10^3/ul; Eosinophil % 2.4 % (0-6); Hematocrit 42 % (42-52); Hemoglobin 14.1 g/dl (14.0-18.0); Mean Corpuscular HGB Conc 34 g/dl (31-36); Mean Corpuscular Hemoglobin 31 pg (27-31); Mean Corpuscular Volume 92 fL (80-94); Mean Platelet Volume 6.6 um3 (7.4-10.4); Nucleated Red Blood Cells % 0; Platelet Count 194 10^3/ul (150-450); Red Blood Count 4.51 10^6/ul (4.00-5.40); Red Cell Distribution Width 16 % (10.5-15); White Blood Count 7.5 10^3/ul (3.5-10.8)
[2018-06-22 01:08] LABS: EGFR Non-African American 34.1 (>60)
--- NOTE | 2018-06-22 02:22 | ED ---
Complaint/Male - History of Current Complaint Chief Complaint: EDUrogenitalProblems Time Seen by Provider: 06/22/18 00:05 Hx Obtained From: Patient Onset/Duration: Sudden Onset, Lasting Hours Timing: Constant Severity Initially: Mild Severity Currently: Mild Location: None - Allergies/Home Medications Allergies/Adverse Reactions: Allergies Allergy/AdvReac Type Severity Reaction Status Date / Time Tetanus Vaccines and Toxoid Allergy Shortness Verified 06/22/18 00:05 of Breath PMH/Surg Hx/FS Hx/Imm Hx Endocrine/Hematology History: Reports: Hx Diabetes Denies: Hx Anemia, Hx Unexplained Bleeding Cardiovascular History: Reports: Hx Congestive Heart Failure, Hx Hypertension, Other Cardiovascular Problems/Disorders - CAD/IDDM/AKD/AFIB WITH RVR/CVA WITH RT.SIDED WEAKNESS Denies: Hx Aneurysm, Hx Angina, Hx Angioplasty, Hx Auto Implanted Cardiovert Defib, Hx Cardiac Arrest, Hx Cardiomegaly, Hx Congenital Heart Disease, Hx Coronary Artery Disease, Hx Deep Vein Thrombosis, Hx Embolism, Hx Hypercholesterolemia, Hx Hypotension, Hx Myocardial Infarction, Hx Pacemaker/ICD , Hx Peripheral Vascular Disease, Hx Rheumatic Fever, Hx Syncope, Hx Valvular Heart Disease Respiratory History: Reports: Hx Asthma, Hx Pneumonia, Other Respiratory Problems/Disorders - PNA Denies: Hx Chronic Obstructive Pulmonary Disease (COPD) GI History: Reports: Hx Gall Bladder Disease Denies: Hx Hiatal Hernia History: Reports: Hx Benign Prostatic Hyperplasia, Other Problems/ Disorders - URINARY RETENTION, BPH, AKD Denies: Hx Dialysis, Hx Renal Disease Musculoskeletal History: Reports: Hx Arthritis Denies: Hx Back Problems, Hx Osteoporosis Sensory History: Reports: Hx Hearing Problem Denies: Hx Cataracts, Hx Contacts or Glasses, Hx Eye Injury, Hx Eye Prosthesis, Hx Glaucoma, Hx Legally Blind, Hx Macular Degeneration, Hx Vision Problem, Hx Deafness, Hx Hearing Aid, Other Sensory Impairments Opthamlomology History: Denies: Hx Cataracts, Hx Contacts or Glasses, Hx Eye Injury, Hx Eye Prosthesis, Hx Glaucoma, Hx Legally Blind, Hx Macular Degeneration, Hx Vision Problem, Other Sensory Impairments Neurological History: Reports: Hx CVA Denies: Hx Dementia, Hx Seizures - Cancer History Cancer Type, Location and Year: Skin cancer removed from right forearm - Surgical History Surgery Procedure, Year, and Place: UMBILICAL REPAIR for hernia. Right lower arm skin cancer removed. Right lower leg fracture fixed surgically Hx Anesthesia Reactions: No Infectious Disease History: No Infectious Disease History: Denies: Hx Clostridium Difficile, Hx Hepatitis, Hx Human Immunodeficiency Virus (HIV), Hx of Known/Suspected MRSA, Hx Shingles, Hx Tuberculosis, Hx Known/ Suspected VRE, Hx Known/Suspected VRSA, History Other Infectious Disease, Traveled Outside the [place] in Last 30 Days - Family History Known Family History: Positive: None, Diabetes - Brother Family History: no family malignant hyperthermia and anesthesia reaction - Social History Alcohol Use: None Hx Substance Use: No Substance Use Type: Reports: None Substance Use Comment - Amount & Last Used: Chew tabacco Hx Tobacco Use: Yes Smoking Status (MU): Former Smoker Type: Smokeless Tobacco Amount Used/How Often: chews tobacco past 30 yrs Have You Smoked in the Last Year: No Physical Exam Vital Signs On Initial Exam: Initial Vitals Temp Pulse Resp BP Pulse Ox 98.4 F 90 20 00 97 06/21/18 23:46 06/21/18 23:46 06/21/18 23:46 06/21/18 23:46 06/21/18 23:46 Diagnostics - Vital Signs Vital Signs Temp Pulse Resp BP Pulse Ox 06/21/18 23:46 98.4 F 90 20 00 97 - Laboratory Lab Results: Lab Results 06/22/18 06/22/18 06/22/18 Range/Units 00:38 00:38 00:38 WBC 7.5 (3.5-10.8) 10^3/ul RBC 4.51 (4.00-5.40) 10^6/ul Hgb 14.1 (14.0-18.0) g/dl Hct 42 (42-52) % MCV 92 (80-94) fL MCH 31 (27-31) pg MCHC 34 (31-36) g/dl RDW 16 H (10.5-15) % Plt Count 194 (150-450) 10^3/ul MPV 6.6 L (7.4-10.4) um3 Neut % (Auto) 68.6 (38-83) % Lymph % (Auto) 21.0 L (25-47) % Tucker % (Auto) 7.1 H (0-7) % Eos % (Auto) 2.4 (0-6) % Baso % (Auto) 0.9 (0-2) % Absolute Neuts (auto) 5.1 (1.5-7.7) 10^3/ul Absolute Lymphs (auto) 1.6 (1.0-4.8) 10^3/ul Absolute Monos (auto) 0.5 (0-0.8) 10^3/ul Absolute Eos (auto) 0.2 (0-0.6) 10^3/ul Absolute Basos (auto) 0.1 (0-0.2) 10^3/ul Absolute Nucleated RBC 0 10^3/ul Nucleated RBC % 0 Sodium 137 (135-145) mmol/L Potassium 4.2 (3.5-5.0) mmol/L Chloride 102 (101-111) mmol/L Carbon Dioxide 25 (22-32) mmol/L Anion Gap 10 (2-11) mmol/L BUN 31 H (6-24) mg/dL Creatinine 1.93 H (0.67-1.17) mg/dL Est GFR ( Amer) 41.3 (>60) Est GFR (Non-Af Amer) 34.1 (>60) BUN/Creatinine Ratio 16.1 (8-20) Glucose 135 H (70-100) mg/dL Lactic Acid 0.9 (0.5-2.0) mmol/L Calcium 9.1 (8.6-10.3) mg/dL Total Bilirubin 1.20 H (0.2-1.0) mg/dL AST 12 L (13-39) U/L ALT 13 (7-52) U/L Alkaline Phosphatase 72 (34-104) U/L C-Reactive Protein 12.13 H (<8.01) mg/L Total Protein 7.6 (6.4-8.9) g/dL Albumin 4.1 (3.2-5.2) g/dL Globulin 3.5 (2-4) g/dL Albumin/Globulin Ratio 1.2 (1-3) Result Diagrams: 06/22/18 00:38 06/22/18 00:38 Lab Statement: Any lab studies that have been ordered have been reviewed, and results considered in the medical decision making process.
--- NOTE | 2018-06-22 02:29 | ED ---
GI/ HPI - HPI Summary HPI Summary: Patient with history of indwelling catheter complains of decreased urinary flow and cloudy urine from the catheter and discomfort from being unable to urinate starting this morning. Patient unaware why he has indwelling Sexton, but states current Sexton has been in place for 3 weeks. Denies fever, cough, sore throat, CP, N/V/D, abdominal pain, change in urine, change in BM, penile discharge, testicular pain. Medical history is DM, CHF, HTN, asthma, BPH, CVA. On Eliquis. - History of Current Complaint Chief Complaint: EDUrogenitalProblems Time Seen by Provider: 06/22/18 00:05 Stated Complaint: UNABLE TO URINATE Hx Obtained From: Patient Timing: Constant Severity: Mild Current Severity: Moderate Pain Intensity: 7 Location of Pain: Suprapubic Pain Characteristics: Aching Associated Signs and Symptoms: Positive: Dysuria Aggravating Factor(s): Nothing Alleviating Factor(s): Nothing - Additional Pertinent History Primary Care Physician: [id number] - Allergy/Home Medications Allergies/Adverse Reactions: Allergies Allergy/AdvReac Type Severity Reaction Status Date / Time Tetanus Vaccines and Toxoid Allergy Shortness Verified 06/22/18 00:05 of Breath PMH/Surg Hx/FS Hx/Imm Hx Endocrine/Hematology History: Reports: Hx Diabetes Denies: Hx Anemia, Hx Unexplained Bleeding Cardiovascular History: Reports: Hx Congestive Heart Failure, Hx Hypertension, Other Cardiovascular Problems/Disorders - CAD/IDDM/AKD/AFIB WITH RVR/CVA WITH RT.SIDED WEAKNESS Denies: Hx Aneurysm, Hx Angina, Hx Angioplasty, Hx Auto Implanted Cardiovert Defib, Hx Cardiac Arrest, Hx Cardiomegaly, Hx Congenital Heart Disease, Hx Coronary Artery Disease, Hx Deep Vein Thrombosis, Hx Embolism, Hx Hypercholesterolemia, Hx Hypotension, Hx Myocardial Infarction, Hx Pacemaker/ICD , Hx Peripheral Vascular Disease, Hx Rheumatic Fever, Hx Syncope, Hx Valvular Heart Disease Respiratory History: Reports: Hx Asthma, Hx Pneumonia, Other Respiratory Problems/Disorders - PNA Denies: Hx Chronic Obstructive Pulmonary Disease (COPD) GI History: Reports: Hx Gall Bladder Disease Denies: Hx Hiatal Hernia History: Reports: Hx Benign Prostatic Hyperplasia, Other Problems/ Disorders - URINARY RETENTION, BPH, AKD Denies: Hx Dialysis, Hx Renal Disease Musculoskeletal History: Reports: Hx Arthritis Denies: Hx Back Problems, Hx Osteoporosis Sensory History: Reports: Hx Hearing Problem Denies: Hx Cataracts, Hx Contacts or Glasses, Hx Eye Injury, Hx Eye Prosthesis, Hx Glaucoma, Hx Legally Blind, Hx Macular Degeneration, Hx Vision Problem, Hx Deafness, Hx Hearing Aid, Other Sensory Impairments Opthamlomology History: Denies: Hx Cataracts, Hx Contacts or Glasses, Hx Eye Injury, Hx Eye Prosthesis, Hx Glaucoma, Hx Legally Blind, Hx Macular Degeneration, Hx Vision Problem, Other Sensory Impairments Neurological History: Reports: Hx CVA Denies: Hx Dementia, Hx Seizures - Cancer History Cancer Type, Location and Year: Skin cancer removed from right forearm - Surgical History Surgery Procedure, Year, and Place: UMBILICAL REPAIR for hernia. Right lower arm skin cancer removed. Right lower leg fracture fixed surgically Hx Anesthesia Reactions: No Infectious Disease History: No Infectious Disease History: Denies: Hx Clostridium Difficile, Hx Hepatitis, Hx Human Immunodeficiency Virus (HIV), Hx of Known/Suspected MRSA, Hx Shingles, Hx Tuberculosis, Hx Known/ Suspected VRE, Hx Known/Suspected VRSA, History Other Infectious Disease, Traveled Outside the [place] in Last 30 Days - Family History Known Family History: Positive: None, Diabetes - Brother Family History: no family malignant hyperthermia and anesthesia reaction - Social History Alcohol Use: None Hx Substance Use: No Substance Use Type: Reports: None Substance Use Comment - Amount & Last Used: Chew tabacco Hx Tobacco Use: Yes Smoking Status (MU): Former Smoker Type: Smokeless Tobacco Amount Used/How Often: chews tobacco past 30 yrs Have You Smoked in the Last Year: No Review of Systems Constitutional: Negative Eyes: Negative ENT: Negative Cardiovascular: Negative Respiratory: Negative Positive: Abdominal Pain Genitourinary: Negative Positive: dysuria Musculoskeletal: Negative Skin: Negative Neurological: Negative Psychological: Normal All Other Systems Reviewed And Are Negative: Yes Physical Exam Triage Information Reviewed: Yes Vital Signs On Initial Exam: Initial Vitals Temp Pulse Resp BP Pulse Ox 98.4 F 90 20 00/00 97 06/21/18 23:46 06/21/18 23:46 06/21/18 23:46 06/21/18 23:46 06/21/18 23:46 Vital Signs Reviewed: Yes Appearance: Positive: Well-Appearing Skin: Positive: Warm Head/Face: Positive: Normal Head/Face Inspection Eyes: Positive: Normal Neck: Positive: Supple Respiratory/Lung Sounds: Positive: Clear to Auscultation Cardiovascular: Positive: Normal Abdomen Description: Positive: Nontender Musculoskeletal: Positive: Normal Neurological: Positive: Normal Psychiatric: Positive: Normal AVPU Assessment: Alert - Destini Coma Scale Best Eye Response: 4 - Spontaneous Best Motor Response: 6 - Obeys Commands Best Verbal Response: 5 - Oriented Coma Scale Total: 15 Diagnostics - Vital Signs Vital Signs Temp Pulse Resp BP Pulse Ox 06/21/18 23:46 98.4 F 90 97 - Laboratory Lab Results: Lab Results 06/22/18 06/22/18 06/22/18 Range/Units 00:38 00:38 00:38 WBC 7.5 (3.5-10.8) 10^3/ul RBC 4.51 (4.00-5.40) 10^6/ul Hgb 14.1 (14.0-18.0) g/dl Hct 42 (42-52) % MCV 92 (80-94) fL MCH 31 (27-31) pg MCHC 34 (31-36) g/dl RDW 16 H (10.5-15) % Plt Count 194 (150-450) 10^3/ul MPV 6.6 L (7.4-10.4) um3 Neut % (Auto) 68.6 (38-83) % Lymph % (Auto) 21.0 L (25-47) % Curry % (Auto) 7.1 H (0-7) % Eos % (Auto) 2.4 (0-6) % Baso % (Auto) 0.9 (0-2) % Absolute Neuts (auto) 5.1 (1.5-7.7) 10^3/ul Absolute Lymphs (auto) 1.6 (1.0-4.8) 10^3/ul Absolute Monos (auto) 0.5 (0-0.8) 10^3/ul Absolute Eos (auto) 0.2 (0-0.6) 10^3/ul Absolute Basos (auto) 0.1 (0-0.2) 10^3/ul Absolute Nucleated RBC 0 10^3/ul Nucleated RBC % 0 Sodium 137 (135-145) mmol/L Potassium 4.2 (3.5-5.0) mmol/L Chloride 102 (101-111) mmol/L Carbon Dioxide 25 (22-32) mmol/L Anion Gap 10 (2-11) mmol/L BUN 31 H (6-24) mg/dL Creatinine 1.93 H (0.67-1.17) mg/dL Est GFR ( Amer) 41.3 (>60) Est GFR (Non-Af Amer) 34.1 (>60) BUN/Creatinine Ratio 16.1 (8-20) Glucose 135 H (70-100) mg/dL Lactic Acid 0.9 (0.5-2.0) mmol/L Calcium 9.1 (8.6-10.3) mg/dL Total Bilirubin 1.20 H (0.2-1.0) mg/dL AST 12 L (13-39) U/L ALT 13 (7-52) U/L Alkaline Phosphatase 72 (34-104) U/L C-Reactive Protein 12.13 H (<8.01) mg/L Total Protein 7.6 (6.4-8.9) g/dL Albumin 4.1 (3.2-5.2) g/dL Globulin 3.5 (2-4) g/dL Albumin/Globulin Ratio 1.2 (1-3) Result Diagrams: 06/22/18 00:38 06/22/18 00:38 Lab Statement: Any lab studies that have been ordered have been reviewed, and results considered in the medical decision making process. GIGU Course/Dx - Course Course Of Treatment: Patient with history of indwelling catheter complains of decreased urinary flow and cloudy urine from the catheter and discomfort from being unable to urinate starting this morning. Patient unaware why he has indwelling Sexton, but states current Sexton has been in place for 3 weeks. Denies fever, cough, sore throat, CP, N/V/D, abdominal pain, change in urine, change in BM, penile discharge, testicular pain. Medical history is DM, CHF, HTN, asthma, BPH, CVA. On Eliquis. Physical exam: No urine in Sexton bag. Some cloudy urine in catheter tube. Normal exam of genitalia. Vital signs within normal limits. Labs at patient baseline. Patient states he feels much better since new catheter placed. Discussed patient with Dr. Wallis who recommended discharge home without antibiotics. UA is consistent with colonization from having indwelling catheter. Patient is asymptomatic, afebrile. Will defer treatment of antibiotics. This has been explained to patient and he understands and approves plan. - Diagnoses Provider Diagnoses: Urinary catheter dysfunction Discharge - Sign-Out/Discharge Documenting (check all that apply): Patient Departure - Discharge Plan Condition: Stable Disposition: HOME Patient Education Materials: Sexton Catheter Placement and Care (ED) Referrals: Bob Juarez MD [Primary Care Provider] - Additional Instructions: Follow-up with primary care. Return to the ED for any new or worsening symptoms - Billing Disposition and Condition Condition: STABLE Disposition: Home
[2018-06-22 03:10] LABS: Urine Appearance Turbid; Urine Blood Negative (Negative); Urine Color Amber; Urine Ketones Negative (Negative); Urine Protein 3+(>=500 mg/dL) (Negative); Urine Red Blood Cell 1+(3-5/hpf) (Absent); Urine Urobilinogen Negative (Negative); Urine White Blood Cell Trace(0-5/hpf) (Absent)
[2018-06-22 03:14] LABS: Urine Appearance Cloudy; Urine Blood 2+ (Negative); Urine Color Yellow; Urine Ketones Negative (Negative); Urine Protein 2+(100 mg/dL) (Negative); Urine Red Blood Cell 2+(6-10/hpf) (Absent); Urine Specific Gravity 1.018 (1.010-1.030); Urine Urobilinogen Negative (Negative); Urine White Blood Cell 3+(>20/hpf) (Absent)
[2018-06-22 03:59] VITALS: BP 153/83
== END 2018-06-22 03:58 | disposition home or self-care (01) ==
LOC: ED 23:45
DX: T83.091A Other mechanical complication of indwelling urethral catheter, initial encounter (principal); R10.9 Unspecified abdominal pain; R30.0 Dysuria; Z87.891 Personal history of nicotine dependence
CPT/HCPCS: 36415; 80053; 81003; 81015; 83605; 85025; 86140; 87040; 87086; 99283

== ENCOUNTER 2018-11-05 21:53 | Emergency (ER) | payer MEDICARE ==
[2018-11-06 00:03] LABS: Urine Appearance Turbid; Urine Bacteria Absent (Absent); Urine Bilirubin Negative (Negative); Urine Blood 3+ (Negative); Urine Color Amber; Urine Glucose Negative (Negative); Urine Ketones Negative (Negative); Urine Nitrite Negative (Negative); Urine Protein 2+(100 mg/dL) (Negative); Urine Red Blood Cell 3+(>10/hpf) (Absent); Urine Specific Gravity 1.019 (1.010-1.030); Urine Urobilinogen Negative (Negative); Urine White Blood Cell 3+(>20/hpf) (Absent)
--- NOTE | 2018-11-06 00:28 | ED ---
GI/ HPI - HPI Summary HPI Summary: Pt is 73 y/o M who presents to ED c/o leonardo catheter dysfunction. Yesterday he had his catheter replaced at his urologist office. Around 1600 today the catheter began not draining properly causing pt to feel distended and sense of urgency. Rates his pain severity as 7/10. - History of Current Complaint Chief Complaint: EDUrogenitalProblems Time Seen by Provider: 11/05/18 23:20 Stated Complaint: UNABLE TO URINATE Hx Obtained From: Patient Onset/Duration: Started Hours Ago, Still Present Timing: Constant Current Severity: Moderate Pain Intensity: 7 Pain Characteristics: Pressure Associated Signs and Symptoms: Negative: Fever Aggravating Factor(s): Nothing Alleviating Factor(s): Nothing - Additional Pertinent History Primary Care Physician: MICHI - Allergy/Home Medications Allergies/Adverse Reactions: Allergies Allergy/AdvReac Type Severity Reaction Status Date / Time Tetanus Vaccines and Toxoid Allergy Shortness Verified 11/09/18 02:49 of Breath PMH/Surg Hx/FS Hx/Imm Hx Endocrine/Hematology History: Reports: Hx Diabetes Denies: Hx Anemia, Hx Unexplained Bleeding Cardiovascular History: Reports: Hx Congestive Heart Failure, Hx Hypertension, Other Cardiovascular Problems/Disorders - CAD/IDDM/AKD/AFIB WITH RVR/CVA WITH RT.SIDED WEAKNESS Denies: Hx Aneurysm, Hx Angina, Hx Angioplasty, Hx Auto Implanted Cardiovert Defib, Hx Cardiac Arrest, Hx Cardiomegaly, Hx Congenital Heart Disease, Hx Coronary Artery Disease, Hx Deep Vein Thrombosis, Hx Embolism, Hx Hypercholesterolemia, Hx Hypotension, Hx Myocardial Infarction, Hx Pacemaker/ICD , Hx Peripheral Vascular Disease, Hx Rheumatic Fever, Hx Syncope, Hx Valvular Heart Disease Respiratory History: Reports: Hx Asthma, Hx Pneumonia, Other Respiratory Problems/Disorders - PNA Denies: Hx Chronic Obstructive Pulmonary Disease (COPD) GI History: Reports: Hx Gall Bladder Disease Denies: Hx Hiatal Hernia History: Reports: Hx Benign Prostatic Hyperplasia, Other Problems/ Disorders - URINARY RETENTION, BPH, AKD Denies: Hx Dialysis, Hx Renal Disease Musculoskeletal History: Reports: Hx Arthritis Denies: Hx Back Problems, Hx Osteoporosis Sensory History: Reports: Hx Hearing Problem Denies: Hx Cataracts, Hx Contacts or Glasses, Hx Eye Injury, Hx Eye Prosthesis, Hx Glaucoma, Hx Legally Blind, Hx Macular Degeneration, Hx Vision Problem, Hx Deafness, Hx Hearing Aid, Other Sensory Impairments Opthamlomology History: Denies: Hx Cataracts, Hx Contacts or Glasses, Hx Eye Injury, Hx Eye Prosthesis, Hx Glaucoma, Hx Legally Blind, Hx Macular Degeneration, Hx Vision Problem, Other Sensory Impairments Neurological History: Reports: Hx CVA Denies: Hx Dementia, Hx Seizures - Cancer History Cancer Type, Location and Year: Skin cancer removed from right forearm - Surgical History Surgery Procedure, Year, and Place: UMBILICAL REPAIR for hernia. Right lower arm skin cancer removed. Right lower leg fracture fixed surgically Hx Anesthesia Reactions: No Infectious Disease History: No Infectious Disease History: Denies: Hx Clostridium Difficile, Hx Hepatitis, Hx Human Immunodeficiency Virus (HIV), Hx of Known/Suspected MRSA, Hx Shingles, Hx Tuberculosis, Hx Known/ Suspected VRE, Hx Known/Suspected VRSA, History Other Infectious Disease, Traveled Outside the in Last 30 Days - Family History Known Family History: Positive: Diabetes - Brother Family History: no family malignant hyperthermia and anesthesia reaction - Social History Alcohol Use: None Hx Substance Use: No Substance Use Type: Reports: None Substance Use Comment - Amount & Last Used: Chew tabacco Hx Tobacco Use: Yes Smoking Status (MU): Former Smoker Type: Smokeless Tobacco Amount Used/How Often: chews tobacco past 30 yrs Have You Smoked in the Last Year: No Review of Systems Negative: Fever Genitourinary: Other - catheter dysfunction Positive: urgency All Other Systems Reviewed And Are Negative: Yes Physical Exam - Summary Physical Exam Summary: Appearance: Well-appearing, Well-nourished, lying in bed comfortable Skin: Warm, dry, no obvious rash Eyes: sclera anicteric, no conjunctival pallor ENT: mucous membranes moist Neck: deferred Respiratory: No signs of respiratory distress Cardiovascular: Appears well perfused, pulses are nml Abdomen: deferred Musculoskeletal: Moving all 4 extremities without obvious discomfort Neurological: Awake and alert, mentation is normal, speech is fluent and appropriate Psychiatric: affect is normal, does not appear anxious or depressed Triage Information Reviewed: Yes Vital Signs On Initial Exam: Initial Vitals Temp Pulse Resp BP Pulse Ox 97.6 F 66 20 112/59 97 11/05/18 21:58 11/05/18 21:58 11/05/18 21:58 11/05/18 21:58 11/05/18 21:58 Vital Signs Reviewed: Yes Diagnostics - Vital Signs Vital Signs Temp Pulse Resp BP Pulse Ox 11/05/18 21:58 97.6 F 66 20 112/59 97 - Laboratory Lab Results: Lab Results 11/05/18 Range/Units 23:51 Urine Color Mandy Urine Appearance Turbid Urine pH 5.0 (5-9) Ur Specific Ivel 1.019 (1.010-1.030) Urine Protein 2+(100 mg/dl) A (Negative) Urine Ketones Negative (Negative) Urine Blood 3+ A (Negative) Urine Nitrate Negative (Negative) Urine Bilirubin Negative (Negative) Urine Urobilinogen Negative (Negative) Ur Leukocyte Esterase 1+ A (Negative) Urine WBC (Auto) 3+(>20/hpf) A (Absent) Urine RBC (Auto) 3+(>10/hpf) A (Absent) Urine Bacteria Absent (Absent) Hyaline Casts Present A (Absent) Urine Glucose Negative (Negative) Lab Statement: Any lab studies that have been ordered have been reviewed, and results considered in the medical decision making process. GIGU Course/Dx - Course Course Of Treatment: Pt is 73 y/o M who presents to ED c/o leonardo catheter dysfunction. Around 1600 today the catheter began not draining properly causing pt to feel distended and sense of urgency. Rates his pain severity as 7/10. Physical exam was normal. Catheter could not flush adequately so nurse replaced catheter with 3 way catheter for irrigation. Few clots were irrigated out and returned clear. Pt was diagnosed with clot retention and discharged home. Pt was agreeable with this plan. - Diagnoses Provider Diagnoses: UTI (urinary tract infection) Discharge - Sign-Out/Discharge Documenting (check all that apply): Patient Departure - Discharge Patient Received Moderate/Deep Sedation with Procedure: No - Discharge Plan Condition: Improved Disposition: HOME Patient Education Materials: Leonardo Catheter Placement and Care (ED) Referrals: Bob Juarez MD [Primary Care Provider] - If Needed - Billing Disposition and Condition Condition: IMPROVED Disposition: Home - Attestation Statements Document Initiated by Scribe: Yes Documenting Scribe: Magdy Moscoso Provider For Whom Scribe is Documenting (Include Credential): Dr. Ozzy Potter MD Scribe Attestation: Magdy Ko, scribed for Dr. Ozzy Potter MD on 11/09/18 at 1422. Scribe Documentation Reviewed: Yes Provider Attestation: The documentation as recorded by the scribe, Magdy Moscoso accurately reflects the service I personally performed and the decisions made by me, Dr. Ozzy Potter MD Status of Scribraymundo Document: Viewed
[2018-11-06 01:31] VITALS: BP 146/87
== END 2018-11-06 01:31 | disposition home or self-care (01) ==
LOC: ED 21:53
DX: N32.89 Other specified disorders of bladder (principal); Z88.7 Allergy status to serum and vaccine; Z87.891 Personal history of nicotine dependence
CPT/HCPCS: 51702; 81003; 81015; 87086; 99282

== ENCOUNTER 2018-11-06 15:56 | Emergency (ER) | payer MEDICARE ==
[2018-11-06] MEDS: Cephalexin CAP* 500 MG PO ONE ×2 (21:38→22:05)
--- NOTE | 2018-11-06 21:54 | ED ---
GI/ HPI - HPI Summary HPI Summary: This patient is a 73 year old male presenting to [facility] with a chief complaint of hematuria [employer]. The patient had a new catheter placed yesterday and experienced some bleeding that resolved. Today, the patient noted blood in his catheter bag and came here to get checked. While he was in the waiting room he states his catheter began to drain. The patient is concerned he might have a blockage. - History of Current Complaint Chief Complaint: EDUrogenitalProblems Time Seen by Provider: 11/06/18 21:02 Stated Complaint: CATH ISSUES Hx Obtained From: Patient Onset/Duration: Started Hours Ago Severity: Mild Current Severity: None Pain Intensity: 0 Associated Signs and Symptoms: Positive: Hematuria - Additional Pertinent History Primary Care Physician: MICHI - Allergy/Home Medications Allergies/Adverse Reactions: Allergies Allergy/AdvReac Type Severity Reaction Status Date / Time Tetanus Vaccines and Toxoid Allergy Shortness Verified 11/09/18 02:49 of Breath Home Medications: Home Medications Sulfamethoxazole/Trimethoprim [Sulfamethoxazole-Tmp Ds Tablet] 1 each PO BID [History Confirmed 11/06/18] PMH/Surg Hx/FS Hx/Imm Hx Endocrine/Hematology History: Reports: Hx Diabetes Denies: Hx Anemia, Hx Unexplained Bleeding Cardiovascular History: Reports: Hx Congestive Heart Failure, Hx Hypertension, Other Cardiovascular Problems/Disorders - CAD/IDDM/AKD/AFIB WITH RVR/CVA WITH RT.SIDED WEAKNESS Denies: Hx Aneurysm, Hx Angina, Hx Angioplasty, Hx Auto Implanted Cardiovert Defib, Hx Cardiac Arrest, Hx Cardiomegaly, Hx Congenital Heart Disease, Hx Coronary Artery Disease, Hx Deep Vein Thrombosis, Hx Embolism, Hx Hypercholesterolemia, Hx Hypotension, Hx Myocardial Infarction, Hx Pacemaker/ICD , Hx Peripheral Vascular Disease, Hx Rheumatic Fever, Hx Syncope, Hx Valvular Heart Disease Respiratory History: Reports: Hx Asthma, Hx Pneumonia, Other Respiratory Problems/Disorders - PNA Denies: Hx Chronic Obstructive Pulmonary Disease (COPD) GI History: Reports: Hx Gall Bladder Disease Denies: Hx Hiatal Hernia History: Reports: Hx Benign Prostatic Hyperplasia, Other Problems/ Disorders - URINARY RETENTION, BPH, AKD Denies: Hx Dialysis, Hx Renal Disease Musculoskeletal History: Reports: Hx Arthritis Denies: Hx Back Problems, Hx Osteoporosis Sensory History: Reports: Hx Hearing Problem Denies: Hx Cataracts, Hx Contacts or Glasses, Hx Eye Injury, Hx Eye Prosthesis, Hx Glaucoma, Hx Legally Blind, Hx Macular Degeneration, Hx Vision Problem, Hx Deafness, Hx Hearing Aid, Other Sensory Impairments Opthamlomology History: Denies: Hx Cataracts, Hx Contacts or Glasses, Hx Eye Injury, Hx Eye Prosthesis, Hx Glaucoma, Hx Legally Blind, Hx Macular Degeneration, Hx Vision Problem, Other Sensory Impairments Neurological History: Reports: Hx CVA Denies: Hx Dementia, Hx Seizures - Cancer History Cancer Type, Location and Year: Skin cancer removed from right forearm - Surgical History Surgery Procedure, Year, and Place: UMBILICAL REPAIR for hernia. Right lower arm skin cancer removed. Right lower leg fracture fixed surgically Hx Anesthesia Reactions: No Infectious Disease History: No Infectious Disease History: Denies: Hx Clostridium Difficile, Hx Hepatitis, Hx Human Immunodeficiency Virus (HIV), Hx of Known/Suspected MRSA, Hx Shingles, Hx Tuberculosis, Hx Known/ Suspected VRE, Hx Known/Suspected VRSA, History Other Infectious Disease, Traveled Outside the [place] in Last 30 Days - Family History Known Family History: Positive: Diabetes - Brother Family History: no family malignant hyperthermia and anesthesia reaction - Social History Alcohol Use: None Hx Substance Use: No Substance Use Type: Reports: None Substance Use Comment - Amount & Last Used: Chew tabacco Hx Tobacco Use: Yes Smoking Status (MU): Former Smoker Type: Smokeless Tobacco Amount Used/How Often: chews tobacco past 30 yrs Have You Smoked in the Last Year: No Review of Systems Negative: Fever Positive: hematuria All Other Systems Reviewed And Are Negative: Yes Physical Exam - Summary Physical Exam Summary: This patient is a 73 year old male presenting to [facility] with a chief complaint of hematuria [employer]. The patient had a new catheter placed yesterday and experienced some bleeding that resolved. Today, the patient noted blood in his catheter bag and came here to get checked. While he was in the waiting room he states his catheter began to drain. The patient is concerned he might have a blockage. Triage Information Reviewed: Yes Vital Signs On Initial Exam: Initial Vitals Temp Pulse Resp BP Pulse Ox 97.4 F 55 16 106/61 98 11/06/18 16:21 11/06/18 16:21 11/06/18 16:21 11/06/18 16:21 11/06/18 16:21 Vital Signs Reviewed: Yes Diagnostics - Vital Signs Vital Signs Temp Pulse Resp BP Pulse Ox 11/06/18 18:20 96.9 F 53 14 99/58 98 11/06/18 16:21 97.4 F 55 16 106/61 98 - Laboratory Lab Statement: Any lab studies that have been ordered have been reviewed, and results considered in the medical decision making process. GIGU Course/Dx - Course Course Of Treatment: This patient is a 73 year old male presenting to [facility] with a chief complaint of hematuria [employer]. The patient had a new catheter placed yesterday and experienced some bleeding that resolved. Today, the patient noted blood in his catheter bag and came here to get checked. The cathetor was drained well and clear liquid was flowing through the catheter. Labs were remarkable for urinary tract infection. A plan for discharge was discussed with the patient and he was agreeable with this plan. - Diagnoses Provider Diagnoses: Urinary tract infection Discharge - Sign-Out/Discharge Documenting (check all that apply): Patient Departure - Discharge Patient Received Moderate/Deep Sedation with Procedure: No - Discharge Plan Condition: Good Disposition: HOME Prescriptions: Cephalexin CAP* [Keflex CAP*] 500 mg PO TID #30 cap Patient Education Materials: Urinary Tract Infection in Men (ED) Referrals: Bob Juarez MD [Primary Care Provider] - Additional Instructions: Check with your regular doctor on Thursday about the urine culture results. It can be very difficult to treat infections like this with a catheter in place and one really does need culture and antibiotic sensitivity results to choose the proper type of antibiotic and duration of treatment. Your catheter does appear to be draining well at present with minimal bleeding. - Billing Disposition and Condition Condition: GOOD Disposition: Home - Attestation Statements Document Initiated by Lucina: Yes Documenting Maryibe: Charli Nelson Provider For Whom Lucina is Documenting (Include Credential): MD Mary Montoyaibe Attestation: Charli Ko, scribed for Ozzy Potter MD on 11/09/18 at 1553. Scribe Documentation Reviewed: Yes Provider Attestation: The documentation as recorded by the Charli turcios accurately reflects the service I personally performed and the decisions made by me, Ozzy Potter MD Status of Scribraymundo Document: Viewed
[2018-11-06 22:10] VITALS: BP 151/71
== END 2018-11-06 22:09 | disposition home or self-care (01) ==
LOC: ED 15:56
DX: N39.0 Urinary tract infection, site not specified (principal); Z87.891 Personal history of nicotine dependence; R31.9 Hematuria, unspecified; I10 Essential (primary) hypertension; I50.9 Heart failure, unspecified; Z86.73 Personal history of transient ischemic attack (TIA), and cerebral infarction without residual deficits
CPT/HCPCS: 99282; A9270-GY

== ENCOUNTER 2018-11-09 02:43 | Emergency (ER) | payer MEDICARE ==
[2018-11-09 05:06] VITALS: BP 131/72
--- NOTE | 2018-11-09 06:09 | ED ---
GI/ HPI - HPI Summary HPI Summary: The patient is a 73 year old male who is presenting to the [facility] with a chief complaint of Leonardo catheter blockage. Upon entering the [facility], the patient states that he has been unable to empty his bag since 219909/06/19. The patient reports of pain from the region of the catheter (suprapubic region of the abd). The patient also reports of a enlarged prostate when discussing pertinent past medical history. The pain is rated to be _/10. Symptoms are aggravated by nothing. Symptoms alleviated by nothing. - History of Current Complaint Chief Complaint: EDUrogenitalProblems Time Seen by Provider: 11/09/18 02:52 Stated Complaint: CATH ISSUE Hx Obtained From: Patient Onset/Duration: Started Days Ago - since 219909/06/19 Timing: Constant Severity: Moderate Current Severity: Moderate Pain Intensity: 5 Location of Pain: Suprapubic Associated Signs and Symptoms: Positive: Other: - Unable to empty urine Aggravating Factor(s): Nothing Alleviating Factor(s): Nothing - Additional Pertinent History Primary Care Physician: [id number] - Allergy/Home Medications Allergies/Adverse Reactions: Allergies Allergy/AdvReac Type Severity Reaction Status Date / Time Tetanus Vaccines and Toxoid Allergy Shortness Verified 11/09/18 02:49 of Breath PMH/Surg Hx/FS Hx/Imm Hx Endocrine/Hematology History: Reports: Hx Diabetes Denies: Hx Anemia, Hx Unexplained Bleeding Cardiovascular History: Reports: Hx Congestive Heart Failure, Hx Hypertension, Other Cardiovascular Problems/Disorders - CAD/IDDM/AKD/AFIB WITH RVR/CVA WITH RT.SIDED WEAKNESS Denies: Hx Aneurysm, Hx Angina, Hx Angioplasty, Hx Auto Implanted Cardiovert Defib, Hx Cardiac Arrest, Hx Cardiomegaly, Hx Congenital Heart Disease, Hx Coronary Artery Disease, Hx Deep Vein Thrombosis, Hx Embolism, Hx Hypercholesterolemia, Hx Hypotension, Hx Myocardial Infarction, Hx Pacemaker/ICD , Hx Peripheral Vascular Disease, Hx Rheumatic Fever, Hx Syncope, Hx Valvular Heart Disease Respiratory History: Reports: Hx Asthma, Hx Pneumonia, Other Respiratory Problems/Disorders - PNA Denies: Hx Chronic Obstructive Pulmonary Disease (COPD) GI History: Reports: Hx Gall Bladder Disease Denies: Hx Hiatal Hernia History: Reports: Hx Benign Prostatic Hyperplasia, Other Problems/ Disorders - URINARY RETENTION, BPH, AKD Denies: Hx Dialysis, Hx Renal Disease Musculoskeletal History: Reports: Hx Arthritis Denies: Hx Back Problems, Hx Osteoporosis Sensory History: Reports: Hx Hearing Problem Denies: Hx Cataracts, Hx Contacts or Glasses, Hx Eye Injury, Hx Eye Prosthesis, Hx Glaucoma, Hx Legally Blind, Hx Macular Degeneration, Hx Vision Problem, Hx Deafness, Hx Hearing Aid, Other Sensory Impairments Opthamlomology History: Denies: Hx Cataracts, Hx Contacts or Glasses, Hx Eye Injury, Hx Eye Prosthesis, Hx Glaucoma, Hx Legally Blind, Hx Macular Degeneration, Hx Vision Problem, Other Sensory Impairments Neurological History: Reports: Hx CVA Denies: Hx Dementia, Hx Seizures - Cancer History Cancer Type, Location and Year: Skin cancer removed from right forearm - Surgical History Surgery Procedure, Year, and Place: UMBILICAL REPAIR for hernia. Right lower arm skin cancer removed. Right lower leg fracture fixed surgically Hx Anesthesia Reactions: No Infectious Disease History: No Infectious Disease History: Denies: Hx Clostridium Difficile, Hx Hepatitis, Hx Human Immunodeficiency Virus (HIV), Hx of Known/Suspected MRSA, Hx Shingles, Hx Tuberculosis, Hx Known/ Suspected VRE, Hx Known/Suspected VRSA, History Other Infectious Disease, Traveled Outside the [place] in Last 30 Days - Family History Known Family History: Positive: Diabetes - Brother Family History: no family malignant hyperthermia and anesthesia reaction - Social History Occupation: Retired Alcohol Use: None Hx Substance Use: No Substance Use Type: Reports: None Substance Use Comment - Amount & Last Used: Chew tabacco Hx Tobacco Use: Yes Smoking Status (MU): Former Smoker Type: Smokeless Tobacco Amount Used/How Often: chews tobacco past 30 yrs Have You Smoked in the Last Year: No Review of Systems Constitutional: Negative Eyes: Negative ENT: Negative Cardiovascular: Negative Respiratory: Negative Positive: Abdominal Pain - Suprapubic abd region Genitourinary: Other - Unable to empty urine using catheter Musculoskeletal: Negative Skin: Negative Neurological: Negative Psychological: Normal All Other Systems Reviewed And Are Negative: Yes Physical Exam - Summary Physical Exam Summary: VITAL SIGNS: Reviewed. GENERAL: Patient is a well-developed and nourished (MALE) who is lying comfortable in the stretcher. Patient is not in any acute respiratory distress. HEAD AND FACE: No signs of trauma. No ecchymosis, hematomas or skull depressions. No sinus tenderness. EYES: PERRLA, EOMI x 2, No injected conjunctiva, no nystagmus. EARS: Hearing grossly intact. Ear canals and tympanic membranes are within normal limits. MOUTH: Oropharynx within normal limits. NECK: Supple, trachea is midline, no adenopathy, no JVD, no carotid bruit, no c- spine tenderness, neck with full ROM. CHEST: Symmetric, no tenderness at palpation LUNGS: Clear to auscultation bilaterally. No wheezing or crackles. CVS: Regular rate and rhythm, S1 and S2 present, no murmurs or gallops appreciated. ABDOMEN: Suprapubic tenderness EXTREMITIES: FROM in all major joints, no edema, no cyanosis or clubbing. NEURO: Alert and oriented x 3. No acute neurological deficits. Speech is normal and follows commands. SKIN: Dry and warm GIGU: Leonardo catheter in place and bag is almost empty Triage Information Reviewed: Yes Vital Signs On Initial Exam: Initial Vitals Temp Pulse Resp BP Pulse Ox 97.8 F 60 16 122/65 96 11/09/18 02:46 11/09/18 02:46 11/09/18 02:46 11/09/18 02:46 11/09/18 02:46 Vital Signs Reviewed: Yes Diagnostics - Vital Signs Vital Signs Temp Pulse Resp BP Pulse Ox 11/09/18 05:04 98.3 F 79 20 131/72 95 11/09/18 02:46 97.8 F 60 16 122/65 96 - Laboratory Lab Statement: Any lab studies that have been ordered have been reviewed, and results considered in the medical decision making process. GIGU Course/Dx - Course Course Of Treatment: The patient is a 73 year old male who is presenting to the [facility] with a chief complaint of a leonardo catheter blockage. The patient has been unable to empty his bag since 09/06/19 (2200) and the catheter was unable drain the urine. Upon the patient's stay in the [facility] and the nurses assistance on catherter was changed and the patient was able to urinate 1000 cc. He will follow up with Dr. Machado as soon as possible. The patient will be discharged home with a dx of a clogged catheter. - Diagnoses Provider Diagnoses: Problem with Leonardo catheter, Urinary catheter (Leonardo) change required Discharge - Sign-Out/Discharge Documenting (check all that apply): Patient Departure - Discharge Home Patient Received Moderate/Deep Sedation with Procedure: No - Discharge Plan Condition: Stable Disposition: HOME Patient Education Materials: Leonardo Catheter Placement and Care (ED) Referrals: Bob Juarez MD [Primary Care Provider] - Stephen Machado MD [Medical Doctor] - Additional Instructions: RETURN TO THE EMERGENCY DEPARTMENT FOR CHANGING OR WORSENING SYMPTOMS. FOLLOW UP WITH Dr. Machado IN 1-2 DAYS. - Attestation Statements Document Initiated by Scribe: Yes Documenting Scribe: Petr Rivera Provider For Whom Scribe is Documenting (Include Credential): Dr. Cruz Wallis Scribe Attestation: I, Petr Rivera, scribed for Dr. Cruz Wallis on 11/09/18 at 0620. Status of Scribe Document: Ready
== END 2018-11-09 04:45 | disposition home or self-care (01) ==
LOC: ED 02:43
DX: T83.098A Other mechanical complication of other urinary catheter, initial encounter (principal); Y84.6 Urinary catheterization as the cause of abnormal reaction of the patient, or of later complication, without mention of misadventure at the time of the procedure; Y92.9 Unspecified place or not applicable; Z87.891 Personal history of nicotine dependence; E11.9 Type 2 diabetes mellitus without complications; I50.9 Heart failure, unspecified; I10 Essential (primary) hypertension; J45.909 Unspecified asthma, uncomplicated; M19.90 Unspecified osteoarthritis, unspecified site; Z86.73 Personal history of transient ischemic attack (TIA), and cerebral infarction without residual deficits; Z85.828 Personal history of other malignant neoplasm of skin
CPT/HCPCS: 51702; 99282